=== PATIENT | male | born 1950 | race Caucasian/White ===

== ENCOUNTER → 2016-07-16 | Outpatient (CLI) | payer BC ==
[2016-07-16 12:00] LABS: INR 2.8 (<1.1); Prothrombin Time 27.1 sec (9.0-12.0)
[2016-07-16 12:08] LABS: Potassium 6.1 mmol/L (3.5-5.1)
[2016-07-16 12:26] LABS: Basophils % (A) 1 %; CH 31.6; CHCM 33.8; Eosinophils # (A) 0.3 k/uL (0-0.7); Eosinophils % (A) 4 %; HCT 35.3 % (39.0-53.0); HDW 2.57; HGB 11.7 gm/dL (13.0-17.5); Luc # (Auto) 0.22; Luc % (Auto) 3; Lymphocytes # (A) 0.6 k/uL (1.0-4.8); Lymphocytes % (A) 7 %; MCH 31.2 pg (25.0-35.0); MCHC 33.3 g/dL (31.0-37.0); MCV 93.9 fL (80.0-100.0); Mean Platelet Volume 7.7; Monocytes # (A) 0.6 k/uL (0-1.0); Monocytes % (A) 7 %; Neutrophils % (A) 80 %; RBC 3.76 m/uL (4.30-5.90); RDW 13.3 % (11.5-15.5); WBC 8.8 k/uL (3.8-10.6); WBC (Perox) 8.65
== END | disposition home or self-care (01) ==
LOC: LABWHC1 11:16
PROVIDERS: ATTEND Internal Medicine Advanced Heart Failure and Transplant Cardiology
DX: Z01.818 Encounter for other preprocedural examination (principal); I42.8 Other cardiomyopathies; I50.9 Heart failure, unspecified; I51.9 Heart disease, unspecified
CPT/HCPCS: 36415; 80048; 84132; 85025; 85610

== ENCOUNTER → 2016-09-08 | Outpatient (CLI) | payer BC ==
[2016-09-08 11:53] LABS: CH 32.5; CHCM 33.4; HCT 38.2 % (39.0-53.0); HDW 2.57; HGB 12.4 gm/dL (13.0-17.5); MCH 31.7 pg (25.0-35.0); MCHC 32.4 g/dL (31.0-37.0); MCV 97.7 fL (80.0-100.0); RBC 3.91 m/uL (4.30-5.90); RDW 13.3 % (11.5-15.5); WBC 5.9 k/uL (3.8-10.6)
[2016-09-08 11:58] LABS: Calcium 9.2 mg/dL (8.4-10.2); Magnesium 2.5 mg/dL (1.6-2.3); Phosphorous 4.5 mg/dL (2.5-4.5); Potassium 4.2 mmol/L (3.5-5.1); Uric Acid 12.7 mg/dL (3.5-8.5)
[2016-09-08 12:07] LABS: % Iron Saturation 20.1 % (20-50)
== END | disposition home or self-care (01) ==
LOC: LABWHC1 11:11
PROVIDERS: ATTEND Nurse Practitioner Family
DX: N18.4 Chronic kidney disease, stage 4 (severe) (principal); D64.9 Anemia, unspecified; M10.9 Gout, unspecified; E55.9 Vitamin D deficiency, unspecified; D50.9 Iron deficiency anemia, unspecified; N39.0 Urinary tract infection, site not specified
CPT/HCPCS: 36415; 80048; 82306; 82728; 83540; 83550; 83735; 83880; 83970; 84100; 84550; 85027

== ENCOUNTER → 2016-11-13 | Outpatient (CLI) | payer BC ==
[2016-11-13 11:33] LABS: Calcium 9.3 mg/dL (8.4-10.2); Potassium 4.4 mmol/L (3.5-5.1); Total Bilirubin 0.9 mg/dL (0.2-1.3); Total Protein 8.1 g/dL (6.3-8.2); Uric Acid 6.8 mg/dL (3.5-8.5)
[2016-11-13 11:37] LABS: CH 31.8; CHCM 34.2; HCT 36.9 % (39.0-53.0); HDW 2.61; HGB 12.9 gm/dL (13.0-17.5); MCH 32.6 pg (25.0-35.0); MCV 93.1 fL (80.0-100.0); Mean Platelet Volume 7.2; RBC 3.96 m/uL (4.30-5.90); RDW 12.6 % (11.5-15.5); WBC 6.1 k/uL (3.8-10.6)
== END | disposition home or self-care (01) ==
LOC: LABWHC1 10:20
PROVIDERS: ATTEND Nurse Practitioner Family
DX: E55.9 Vitamin D deficiency, unspecified (principal); D63.1 Anemia in chronic kidney disease; M10.9 Gout, unspecified; D50.9 Iron deficiency anemia, unspecified; N25.81 Secondary hyperparathyroidism of renal origin; N18.4 Chronic kidney disease, stage 4 (severe)
CPT/HCPCS: 36415; 80053; 82306; 82570; 82728; 83540; 83550; 83970; 84156; 84550; 85027

== ENCOUNTER → 2017-02-05 | Outpatient (CLI) | payer BC ==
[2017-02-05 12:49] LABS: CH 32.5; CHCM 33.3; HCT 38.1 % (39.0-53.0); HDW 2.71; HGB 12.6 gm/dL (13.0-17.5); MCH 32.5 pg (25.0-35.0); MCHC 33.1 g/dL (31.0-37.0); MCV 98.2 fL (80.0-100.0); Mean Platelet Volume 7.7; RBC 3.88 m/uL (4.30-5.90); RDW 13.2 % (11.5-15.5); WBC 5.9 k/uL (3.8-10.6)
[2017-02-05 13:12] LABS: Calcium 9.2 mg/dL (8.4-10.2); Potassium 4.6 mmol/L (3.5-5.1); Total Bilirubin 0.6 mg/dL (0.2-1.3); Total Protein 8.2 g/dL (6.3-8.2); Uric Acid 6.7 mg/dL (3.5-8.5)
[2017-02-05 18:48] LABS: Iron Saturation 21.74 (15.00-50.00)
== END | disposition home or self-care (01) ==
LOC: LABWHC1 12:17
PROVIDERS: ATTEND Nurse Practitioner Family
DX: N18.4 Chronic kidney disease, stage 4 (severe) (principal); D63.1 Anemia in chronic kidney disease; M10.9 Gout, unspecified; D50.9 Iron deficiency anemia, unspecified; N25.81 Secondary hyperparathyroidism of renal origin; E55.9 Vitamin D deficiency, unspecified; E79.0 Hyperuricemia without signs of inflammatory arthritis and tophaceous disease
CPT/HCPCS: 36415; 80053; 82306; 82570; 82728; 83540; 83550; 83970; 84156; 84550; 85027

== ENCOUNTER → 2017-05-07 | Outpatient (CLI) | payer BC ==
[2017-05-07 14:44] LABS: Calcium 9.5 mg/dL (8.4-10.2)
== END | disposition home or self-care (01) ==
LOC: LABWHC1 13:51
PROVIDERS: ATTEND Nurse Practitioner Family
DX: N18.4 Chronic kidney disease, stage 4 (severe) (principal)
CPT/HCPCS: 36415; 80048

== ENCOUNTER → 2017-07-29 | Outpatient (CLI) | payer BC, OTHER | END | disposition home or self-care (01) | LOC: LABWHC1 14:17 | PROVIDERS: ATTEND Nurse Practitioner Family | DX: M10.9 Gout, unspecified (principal) | CPT/HCPCS: 36415; 84550 ==

== ENCOUNTER → 2017-09-08 | Outpatient (CLI) | payer BC, OTHER ==
[2017-09-08 13:06] LABS: Appearance,Urine Clear (Clear); Bilirubin,Urine Negative (Negative); Blood,Urine Negative (Negative); Color,Urine Colorless; Glucose,Urine (UA) Negative (Negative); HCT 36.1 % (39.0-53.0); HGB 12.5 gm/dL (13.0-17.5); Ketones,Urine Negative (Negative); Leukocyte Esterase,Urine Negative (Negative); MCH 33.1 pg (25.0-35.0); MCHC 34.6 g/dL (31.0-37.0); MCV 95.7 fL (80.0-100.0); Mean Platelet Volume 7.2; Nitrite,Urine Negative (Negative); Platelet Count 291 k/uL (150-450); Protein,Urine Negative (Negative); RBC 3.78 m/uL (4.30-5.90); RDW 12.6 % (11.5-15.5); Specific Gravity,Urine 1.003 (1.001-1.035); Urobilinogen,Urine <2.0 mg/dL (<2.0); WBC 5.1 k/uL (3.8-10.6)
[2017-09-08 13:22] LABS: Albumin 4.9 g/dL (3.5-5.0); Calcium 9.4 mg/dL (8.4-10.2); Magnesium 2.3 mg/dL (1.6-2.3); Phosphorus 3.6 mg/dL (2.5-4.5); Total Bilirubin 0.7 mg/dL (0.2-1.3); Total Protein 7.8 g/dL (6.3-8.2); Uric Acid 5.4 mg/dL (3.5-8.5)
[2017-09-08 19:38] LABS: Iron Saturation 19.49 (15.00-50.00)
[2017-09-08 19:47] LABS: Vitamin D 25 Hydroxy 78.4 ng/mL (30.0-100.0)
[2017-09-08 20:01] LABS: Parathyroid Hormone Intact 99.2 pg/mL (14.0-72.0)
== END | disposition home or self-care (01) ==
LOC: LABWHC1 12:33
PROVIDERS: ATTEND Internal Medicine
DX: N18.4 Chronic kidney disease, stage 4 (severe) (principal); D64.9 Anemia, unspecified; N39.0 Urinary tract infection, site not specified; E21.3 Hyperparathyroidism, unspecified; E55.9 Vitamin D deficiency, unspecified; M10.9 Gout, unspecified
CPT/HCPCS: 36415; 80053; 81003; 82306; 82728; 83540; 83550; 83735; 83970; 84100; 84550; 85027

== ENCOUNTER 2017-10-26 09:06 | Emergency (ER) | payer MEDICARE, OTHER ==
[2017-10-26 09:12] VITALS: RESP 18
--- NOTE | 2017-10-26 09:34 | ED ---
General Adult HPI - General Chief complaint: Psychiatric Symptoms Stated complaint: Anxiety Time Seen by Provider: 10/26/17 09:17 Source: patient, RN notes reviewed Mode of arrival: ambulatory Limitations: no limitations - History of Present Illness Initial comments: Patient 67-year-old male presenting to the emergency room today with chief complaint of depression. Patient does admit that he was thrown out of his house last night. He states he has anxiety. States he has a difficult time sleeping. He was up in the middle of night looking for car keys is very anxious about trying to find them. States he woke his up who became upset with him and kicked him out of the house. States it been dealing with things over the last 6 months or so. States been following up with family doctors been trying to adjust his medications to help. He states that went to his family doctor's office opens morning he did go to and he recommended coming here in the emergency room for further evaluation. Patient admits that he's had thoughts of hurting himself. He states he would never act on them. He does give an example that he thought about jumping and awake but states he would never do it. Patient denies any other physical complaints. Patient denies any recent fever, chills, shortness of breath, chest pain, back pain, abdominal pain, nausea or vomiting, numbness or tingling, dysuria or hematuria, constipation or diarrhea, headaches or visual changes, or any other complaints. - Related Data Home Medications Medication Instructions Recorded Confirmed Pravastatin Sodium [Pravachol] 80 mg PO HS 02/03/16 10/26/17 Warfarin [Coumadin] 2.5 mg PO DIRECTED 03/31/16 10/26/17 Ezetimibe [Zetia] 10 mg PO DAILY 10/26/17 10/26/17 Furosemide [Lasix] 80 mg PO BID 10/26/17 10/26/17 Sacubitril/Valsartan [Entresto 24 1 tab PO BID 10/26/17 10/26/17 mg-26 mg Tablet] Vortioxetine Hydrobromide 10 mg PO DAILY 10/26/17 10/26/17 [Trintellix] clonazePAM [KlonoPIN] 0.5 mg PO HS 10/26/17 10/26/17 Previous Rx's Medication Instructions Recorded Carvedilol [Coreg*] 12.5 mg PO BID-W/MEALS #60 tab 03/28/16 Mirtazapine [Remeron] 15 mg PO HS #30 tab 03/28/16 Allergies Allergy/AdvReac Type Severity Reaction Status Date / Time nitroglycerin AdvReac Diarrhea Verified 10/26/17 09:12 [From Nitrostat] Review of Systems ROS Statement: Those systems with pertinent positive or pertinent negative responses have been documented in the HPI. ROS Other: All systems not noted in ROS Statement are negative. Past Medical History Past Medical History: Coronary Artery Disease (CAD), Heart Failure, CVA/TIA, GERD/Reflux, Hypertension History of Any Multi-Drug Resistant Organisms: None Reported Past Surgical History: Cardiac Valve Replacement, Coronary Bypass/CABG Past Anesthesia/Blood Transfusion Reactions: No Reported Reaction Past Psychological History: Depression Smoking Status: Never smoker Past Alcohol Use History: None Reported Past Drug Use History: None Reported - Past Family History Brother(s) Family Medical History: Coronary Artery Disease (CAD), Hyperlipidemia, Hypertension General Exam - General Exam Comments Initial Comments: General: The patient is awake and alert, in no distress, and does not appear acutely ill. Eye: Pupils are equal, round and reactive to light, extra-ocular movements are intact. No nystagmus. There is normal conjunctiva bilaterally. No signs of icterus. Ears, nose, mouth and throat: There are moist mucous membranes and no oral lesions. Neck: The neck is supple, there is no tenderness or JVD. Cardiovascular: There is a regular rate and rhythm. Mechanical valve. Respiratory: Lungs are clear to auscultation, respirations are non-labored, breath sounds are equal. No wheezes, stridor, rales, or rhonchi. Musculoskeletal: Normal ROM, no tenderness. Strength 5/5. Sensation intact. Pulses equal bilaterally 2+. Neurological: A&O x 3. CN II-XII intact, There are no obvious motor or sensory deficits. Coordination appears grossly intact. Speech is normal. Skin: Skin is warm and dry and no rashes or lesions are noted. Psychiatric: Cooperative Limitations: no limitations Course Vital Signs 10/26/17 09:09 Temperature 98.1 F Pulse Rate 86 Respiratory 18 Rate Blood Pressure 135/72 O2 Sat by Pulse 98 Oximetry Medical Decision Making - Medical Decision Making Patient was seen here in the emergency room by mental health. They recommend outpatient further follow-up. Patient checked for safety state that he has no intentions of hurting himself. Will be discharged home - Lab Data Lab Results 10/26/17 Range/Units 09:20 Urine Opiates Screen Not Detected (NotDetected) Ur Oxycodone Screen Not Detected (NotDetected) Urine Methadone Screen Not Detected (NotDetected) Ur Propoxyphene Screen Not Detected (NotDetected) Ur Barbiturates Screen Not Detected (NotDetected) U Tricyclic Antidepress Not Detected (NotDetected) Ur Phencyclidine Scrn Not Detected (NotDetected) Ur Amphetamines Screen Not Detected (NotDetected) U Methamphetamines Scrn Not Detected (NotDetected) U Benzodiazepines Scrn Not Detected (NotDetected) Urine Cocaine Screen Not Detected (NotDetected) U Marijuana (THC) Screen Not Detected (NotDetected) Disposition Clinical Impression: Anxiety Disposition: HOME SELF-CARE Condition: Good Instructions: Anxiety (ED) Additional Instructions: Please follow up with community mental health. Please return to emergency room if the symptoms increase or worsen or for any other concerns. Is patient prescribed a controlled substance at d/c from ED?: No Referrals: Brando Gray MD [Primary Care Provider] - 1-2 days Time of Disposition: 12:49
[2017-10-26 10:06] LABS: Amphetamine Screen,Urine Not Detected (NotDetected); Barbiturate Screen,Urine Not Detected (NotDetected); Benzodiazepines Screen,Urine Not Detected (NotDetected); Cocaine Screen,Urine Not Detected (NotDetected); Methadone Screen, Urine Not Detected (NotDetected); Opiate Screen,Urine Not Detected (NotDetected); Oxycodone Screen, Urine Not Detected (NotDetected); Phencyclidine Screen,Urine Not Detected (NotDetected); Tricyclic Antidepressant,Urine Not Detected (NotDetected); Urn Cannabinoid Scrn Not Detected (NotDetected)
[2017-10-26 13:08] VITALS: BP 138/83; PULSE 82; TEMP 97.1
== END 2017-10-26 13:08 | disposition home or self-care (01) ==
LOC: EC 09:06
DX: F41.9 Anxiety disorder, unspecified (principal); F32.9 Major depressive disorder, single episode, unspecified; R45.851 Suicidal ideations; I11.0 Hypertensive heart disease with heart failure; I50.9 Heart failure, unspecified; I25.10 Atherosclerotic heart disease of native coronary artery without angina pectoris; Z79.01 Long term (current) use of anticoagulants; Z79.899 Other long term (current) drug therapy; Z88.8 Allergy status to other drugs, medicaments and biological substances; Z86.73 Personal history of transient ischemic attack (TIA), and cerebral infarction without residual deficits
CPT/HCPCS: 80306; 82075; 99284

== ENCOUNTER → 2018-02-04 | Outpatient (CLI) | payer MEDICARE ==
[2018-02-04 18:03] LABS: Albumin 4.5 g/dL (3.5-5.0); Calcium 9.6 mg/dL (8.4-10.2); Magnesium 2.2 mg/dL (1.6-2.3); Phosphorus 3.7 mg/dL (2.5-4.5); Potassium 3.9 mmol/L (3.5-5.1); Total Protein 7.4 g/dL (6.3-8.2); Uric Acid 11.8 mg/dL (3.5-8.5)
[2018-02-04 18:06] LABS: HGB 11.7 gm/dL (13.0-17.5); MCH 31.8 pg (25.0-35.0); MCHC 32.4 g/dL (31.0-37.0); Mean Platelet Volume 7.6; Platelet Count 198 k/uL (150-450); RBC 3.68 m/uL (4.30-5.90); RDW 12.8 % (11.5-15.5); WBC 4.5 k/uL (3.8-10.6)
[2018-02-05 02:34] LABS: Parathyroid Hormone Intact 63.7 pg/mL (14.0-72.0)
[2018-02-05 03:06] LABS: Iron Saturation 26.89 (15.00-50.00)
== END | disposition home or self-care (01) ==
LOC: LABWHC1 15:14
PROVIDERS: ATTEND Nurse Practitioner Family
DX: E55.9 Vitamin D deficiency, unspecified (principal); N18.4 Chronic kidney disease, stage 4 (severe); D63.1 Anemia in chronic kidney disease; N39.0 Urinary tract infection, site not specified; E21.3 Hyperparathyroidism, unspecified; M10.9 Gout, unspecified
CPT/HCPCS: 36415; 80053; 82306; 82728; 83540; 83550; 83735; 83970; 84100; 84550; 85027

== ENCOUNTER → 2018-02-05 | Outpatient (CLI) | payer MEDICARE ==
--- NOTE | 2018-02-05 20:15 | CT ---
EXAMINATION TYPE: CT brain wo con DATE OF EXAM: 02/05/2018 COMPARISON: None HISTORY: Personal history of TIA CT DLP: 1121 mGycm Automated exposure control for dose reduction was used. FINDINGS: There is 3 cm area of hypodensity in the right occipital lobe cortex consistent with old infarct. Vu tricles have normal size. There is no midline shift. There is no sign of intracranial hemorrhage. Cecilia la turcica appears normal. Calvarium is intact. IMPRESSION: OLD RIGHT OCCIPITAL LOBE INFARCT. NO ACUTE INTRACRANIAL ABNORMALITY.
== END | disposition home or self-care (01) ==
LOC: RADCTMAIN 17:48
PROVIDERS: ATTEND Family Medicine
DX: Z09 Encounter for follow-up examination after completed treatment for conditions other than malignant neoplasm (principal); Z86.73 Personal history of transient ischemic attack (TIA), and cerebral infarction without residual deficits
CPT/HCPCS: 70450

== ENCOUNTER 2018-02-10 12:06 | Observation (INO) | payer MEDICARE ==
[2018-02-10] MEDS ORDERED: SODIUM CHLORIDE 0.9% 1,000 ML IV STA (12:37)
--- NOTE | 2018-02-10 12:37 | ED ---
General Adult HPI - General Chief complaint: Psychiatric Symptoms Stated complaint: SUICIDAL Time Seen by Provider: 02/10/18 12:19 Source: patient, family, RN notes reviewed, old records reviewed Mode of arrival: ambulatory - History of Present Illness Initial comments: 67-year-old male significant past medical history for psychosis, depression, presented to the emergency room today with having suicidal thoughts and increased depression. He states that he's not been taking his medications past 3 days. She has been taking his warfarin. Does have a history of open-heart surgery and mechanical mitral valve. Patient states that over the last several months she's noticed that it become more depressed and feels the overwhelmed with lots of things going on at home. States lots little things seem to be breaking. He states is more depressed with the weather change going to want her months. He states there is increased anxiety with family issues. Patient family at bedside stating that this is been an ongoing issues but does seem to be worse here over the last few weeks. Patient has made Gen. comments about hurting himself. He states that this is just talk. Does admit that his only true thought processes nose is not taking his medications. He denies thoughts of hurting rales. He denies any other physical complaints. Patient denies any recent fever, shortness of breath, chest pain, back pain, abdominal pain, nausea or vomiting, numbness or tingling, headaches or visual changes, or any other complaints. - Related Data Home Medications Medication Instructions Recorded Confirmed Pravastatin Sodium [Pravachol] 80 mg PO QAM 02/03/16 02/10/18 Warfarin [Coumadin] 2.5 mg PO SUMOTUTHFR 03/31/16 02/10/18 Furosemide [Lasix] 80 mg PO QAM 10/26/17 02/10/18 Sacubitril/Valsartan [Entresto 24 1 tab PO BID 10/26/17 02/10/18 mg-26 mg Tablet] Calcitriol 0.25 mcg PO TUTHSA 02/10/18 02/10/18 Ergocalciferol (Vitamin D2) 50,000 unit PO QMONTH 02/10/18 02/10/18 [Vitamin D2] Mirtazapine [Remeron] 45 mg PO HS 02/10/18 02/10/18 Warfarin Sodium 1.25 mg PO WE 02/10/18 02/10/18 busPIRone HCL 15 mg PO TID 02/10/18 02/10/18 lamoTRIgine [LaMICtal] 25 mg PO HS 02/10/18 02/10/18 Previous Rx's Medication Instructions Recorded Carvedilol [Coreg*] 12.5 mg PO BID-W/MEALS #60 tab 03/28/16 Allergies Allergy/AdvReac Type Severity Reaction Status Date / Time nitroglycerin AdvReac Diarrhea Verified 02/10/18 15:45 [From Nitrostat] Review of Systems ROS Statement: Those systems with pertinent positive or pertinent negative responses have been documented in the HPI. ROS Other: All systems not noted in ROS Statement are negative. Past Medical History Past Medical History: Coronary Artery Disease (CAD), Heart Failure, CVA/TIA, GERD/Reflux, Hypertension Additional Past Medical History / Comment(s): multiple psychological issues History of Any Multi-Drug Resistant Organisms: None Reported Past Surgical History: Cardiac Valve Replacement, Coronary Bypass/CABG Past Anesthesia/Blood Transfusion Reactions: No Reported Reaction Past Psychological History: ADD/ADHD, Anxiety, Depression, PTSD Smoking Status: Never smoker Past Alcohol Use History: None Reported Past Drug Use History: None Reported - Past Family History Brother(s) Family Medical History: Coronary Artery Disease (CAD), Hyperlipidemia, Hypertension General Exam - General Exam Comments Initial Comments: General: The patient is awake and alert, in no distress, and does not appear acutely ill. Eye: Pupils are equal, round and reactive to light. Extra-ocular movements are intact. No nystagmus. There is normal conjunctiva bilaterally. No signs of icterus. Ears, nose, mouth and throat: There are moist mucous membranes and no oral lesions. Neck: The neck is supple, there is no tenderness or JVD. Cardiovascular: There is a regular rate and rhythm. No murmur, rub or gallop is appreciated. Respiratory: Lungs are clear to auscultation, respirations are non-labored, breath sounds are equal. No wheezes, stridor, rales, or rhonchi. Musculoskeletal: Normal ROM, no tenderness. Sensation intact. Neurological: A&O x 3. CN II-XII intact, There are no obvious motor or sensory deficits. Coordination appears grossly intact. Speech is normal. Skin: Skin is warm and dry and no rashes or lesions are noted. Psychiatric: Cooperative. Course Vital Signs 02/10/18 02/10/18 12:12 15:07 Temperature 98.3 F 98.0 F Pulse Rate 77 69 Respiratory 18 18 Rate Blood Pressure 90/56 107/56 O2 Sat by Pulse 100 98 Oximetry EKG Findings - EKG Comments: EKG Findings:: EKG performed at 1316: Shows a sinus rhythm with occasional PVCs at 69 bpm. MS interval 146. QRS 118. QT/QTc is 422/452. No acute ST changes Medical Decision Making - Medical Decision Making Patient reexamined at this time. No signs of distress. He was evaluated by mental health here in the emergency room and he recommended the patient may be discharged home to follow up outpatient. Patient denies any thoughts of hurting himself at this time is states is not wanting his medications he does have an appointment tomorrow. Patient's labs been reviewed. Does show elevated kidney function which is similar to previous. Patient's INR is therapeutic at 2.4. Patient's family was not at bedside when he was evaluated by mental health. After they returned here to the hospital. They're refusing that patient should not be allowed to go home. They're here feel that he may hurt himself or others. Patient denies any thoughts suicide at this time. They have talked to the PCP. He is willing to admit for suicide precautions and watch. Patient will be admitted to the hospital with consult to psychiatry. - Lab Data Result diagrams: 02/10/18 13:05 02/10/18 13:05 Lab Results 02/10/18 02/10/18 02/10/18 Range/Units 13:05 13:05 13:05 WBC 3.8 (3.8-10.6) k/uL RBC 3.67 L (4.30-5.90) m/uL Hgb 11.6 L (13.0-17.5) gm/dL Hct 34.5 L (39.0-53.0) % MCV 94.0 (80.0-100.0) fL MCH 31.7 (25.0-35.0) pg MCHC 33.7 (31.0-37.0) g/dL RDW 12.6 (11.5-15.5) % Plt Count 193 (150-450) k/uL Neutrophils % 68 % Lymphocytes % 16 % Monocytes % 8 % Eosinophils % 4 % Basophils % 1 % Neutrophils # 2.6 (1.3-7.7) k/uL Lymphocytes # 0.6 L (1.0-4.8) k/uL Monocytes # 0.3 (0-1.0) k/uL Eosinophils # 0.2 (0-0.7) k/uL Basophils # 0.0 (0-0.2) k/uL PT 21.8 H (9.0-12.0) sec INR 2.4 H (<1.2) APTT 31.3 H (22.0-30.0) sec Sodium 141 (137-145) mmol/L Potassium 3.6 (3.5-5.1) mmol/L Chloride 101 (98-107) mmol/L Carbon Dioxide 32 H (22-30) mmol/L Anion Gap 8 mmol/L BUN 39 H (9-20) mg/dL Creatinine 1.97 H (0.66-1.25) mg/dL Est GFR (CKD-EPI)AfAm 40 (>60 ml/min/1.73 sqM) Est GFR (CKD-EPI)NonAf 35 (>60 ml/min/1.73 sqM) Glucose 114 H (74-99) mg/dL Calcium 9.2 (8.4-10.2) mg/dL Total Bilirubin 0.7 (0.2-1.3) mg/dL AST 25 (17-59) U/L ALT 21 (21-72) U/L Alkaline Phosphatase 43 (38-126) U/L Total Protein 6.8 (6.3-8.2) g/dL Albumin 4.1 (3.5-5.0) g/dL Disposition Clinical Impression: Depression Disposition: ADMITTED IP TO THIS HOSP Condition: Good Instructions: Depression (ED) Additional Instructions: Please follow-up with your scheduled appointment tomorrow. Please return here to the emergency room for any symptoms increase worsen or for any other concerns. Is patient prescribed a controlled substance at d/c from ED?: No Referrals: Brando Gray MD [Primary Care Provider] - 1-2 days Time of Disposition: 15:06
[2018-02-10 13:20] LABS: Basophils % (A) 1 %; Eosinophils # (A) 0.2 k/uL (0-0.7); Eosinophils % (A) 4 %; HCT 34.5 % (39.0-53.0); HGB 11.6 gm/dL (13.0-17.5); Lymphocytes # (A) 0.6 k/uL (1.0-4.8); Lymphocytes % (A) 16 %; MCH 31.7 pg (25.0-35.0); MCHC 33.7 g/dL (31.0-37.0); Mean Platelet Volume 7.9; Monocytes # (A) 0.3 k/uL (0-1.0); Monocytes % (A) 8 %; Neutrophils # (A) 2.6 k/uL (1.3-7.7); Neutrophils % (A) 68 %; Platelet Count 193 k/uL (150-450); RBC 3.67 m/uL (4.30-5.90); RDW 12.6 % (11.5-15.5); WBC 3.8 k/uL (3.8-10.6)
[2018-02-10 13:32] LABS: INR 2.4 (<1.2); Partial Thromboplastin Time 31.3 sec (22.0-30.0); Prothrombin Time 21.8 sec (9.0-12.0)
[2018-02-10 13:34] LABS: Albumin 4.1 g/dL (3.5-5.0); Calcium 9.2 mg/dL (8.4-10.2); Potassium 3.6 mmol/L (3.5-5.1); Total Bilirubin 0.7 mg/dL (0.2-1.3); Total Protein 6.8 g/dL (6.3-8.2)
[2018-02-10] MEDS ORDERED: NALOXONE 0.4 MG/ML 1 ML VIAL IV PRN (16:37)
[2018-02-10] MEDS ORDERED: WARFARIN 2.5 MG TAB PO SCH (21:00)
[2018-02-10] MEDS ORDERED: WARFARIN 1.25 MG TAB PO SCH (21:15)
[2018-02-10] MEDS: CARVEDILOL 12.5 MG TAB PO SCH (22:56)
[2018-02-10] MEDS: MIRTAZAPINE 45 MG TABLET PO SCH (22:57)
[2018-02-10] MEDS: lamoTRIgine 25 MG TAB PO SCH (22:57)
[2018-02-10] MEDS: busPIRone HCl 5 MG TAB PO SCH (22:58)
[2018-02-10] MEDS: SACUBITRIL/VALSARTAN 24 MG-26 MG TABLET PO SCH (22:58)
[2018-02-11] MEDS: FUROSEMIDE 80 MG TAB PO SCH (08:35)
[2018-02-11] MEDS: busPIRone HCl 5 MG TAB PO SCH ×3 (08:35→22:16)
[2018-02-11] MEDS: PRAVASTATIN SODIUM 80 MG TAB PO SCH (08:35)
[2018-02-11] MEDS: CARVEDILOL 12.5 MG TAB PO SCH ×2 (08:35→16:45)
[2018-02-11] MEDS: SACUBITRIL/VALSARTAN 24 MG-26 MG TABLET PO SCH ×2 (08:35→22:15)
[2018-02-11] MEDS ORDERED: CALCITRIOL 0.25 MCG CAP PO SCH (12:00)
[2018-02-11] MEDS ORDERED: WARFARIN 2.5 MG TAB PO SCH (18:00)
[2018-02-11] MEDS: lamoTRIgine 25 MG TAB PO SCH (22:14)
[2018-02-11] MEDS: MIRTAZAPINE 45 MG TABLET PO SCH (22:15)
[2018-02-12 06:35] VITALS: RESP 15; TEMP 97.1
[2018-02-12] MEDS: busPIRone HCl 5 MG TAB PO SCH (08:23)
[2018-02-12] MEDS: SACUBITRIL/VALSARTAN 24 MG-26 MG TABLET PO SCH (08:23)
[2018-02-12] MEDS: CARVEDILOL 12.5 MG TAB PO SCH (08:24)
[2018-02-12] MEDS: PRAVASTATIN SODIUM 80 MG TAB PO SCH (08:24)
[2018-02-12] MEDS: FUROSEMIDE 80 MG TAB PO SCH (08:24)
[2018-02-12 10:07] VITALS: BP 82/60; PULSE 75
--- NOTE | 2018-02-12 12:50 | HP ---
HISTORY AND PHYSICAL DATE OF SERVICE: 02/11/2018 CHIEF COMPLAINT: A 67-year-old white male came in with severe depression, not eating, not drinking, not taking his medicines for systolic heart failure. He has severe systolic heart failure and arrhythmia trouble. He has been having suicidal thoughts daily. His is afraid to keep him at home due to a suicide risk and severe depression and he has stopped taking all his medicines due to severe depression. He is overwhelmed with life, unable to think straight or he has some delusions about his medications and his thought process is totally off to the fact that he is refusing to eat or drink or take medicines. HOME MEDICINES INCLUDE:: 1. Pravachol 80 mg daily. 2. Lasix 80 mg daily. 3. Entresto 24/25 one b.i.d. 4. Warfarin 1.25 mg once daily. 5. Remeron 45 q.h.s. 6. BuSpar 15 t.i.d. 7. Lamictal 25 daily. ALLERGIES: No known drug allergies. 14 POINT REVIEW OF SYSTEMS: Negative except for as mentioned in HPI. He has some shortness of breath with congestive heart failure. His brother has hypertension, coronary artery disease, dyslipidemia. PHYSICAL EXAM: Temp 98.3, pulse 69.7, respiratory 16 to 18, blood pressure is 90s to 100/50s to 70s, O2 is 98%-100% on room air. NEUROLOGIC: Alert and oriented x3. Cranial nerves intact. HEART: S1, S2. LUNGS: Rales at the bases. ENT: External appearance of nose and ear canals within normal limits. NECK: Supple. No mass. PSYCH: Fair mood and affect. EKG sinus rhythm. ASSESSMENT: 1. History of bipolar and severe depression with suicidal ideations. 2. Malnutrition, weight loss secondary to depression and lack of food intake, malnutrition. 3. He states he is suicidal at this time and he needs inpatient psychiatric care and family counseling with his . I am going to keep him until Psych clears him and possibly transfer him to [facility] which is where he needs to go.. MMPRAVEEN / SALOMEN: [id number] /
--- NOTE | 2018-02-12 13:29 | P.CN ---
Psychiatric Consult - . Consult date: 02/12/18 Consult:: 02/12/18 13:22 Depression and suicidal thoughts Assessment and Plan Assessment: Consult: Depression and suicidal statements Chief complaint: Psychiatric Symptoms Stated complaint: SUICIDAL Time Seen by Provider: 02/10/18 12:19 Source: patient, family, RN notes reviewed, old records reviewed Mode of arrival: ambulatory - History of Present Illness Initial comments: 67-year-old male significant past medical history for psychosis, depression, presented to the emergency room today with having suicidal thoughts and increased depression. He states that he's not been taking his medications past 3 days. She has been taking his warfarin. Does have a history of open-heart surgery and mechanical mitral valve. Patient states that over the last several months she's noticed that it become more depressed and feels the overwhelmed with lots of things going on at home. States lots little things seem to be breaking. He states is more depressed with the weather change going to want her months. He states there is increased anxiety with family issues. Patient family at bedside stating that this is been an ongoing issues but does seem to be worse here over the last few weeks. Patient has made Gen. comments about hurting himself. He states that this is just talk Past Medical History Past Medical History: Coronary Artery Disease (CAD), Heart Failure, CVA/TIA, GERD/Reflux, Hypertension Additional Past Medical History / Comment(s): multiple psychological issues History of Any Multi-Drug Resistant Organisms: None Reported Past Surgical History: Cardiac Valve Replacement, Coronary Bypass/CABG Past Anesthesia/Blood Transfusion Reactions: No Reported Reaction Past Psychological History: ADD/ADHD, Anxiety, Depression, PTSD Smoking Status: Never smoker Past Alcohol Use History: None Reported Past Drug Use History: None Reported Mental status examination: The patient presents alert, pleasant, and cooperative. There calmly seated without any agitated behavior. [He] reports that [his] mood is good. Affect is congruent and euthymic. [E] deny having any suicidal or homicidal ideation intent or plan. [He] denies any auditory or visual hallucinations. There is no evidence of any delusional thought content. [He] thought process is linear and goal-directed. [His] speech is fluent and nonpressured. [His] memory and concentration is grossly intact for the purposes of this session. DSM-V diagnoses: Major depressive disorder severe and in remission Recommendation: Continue his current psychiatric medications and discharge when medically stable (1) Depression Current Visit: Yes Status: Acute Priority: Low Code(s): F32.9 - MAJOR DEPRESSIVE DISORDER, SINGLE EPISODE, UNSPECIFIED SNOMED Code(s): 32191365 Plan: Pravastatin Sodium [Pravachol] 80 mg PO QAM 02/03/16 02/10/18 Warfarin [Coumadin] 2.5 mg PO SUMOTUTHFR 03/31/16 02/10/18 Furosemide [Lasix] 80 mg PO QAM 10/26/17 02/10/18 Sacubitril/Valsartan [Entresto 24 1 tab PO BID 10/26/17 02/10/18 mg-26 mg Tablet] Calcitriol 0.25 mcg PO TUTHSA 02/10/18 02/10/18 Ergocalciferol (Vitamin D2) 50,000 unit PO QMONTH 02/10/18 02/10/18 [Vitamin D2] Mirtazapine [Remeron] 45 mg PO HS 02/10/18 02/10/18 Warfarin Sodium 1.25 mg PO WE 02/10/18 02/10/18 busPIRone HCL 15 mg PO TID 02/10/18 02/10/18 lamoTRIgine [LaMICtal] 25 mg PO HS 02/10/18 02/10/18 Discharge plan: This is 67-year-old male with stable today and should be discharged when medically stable on his psychiatric on medications listed above such as Remeron BuSpar Lamictal. Thank you for the consult Beny Mcmahon DO PhD attending psychiatrist Rebecca Alvares
[2018-02-15] MEDS ORDERED: ERGOCALCIFEROL 50,000 UNIT CAP PO SCH (12:00)
== END 2018-02-12 14:49 ==
LOC: EC 12:06 → 4MS4W 17:11
PROVIDERS: ADMIT Family Medicine; ATTEND Family Medicine
DX: F31.4 Bipolar disorder, current episode depressed, severe, without psychotic features (principal); R45.851 Suicidal ideations; R94.4 Abnormal results of kidney function studies; E46 Unspecified protein-calorie malnutrition; I11.0 Hypertensive heart disease with heart failure; I50.20 Unspecified systolic (congestive) heart failure; I25.10 Atherosclerotic heart disease of native coronary artery without angina pectoris; Z63.79 Other stressful life events affecting family and household; F90.9 Attention-deficit hyperactivity disorder, unspecified type; F43.10 Post-traumatic stress disorder, unspecified; F41.9 Anxiety disorder, unspecified; K21.9 Gastro-esophageal reflux disease without esophagitis; Z79.01 Long term (current) use of anticoagulants; Z79.899 Other long term (current) drug therapy; Z88.8 Allergy status to other drugs, medicaments and biological substances; Z95.2 Presence of prosthetic heart valve; Z95.1 Presence of aortocoronary bypass graft; Z86.73 Personal history of transient ischemic attack (TIA), and cerebral infarction without residual deficits; Z82.49 Family history of ischemic heart disease and other diseases of the circulatory system; Z83.49 Family history of other endocrine, nutritional and metabolic diseases
CPT/HCPCS: 82075; 96360; 99285; 36415; 93005; 80053; 85025; 85610; 85730; G0378 ×3

== ENCOUNTER 2018-03-09 14:19 | Inpatient (IN) | payer MEDICARE ==
--- NOTE | 2018-03-09 17:37 | CT ---
EXAMINATION TYPE: CT brain wo con DATE OF EXAM: 03/09/2018 HISTORY: Altered mental status. CT DLP: 1046.7 mGycm. Automated Exposure Control for Dose Reduction was Utilized. TECHNIQUE: CT scan of the head is performed without contrast. COMPARISON: CT brain February 05, 2018. FINDINGS: There is no acute intracranial hemorrhage or midline shift identified. There is diffuse v entricular and sulcal prominence consistent with diffuse age-related cerebral atrophy. There is low- attenuation in the periventricular white matter consistent with chronic small vessel ischemic change. There is old infarct right parietal occipital region axial image 32 redemonstrated. Bilateral basal ganglia calcifications are present. The globes are intact and the visualized sinuses are clear. IMPRESSION: No acute intracranial hemorrhage or midline shift. There is mild to moderate diffuse ag e-related cerebral atrophy and chronic small vessel ischemic change as well as old infarct right adonis etal occipital region all redemonstrated. No significant change from prior CT.
[2018-03-09 17:57] LABS: Basophils % (A) 1 %; Eosinophils # (A) 0.1 k/uL (0-0.7); Eosinophils % (A) 3 %; HCT 35.2 % (39.0-53.0); Lymphocytes # (A) 0.7 k/uL (1.0-4.8); Lymphocytes % (A) 17 %; MCH 32.7 pg (25.0-35.0); MCHC 34.2 g/dL (31.0-37.0); MCV 95.7 fL (80.0-100.0); Mean Platelet Volume 7.5; Monocytes # (A) 0.3 k/uL (0-1.0); Monocytes % (A) 7 %; Neutrophils # (A) 2.7 k/uL (1.3-7.7); Neutrophils % (A) 70 %; Platelet Count 214 k/uL (150-450); RBC 3.68 m/uL (4.30-5.90); RDW 12.7 % (11.5-15.5); WBC 3.9 k/uL (3.8-10.6)
[2018-03-09 18:13] LABS: Albumin 4.7 g/dL (3.5-5.0); Calcium 10.3 mg/dL (8.4-10.2); Potassium 4.4 mmol/L (3.5-5.1); Total Bilirubin 1.1 mg/dL (0.2-1.3); Total Protein 7.5 g/dL (6.3-8.2)
[2018-03-09] MEDS: SODIUM CHLORIDE 0.9% 1,000 ML IV SCH (21:00)
--- NOTE | 2018-03-09 21:45 | P.CNNES ---
History of Present Illness Consult date: 03/09/18 History of Present Illness: The patient is a 67-year-old right-handed white male who states that he's been depressed for the past 1 year. He states he's had a lot of stress at home. He states he's not been eating any's had an weight loss. He's been doing less including walking eating dressing getting out of the house. Patient was recently hospitalized at [facility] on February 10 with depression and suicidal thoughts. The patient has a history of psychosis depression and PTSD OCD all diagnosed this year at [facility]. His reports that his depression began this year and the month of July. She states he's had a 60 pound weight loss in a matter of 6 months area did he had some outpatient therapy it's a [facility] during the summer months of October to December. She states that he cannot take care of himself at all anymore because of he does doesn't do anything. She reports that he was prescribed a medication on his last admission which was very expensive and they could not afford it. Also she reports that the medications that he was on including Lamictal BuSpar and Remeron he stopped taking within 3 days of being discharged from the hospital 1 month ago. The patient has no particular neurologic complaints. He denies any headache dizziness focal weakness numbness or visual changes. He has a history of stroke in 2014 during this cardiac catheterization procedure. This affected his vision which improved. 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 The patient's states he's been fine up until July 2017. She states he suddenly became very depressed. She states there is no stress at home. The patient however states that there is a lot of stress in his home life for the past 1 year. Review of Systems Constitutional: Denies chills, Denies fever Eyes: denies blurred vision, denies pain Ears, nose, mouth and throat: Denies headache, Denies sore throat Cardiovascular: Denies chest pain, Denies shortness of breath Respiratory: Reports as per HPI Musculoskeletal: Denies myalgias Neurological: Denies numbness, Denies weakness Past Medical History Past Medical History: Coronary Artery Disease (CAD), Heart Failure, CVA/TIA, GERD/Reflux, Hyperlipidemia, Hypertension, Memory Impairment, Myocardial Infarction ([place]), Renal Disease Additional Past Medical History / Comment(s): per pt's pt has anxiety/ depression,ptsd,obsessive compulsive disorder and no appetite-lost 50# in past 6 months , past cva some mild residual memory problems, cardiomyopathy, hx of mitral valve disease(repalcement done)constipation, pt stated has had a pne vaccine in past not sure of date, 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 Last Myocardial Infarction Date:: unk History of Any Multi-Drug Resistant Organisms: None Reported Past Surgical History: AICD, Cardiac Valve Replacement, Coronary Bypass/CABG, Tonsillectomy Additional Past Surgical History / Comment(s): several thoracentesis, cabg 1999, mitral valve repalcement and bypass graft redo in [place], colonoscopy/ polypectomy-[facility] Past Anesthesia/Blood Transfusion Reactions: No Reported Reaction Type of Cardiac Device: AICD Device Placement Date:: 03-31-16 Smoking Status: Never smoker - Past Family History Brother(s) Family Medical History: Coronary Artery Disease (CAD), Hyperlipidemia, Hypertension Mother Family Medical History: Dementia, Hypertension Additional Family Medical History / Comment(s): mom is age 92 lives in [facility] Father Family Medical History: Cancer Additional Family Medical History / Comment(s): from melanoma cancer Medications and Allergies Home Medications Medication Instructions Recorded Confirmed Type Carvedilol [Coreg*] 12.5 mg PO BID-W/MEALS #60 tab 03/28/16 03/09/18 Rx Warfarin [Coumadin] 2.5 mg PO SUMOTUTHFR 03/31/16 03/09/18 History Furosemide [Lasix] 80 mg PO DAILY@0900 10/26/17 03/09/18 History Calcitriol 0.25 mcg PO TUTHSA 02/10/18 03/09/18 History Ergocalciferol (Vitamin D2) 50,000 unit PO Q30D 02/10/18 03/09/18 History [Vitamin D2] Warfarin Sodium 1.25 mg PO WE 02/10/18 03/09/18 History Pravastatin Sodium [Pravachol] 80 mg PO DAILY@0900 03/09/18 03/09/18 History Sacubitril/Valsartan [Entresto 49 1 tab PO BID@0900,2100 03/09/18 03/09/18 History mg-51 mg Tablet] Allergies Allergy/AdvReac Type Severity Reaction Status Date / Time nitroglycerin AdvReac headache/na Verified 03/09/18 19:19 [From Nitrostat] usea Physical Examination - Vital Signs Vital Signs: Vital Signs Temp Pulse Resp BP Pulse Ox 03/09/18 21:00 97.3 F L 77 18 89/59 97 03/09/18 17:00 98.7 F 76 18 112/76 97 Intake and Output 03/09/18 03/09/18 03/09/18 06:59 14:59 22:59 Other: Weight 53 kg - Constitutional General appearance: thin - EENT EENT: PERRL, hearing intact, vision intact - Respiratory Respiratory: lungs clear - Cardiovascular Cardiovascular: regular rate, normal S1, normal S2 - Neurologic Neurologic examination: Mental status: He was awake, alert oriented to person place and time he was a with able to do serial subtractions and additions was no a aphasia or dysarthria mood was anxious and depressed Cranial nerves II through XII: Grossly intact next Motor examination: 5 out of 5 throughout next Sensory examination: Intact to light touch X Deep tendon reflexes 1+ and symmetric next Gait: Not tested Results - Laboratory Findings CBC and BMP: 03/09/18 17:45 03/09/18 17:45 Abnormal Lab Findings: Abnormal Labs 03/09/18 03/09/18 17:45 17:45 RBC 3.68 L Hgb 12.0 L Hct 35.2 L Lymphocytes # 0.7 L BUN 78 H Creatinine 2.72 H Calcium 10.3 H Assessment and Plan (1) Major depressive disorder Current Visit: Yes Status: Acute SNOMED Code(s): 136787621 (2) History of stroke Current Visit: Yes Status: Chronic SNOMED Code(s): 266045187 Plan: The patient is a 67-year-old man with history of depression with a past psychiatric history of bipolar disorder PTSD ADD and general anxiety disorder. The patient presents with severe depression and anxiety. She does not functioning appropriately at home. According to his he is no longer eating dressing or doing much of anything at home. is not taking his medications. Patient denies any suicidal ideations. He has no neurologic complaints. He has had a CAT scan of the brain which showed old right parietal occipital infarct. Recommendpsychiatry evaluation.
[2018-03-10] MEDS: SODIUM CHLORIDE 0.9% 1,000 ML IV SCH ×3 (05:00→21:11)
[2018-03-10 10:57] VITALS: BMI 20.7
[2018-03-10] MEDS: SACUBITRIL/VALSARTAN 49 MG-51 MG TABLET PO SCH ×2 (12:01→21:04)
[2018-03-10 12:02] LABS: INR 2.8 (<1.2); Prothrombin Time 25.4 sec (9.0-12.0)
--- NOTE | 2018-03-10 12:37 | P.CN ---
Psychiatric Consult - . Consult date: 03/10/18 Consult:: 03/10/18 10:37 Severe depression and anxiety Assessment and Plan Assessment: History of Present Illness: The patient is a 67-year-old right-handed white male who states that he's been depressed for the past 1 year. He states he's had a lot of stress at home. He states he's not been eating any's had an weight loss. He's been doing less including walking eating dressing getting out of the house. Patient was recently hospitalized at [facility] on February 10 with depression and suicidal thoughts. The patient has a history of psychosis depression and PTSD OCD all diagnosed this year at [facility]. His reports that his depression began this year and the month of July. She states he's had a 60 pound weight loss in a matter of 6 months area did he had some outpatient therapy it's a [facility] during the summer months of October to December. She states that he cannot take care of himself at all anymore because of he does doesn't do anything. She reports that he was prescribed a medication on his last admission which was very expensive and they could not afford it. Also she reports that the medications that he was on including Lamictal BuSpar and Remeron he stopped taking within 3 days of being discharged from the hospital 1 month ago. The patient has no particular neurologic complaints. He denies any headache dizziness focal weakness numbness or visual changes. He has a history of stroke in 2014 during this cardiac catheterization procedure. This affected his vision which improved. 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 The patient's states he's been fine up until July 2017. She states he suddenly became very depressed. She states there is no stress at home. The patient however states that there is a lot of stress in his home life for the past 1 year. 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 Last Myocardial Infarction Date:: unk History of Any Multi-Drug Resistant Organisms: None Reported Past Surgical History: AICD, Cardiac Valve Replacement, Coronary Bypass/CABG, Tonsillectomy Additional Past Surgical History / Comment(s): several thoracentesis, cabg 1999, mitral valve repalcement and bypass graft redo in [place], colonoscopy/ [facility]pectomy-[facility] Past Anesthesia/Blood Transfusion Reactions: No Reported Reaction Type of Cardiac Device: AICD Device Placement Date:: 03-31-16 Smoking Status: Never smoker - Past Family History Brother(s) Family Medical History: Coronary Artery Disease (CAD), Hyperlipidemia, Hypertension Mother Family Medical History: Dementia, Hypertension Additional Family Medical History / Comment(s): mom is age 92 lives in [facility] Father Family Medical History: Cancer Additional Family Medical History / Comment(s): from melanoma cancer Home Medications Medication Instructions Recorded Confirmed Type Carvedilol [Coreg*] 12.5 mg PO BID-W/MEALS #60 tab 03/28/16 03/09/18 Rx Warfarin [Coumadin] 2.5 mg PO SUMOTUTHFR 03/31/16 03/09/18 History Furosemide [Lasix] 80 mg PO DAILY@0900 10/26/17 03/09/18 History Calcitriol 0.25 mcg PO TUTHSA 02/10/18 03/09/18 History Ergocalciferol (Vitamin D2) 50,000 unit PO Q30D 02/10/18 03/09/18 History [Vitamin D2] Warfarin Sodium 1.25 mg PO WE 02/10/18 03/09/18 History Pravastatin Sodium [Pravachol] 80 mg PO DAILY@0900 03/09/18 03/09/18 History Sacubitril/Valsartan [Entresto 49 1 tab PO BID@0900,2100 03/09/18 03/09/18 History mg-51 mg Tablet] Allergies Allergy/AdvReac Type Severity Reaction Status Date / Time nitroglycerin AdvReac headache/na Verified 03/09/18 19:19 [From Nitrostat] usea Mental Status Examination - this is a 67-year-old male looks older than his stated age with flat affect and admits to depression and anxiety and has difficulty making any decisions. He was seen previously after intoxication and had gone to [facility] for treatment and left and came to our hospital for evaluation of altered mental status. Neurology has seen the patient and did not find any neurological causes. General Appearance: [ disheveled, casual, appears older than stated age] Speech/Language: [slow monotone, soft] Attitude/Behavior: [cooperative, withdrawn, indifferent] Mood: [depressed, anxious, fearful, hopelessness] Affect: [ flat, blunted constricted] Orientation: [time, person, place situation] Thought Content: [wnl Risk Factors: [Does not express suicidal (ideations, plan), and/or Homicidal ( ideations, plan), other] Perception: [wnl Thought Processes: [concrete, circumstantial, tangential Concentration/Attention Span: impaired] [Per observation and interview with the patient] Recent Memory: [impaired] [ 2 out of 3 in 3 minutes] Remote Memory: [wnl] [past events, as related history] Intelligence: [average] [based on history, based on vocabulary, syntax, grammar , and content] Judgement: [fair] [per patient's behavior/history of present illness] Insight: [fair] [understanding severity of illness/history of present illness] Psychiatric diagnoses: Major depressive disordersevere; early recovery of alcohol use disorder Psychiatric recommendations: I talked the patient regarding coming to the unit for treatment for depression and he agreed to, come to the unit on a formal voluntary. He is needed of treatment for major depressive disorder keeping in mind that he is recovering alcoholic Thank you for the consult Beny Mcmahon D.O. PhD (1) Major depressive disorder Current Visit: Yes Status: Acute Code(s): F32.9 - MAJOR DEPRESSIVE DISORDER , SINGLE EPISODE, UNSPECIFIED SNOMED Code(s): 050498927 Plan: Transfer to [address] [place] [address] for treatment for major depressive disorder severe Time with Patient: Less than 30
[2018-03-10] MEDS ORDERED: WARFARIN 2.5 MG TAB PO SCH (18:00)
--- NOTE | 2018-03-10 19:32 | HP ---
HISTORY AND PHYSICAL CHIEF COMPLAINT: This is a 67-year-old white male with severe depression, weakness, no eating or drinking for the past week, lost 7 pounds in the past 2 weeks. He has had severe depression with suicidal thoughts for a long time and psychosis. He was in a mental health clinic in [place] last December. He was admitted due to being unable to take care of himself. His is unable to take care of him. Possibly a multi-infarct dementia picture versus severe depression. He has history of systolic congestive heart failure, history of bipolar depression, suicidal ideations in the past, coronary artery disease, prior CVA, TIA, hypertension, renal disease, obsessive compulsive disorder, anxiety, 50- pound weight loss in the last 6 months due to depression, not eating or drinking. PAST SURGICAL HISTORY: 1. CABG. 2. Thoracentesis. 3. Mitral valve replacement. 4. Bypass graft. 5. Colonoscopy. 6. Polypectomy. 7. No smoking. 8. He has AICD. FAMILY HISTORY: Brother with coronary artery disease. Mother with dementia, hypertension. Father with melanoma. HOME MEDICATIONS: 1. Coreg. 2. Coumadin. 3. Lasix. 4. Vitamin D2. 5. Pravastatin. 6. Warfarin. 7. Entresto 49-51 mg tablet one b.i.d. ALLERGIES: NITROGLYCERIN. PHYSICAL EXAMINATION: Temperature 97 to 98, pulse 70s, respiratory rate 16 to 18, blood pressure is 89 to 112 over 50s to 60s, oxygen 97% on room air. CONSTITUTIONAL: Thin, anorexic. OPHTHALMOLOGIC: Pupils equal, round, reactive. SKIN: Poor skin turgor. PSYCH: Flat mood and affect. Cranial nerves are intact. CARDIOVASCULAR: S1, S2. LUNGS: Clear. Labs are reviewed. ASSESSMENT: 1. Major depression with suicidal ideation. 2. Weight loss and malnutrition due to severe depression. 3. History of stroke. Neurology referrals will be done. Follow up for possible rehab somewhere. His is not able to take care of him. He will need to go to the psychiatric [facility] or neurologic workup for multi-infarct dementia and is severely malnourished. Will need nutrition counseling. MMODL / IJN: [id number] /
[2018-03-10 20:25] VITALS: BP 101/62; PULSE 67; RESP 16; TEMP 97.3
[2018-03-11] MEDS ORDERED: PRAVASTATIN SODIUM 80 MG TAB PO SCH (09:00)
[2018-03-11] MEDS ORDERED: CALCITRIOL 0.25 MCG CAP PO SCH (12:00)
[2018-03-11] MEDS ORDERED: WARFARIN 2.5 MG TAB PO SCH (18:00)
--- NOTE | 2018-03-12 12:49 | EEG ---
ELECTROENCEPHALOGRAM REPORT DATE OF EE03/10/2018 ELECTROENCEPHALOGRAPHIC EXAMINATION REPORT: INDICATION FOR EXAMINATION: This patient is a 67-year-old male being evaluated for depression and mild confusion. Patient has previous history of TIA and stroke. There is also a previous history of mild memory impairment. Patient admitted with altered mental status. AGE: 67. EEG FINDINGS: A routine 21 channel awake digital EEG recording was accomplished utilizing the 10-20 international system with bipolar and referential montages. The background activity in the most alert resting state consists of a low to medium amplitude, fairly well- developed and well-sustained 7-8 Hz activity over the posterior head regions. This posterior rhythm attenuates to eye opening. There is a small amount of low amplitude 18-20 Hz beta activity seen maximally over the anterior head regions. Muscle and movement artifact was observed on a few occasions during the tracing. Hyperventilation was not performed. Photic stimulation at flash frequencies of 2-30 Hz produced a good symmetrical occipital driving response. No epileptiform discharges were seen. IMPRESSION: This EEG is within normal limits for the patient's age. The EEG failed to reveal any focal, lateralized, or epileptiform abnormalities. Clinical correlation is recommended. MMODL / IJN: [id number] /
== END 2018-03-11 00:46 | DRG 885 ==
LOC: 3NMEDONC 14:49
PROVIDERS: ADMIT Family Medicine; ATTEND Family Medicine
DX: F32.3 Major depressive disorder, single episode, severe with psychotic features (principal); E43 Unspecified severe protein-calorie malnutrition; R45.851 Suicidal ideations; I50.22 Chronic systolic (congestive) heart failure; I42.9 Cardiomyopathy, unspecified; I11.0 Hypertensive heart disease with heart failure; I69.311 Memory deficit following cerebral infarction; F01.50 Vascular dementia, unspecified severity, without behavioral disturbance, psychotic disturbance, mood disturbance, and anxiety; F41.1 Generalized anxiety disorder; F42.9 Obsessive-compulsive disorder, unspecified; F43.10 Post-traumatic stress disorder, unspecified; K21.9 Gastro-esophageal reflux disease without esophagitis; E78.5 Hyperlipidemia, unspecified; K59.00 Constipation, unspecified; F10.21 Alcohol dependence, in remission; I25.10 Atherosclerotic heart disease of native coronary artery without angina pectoris; I25.2 Old myocardial infarction; Z68.20 Body mass index [BMI] 20.0-20.9, adult; Z79.01 Long term (current) use of anticoagulants; Z79.899 Other long term (current) drug therapy; Z95.810 Presence of automatic (implantable) cardiac defibrillator; Z95.1 Presence of aortocoronary bypass graft; Z95.2 Presence of prosthetic heart valve; Z86.010 Personal history of colon polyps; Z87.448 Personal history of other diseases of urinary system; Z88.8 Allergy status to other drugs, medicaments and biological substances; Z82.49 Family history of ischemic heart disease and other diseases of the circulatory system; Z81.8 Family history of other mental and behavioral disorders; Z80.8 Family history of malignant neoplasm of other organs or systems
CPT/HCPCS: 70450; 80053; 85025; 85610; 95819

== ENCOUNTER 2018-03-10 23:30 | Inpatient (IN) | payer MEDICARE ==
[2018-03-11] MEDS ORDERED: ACETAMINOPHEN TAB 325 MG TAB PO PRN (01:48)
[2018-03-11] MEDS ORDERED: MAG HYDROX/AL HYDROX/SIMETH 30 ML CUP PO PRN (01:48)
[2018-03-11] MEDS ORDERED: MAGNESIUM HYDROXIDE 2,400 MG/10 ML CUP PO PRN (01:48)
[2018-03-11] MEDS: SACUBITRIL/VALSARTAN 49 MG-51 MG TABLET PO SCH ×2 (09:27→20:26)
[2018-03-11] MEDS: CALCITRIOL 0.25 MCG CAP PO SCH (09:27)
[2018-03-11] MEDS: PRAVASTATIN SODIUM 80 MG TAB PO SCH (09:27)
--- NOTE | 2018-03-11 12:05 | P.HP ---
Psychiatric H&P - . H&P Date: 03/11/18 History & Physical: Allergies Allergy/AdvReac Type Severity Reaction Status Date / Time nitroglycerin AdvReac headache/na Verified 03/11/18 08:04 [From Nitrostat] usea Vital Signs Temp 96.8 F L 03/11/18 02:30 Pulse 79 03/11/18 09:29 Resp 17 03/11/18 09:29 BP 99/57 03/11/18 09:29 Pulse Ox Intake & Output 03/10/18 03/11/18 03/11/18 18:59 06:59 18:59 Weight 51.71 kg Assessment and Plan Assessment: The patient is a 67-year-old right-handed white male who states that he's been depressed for the past 1 year. He states he's had a lot of stress at home. He states he's not been eating any's had an weight loss. He's been doing less including walking eating dressing getting out of the house. Patient was recently hospitalized at [facility] on February 10 with depression and suicidal thoughts. The patient has a history of psychosis depression and PTSD OCD all diagnosed this year at [facility]. His reports that his depression began this year and the month of July. She states he's had a 60 pound weight loss in a matter of 6 months area did he had some outpatient therapy it's a [facility] during the summer months of October to December. She states that he cannot take care of himself at all anymore because of he does doesn't do anything. She reports that he was prescribed a medication on his last admission which was very expensive and they could not afford it. Also she reports that the medications that he was on including Lamictal BuSpar and Remeron he stopped taking within 3 days of being discharged from the hospital 1 month ago. The patient has no particular neurologic complaints. He denies any headache dizziness focal weakness numbness or visual changes. He has a history of stroke in 2014 during this cardiac catheterization procedure. This affected his vision which improved. 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 The patient's states he's been fine up until July 2017. She states he suddenly became very depressed. She states there is no stress at home. The patient however states that there is a lot of stress in his home life for the past 1 year. 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 Last Myocardial Infarction Date:: unk History of Any Multi-Drug Resistant Organisms: None Reported Past Surgical History: AICD, Cardiac Valve Replacement, Coronary Bypass/CABG, Tonsillectomy Additional Past Surgical History / Comment(s): several thoracentesis, cabg 1999, mitral valve repalcement and bypass graft redo in [place], colonoscopy/ polypectomy-[facility] Past Anesthesia/Blood Transfusion Reactions: No Reported Reaction Type of Cardiac Device: AICD Device Placement Date:: 03-31-16 Smoking Status: Never smoker - Past Family History Brother(s) Family Medical History: Coronary Artery Disease (CAD), Hyperlipidemia, Hypertension Mother Family Medical History: Dementia, Hypertension Additional Family Medical History / Comment(s): mom is age 92 lives in [facility] Father Family Medical History: Cancer Additional Family Medical History / Comment(s): from melanoma cancer Home Medications Medication Instructions Recorded Confirmed Type Carvedilol [Coreg*] 12.5 mg PO BID-W/MEALS #60 tab 03/28/16 03/09/18 Rx Warfarin [Coumadin] 2.5 mg PO SUMOTUTHFR 03/31/16 03/09/18 History Furosemide [Lasix] 80 mg PO DAILY@0900 10/26/17 03/09/18 History Calcitriol 0.25 mcg PO TUTHSA 02/10/18 03/09/18 History Ergocalciferol (Vitamin D2) 50,000 unit PO Q30D 02/10/18 03/09/18 History [Vitamin D2] Warfarin Sodium 1.25 mg PO WE 02/10/18 03/09/18 History Pravastatin Sodium [Pravachol] 80 mg PO DAILY@0900 03/09/18 03/09/18 History Sacubitril/Valsartan [Entresto 49 1 tab PO BID@0900,2100 03/09/18 03/09/18 History mg-51 mg Tablet] Allergies Allergy/AdvReac Type Severity Reaction Status Date / Time nitroglycerin AdvReac headache/na Verified 03/09/18 19:19 [From Nitrostat] usea Mental Status Examination - this is a 67-year-old male looks older than his stated age with flat affect and admits to depression and anxiety and has difficulty making any decisions. He was seen previously after intoxication and had gone to [facility] for treatment and left and came to our hospital for evaluation of altered mental status. Neurology has seen the patient and did not find any neurological causes. General Appearance: [ disheveled, casual, appears older than stated age] Speech/Language: [slow monotone, soft] Attitude/Behavior: [cooperative, withdrawn, indifferent] Mood: [depressed, anxious, fearful, hopelessness] Affect: [ flat, blunted constricted] Orientation: [time, person, place situation] Thought Content: [wnl Risk Factors: [Does not express suicidal (ideations, plan), and/or Homicidal ( ideations, plan), other] Perception: [wnl Thought Processes: [concrete, circumstantial, tangential Concentration/Attention Span: impaired] [Per observation and interview with the patient] Recent Memory: [impaired] [ 2 out of 3 in 3 minutes] Remote Memory: [wnl] [past events, as related history] Intelligence: [average] [based on history, based on vocabulary, syntax, grammar , and content] Judgement: [fair] [per patient's behavior/history of present illness] Insight: [fair] [understanding severity of illness/history of present illness] Psychiatric diagnoses: Major depressive disordersevere; early recovery of alcohol use disorder Patient Strengths - Personal Skills: [x] Achievements: [x] Steady employment/financial stability: [retired] Housing stability: [x] Able to vocalize needs: [x] Values and traditions: [] Motivation, determination, readiness for change: [x] Patient Limitations: [medication Initial Plan of Care: [Initial psychiatric and plan will be to admit formal voluntary to the [address] [place] [address] and will be evaluated by the psychiatric team which includes psychiatry, medicine, social work, nursing staff , and recreational therapy to be integrated in a devine milieu therapeutic environment and to maintain safety in the patient. He'll be evaluated on daily basis and ultimately especially team approach and titration of this medication until resolution of the symptoms. Since he has anxiety and depression with loss of focus addition of sertraline 25 mg by mouth daily at bedtime and Wellbutrin 150 mg SR by mouth every morning will help with anxiety and motivation.] Estimated Length of Stay: [5-7] Initial Discharge Plan: [home, referred to therapist Prognosis: [ fair] Justification for Inpatient Hospitalization - [ anxiety, depression resulting in significant loss of functioning.] [Emotional or behavioral conditions and complications requiring 24 hour medical and nursing care.] [Need for special drug therapy, or other therapeutic program requiring continuous hospitalization.] [Failure of social functioning.] Beny Mcmahon D.O. PhD (1) Major depressive disorder Current Visit: Yes Status: Acute Code(s): F32.9 - MAJOR DEPRESSIVE DISORDER , SINGLE EPISODE, UNSPECIFIED SNOMED Code(s): 541269692 (1) Depression Current Visit: No Status: Acute Priority: Medium Code(s): F32.9 - MAJOR DEPRESSIVE DISORDER, SINGLE EPISODE, UNSPECIFIED SNOMED Code(s): 76449208 Time with Patient: Greater than 30
[2018-03-11] MEDS: FUROSEMIDE 20 MG TAB PO SCH (12:56)
[2018-03-11] MEDS: ATENOLOL 12.5 MG TAB PO SCH ×2 (12:57→20:26)
[2018-03-11] MEDS: WARFARIN 2.5 MG TAB PO SCH (17:37)
[2018-03-11] MEDS: SERTRALINE 25 MG TAB PO SCH (20:26)
--- NOTE | 2018-03-11 23:59 | CONS ---
CONSULTATION DATE OF SERVICE: 03/11/2018. SUBJECTIVE: A 67-year-old white male for medical management consult on psychiatric devine. A 67-year- old white male who has had a lot of weight loss over the past 2 weeks, 7 pounds, due to not eating and drinking due to severe withdrawal and depression where he is not eating or drinking and he is misunderstanding feelings toward other people and himself. He keeps apologizing. He is so depressed he is not able to eat or drink. His cannot take care of him and he cannot take care of himself. He says he has congestive heart failure systolic in nature, bipolar depression, severe depression, hypertension, dyslipidemia. MEDICATIONS: As mentioned above, reviewed. REVIEW OF SYSTEMS: Fourteen-point review of systems negative except for mentioned above. PHYSICAL EXAM: VITAL SIGNS: Stable, afebrile. CARDIOVASCULAR: S1, S2. LUNGS: Clear. GI: Soft. PSYCH: Poor mood and affect, flat affect. HEMATOLOGY: Negative Homans. VASCULAR: Normal dorsalis pedis and posterior pulses. ASSESSMENT: 1. Severe depression, bipolar depression, with suicidal ideations. 2. Generalized severe weight loss and malaise secondary to severe depression and inability to take care of himself. 3. Systolic congestive heart failure. 4. Hypertension. 5. Dyslipidemia. PLAN: Continue home medications. Atenolol will be ordered at 12.5 b.i.d. Coreg is discontinued. Lasix cut down from 80 mg to 20 mg due to dehydration and poor oral intake. We will follow him up closely. MMODL / IJN: [id number] /
[2018-03-12] MEDS ORDERED: LOPERAMIDE 2 MG CAP PO PRN (01:05)
[2018-03-12] MEDS: FUROSEMIDE 20 MG TAB PO SCH (08:39)
[2018-03-12] MEDS: ATENOLOL 12.5 MG TAB PO SCH ×2 (08:39→21:58)
[2018-03-12] MEDS: MEGESTROL 40 MG TAB PO SCH (08:39)
[2018-03-12] MEDS: buPROPion SR 150 MG TABLET.ER PO SCH (08:39)
[2018-03-12] MEDS: SACUBITRIL/VALSARTAN 49 MG-51 MG TABLET PO SCH ×2 (08:40→22:03)
[2018-03-12] MEDS: PRAVASTATIN SODIUM 80 MG TAB PO SCH (08:40)
[2018-03-12 09:06] LABS: Albumin 4.1 g/dL (3.5-5.0); Bilirubin, Delta 0.4 mg/dL (0.0-0.2); Bilirubin,Unconjugated 0.7 mg/dL (0.0-1.1); Total Bilirubin 1.1 mg/dL (0.2-1.3); Total Protein 6.7 g/dL (6.3-8.2)
--- NOTE | 2018-03-12 12:43 | P.PN ---
Subjective Progress Note Date: 03/12/18 Principal diagnosis: major depressive [id number] He describes diarrhea, racing thoughts, poor sleep and slow lethargic. He has little hobbies. Moved her two years ago and walks the dogs. His stomach is better after taking lomotil. He is still depressed ad anxious. Objective - Vital Signs Vital signs: Vital Signs Temp 97.9 F 03/12/18 06:21 Pulse 75 03/12/18 08:42 Resp 16 03/12/18 08:42 BP 118/70 03/12/18 08:42 Pulse Ox Intake & Output 03/11/18 03/12/18 03/12/18 18:59 06:59 18:59 Weight 51.71 kg - Labs Labs: Abnormal Lab Results - Last 24 Hours (Table) 03/12/18 Range/Units 08:17 Delta Bilirubin 0.4 H (0.0-0.2) mg/dL ALT 18 L (21-72) U/L Triglycerides 198 H (<150) mg/dL LDL Cholesterol, Calc 107 H (0-99) mg/dL Assessment and Plan Assessment: The patient is a 67-year-old right-handed white male who states that he's been depressed for the past 1 year. He states he's had a lot of stress at home. He states he's not been eating and has lost weight. He's been doing less including walking eating dressing getting out of the house. Patient was recently hospitalized at [facility] on February 10 with depression and suicidal thoughts. The patient has a history of psychosis depression and PTSD OCD all diagnosed this year at [facility]. His reports that his depression began this year and the month of July. She states he's had a 60 pound weight loss in a matter of 6 months area did he had some outpatient therapy it's a [facility] during the summer months of October to December. She states that he cannot take care of himself at all anymore because of he does doesn't do anything. She reports that he was prescribed a medication on his last admission which was very expensive and they could not afford it. Also she reports that the medications that he was on including Lamictal BuSpar and Remeron he stopped taking within 3 days of being discharged from the hospital 1 month ago. The patient has no particular neurologic complaints. He denies any headache dizziness focal weakness numbness or visual changes. He has a history of stroke in 2015 during this cardiac catheterization procedure. This affected his vision which improved. 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 The patient's states he's been fine up until July 2017. She states he suddenly became very depressed. She states there is no stress at home. The patient however states that there is a lot of stress in his home life for the past 1 year. 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 Last Myocardial Infarction Date:: unk History of Any Multi-Drug Resistant Organisms: None Reported Past Surgical History: AICD, Cardiac Valve Replacement, Coronary Bypass/CABG, Tonsillectomy Additional Past Surgical History / Comment(s): several thoracentesis, cabg 1999, mitral valve repalcement and bypass graft redo in [place], colonoscopy/ polypectomy-[facility] Past Anesthesia/Blood Transfusion Reactions: No Reported Reaction Type of Cardiac Device: AICD Device Placement Date:: 03-31-16 Smoking Status: Never smoker - Past Family History Brother(s) Family Medical History: Coronary Artery Disease (CAD), Hyperlipidemia, Hypertension Mother Family Medical History: Dementia, Hypertension Additional Family Medical History / Comment(s): mom is age 92 lives in [place] Father Family Medical History: Cancer Additional Family Medical History / Comment(s): from melanoma cancer Home Medications Medication Instructions Recorded Confirmed Type Carvedilol [Coreg*] 12.5 mg PO BID-W/MEALS #60 tab 03/28/16 03/09/18 Rx Warfarin [Coumadin] 2.5 mg PO SUMOTUTHFR 03/31/16 03/09/18 History Furosemide [Lasix] 80 mg PO DAILY@0900 10/26/17 03/09/18 History Calcitriol 0.25 mcg PO TUTHSA 02/10/18 03/09/18 History Ergocalciferol (Vitamin D2) 50,000 unit PO Q30D 02/10/18 03/09/18 History [Vitamin D2] Warfarin Sodium 1.25 mg PO WE 02/10/18 03/09/18 History Pravastatin Sodium [Pravachol] 80 mg PO DAILY@0900 03/09/18 03/09/18 History Sacubitril/Valsartan [Entresto 49 1 tab PO BID@0900,2100 03/09/18 03/09/18 History mg-51 mg Tablet] Allergies Allergy/AdvReac Type Severity Reaction Status Date / Time nitroglycerin AdvReac headache/na Verified 03/09/18 19:19 [From Nitrostat] usea Mental Status Examination - this is a 67-year-old male looks older than his stated age with flat affect and admits to depression and anxiety and has difficulty making any decisions. He was seen previously after intoxication and had gone to [facility] for treatment and left and came to our hospital for evaluation of altered mental status. Neurology has seen the patient and did not find any neurological causes. General Appearance: [ disheveled, casual, appears older than stated age] Speech/Language: [slow monotone, soft] Attitude/Behavior: [cooperative, withdrawn, indifferent] Mood: [depressed, anxious, fearful, hopelessness] Affect: [ flat, blunted constricted] Orientation: [time, person, place situation] Thought Content: [wnl Risk Factors: [Does not express suicidal (ideations, plan), and/or Homicidal ( ideations, plan), other] Perception: [wnl Thought Processes: [concrete, circumstantial, tangential Concentration/Attention Span: impaired] [Per observation and interview with the patient] Recent Memory: [impaired] [ 2 out of 3 in 3 minutes] Remote Memory: [wnl] [past events, as related history] Intelligence: [average] [based on history, based on vocabulary, syntax, grammar , and content] Judgement: [fair] [per patient's behavior/history of present illness] Insight: [fair] [understanding severity of illness/history of present illness] Psychiatric diagnoses: Major depressive disordersevere; early recovery of alcohol use disorder Patient Strengths - Personal Skills: [x] Achievements: [x] Steady employment/financial stability: [retired] Housing stability: [x] Able to vocalize needs: [x] Values and traditions: [x] Motivation, determination, readiness for change: [x] Patient Limitations: [medication Initial Plan of Care: [Initial psychiatric and plan will be to admit formal voluntary to the [address] [place] [address] and will be evaluated by the psychiatric team which includes psychiatry, medicine, social work, nursing staff , and recreational therapy to be integrated in a devine milieu therapeutic environment and to maintain safety in the patient. He'll be evaluated on daily basis and ultimately especially team approach and titration of this medication until resolution of the symptoms. Since he has anxiety and depression with loss of focus addition of sertraline 25 mg by mouth daily at bedtime and Wellbutrin 150 mg SR by mouth every morning will help with anxiety and motivation.] Estimated Length of Stay: [6] Initial Discharge Plan: [home, referred to therapist Prognosis: [ fair] Justification for Inpatient Hospitalization - [ anxiety, depression resulting in significant loss of functioning.] [Emotional or behavioral conditions and complications requiring 24 hour medical and nursing care.] [Need for special drug therapy, or other therapeutic program requiring continuous hospitalization.] [Failure of social functioning.] Beny Mcmahon D.O. PhD (1) Major depressive disorder Current Visit: Yes Status: Acute Code(s): F32.9 - MAJOR DEPRESSIVE DISORDER , SINGLE EPISODE, UNSPECIFIED SNOMED Code(s): 636173908 (1) Depression Current Visit: No Status: Acute Priority: Medium Code(s): F32.9 - MAJOR DEPRESSIVE DISORDER, SINGLE EPISODE, UNSPECIFIED SNOMED Code(s): 54044127 Plan: Maintain zoloft and add mirapex 0.5 mg po qhs for restless leg. Add lamictal for mood stability and racing thoughts. Time with Patient: Less than 30
[2018-03-12] MEDS: WARFARIN 2.5 MG TAB PO SCH (18:01)
[2018-03-12 18:52] LABS: Hemoglobin A1C 5.6 % (4.0-6.0)
[2018-03-12] MEDS: PRAMIPEXOLE 0.5 MG TAB PO SCH (22:00)
[2018-03-12] MEDS: lamoTRIgine 25 MG TAB PO SCH (22:04)
[2018-03-12] MEDS: SERTRALINE 25 MG TAB PO SCH (22:04)
[2018-03-13] MEDS: buPROPion SR 150 MG TABLET.ER PO SCH (07:44)
[2018-03-13] MEDS: ATENOLOL 12.5 MG TAB PO SCH ×2 (07:44→20:24)
[2018-03-13] MEDS: SACUBITRIL/VALSARTAN 49 MG-51 MG TABLET PO SCH ×2 (07:44→20:23)
[2018-03-13] MEDS: PRAVASTATIN SODIUM 80 MG TAB PO SCH (07:44)
[2018-03-13] MEDS: FUROSEMIDE 20 MG TAB PO SCH (07:44)
[2018-03-13] MEDS: MEGESTROL 40 MG TAB PO SCH (07:44)
[2018-03-13] MEDS: CALCITRIOL 0.25 MCG CAP PO SCH (07:45)
--- NOTE | 2018-03-13 08:55 | P.PN ---
Progress Note - Text Progress Note Date: 03/13/18 Interval history: Patient is seen in cross coverage today. He reports he didn' t sleep that well last night, relays his appetite is low. He did eat some for breakfast. He says he feels a little lightheaded today, relays that could be medication side effects versus getting up. He was found in his room lying in bed. He does describe that his mood overall is doing better and his anxiety level is decreased. Mental status exam: He is alert and cooperative with the interview. Speech is fluent, not rapid or pressured. Thought processes are organized. His mood overall seems improved. He denies any thoughts of harm to self or others. No evidence of psychosis or agitation. Plan: Patient will be maintained on current psychotropic medication regimen. Continue to monitor for any medication side effects and monitor his ongoing response to treatment.
[2018-03-13] MEDS: SODIUM CHLORIDE 0.9% 1,000 ML IV SCH ×3 (09:39→22:26)
[2018-03-13] MEDS: SERTRALINE 25 MG TAB PO SCH (20:23)
[2018-03-13] MEDS: lamoTRIgine 25 MG TAB PO SCH (20:23)
[2018-03-13] MEDS: PRAMIPEXOLE 0.5 MG TAB PO SCH (20:23)
[2018-03-14] MEDS: SACUBITRIL/VALSARTAN 49 MG-51 MG TABLET PO SCH ×2 (07:54→21:16)
[2018-03-14] MEDS: MEGESTROL 40 MG TAB PO SCH (07:54)
[2018-03-14] MEDS: ATENOLOL 12.5 MG TAB PO SCH ×2 (07:54→21:15)
[2018-03-14] MEDS: FUROSEMIDE 20 MG TAB PO SCH (07:55)
[2018-03-14] MEDS: buPROPion SR 150 MG TABLET.ER PO SCH (07:55)
[2018-03-14] MEDS: PRAVASTATIN SODIUM 80 MG TAB PO SCH (07:55)
[2018-03-14] MEDS: SODIUM CHLORIDE 0.9% 1,000 ML IV SCH (11:30)
[2018-03-14 12:38] LABS: INR 4.5 (<1.2); Prothrombin Time 40.3 sec (9.0-12.0)
--- NOTE | 2018-03-14 15:12 | P.PN ---
Progress Note - Text Progress Note Date: 03/14/18 Interval history: Patient is seen again in cross coverage today. He states he had an episode yesterday where he felt lightheaded and leaned on the nurse. He is receiving some fluids through IV. He is not feeling lightheaded today. He says his mood is calm. His blood pressure is low today but states that he has had low blood pressures like this and again currently denies any lightheadedness. Mental status exam: He is alert and cooperative. Speech is fluent, not rapid or pressured. He describes his mood is calm. He does not verbalize any thoughts of harm to self or others. No evidence of psychosis or agitation. Plan: Patient will be maintained on current psychotropic medication regimen. We 'll continue to monitor for side effects and monitor his ongoing response to treatment. Medical will be following up.
--- NOTE | 2018-03-14 18:50 | P.PN ---
Subjective Progress Note Date: 03/13/18 (Late entry note) Principal diagnosis: Patient is a 67-year-old male who was seen evaluated examined in psychiatric unit while covering for Dr. Brando Gray, patient has issues associated with poor appetite and poor by mouth intake due to severe depression, his medical problems are significant for a systolic heart failure hypertension and dyslipidemia patient has been on Lasix dose has been reduced, patient also has a history of mitral valve replacement has been on long-term anticoagulation with Coumadin with adjusted doses 03/13/2018, continued to have significant psychiatric complaints appetite remains poor patient complain of generalized aches pains tiredness, currently undergoing psychotherapy as well as antidepressant as well Objective - Vital Signs Vital signs: Vital Signs Temp 98.0 F 03/14/18 01:27 EST Pulse 71 03/14/18 16:36 Resp 18 03/14/18 16:36 BP 112/62 03/14/18 16:36 Pulse Ox Intake & Output 03/13/18 03/14/18 03/14/18 19:59 06:59 18:59 Intake Total 812 Balance 812 Weight 52.851 kg Intake: IV 542 Invasive Line 1 542 Intake, IV Titration 125 Amount Sodium Chloride 0.9% 1, 000 ml @ 50 mls/hr IV . Q20H DAMARIS Rx#:[id number] Sodium Chloride 0.9% 1, 125 000 ml @ 50 mls/hr IV . Q20H DAMARIS Rx#:[id number] Oral 145 Other: # Voids # Bowel Movements - Constitutional General appearance: Present: average body habitus, cooperative, disheveled, no acute distress, thin - EENT Eyes: Present: EOMI, poor dentition, normal appearance Ears: bilateral: normal - Neck Neck: Present: normal ROM Carotids: bilateral: upstroke normal Thyroid: bilateral: normal size - Respiratory Respiratory: bilateral: CTA - Cardiovascular Rhythm: regular Heart sounds: normal: S1, S2 Abnormal Heart Sounds: Present: systolic murmur - Gastrointestinal General gastrointestinal: Present: decreased bowel sounds, soft - Integumentary Integumentary: Present: normal turgor - Neurologic Neurologic: Present: CNII-XII intact - Musculoskeletal Musculoskeletal: Present: gait normal, generalized weakness, strength equal bilaterally - Psychiatric Psychiatric: Present: A&O x's 3, appropriate affect, intact judgment & insight - Labs Labs: Abnormal Lab Results - Last 24 Hours (Table) 03/14/18 Range/Units 12:21 PT 40.3 H (9.0-12.0) sec INR 4.5 H (<1.2) Assessment and Plan Assessment: Major depression Weight loss and poor appetite related to above History of mitral valve replacement on anticoagulation with Coumadin Hypertension hypertensive cardiovascular disease Dyslipidemia Plan: Continue medications Will obtain labs especially PT/INR to adjust the dose of Coumadin Further recommendations pending plan of care as per clinical response of the patient Continue psychotherapy antidepressant with close monitoring observation Time with Patient: Greater than 30
--- NOTE | 2018-03-14 18:53 | P.PN ---
Subjective Progress Note Date: 03/14/18 Principal diagnosis: Patient is a 67-year-old male who was seen evaluated examined in psychiatric unit while covering for Dr. Brando Gray, patient has issues associated with poor appetite and poor by mouth intake due to severe depression, his medical problems are significant for a systolic heart failure hypertension and dyslipidemia patient has been on Lasix dose has been reduced, patient also has a history of mitral valve replacement has been on long-term anticoagulation with Coumadin with adjusted doses 03/13/2018, continued to have significant psychiatric complaints appetite remains poor patient complain of generalized aches pains tiredness, currently undergoing psychotherapy as well as antidepressant as well 03/14/2018, patient seen eval examined during the rounds patient appears to be in better spreads, his appetite has improved, his INR is super therapeutic will hold it today does of Coumadin continue to monitor INR closely in for INR between 3-3.5 Objective - Vital Signs Vital signs: Vital Signs Temp 98.0 F 03/14/18 01:27 EST Pulse 71 03/14/18 16:36 Resp 18 03/14/18 16:36 BP 112/62 03/14/18 16:36 Pulse Ox Intake & Output 03/13/18 03/14/18 03/14/18 19:59 06:59 18:59 Intake Total 812 Balance 812 Weight 52.851 kg Intake: IV 542 Invasive Line 1 542 Intake, IV Titration 125 Amount Sodium Chloride 0.9% 1, 000 ml @ 50 mls/hr IV . Q20H DAMARIS Rx#:[id number] Sodium Chloride 0.9% 1, 125 000 ml @ 50 mls/hr IV . Q20H DAMARIS Rx#:[id number] Oral 145 Other: # Voids # Bowel Movements - Exam - Constitutional General appearance: Present: average body habitus, cooperative, disheveled, no acute distress, thin - EENT Eyes: Present: EOMI, poor dentition, normal appearance Ears: bilateral: normal - Neck Neck: Present: normal ROM Carotids: bilateral: upstroke normal Thyroid: bilateral: normal size - Respiratory Respiratory: bilateral: CTA - Cardiovascular Rhythm: regular Heart sounds: normal: S1, S2 Abnormal Heart Sounds: Present: systolic murmur - Gastrointestinal General gastrointestinal: Present: decreased bowel sounds, soft - Integumentary Integumentary: Present: normal turgor - Neurologic Neurologic: Present: CNII-XII intact - Musculoskeletal Musculoskeletal: Present: gait normal, generalized weakness, strength equal bilaterally - Psychiatric Psychiatric: Present: A&O x's 3, appropriate affect, intact judgment & insight - Labs Labs: Abnormal Lab Results - Last 24 Hours (Table) 03/14/18 Range/Units 12:21 PT 40.3 H (9.0-12.0) sec INR 4.5 H (<1.2) Assessment and Plan Assessment: Super therapeutic PT/INR Major depression Weight loss and poor appetite related to above History of mitral valve replacement on anticoagulation with Coumadin Hypertension hypertensive cardiovascular disease Dyslipidemia Plan: Hold Coumadin today repeat INR tomorrow, adjust dose of Coumadin Continue medications Will obtain labs in a.m. Further recommendations pending plan of care as per clinical response of the patient Continue psychotherapy antidepressant with close monitoring observation Time with Patient: Greater than 30
[2018-03-14] MEDS: PRAMIPEXOLE 0.5 MG TAB PO SCH (21:16)
[2018-03-14] MEDS: SERTRALINE 25 MG TAB PO SCH (21:17)
[2018-03-14] MEDS: lamoTRIgine 25 MG TAB PO SCH (21:17)
[2018-03-15] MEDS: buPROPion SR 150 MG TABLET.ER PO SCH (08:40)
[2018-03-15] MEDS: PRAVASTATIN SODIUM 80 MG TAB PO SCH (08:40)
[2018-03-15] MEDS: FUROSEMIDE 20 MG TAB PO SCH (08:40)
[2018-03-15] MEDS: ATENOLOL 12.5 MG TAB PO SCH ×2 (08:50→20:43)
[2018-03-15] MEDS: MEGESTROL 40 MG TAB PO SCH (09:12)
[2018-03-15 09:48] LABS: Basophils % (A) 0 %; Eosinophils # (A) 0.1 k/uL (0-0.7); Eosinophils % (A) 4 %; HGB 10.8 gm/dL (13.0-17.5); Lymphocytes # (A) 0.5 k/uL (1.0-4.8); Lymphocytes % (A) 16 %; MCH 31.9 pg (25.0-35.0); MCHC 33.7 g/dL (31.0-37.0); MCV 94.8 fL (80.0-100.0); Mean Platelet Volume 7.8; Monocytes # (A) 0.2 k/uL (0-1.0); Monocytes % (A) 7 %; Neutrophils # (A) 2.3 k/uL (1.3-7.7); Neutrophils % (A) 71 %; Platelet Count 165 k/uL (150-450); RBC 3.38 m/uL (4.30-5.90); RDW 12.9 % (11.5-15.5); WBC 3.3 k/uL (3.8-10.6)
[2018-03-15 10:06] LABS: INR 3.5 (<1.2); Prothrombin Time 30.9 sec (9.0-12.0)
[2018-03-15 10:13] LABS: Albumin 3.5 g/dL (3.5-5.0); Calcium 9.2 mg/dL (8.4-10.2); Total Bilirubin 0.9 mg/dL (0.2-1.3); Total Protein 5.9 g/dL (6.3-8.2)
--- NOTE | 2018-03-15 10:13 | P.PN ---
Subjective Progress Note Date: 03/15/18 Principal diagnosis: major depressive auhphhpp-yqxapt-[id number] He describes diarrhea, racing thoughts, poor sleep and slow lethargic. He has little hobbies. Moved her two years ago and walks the dogs. His stomach is better after taking lomotil. He is still depressed ad anxious. Objective - Vital Signs Vital signs: Vital Signs Temp 97.6 F 03/15/18 00:09 Pulse 80 03/15/18 06:34 Resp 12 03/15/18 06:34 BP 105/58 03/15/18 06:34 Pulse Ox Intake & Output 03/14/18 03/15/18 03/15/18 18:59 06:59 18:59 Intake Total 812 2202 177 Balance 812 2202 177 Weight 52.851 kg Intake: IV 542 2202 Invasive Line 1 542 2202 Intake, IV Titration 125 Amount Sodium Chloride 0.9% 1, 125 000 ml @ 50 mls/hr IV . Q20H DAMARIS Rx#:[id number] Oral 145 177 Other: # Voids 1 - Labs CBC & Chem 7: 03/15/18 09:15 Labs: Abnormal Lab Results - Last 24 Hours (Table) 03/14/18 03/15/18 Range/Units 12:21 09:15 WBC 3.3 L (3.8-10.6) k/uL RBC 3.38 L (4.30-5.90) m/uL Hgb 10.8 L (13.0-17.5) gm/dL Hct 32.0 L (39.0-53.0) % Lymphocytes # 0.5 L (1.0-4.8) k/uL PT 40.3 H (9.0-12.0) sec INR 4.5 H (<1.2) Assessment and Plan Assessment: The patient is a 67-year-old right-handed white male who states that he's been depressed for the past 1 year. He states he's had a lot of stress at home. He states he's not been eating and has lost weight. He's been doing less including walking eating dressing getting out of the house. Patient was recently hospitalized at [facility] on February 10 with depression and suicidal thoughts. The patient has a history of psychosis depression and PTSD OCD all diagnosed this year at [facility]. His reports that his depression began this year and the month of July. She states he's had a 60 pound weight loss in a matter of 6 months area did he had some outpatient therapy it's a [facility] during the summer months of October to December. She states that he cannot take care of himself at all anymore because of he does doesn't do anything. She reports that he was prescribed a medication on his last admission which was very expensive and they could not afford it. Also she reports that the medications that he was on including Lamictal BuSpar and Remeron he stopped taking within 3 days of being discharged from the hospital 1 month ago. The patient has no particular neurologic complaints. He denies any headache dizziness focal weakness numbness or visual changes. He has a history of stroke in 2014 during this cardiac catheterization procedure. This affected his vision which improved. 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 The patient's states he's been fine up until July 2017. She states he suddenly became very depressed. She states there is no stress at home. The patient however states that there is a lot of stress in his home life for the past 1 year. 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 Last Myocardial Infarction Date:: unk History of Any Multi-Drug Resistant Organisms: None Reported Past Surgical History: AICD, Cardiac Valve Replacement, Coronary Bypass/CABG, Tonsillectomy Additional Past Surgical History / Comment(s): several thoracentesis, cabg 1999, mitral valve repalcement and bypass graft redo -2015 in [place], colonoscopy/ polypectomy-[facility] Past Anesthesia/Blood Transfusion Reactions: No Reported Reaction Type of Cardiac Device: AICD Device Placement Date:: 03-31-16 Smoking Status: Never smoker - Past Family History Brother(s) Family Medical History: Coronary Artery Disease (CAD), Hyperlipidemia, Hypertension Mother Family Medical History: Dementia, Hypertension Additional Family Medical History / Comment(s): mom is age 92 lives in [place] Father Family Medical History: Cancer Additional Family Medical History / Comment(s): from melanoma cancer Home Medications Medication Instructions Recorded Confirmed Type Carvedilol [Coreg*] 12.5 mg PO BID-W/MEALS #60 tab 03/28/16 03/09/18 Rx Warfarin [Coumadin] 2.5 mg PO SUMOTUTHFR 03/31/16 03/09/18 History Furosemide [Lasix] 80 mg PO DAILY@0900 10/26/17 03/09/18 History Calcitriol 0.25 mcg PO TUTHSA 02/10/18 03/09/18 History Ergocalciferol (Vitamin D2) 50,000 unit PO Q30D 02/10/18 03/09/18 History [Vitamin D2] Warfarin Sodium 1.25 mg PO WE 02/10/18 03/09/18 History Pravastatin Sodium [Pravachol] 80 mg PO DAILY@0900 03/09/18 03/09/18 History Sacubitril/Valsartan [Entresto 49 1 tab PO BID@0900,2100 03/09/18 03/09/18 History mg-51 mg Tablet] Allergies Allergy/AdvReac Type Severity Reaction Status Date / Time nitroglycerin AdvReac headache/na Verified 03/09/18 19:19 [From Nitrostat] usea Mental Status Examination - this is a 67-year-old male looks older than his stated age with flat affect and admits to depression and anxiety and has difficulty making any decisions. He was seen previously after intoxication and had gone to [facility] for treatment and left and came to our hospital for evaluation of altered mental status. Neurology has seen the patient and did not find any neurological causes. General Appearance: [ disheveled, casual, appears older than stated age] Speech/Language: [slow monotone, soft] Attitude/Behavior: [cooperative, withdrawn, indifferent] Mood: [depressed, anxious, fearful, hopelessness] Affect: [ flat, blunted constricted] Orientation: [time, person, place situation] Thought Content: [wnl Risk Factors: [Does not express suicidal (ideations, plan), and/or Homicidal ( ideations, plan), other] Perception: [wnl Thought Processes: [concrete, circumstantial, tangential Concentration/Attention Span: impaired] [Per observation and interview with the patient] Recent Memory: [impaired] [ 2 out of 3 in 3 minutes] Remote Memory: [wnl] [past events, as related history] Intelligence: [average] [based on history, based on vocabulary, syntax, grammar , and content] Judgement: [fair] [per patient's behavior/history of present illness] Insight: [fair] [understanding severity of illness/history of present illness] Psychiatric diagnoses: Major depressive disordersevere; early recovery of alcohol use disorder Patient Strengths - Personal Skills: [x] Achievements: [x] Steady employment/financial stability: [retired] Housing stability: [x] Able to vocalize needs: [x] Values and traditions: [x] Motivation, determination, readiness for change: [x] Patient Limitations: [medication Initial Plan of Care: [Initial psychiatric and plan will be to admit formal voluntary to the [address] [place] [address] unit and will be evaluated by the psychiatric team which includes psychiatry, medicine, social work, nursing staff , and recreational therapy to be integrated in a devine milieu therapeutic environment and to maintain safety in the patient. He'll be evaluated on daily basis and ultimately especially team approach and titration of this medication until resolution of the symptoms. Since he has anxiety and depression with loss of focus addition of sertraline 25 mg by mouth daily at bedtime and Wellbutrin 150 mg SR by mouth every morning will help with anxiety and motivation.] Estimated Length of Stay: 3] Initial Discharge Plan: [home, referred to therapist Prognosis: [ fair] Justification for Inpatient Hospitalization - [ anxiety, depression resulting in significant loss of functioning.] [Emotional or behavioral conditions and complications requiring 24 hour medical and nursing care.] [Need for special drug therapy, or other therapeutic program requiring continuous hospitalization.] [Failure of social functioning.] Beny Mcmahon D.O. PhD (1) Major depressive disorder Current Visit: Yes Status: Acute Code(s): F32.9 - MAJOR DEPRESSIVE DISORDER , SINGLE EPISODE, UNSPECIFIED SNOMED Code(s): 999517526 (1) Depression Current Visit: No Status: Acute Priority: Low Code(s): F32.9 - MAJOR DEPRESSIVE DISORDER, SINGLE EPISODE, UNSPECIFIED SNOMED Code(s): 57680214 Plan: Maintain zoloft 37.5 mg and add mirapex 0.5 mg po qhs for restless leg. Add lamictal 50 for mood stability and racing thoughts. Time with Patient: Less than 30
[2018-03-15] MEDS: SACUBITRIL/VALSARTAN 49 MG-51 MG TABLET PO SCH ×2 (12:02→20:45)
[2018-03-15] MEDS: SODIUM CHLORIDE 0.9% 1,000 ML IV SCH (17:05)
--- NOTE | 2018-03-15 20:40 | PN ---
PROGRESS NOTE SUBJECTIVE: This is a 67-year-old white male with severe depression, not eating or drinking due to severe depression. He is on IV fluids for hypotension. Seen by Cardiology, who readjusted his blood pressure medicines. His IV fluids will be continued today and he was told to encourage his oral intake of liquids and solids so he will not need IV fluids any more. Continue with long-term antidepressant care, as he drinking due to severe depression. Prognosis guarded. MMODL / IJN: [id number] /
[2018-03-15] MEDS: SERTRALINE 25 MG TAB PO SCH (20:43)
[2018-03-15] MEDS: PRAMIPEXOLE 0.5 MG TAB PO SCH (20:45)
[2018-03-15] MEDS: lamoTRIgine 25 MG TAB PO SCH (20:45)
[2018-03-16] MEDS: CALCITRIOL 0.25 MCG CAP PO SCH (08:44)
[2018-03-16] MEDS: buPROPion SR 150 MG TABLET.ER PO SCH (08:44)
[2018-03-16] MEDS: MEGESTROL 40 MG TAB PO SCH (08:45)
[2018-03-16] MEDS: PRAVASTATIN SODIUM 80 MG TAB PO SCH (08:45)
[2018-03-16] MEDS: SACUBITRIL/VALSARTAN 49 MG-51 MG TABLET PO SCH ×2 (08:46→21:00)
[2018-03-16] MEDS: FUROSEMIDE 20 MG TAB PO SCH (08:46)
[2018-03-16] MEDS: ATENOLOL 12.5 MG TAB PO SCH (08:46)
[2018-03-16 09:32] LABS: INR 2.2 (<1.2); Prothrombin Time 20.1 sec (9.0-12.0)
--- NOTE | 2018-03-16 12:28 | P.PN ---
Subjective Progress Note Date: 03/16/18 Principal diagnosis: major depressive rvykibfo-[id number]-pxotxr He describes diarrhea, racing thoughts, poor sleep and slow lethargic. He has little hobbies. Moved her two years ago and walks the dogs. His stomach is better after taking lomotil. He is still depressed ad anxious. Objective - Vital Signs Vital signs: Vital Signs Temp 98 F 03/16/18 06:30 Pulse 72 03/16/18 11:04 Resp 16 03/16/18 11:04 BP 84/52 03/16/18 11:04 Pulse Ox Intake & Output 03/15/18 03/16/18 03/16/18 18:59 06:59 18:59 Intake Total 177 Balance 177 Intake: Oral 177 - Labs CBC & Chem 7: 03/15/18 09:15 03/15/18 09:15 Labs: Abnormal Lab Results - Last 24 Hours (Table) 03/16/18 Range/Units 09:02 PT 20.1 H (9.0-12.0) sec INR 2.2 H (<1.2) Assessment and Plan Assessment: The patient is a 67-year-old right-handed white male who states that he's been depressed for the past 1 year. He states he's had a lot of stress at home. He states he's not been eating and has lost weight. He's been doing less including walking eating dressing getting out of the house. Patient was recently hospitalized at [facility] on February 10 with depression and suicidal thoughts. The patient has a history of psychosis depression and PTSD OCD all diagnosed this year at [facility]. His reports that his depression began this year and the month of July. She states he's had a 60 pound weight loss in a matter of 6 months area did he had some outpatient therapy it's a [facility] during the summer months of October to December. She states that he cannot take care of himself at all anymore because of he does doesn't do anything. She reports that he was prescribed a medication on his last admission which was very expensive and they could not afford it. Also she reports that the medications that he was on including Lamictal BuSpar and Remeron he stopped taking within 3 days of being discharged from the hospital 1 month ago. The patient has no particular neurologic complaints. He denies any headache dizziness focal weakness numbness or visual changes. He has a history of stroke in 2015 during this cardiac catheterization procedure. This affected his vision which improved. 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 The patient's states he's been fine up until July 2017. She states he suddenly became very depressed. She states there is no stress at home. The patient however states that there is a lot of stress in his home life for the past 1 year. 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 Last Myocardial Infarction Date:: unk History of Any Multi-Drug Resistant Organisms: None Reported Past Surgical History: AICD, Cardiac Valve Replacement, Coronary Bypass/CABG, Tonsillectomy Additional Past Surgical History / Comment(s): several thoracentesis, cabg 1999, mitral valve repalcement and bypass graft redo in [place], colonoscopy/ polypectomy-[facility] Past Anesthesia/Blood Transfusion Reactions: No Reported Reaction Type of Cardiac Device: AICD Device Placement Date:: 03-31-16 Smoking Status: Never smoker - Past Family History Brother(s) Family Medical History: Coronary Artery Disease (CAD), Hyperlipidemia, Hypertension Mother Family Medical History: Dementia, Hypertension Additional Family Medical History / Comment(s): mom is age 92 lives in [facility] Father Family Medical History: Cancer Additional Family Medical History / Comment(s): from melanoma cancer Home Medications Medication Instructions Recorded Confirmed Type Carvedilol [Coreg*] 12.5 mg PO BID-W/MEALS #60 tab 03/28/16 03/09/18 Rx Warfarin [Coumadin] 2.5 mg PO SUMOTUTHFR 03/31/16 03/09/18 History Furosemide [Lasix] 80 mg PO DAILY@0900 10/26/17 03/09/18 History Calcitriol 0.25 mcg PO TUTHSA 02/10/18 03/09/18 History Ergocalciferol (Vitamin D2) 50,000 unit PO Q30D 02/10/18 03/09/18 History [Vitamin D2] Warfarin Sodium 1.25 mg PO WE 02/10/18 03/09/18 History Pravastatin Sodium [Pravachol] 80 mg PO DAILY@0900 03/09/18 03/09/18 History Sacubitril/Valsartan [Entresto 49 1 tab PO BID@0900,2100 03/09/18 03/09/18 History mg-51 mg Tablet] Allergies Allergy/AdvReac Type Severity Reaction Status Date / Time nitroglycerin AdvReac headache/na Verified 03/09/18 19:19 [From Nitrostat] usea Mental Status Examination - this is a 67-year-old male looks older than his stated age with flat affect and admits to depression and anxiety and has difficulty making any decisions. He was seen previously after intoxication and had gone to [facility] for treatment and left and came to our hospital for evaluation of altered mental status. Neurology has seen the patient and did not find any neurological causes. General Appearance: [ disheveled, casual, appears older than stated age] Speech/Language: [slow monotone, soft] Attitude/Behavior: [cooperative, withdrawn, indifferent] Mood: [depressed, anxious, fearful, hopelessness] Affect: [ flat, blunted constricted] Orientation: [time, person, place situation] Thought Content: [wnl Risk Factors: [Does not express suicidal (ideations, plan), and/or Homicidal ( ideations, plan), other] Perception: [wnl Thought Processes: [concrete, circumstantial, tangential Concentration/Attention Span: impaired] [Per observation and interview with the patient] Recent Memory: [impaired] [ 2 out of 3 in 3 minutes] Remote Memory: [wnl] [past events, as related history] Intelligence: [average] [based on history, based on vocabulary, syntax, grammar , and content] Judgement: [fair] [per patient's behavior/history of present illness] Insight: [fair] [understanding severity of illness/history of present illness] Psychiatric diagnoses: Major depressive disordersevere; early recovery of alcohol use disorder Patient Strengths - Personal Skills: [x] Achievements: [x] Steady employment/financial stability: [retired] Housing stability: [x] Able to vocalize needs: [x] Values and traditions: [x] Motivation, determination, readiness for change: [x] Patient Limitations: [medication Initial Plan of Care: [Initial psychiatric and plan will be to admit formal voluntary to the [address] [place] [address] and will be evaluated by the psychiatric team which includes psychiatry, medicine, social work, nursing staff , and recreational therapy to be integrated in a devine milieu therapeutic environment and to maintain safety in the patient. He'll be evaluated on daily basis and ultimately especially team approach and titration of this medication until resolution of the symptoms. Since he has anxiety and depression with loss of focus addition of sertraline 25 mg by mouth daily at bedtime and Wellbutrin 150 mg SR by mouth every morning will help with anxiety and motivation.] Estimated Length of Stay: 2] Initial Discharge Plan: [home, referred to therapist Prognosis: [ fair] Justification for Inpatient Hospitalization - [ anxiety, depression resulting in significant loss of functioning.] [Emotional or behavioral conditions and complications requiring 24 hour medical and nursing care.] [Need for special drug therapy, or other therapeutic program requiring continuous hospitalization.] [Failure of social functioning.] Beny Mcmahon D.O. PhD (1) Major depressive disorder Current Visit: Yes Status: Acute Code(s): F32.9 - MAJOR DEPRESSIVE DISORDER , SINGLE EPISODE, UNSPECIFIED SNOMED Code(s): 648517262 (1) Depression Current Visit: No Status: Acute Priority: Low Code(s): F32.9 - MAJOR DEPRESSIVE DISORDER, SINGLE EPISODE, UNSPECIFIED SNOMED Code(s): 03730880 Plan: Maintain zoloft 37.5 mg and add mirapex 0.5 mg po qhs for restless leg. Add lamictal 50 for mood stability and racing thoughts Dizziness and will stop Wellbutrin and Tenormin. Time with Patient: Greater than 30
[2018-03-16] MEDS: WARFARIN 2.5 MG TAB PO SCH (17:48)
[2018-03-16] MEDS: PRAMIPEXOLE 0.5 MG TAB PO SCH (21:00)
[2018-03-16] MEDS: lamoTRIgine 25 MG TAB PO SCH (21:01)
[2018-03-16] MEDS: SERTRALINE 25 MG TAB PO SCH (21:25)
--- NOTE | 2018-03-16 23:24 | PN ---
PROGRESS NOTE This is a 67-year-old white male, presents to the hospital with hypotension and poor oral intake. His blood pressure is 96 to 102/56. His beta nayeli has been stopped. His IV antibiotics have been discontinued. His hemoglobin is 10.8, white count 3.3, INR is 2.2, creatinine 1.53, BUN 18. Thyroid is normal. Hold blood pressure medications if need to if low blood pressures. Continue with Entresto for now. Please see further orders. Await psychiatry recommendation. Start him on Lamictal to go with his . He has been started on Megace for poor oral intake. MMODL / IJN: [id number] /
[2018-03-17] MEDS: FUROSEMIDE 20 MG TAB PO SCH (09:24)
[2018-03-17] MEDS: PRAVASTATIN SODIUM 80 MG TAB PO SCH (09:25)
[2018-03-17] MEDS: MEGESTROL 40 MG TAB PO SCH (09:25)
[2018-03-17] MEDS: MODAFINIL 100 MG TAB PO SCH (09:25)
[2018-03-17] MEDS: SACUBITRIL/VALSARTAN 49 MG-51 MG TABLET PO SCH (09:26)
[2018-03-17 09:46] LABS: INR 1.8 (<1.2); Prothrombin Time 16.6 sec (9.0-12.0)
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
--- NOTE | 2018-03-17 14:32 | P.CRDCN ---
History of Present Illness History of present illness: This is a pleasant 57-year-old male past medical history significant for coronary artery disease status post bypass grafting in 1999, mitral valve replacement and bypass graft redo in December 2015 in [place], hypertension, dyslipidemia, prior CVA with mild residual memory loss, chronic systolic heart failure, and status post implantation of AICD. He follows with Dr. Dickerson in the office. He has been seen and evaluated at [facility] for possible heart transplantation but was not considered to be a candidate. We have been asked to see him in consultation secondary to hypotension. He is currently being evaluated on the mental health unit. He is seen and examined sitting up comfortably in a chair in no acute distress. He denies symptoms of chest pain, shortness of breath, dizziness or palpitations. He follows regularly in the office recently underwent interrogation of his device a couple of months ago which revealed normal function with no indication of acute arrhythmia. Blood pressures have been ranging from 84/51-133/81. They have been holding his cardiac medications intermittently since admission. He is currently being treated for anxiety and depression. Although he denies all complaints to us during our exam, review of other provider notes reveal he has been feeling dizzy at times. Laboratory data reviewed, WBC 3.3, hemoglobin 10.8, platelets 165, INR 1.8, sodium 140, potassium 4.0, creatinine 1.53, TSH 1.37, LDL 107. Current cardiac medications include Coumadin,entresto 49/51 mg twice a day, pravastatin 80 mg daily, Lasix 80 mg daily and carvedilol 12.5 mg twice a day. At the time of my exam: CONSTITUTIONAL: Denies fever. Denies chills. EYES: Denies blurred vision. Denies vision changes. Denies eye pain. EARS, NOSE, MOUTH & THROAT: Denies headache. Denies sore throat. Denies ear pain. CARDIOVASCULAR: Denies chest pain. Denies shortness of breath. Denies orthopnea. Denies PND. Denies palpitations. RESPIRATORY: Denies cough. GASTROINTESTINAL: Denies abdominal pain. Denies diarrhea. Denies constipation. Denies nausea. Denies vomiting. MUSCULOSKELETAL: Denies myalgias. INTEGUMENTARY: Denies pruitis. Denies rash. NEUROLOGIC: Denies numbness. Denies tingling. Denies weakness. PSYCHIATRIC: Denies anxiety. Denies depression. ENDOCRINE: Denies fatigue. Denies weight change. Denies polydipsia. Denies polyurina. GENITOURINARY: Denies burning, hematuria or urgency with micturation. HEMATOLOGIC: Denies history of anemia. Denies bleeding. Blood pressure 96/58 heart rate 76 afebrile maintaining oxygen saturation on room air GENERAL: This is a 67-year-old male in no apparent distress at the time of my examination. HEENT: Head is atraumatic, normocephalic. Pupils are equal, round. Sclerae anicteric. Conjunctivae are clear. Mucous membranes of the mouth are moist. Neck is supple. There is no jugular venous distention. No carotid bruit is heard. LUNGS: Clear to auscultation no wheezes, rales or rhonchi. No chest wall tenderness is noted on palpation or with deep breathing. HEART: Regular rate and rhythm with systolic ejection murmur at the left sternal border, no rubs or gallops. S1 and S2 heard. ABDOMEN: Soft, nontender. Bowel sounds are heard. No organomegaly noted. EXTREMITIES: No evidence of peripheral edema and no calf tenderness noted. VASCULAR: Radial and dorsalis pedis pulses palpated, no evidence of clubbing. NEUROLOGIC: Patient is awake, alert and oriented x3. ASSESSMENT Chronic systolic heart failure, currently euvolemic Ischemic cardiomyopathy, last EF documented at less than 35% in the office June 2017 Hypertension, currently hypotensive s/p prophylactic AICD placement Dyslipidemia, uncontrolled. History of anxiety, depression, ADD, OCD and PTSD PLAN Obtain 2D echocardiogram and doppler study to assess cardiac structure and function. Decrease entresto to 24/26 mg BID and decrease coreg to 3.125 mg BID. Continue lasix at 20 mg daily as changed per primary. Coumadin dosing per primary. Follow up with Dr. Dickerson upon discharge. Thank you kindly for this consultation. Nurse Practitioner note has been reviewed, I agree with a documented findings and plan of care. Patient was seen and examined. 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 Last Myocardial Infarction Date:: unk History of Any Multi-Drug Resistant Organisms: None Reported Past Surgical History: AICD, Cardiac Valve Replacement, Coronary Bypass/CABG, Tonsillectomy Additional Past Surgical History / Comment(s): several thoracentesis, cabg 1999, mitral valve repalcement and bypass graft redo in [place], colonoscopy/ polypectomy-[facility] Past Anesthesia/Blood Transfusion Reactions: No Reported Reaction Type of Cardiac Device: AICD Device Placement Date:: 03-31-16 Smoking Status: Never smoker - Past Family History Brother(s) Family Medical History: Coronary Artery Disease (CAD), Hyperlipidemia, Hypertension Mother Family Medical History: Dementia, Hypertension Additional Family Medical History / Comment(s): mom is age 92 lives in [facility] Father Family Medical History: Cancer Additional Family Medical History / Comment(s): from melanoma cancer Medications and Allergies Home Medications Medication Instructions Recorded Confirmed Type Carvedilol [Coreg*] 12.5 mg PO BID-W/MEALS #60 tab 03/28/16 03/11/18 Rx Warfarin [Coumadin] 2.5 mg PO SUMOTUTHFR 03/31/16 03/11/18 History Furosemide [Lasix] 80 mg PO DAILY@0900 10/26/17 03/11/18 History Calcitriol 0.25 mcg PO TUTHSA 02/10/18 03/11/18 History Ergocalciferol (Vitamin D2) 50,000 unit PO Q30D 02/10/18 03/11/18 History [Vitamin D2] Warfarin Sodium 1.25 mg PO WE 02/10/18 03/11/18 History Pravastatin Sodium [Pravachol] 80 mg PO DAILY@0900 03/09/18 03/11/18 History Sacubitril/Valsartan [Entresto 49 1 tab PO BID@0900,2100 03/09/18 03/11/18 History mg-51 mg Tablet] Allergies Allergy/AdvReac Type Severity Reaction Status Date / Time nitroglycerin AdvReac headache/na Verified 03/11/18 08:04 [From Nitrostat] usea Physical Exam Vitals: Vital Signs Temp Pulse Pulse Resp BP BP Pulse Ox 03/17/18 06:35 98.5 F 76 18 96/58 98 03/16/18 21:00 76 16 102/60 03/16/18 18:51 72 18 105/66 Results 03/15/18 09:15 03/15/18 09:15 Coagulation 03/17/18 Range/Units 09:17 PT 16.6 H (9.0-12.0) sec Current Medications Generic Name Dose Route Start Last Admin Trade Name Freq PRN Reason Stop Dose Admin Acetaminophen 650 mg 03/11/18 01:48 Tylenol Tab PO Q4HR PRN Pain/Discomfort Al Hydroxide/Mg Hydroxide 30 ml 03/11/18 01:48 Maalox PO Q4HR PRN GI Upset Calcitriol 0.25 mcg 03/11/18 09:00 03/16/18 08:44 Rocaltrol PO 0.25 mcg [facility] Administration Furosemide 20 mg 03/11/18 12:00 03/17/18 09:24 Lasix PO 20 mg DAILY DAMARIS Administration Lamotrigine 75 mg 03/17/18 21:00 Lamictal PO 2100 [facility] Loperamide HCl 2 mg 03/12/18 01:05 03/12/18 01:15 Imodium PO 2 mg QID PRN Administration Diarrhea Magnesium Hydroxide 2,400 mg 03/11/18 01:48 Milk Of Magnesia PO DAILY PRN Constipation Megestrol Acetate 80 mg 03/12/18 09:00 03/17/18 09:25 Megace PO 80 mg DAILY DAMARIS Administration Modafinil 100 mg 03/17/18 09:00 03/17/18 09:25 Provigil PO 100 mg DAILY DAMARIS Administration Pramipexole Dihydrochloride 0.5 mg 03/12/18 21:00 03/16/18 21:00 Mirapex PO 0.5 mg HS DAMARIS Administration Pravastatin Sodium 80 mg 03/11/18 09:00 03/17/18 09:25 Pravachol PO 80 mg DAILY@0900 [facility] Administration Sacubitril/Valsartan 1 each 03/11/18 09:00 03/17/18 09:26 Entresto 49 Mg-51 Mg Tablet PO 1 each BID@0900,2100 DAMARIS Administration Sertraline HCl 50 mg 03/17/18 21:00 Zoloft PO 2100 [facility] Warfarin Sodium 1.25 mg 03/17/18 18:00 Coumadin PO WE@1800 [facility] Warfarin Sodium 2.5 mg 03/16/18 18:00 03/16/18 17:48 Coumadin PO 2.5 mg SuMoTuThFr@1800 [facility] Administration 03/15/18 09:15 03/15/18 09:15
[2018-03-17] MEDS: CARVEDILOL 3.125 MG TAB PO SCH (17:45)
[2018-03-17] MEDS ORDERED: WARFARIN 1.25 MG TAB PO SCH (18:00)
[2018-03-17] MEDS ORDERED: WARFARIN 2.5 MG TAB PO SCH (18:00)
[2018-03-17] MEDS ORDERED: SERTRALINE 25 MG TAB PO SCH (21:00)
[2018-03-17] MEDS: lamoTRIgine 25 MG TAB PO SCH (21:02)
[2018-03-17] MEDS: PRAMIPEXOLE 0.5 MG TAB PO SCH (21:02)
[2018-03-17] MEDS: SACUBITRIL/VALSARTAN 24 MG-26 MG TABLET PO SCH (21:03)
--- NOTE | 2018-03-18 06:19 | PN ---
PROGRESS NOTE SUBJECTIVE: This is a 67-year-old white male admitted with severe depression. States he started to eat and drink again. Feeling a little bit better. VITAL SIGNS: Reviewed. CARDIOVASCULAR: S1, S2. LUNGS: Clear. GI: Soft. Neuro psych: He is telling a story about him making up his conditions and lying to everybody, which does not make any sense. He said he told this to Psychiatry. Psychiatry will adjust his medications. Continue current blood pressure and cardiac medicines for systolic CHF and cardiomyopathy. MMODL / IJN: [id number] /
--- NOTE | 2018-03-18 08:06 | ECHOF ---
Referral Reason:history of systolic failure MEASUREMENTS -------- HEIGHT: 162.6 cm WEIGHT: 52.6 kg BP: RVIDd: 2.4 cm (< 3.3) IVSd: 2.0 cm (0.6 - 1.1) LVIDd: 2.9 cm (3.9 - 5.3) LVPWd: 1.2 cm (0.6 - 1.1) IVSs: 1.5 cm LVIDs: 4.5 cm LVPWs: 1.3 cm LA Diam: 3.1 cm (2.7 - 3.8) Ao Diam: 3.0 cm (2.0 - 3.7) AV Cusp: 1.4 cm (1.5 - 2.6) LA Diam: 3.9 cm (2.7 - 3.8) MV EXCURSION: 17.570 mm (> 18.000) MV EF SLOPE: 49 mm/s (70 - 150) EPSS: 0.7 cm MV E Xiang: 0.93 m/s MV DecT: 208 ms MV A Xiang: 0.80 m/s MV E/A Ratio: 1.16 RAP: 5.00 mmHg RVSP: 31.50 mmHg FINDINGS -------- Paced rhythm. This was a technically good study. The left ventricular size is normal. Left ventricular wall thickness is normal. There is severe g lobal hypokinesis of LV . Overall left ventricular systolic function is severely impaired with, an EF < 20%. The right ventricle is normal in size. The left atrial size is normal. The right atrial size is normal. There is mild aortic valve sclerosis. There is no evidence of aortic regurgitation. Mechanical Pr osthetic MV with mild mr. The peak and mean MV gradients are 6.35mmHg 1.85mmHg as measured by doppler. Mild tricuspid regurgitation present. There is no evidence of pulmonary hypertension. The right v entricular systolic pressure, as measured by Doppler, is 31.50mmHg. There is no pulmonic regurgitation present. The aortic root size is normal. There is no pericardial effusion. CONCLUSIONS -------- 1. The left ventricular size is normal. 2. Left ventricular wall thickness is normal. 3. There is severe global hypokinesis of LV . 4. Overall left ventricular systolic function is severely impaired with, an EF < 20%. 5. The right ventricle is normal in size. 6. The left atrial size is normal. 7. The right atrial size is normal. 8. There is mild aortic valve sclerosis. 9. Mechanical Prosthetic MV with mild mr. 10. The peak and mean MV gradients are 6.35mmHg 1.85mmHg as measured by doppler. 11. Mild tricuspid regurgitation present. 12. There is no evidence of pulmonary hypertension. 13. The right ventricular systolic pressure, as measured by Doppler, is 31.50mmHg. 14. There is no pulmonic regurgitation present. 15. The aortic root size is normal. 16. There is no pericardial effusion. SECURITY SALES MANAGER: Anna Roy RDCS
[2018-03-18] MEDS: PRAVASTATIN SODIUM 80 MG TAB PO SCH (09:29)
[2018-03-18] MEDS: CARVEDILOL 3.125 MG TAB PO SCH ×2 (09:31→17:02)
[2018-03-18] MEDS: CALCITRIOL 0.25 MCG CAP PO SCH (09:32)
[2018-03-18] MEDS: MODAFINIL 100 MG TAB PO SCH (09:32)
[2018-03-18] MEDS: FUROSEMIDE 20 MG TAB PO SCH (09:32)
[2018-03-18] MEDS: SACUBITRIL/VALSARTAN 24 MG-26 MG TABLET PO SCH ×2 (09:32→21:02)
[2018-03-18] MEDS: MEGESTROL 40 MG TAB PO SCH (09:32)
[2018-03-18 09:52] LABS: INR 1.5 (<1.2); Prothrombin Time 14.2 sec (9.0-12.0)
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
[2018-03-18] MEDS: WARFARIN 2.5 MG TAB PO SCH (17:03)
[2018-03-18] MEDS ORDERED: WARFARIN 1 MG TAB PO ONE (18:00)
[2018-03-18] MEDS: lamoTRIgine 25 MG TAB PO SCH (21:02)
[2018-03-18] MEDS: PRAMIPEXOLE 0.5 MG TAB PO SCH (21:02)
[2018-03-18] MEDS: SERTRALINE 25 MG TAB PO SCH (21:03)
[2018-03-19] MEDS: PRAVASTATIN SODIUM 80 MG TAB PO SCH (09:12)
[2018-03-19] MEDS: MODAFINIL 100 MG TAB PO SCH (09:12)
[2018-03-19] MEDS: FUROSEMIDE 20 MG TAB PO SCH (09:12)
[2018-03-19] MEDS: CARVEDILOL 3.125 MG TAB PO SCH ×3 (09:12→16:49)
[2018-03-19] MEDS: SACUBITRIL/VALSARTAN 24 MG-26 MG TABLET PO SCH ×3 (09:13→20:06)
[2018-03-19] MEDS: MEGESTROL 40 MG TAB PO SCH (09:15)
[2018-03-19 10:10] LABS: INR 1.6 (<1.2); Prothrombin Time 14.4 sec (9.0-12.0)
[2018-03-19 12:47] LABS: Appearance,Urine Clear (Clear); Bilirubin,Urine Negative (Negative); Blood,Urine Negative (Negative); Color,Urine Yellow; Glucose,Urine (UA) Negative (Negative); Ketones,Urine Negative (Negative); Leukocyte Esterase,Urine Negative (Negative); Nitrite,Urine Negative (Negative); Protein,Urine Trace (Negative); Specific Gravity,Urine 1.014 (1.001-1.035); Urobilinogen,Urine <2.0 mg/dL (<2.0)
[2018-03-19] MEDS: WARFARIN 3 MG TAB PO SCH (18:06)
[2018-03-19] MEDS: PRAMIPEXOLE 0.5 MG TAB PO SCH (20:05)
[2018-03-19] MEDS: SERTRALINE 25 MG TAB PO SCH (20:05)
[2018-03-19] MEDS: lamoTRIgine 25 MG TAB PO SCH (20:05)
[2018-03-20 08:39] LABS: INR 1.7 (<1.2); Prothrombin Time 15.7 sec (9.0-12.0)
[2018-03-20] MEDS: CALCITRIOL 0.25 MCG CAP PO SCH (08:50)
[2018-03-20] MEDS: SACUBITRIL/VALSARTAN 24 MG-26 MG TABLET PO SCH ×2 (08:50→20:55)
[2018-03-20] MEDS: MEGESTROL 40 MG TAB PO SCH (08:51)
[2018-03-20] MEDS: MODAFINIL 100 MG TAB PO SCH (08:51)
[2018-03-20] MEDS: PRAVASTATIN SODIUM 80 MG TAB PO SCH (08:51)
[2018-03-20] MEDS: FUROSEMIDE 20 MG TAB PO SCH (08:51)
[2018-03-20] MEDS: CARVEDILOL 3.125 MG TAB PO SCH ×2 (08:51→17:11)
--- NOTE | 2018-03-20 08:52 | P.PN ---
Progress Note - Text Interval history: The patient is found in the library he follows me to an interview room. He reports that he was admitted approximately one week ago for suicidal thoughts. He had thoughts of jumping in the [place]. He felt overwhelmed with a variety of stressors. He has been started on psychotropic medication and this has been addressed during the course of his stay. He has no questions regarding his psychotropic medication. He feels that he is improving since he has been here. He is hoping for discharge Thursday. Social work notes reflect that a support meeting is scheduled for Thursday with his . He is reported to have slept 7 hours he states that he sleeping well appetite stable he reports attending groups. Mental status exam: The patient is a shorter statured thin male appearing his stated age. Hygiene is adequate he's mildly disheveled he is dressed in his own clothing. Eye contact is good speech is fluent he has a mild southern accent. Speech is spontaneous nonpressured. He reports no suicidal or homicidal ideation intent or plan. He is reporting no auditory or visual hallucinations or any specific delusions. There is no observed evidence of psychosis. He demonstrates no symptoms of hypomania or deepa. He demonstrates no verbal or physical aggressiveness. Insight and judgment appear to be improving. He is oriented to person place and date. Affect is expressive appropriately. Plan: The patient will continue on his current psychotropic medications. Vital signs reviewed. We we'll monitor him for safety he is encouraged to continue participating in groups.
[2018-03-20] MEDS: WARFARIN 3 MG TAB PO SCH (17:11)
[2018-03-20] MEDS: lamoTRIgine 25 MG TAB PO SCH (20:55)
[2018-03-20] MEDS: SERTRALINE 25 MG TAB PO SCH (20:55)
[2018-03-20] MEDS: PRAMIPEXOLE 0.5 MG TAB PO SCH (20:55)
[2018-03-21 07:46] LABS: INR 2.1 (<1.2)
[2018-03-21] MEDS: CARVEDILOL 3.125 MG TAB PO SCH ×2 (08:43→17:09)
[2018-03-21] MEDS: MEGESTROL 40 MG TAB PO SCH (08:43)
[2018-03-21] MEDS: SACUBITRIL/VALSARTAN 24 MG-26 MG TABLET PO SCH ×2 (08:43→20:46)
[2018-03-21] MEDS: FUROSEMIDE 20 MG TAB PO SCH (08:43)
[2018-03-21] MEDS: PRAVASTATIN SODIUM 80 MG TAB PO SCH (08:43)
[2018-03-21] MEDS: MODAFINIL 100 MG TAB PO SCH (08:43)
--- NOTE | 2018-03-21 10:44 | P.PN ---
Progress Note - Text Interval history: The patient is found in the hallway he follows me to an interview room. He reports that his mood is better. He had a visit with his brother yesterday that went well. He expresses some anxiety about the meeting with his tomorrow. He indicates that he slept last night staff recorded he slept 7 hours. He states he's been trying to do better with eating. He has been attending groups. He has no questions regarding his psychotropic medication. Mental status exam: The patient is a male appearing his stated age. He has adequate hygiene and fair grooming he is dressed in clothes that appear mildly oversized. Eye contact is good. He's pleasant cooperative and easily directed in the session. He reports his mood has improved although he still has some anxiety. He denies having any suicidal or homicidal ideation intent or plan. He is endorsing no auditory or visual hallucinations or any specific delusions. He demonstrates no observed evidence of psychosis. He demonstrates no symptoms of hypomania or deepa. Insight and judgment improving. He maintains a constricted affect. Plan: The patient will continue on his current psychotropic medication. We will continue to monitor him for safety and encourage full participation in the milieu. Vital signs reviewed.
[2018-03-21] MEDS: WARFARIN 3 MG TAB PO SCH (17:09)
[2018-03-21] MEDS: lamoTRIgine 25 MG TAB PO SCH (20:47)
[2018-03-21] MEDS: SERTRALINE 25 MG TAB PO SCH (20:47)
[2018-03-21] MEDS: PRAMIPEXOLE 0.5 MG TAB PO SCH (20:47)
[2018-03-22] MEDS: MODAFINIL 100 MG TAB PO SCH (07:59)
[2018-03-22] MEDS: MEGESTROL 40 MG TAB PO SCH (07:59)
[2018-03-22] MEDS: CARVEDILOL 3.125 MG TAB PO SCH ×2 (07:59→18:54)
[2018-03-22] MEDS: PRAVASTATIN SODIUM 80 MG TAB PO SCH (07:59)
[2018-03-22] MEDS: SACUBITRIL/VALSARTAN 24 MG-26 MG TABLET PO SCH ×2 (07:59→21:14)
[2018-03-22] MEDS: FUROSEMIDE 20 MG TAB PO SCH (07:59)
[2018-03-22 09:52] LABS: INR 2.2 (<1.2)
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
[2018-03-22] MEDS: WARFARIN 3 MG TAB PO SCH (17:36)
[2018-03-22] MEDS: PRAMIPEXOLE 0.5 MG TAB PO SCH (21:22)
[2018-03-22] MEDS: lamoTRIgine 100 MG TAB PO SCH (21:22)
[2018-03-22] MEDS: SERTRALINE 100 MG TAB PO SCH (21:23)
[2018-03-22] MEDS: SODIUM CHLORIDE 0.9% 1,000 ML IV SCH (21:56)
[2018-03-23] MEDS: MEGESTROL 40 MG TAB PO SCH ×4 (09:08→21:46)
[2018-03-23] MEDS: CALCITRIOL 0.25 MCG CAP PO SCH (09:08)
[2018-03-23] MEDS: PRAVASTATIN SODIUM 80 MG TAB PO SCH (09:09)
[2018-03-23] MEDS: SACUBITRIL/VALSARTAN 24 MG-26 MG TABLET PO SCH ×2 (09:09→21:52)
[2018-03-23] MEDS: FUROSEMIDE 20 MG TAB PO SCH (09:09)
[2018-03-23] MEDS: MODAFINIL 100 MG TAB PO SCH (09:09)
[2018-03-23] MEDS: CARVEDILOL 3.125 MG TAB PO SCH ×2 (09:18→17:19)
[2018-03-23 12:12] VITALS: BMI 20.8
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
[2018-03-23] MEDS: SODIUM CHLORIDE 0.9% 1,000 ML IV SCH (17:10)
[2018-03-23] MEDS: WARFARIN 3 MG TAB PO SCH (17:52)
[2018-03-23] MEDS: SERTRALINE 100 MG TAB PO SCH (21:08)
[2018-03-23] MEDS: lamoTRIgine 100 MG TAB PO SCH (21:46)
[2018-03-23] MEDS: PRAMIPEXOLE 0.5 MG TAB PO SCH (21:46)
--- NOTE | 2018-03-24 05:58 | PN ---
PROGRESS NOTE SUBJECTIVE: This is a 67-year-old white male with , bradycardia, dehydration. He is not eating and drinking well. He is refusing to eat and drink due to severe depression. All blood pressure medicines have been withheld for blood pressure below 90 systolic. He will get IV fluids overnight 50 mL an hour for another 24 hours due to hypotension. Continue with current Coumadin 3 mg a day for INR of 2.2. Please see further orders. MMODL / IJN: [id number] /
[2018-03-24] MEDS: FUROSEMIDE 20 MG TAB PO SCH (08:49)
[2018-03-24] MEDS: CARVEDILOL 3.125 MG TAB PO SCH ×2 (08:49→17:06)
[2018-03-24] MEDS: MEGESTROL 40 MG TAB PO SCH ×4 (08:49→21:45)
[2018-03-24] MEDS: SACUBITRIL/VALSARTAN 24 MG-26 MG TABLET PO SCH ×2 (08:50→21:44)
[2018-03-24] MEDS: MODAFINIL 100 MG TAB PO SCH (08:50)
[2018-03-24] MEDS: PRAVASTATIN SODIUM 80 MG TAB PO SCH (08:50)
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
[2018-03-24] MEDS: WARFARIN 3 MG TAB PO SCH (17:06)
[2018-03-24] MEDS: lamoTRIgine 100 MG TAB PO SCH (21:45)
[2018-03-24] MEDS: PRAMIPEXOLE 0.5 MG TAB PO SCH (21:45)
[2018-03-24] MEDS: SERTRALINE 100 MG TAB PO SCH (21:45)
--- NOTE | 2018-03-25 08:02 | PN ---
PROGRESS NOTE SUBJECTIVE: A 67-year-old white male, dehydration due to poor oral intake of food and liquid. Bradycardia, hypotension. Blood pressure medicines will be held for systolic under 90. CARDIOVASCULAR: S1, S2. LUNGS: Clear. GI: Soft. HEMATOLOGY: Negative Homans. SKIN: Dry mucous membranes. ASSESSMENT: Dehydration, severe depression. Follow up in next 24 to 48 hours, off IVs. Monitor blood pressure. MMODL / IJN: [id number] /
[2018-03-25] MEDS: SACUBITRIL/VALSARTAN 24 MG-26 MG TABLET PO SCH ×2 (08:40→21:08)
[2018-03-25] MEDS: MODAFINIL 200 MG TAB PO SCH (08:40)
[2018-03-25] MEDS: MEGESTROL 40 MG TAB PO SCH ×4 (08:40→21:07)
[2018-03-25] MEDS: FUROSEMIDE 20 MG TAB PO SCH (08:40)
[2018-03-25] MEDS: CALCITRIOL 0.25 MCG CAP PO SCH (08:40)
[2018-03-25] MEDS: PRAVASTATIN SODIUM 80 MG TAB PO SCH ×2 (08:41→08:42)
[2018-03-25] MEDS: CARVEDILOL 3.125 MG TAB PO SCH ×2 (08:41→17:05)
[2018-03-25 12:13] LABS: INR 2.8 (<1.2); Prothrombin Time 25.1 sec (9.0-12.0)
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
[2018-03-25] MEDS: WARFARIN 3 MG TAB PO SCH (17:04)
[2018-03-25] MEDS: lamoTRIgine 100 MG TAB PO SCH (21:07)
[2018-03-25] MEDS: SERTRALINE 100 MG TAB PO SCH (21:07)
[2018-03-25] MEDS: PRAMIPEXOLE 0.5 MG TAB PO SCH (21:08)
[2018-03-26 06:49] VITALS: TEMP 98.2
[2018-03-26] MEDS: CARVEDILOL 3.125 MG TAB PO SCH (07:54)
[2018-03-26] MEDS: MEGESTROL 40 MG TAB PO SCH ×2 (07:54→12:51)
[2018-03-26] MEDS: SACUBITRIL/VALSARTAN 24 MG-26 MG TABLET PO SCH (07:54)
[2018-03-26] MEDS: FUROSEMIDE 20 MG TAB PO SCH (07:54)
[2018-03-26] MEDS: PRAVASTATIN SODIUM 80 MG TAB PO SCH (07:54)
[2018-03-26] MEDS: MODAFINIL 200 MG TAB PO SCH (07:54)
[2018-03-26 07:56] VITALS: BP 100/61; PULSE 97; RESP 18
--- NOTE | 2018-03-26 08:22 | PN ---
PROGRESS NOTE SUBJECTIVE: 67-year-old white male who continues to have poor oral intake. Systolic blood pressures in the high 90s. CARDIOVASCULAR: S1, S2. Lungs clear. GI soft. Hematology negative Homans. ASSESSMENT: 1. Severe dehydration. 2. Systolic congestive heart failure. 3. Dehydration. 4. Malnutrition and poor oral intake due to depression. Continue current treatment. Encourage oral intake of liquids and food and medication compliance. Hold all blood pressure and cardiac medicines for systolic blood pressure 90. MMODL / IJN: [id number] /
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
== END 2018-03-26 13:26 | disposition home or self-care (01) | DRG 885 ==
LOC: 3MHU 03-11 01:20
PROVIDERS: ADMIT Psychiatry & Neurology Psychiatry; ATTEND Psychiatry & Neurology Psychiatry
DX: F32.2 Major depressive disorder, single episode, severe without psychotic features (principal); I50.22 Chronic systolic (congestive) heart failure; E46 Unspecified protein-calorie malnutrition; I11.0 Hypertensive heart disease with heart failure; I69.311 Memory deficit following cerebral infarction; I95.9 Hypotension, unspecified; Z91.120 Patient's intentional underdosing of medication regimen due to financial hardship; R00.1 Bradycardia, unspecified; E86.0 Dehydration; I25.5 Ischemic cardiomyopathy; F43.10 Post-traumatic stress disorder, unspecified; F98.8 Other specified behavioral and emotional disorders with onset usually occurring in childhood and adolescence; F42.9 Obsessive-compulsive disorder, unspecified; G25.81 Restless legs syndrome; I25.2 Old myocardial infarction; K21.9 Gastro-esophageal reflux disease without esophagitis; I25.10 Atherosclerotic heart disease of native coronary artery without angina pectoris; E78.5 Hyperlipidemia, unspecified; F10.10 Alcohol abuse, uncomplicated; R19.7 Diarrhea, unspecified; Z68.20 Body mass index [BMI] 20.0-20.9, adult; Z71.3 Dietary counseling and surveillance; Z79.01 Long term (current) use of anticoagulants; Z79.899 Other long term (current) drug therapy; Z95.810 Presence of automatic (implantable) cardiac defibrillator; Z95.1 Presence of aortocoronary bypass graft; Z95.2 Presence of prosthetic heart valve; Z86.010 Personal history of colon polyps; Z88.8 Allergy status to other drugs, medicaments and biological substances; Z82.49 Family history of ischemic heart disease and other diseases of the circulatory system; Z80.8 Family history of malignant neoplasm of other organs or systems; Z81.8 Family history of other mental and behavioral disorders
CPT/HCPCS: 80053; 80061; 80076; 81003; 83036; 84443; 85025; 85610; 93306

== ENCOUNTER → 2018-05-14 | Outpatient (CLI) | payer MEDICARE ==
[2018-05-14 14:49] LABS: HCT 36.4 % (39.0-53.0); HGB 11.6 gm/dL (13.0-17.5); Hypochromasia Slight; MCH 32.2 pg (25.0-35.0); MCHC 31.7 g/dL (31.0-37.0); Macrocytosis Slight; Platelet Count 305 k/uL (150-450); RBC 3.59 m/uL (4.30-5.90); RDW 13.3 % (11.5-15.5); WBC 6.6 k/uL (3.8-10.6)
[2018-05-14 14:53] LABS: MCV 101.5 fL (80.0-100.0)
[2018-05-14 18:20] LABS: Parathyroid Hormone Intact 76.4 pg/mL (14.0-72.0)
[2018-05-14 18:43] LABS: Iron Saturation 12.53 (15.00-50.00)
[2018-05-14 18:52] LABS: Vitamin D 25 Hydroxy 66.2 ng/mL (30.0-100.0)
[2018-05-14 19:24] LABS: Albumin 4.2 g/dL (3.80-4.90); Albumin/Globulin Ratio 2.21 (1.20-2.10); Globulin 1.9 g/dL (1.6-3.3); Phosphorus 3.4 mg/dL (2.4-5.1); Potassium 4.1 mmol/L (3.5-5.5); Total Bilirubin 0.5 mg/dL (0.3-1.2); Total Protein 6.1 g/dL (6.2-8.2)
== END | disposition home or self-care (01) ==
LOC: LABWHC1 13:51
PROVIDERS: ATTEND Nurse Practitioner Family
DX: N18.4 Chronic kidney disease, stage 4 (severe) (principal); D63.1 Anemia in chronic kidney disease; N39.0 Urinary tract infection, site not specified; N25.81 Secondary hyperparathyroidism of renal origin; E55.9 Vitamin D deficiency, unspecified; M10.9 Gout, unspecified
CPT/HCPCS: 36415; 80053; 82306; 82728; 83540; 83550; 83735; 83970; 84100; 84550; 85027

== ENCOUNTER 2018-05-19 14:16 | Observation (INO) | payer MEDICARE ==
--- NOTE | 2018-05-19 15:13 | ED ---
General Adult HPI - General Chief complaint: Shortness of Breath Stated complaint: KEVIN Time Seen by Provider: 05/19/18 14:40 Source: patient, RN notes reviewed Mode of arrival: ambulatory Limitations: no limitations - History of Present Illness Initial comments: This is a 67-year-old male who presents to the emergency department with a past medical history significant for mitral valve replacement. Patient also has a defibrillator. Patient has a history of congestive heart failure. Patient states over the last few days he's noticed slightly difficulty breathing. Patient states he has noticed a little increased size in his belly which is typical for when he is fluid overloaded. Patient definitely notices increased difficult breathing with lying flat and exerting himself. Patient denies any chest pain or palpitations. Patient denies fever chills or cough. Patient denies abdominal pain patient denies nausea vomiting diarrhea. Patient denies any swelling to his legs or calf tenderness. - Related Data Home Medications Medication Instructions Recorded Confirmed Calcitriol 0.25 mcg PO TUTHSA 02/10/18 05/19/18 Ergocalciferol (Vitamin D2) 50,000 unit PO Q30D 02/10/18 05/19/18 [Vitamin D2] Pravastatin Sodium [Pravachol] 80 mg PO DAILY@0900 03/09/18 05/19/18 Sacubitril/Valsartan [Entresto 24 1 tab PO BID 05/19/18 05/19/18 mg-26 mg Tablet] Sertraline [Zoloft] 100 mg PO HS@2100 05/19/18 05/19/18 Warfarin [Coumadin] 1.25 mg PO TUSA@1800 05/19/18 05/19/18 Warfarin [Coumadin] 2.5 mg PO SUMOWETHFR@1800 05/19/18 05/19/18 lamoTRIgine [LaMICtal] 100 mg PO HS@2100 05/19/18 05/19/18 Previous Rx's Medication Instructions Recorded Carvedilol [Coreg] 3.125 mg PO BID-W/MEALS tab 03/26/18 Furosemide [Lasix] 20 mg PO DAILY tab 03/26/18 Pramipexole [Mirapex] 0.5 mg PO HS 30 Days #30 tab 03/26/18 Allergies Allergy/AdvReac Type Severity Reaction Status Date / Time nitroglycerin AdvReac headache/na Verified 05/19/18 15:37 [From Nitrostat] usea Review of Systems ROS Statement: Those systems with pertinent positive or pertinent negative responses have been documented in the HPI. ROS Other: All systems not noted in ROS Statement are negative. 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 Last Myocardial Infarction Date:: unk History of Any Multi-Drug Resistant Organisms: None Reported Past Surgical History: AICD, Cardiac Valve Replacement, Coronary Bypass/CABG, Tonsillectomy Additional Past Surgical History / Comment(s): several thoracentesis, cabg 1999, mitral valve repalcement and bypass graft redo in [place], colonoscopy/ polypectomy-[facility] Past Anesthesia/Blood Transfusion Reactions: No Reported Reaction Type of Cardiac Device: AICD Device Placement Date:: 03-31-16 Past Psychological History: ADD/ADHD, Anxiety, Depression, PTSD Smoking Status: Never smoker Past Alcohol Use History: None Reported Past Drug Use History: None Reported - Past Family History Brother(s) Family Medical History: Coronary Artery Disease (CAD), Hyperlipidemia, Hypertension Mother Family Medical History: Dementia, Hypertension Additional Family Medical History / Comment(s): mom is age 92 lives in [facility] Father Family Medical History: Cancer Additional Family Medical History / Comment(s): from melanoma cancer General Exam - General Exam Comments Initial Comments: GENERAL: Patient is well-developed and well-nourished. Patient is nontoxic and well- hydrated and is in mild distress. ENT: Neck is soft and supple. No significant lymphadenopathy is noted. Oropharynx is clear. Moist mucous membranes. Neck has full range of motion without eliciting any pain. EYES: The sclera were anicteric and conjunctiva were pink and moist. Extraocular movements were intact and pupils were equal round and reactive to light. Eyelids were unremarkable. PULMONARY: Unlabored respirations. Good breath sounds bilaterally. Mild crackles in the bases slightly diminished breath sounds in the left base CARDIOVASCULAR: There is a regular rate and rhythm without any murmurs gallops or rubs. ABDOMEN: Soft and nontender with normal bowel sounds. No palpable organomegaly was noted. There is no palpable pulsatile mass. SKIN: Skin is clear with no lesions or rashes and otherwise unremarkable. NEUROLOGIC: Patient is alert and oriented x3. Cranial nerves II through XII are grossly intact. Motor and sensory are also intact. Normal speech, volume and content. Symmetrical smile. MUSCULOSKELETAL: Normal extremities with adequate strength and full range of motion. No lower extremity swelling or edema. No calf tenderness. LYMPHATICS: No significant lymphadenopathy is noted PSYCHIATRIC: Normal psychiatric evaluation. Limitations: no limitations Course Vital Signs 05/19/18 14:39 Temperature 97.4 F L Pulse Rate 88 Respiratory 18 Rate Blood Pressure 146/95 O2 Sat by Pulse 97 Oximetry Medical Decision Making - Medical Decision Making EKG shows normal sinus rhythm at 84 bpm ME interval 166 dresses 120 QT interval is 477. Patient's EKG shows no ST segment elevation or depression. Chest x-ray shows pulmonary edema Patient was placed on Lasix and Nitropaste to the emergency department I spoke with Dr. Haynes he agreed to admit the patient admitted patient consult cardiology continued Lasix Nitropaste on the floor - Lab Data Result diagrams: 05/19/18 15:15 05/19/18 15:15 Lab Results 05/19/18 05/19/18 05/19/18 Range/Units 15:15 15:15 15:15 WBC 5.7 (3.8-10.6) k/uL RBC 3.52 L (4.30-5.90) m/uL Hgb 11.2 L (13.0-17.5) gm/dL Hct 36.0 L (39.0-53.0) % MCV 102.4 H (80.0-100.0) fL MCH 31.9 (25.0-35.0) pg MCHC 31.2 (31.0-37.0) g/dL RDW 13.3 (11.5-15.5) % Plt Count 293 (150-450) k/uL Neutrophils % 77 % Lymphocytes % 9 % Monocytes % 8 % Eosinophils % 4 % Basophils % 1 % Neutrophils # 4.4 (1.3-7.7) k/uL Lymphocytes # 0.5 L (1.0-4.8) k/uL Monocytes # 0.4 (0-1.0) k/uL Eosinophils # 0.2 (0-0.7) k/uL Basophils # 0.0 (0-0.2) k/uL Hypochromasia Slight Macrocytosis Slight PT (9.0-12.0) sec INR (<1.2) APTT (22.0-30.0) sec Sodium 141 (137-145) mmol/L Potassium 4.5 (3.5-5.1) mmol/L Chloride 107 (98-107) mmol/L Carbon Dioxide 29 (22-30) mmol/L Anion Gap 5 mmol/L BUN 31 H (9-20) mg/dL Creatinine 1.68 H (0.66-1.25) mg/dL Est GFR (CKD-EPI)AfAm 49 (>60 ml/min/1.73 sqM) Est GFR (CKD-EPI)NonAf 42 (>60 ml/min/1.73 sqM) Glucose 93 (74-99) mg/dL Calcium 9.3 (8.4-10.2) mg/dL Total Bilirubin 0.6 (0.2-1.3) mg/dL AST 19 (17-59) U/L ALT 28 (21-72) U/L Alkaline Phosphatase 82 (38-126) U/L Total Creatine Kinase 64 (55-170) U/L CK-MB (CK-2) 0.8 (0.0-2.4) ng/mL CK-MB (CK-2) Rel Index 1.3 Troponin I <0.012 (0.000-0.034) ng/mL NT-Pro-B Natriuret Pep pg/mL Total Protein 6.6 (6.3-8.2) g/dL Albumin 4.1 (3.5-5.0) g/dL 05/19/18 05/19/18 Range/Units 15:15 15:15 WBC (3.8-10.6) k/uL RBC (4.30-5.90) m/uL Hgb (13.0-17.5) gm/dL Hct (39.0-53.0) % MCV (80.0-100.0) fL MCH (25.0-35.0) pg MCHC (31.0-37.0) g/dL RDW (11.5-15.5) % Plt Count (150-450) k/uL Neutrophils % % Lymphocytes % % Monocytes % % Eosinophils % % Basophils % % Neutrophils # (1.3-7.7) k/uL Lymphocytes # (1.0-4.8) k/uL Monocytes # (0-1.0) k/uL Eosinophils # (0-0.7) k/uL Basophils # (0-0.2) k/uL Hypochromasia Macrocytosis PT 25.1 H (9.0-12.0) sec INR 2.6 H (<1.2) APTT 36.0 H (22.0-30.0) sec Sodium (137-145) mmol/L Potassium (3.5-5.1) mmol/L Chloride (98-107) mmol/L Carbon Dioxide (22-30) mmol/L Anion Gap mmol/L BUN (9-20) mg/dL Creatinine (0.66-1.25) mg/dL Est GFR (CKD-EPI)AfAm (>60 ml/min/1.73 sqM) Est GFR (CKD-EPI)NonAf (>60 ml/min/1.73 sqM) Glucose (74-99) mg/dL Calcium (8.4-10.2) mg/dL Total Bilirubin (0.2-1.3) mg/dL AST (17-59) U/L ALT (21-72) U/L Alkaline Phosphatase (38-126) U/L Total Creatine Kinase (55-170) U/L CK-MB (CK-2) (0.0-2.4) ng/mL CK-MB (CK-2) Rel Index Troponin I (0.000-0.034) ng/mL NT-Pro-B Natriuret Pep 2300 pg/mL Total Protein (6.3-8.2) g/dL Albumin (3.5-5.0) g/dL Critical Care Time Critical Care Time: Yes Total Critical Care Time: 35 Disposition Clinical Impression: Acute pulmonary edema Disposition: ADMITTED IP TO THIS HOSP Referrals: Brando Gray MD [Primary Care Provider] - 1-2 days Time of Disposition: 16:33
--- NOTE | 2018-05-19 15:34 | XR ---
EXAMINATION TYPE: XR chest 2V DATE OF EXAM: 05/19/2018 COMPARISON: Chest x-ray April 01, 2016. HISTORY: Cough and shortness of breath. TECHNIQUE: Frontal and lateral views of the chest are obtained. FINDINGS: The cardiac silhouette size is mildly enlarged on current study. Overlying sternal wires a nd mediastinal clips as well as metallic mitral valvular ring are all redemonstrated. There is new mi ld to moderate alveolar opacity on background of diffuse bilateral interstitial opacity . There is p ersistent small left pleural effusion. Associated left basilar atelectasis and/or infiltrate is seen. The osseous structures are intact. IMPRESSION: New mild cardiomegaly with new mild to moderate bilateral alveolar edema and persistent mild bilateral interstitial edema and small left pleural effusion. CHF exacerbation is felt present. Associated left basilar atelectasis and/or infiltrate is noted. Progress study advised.
[2018-05-19 15:42] LABS: Basophils % (A) 1 %; Eosinophils # (A) 0.2 k/uL (0-0.7); Eosinophils % (A) 4 %; HGB 11.2 gm/dL (13.0-17.5); Hypochromasia Slight; Lymphocytes # (A) 0.5 k/uL (1.0-4.8); Lymphocytes % (A) 9 %; MCH 31.9 pg (25.0-35.0); MCHC 31.2 g/dL (31.0-37.0); MCV 102.4 fL (80.0-100.0); Macrocytosis Slight; Mean Platelet Volume 6.6; Monocytes # (A) 0.4 k/uL (0-1.0); Monocytes % (A) 8 %; Neutrophils # (A) 4.4 k/uL (1.3-7.7); Neutrophils % (A) 77 %; Platelet Count 293 k/uL (150-450); RBC 3.52 m/uL (4.30-5.90); RDW 13.3 % (11.5-15.5); WBC 5.7 k/uL (3.8-10.6)
[2018-05-19 15:45] LABS: Albumin 4.1 g/dL (3.5-5.0); Calcium 9.3 mg/dL (8.4-10.2); Potassium 4.5 mmol/L (3.5-5.1); Total Bilirubin 0.6 mg/dL (0.2-1.3); Total Protein 6.6 g/dL (6.3-8.2)
[2018-05-19 15:46] LABS: INR 2.6 (<1.2); Prothrombin Time 25.1 sec (9.0-12.0)
[2018-05-19 15:58] LABS: Creatine Kinase 64 U/L (55-170)
[2018-05-19 16:10] LABS: Creatine Kinase MB 0.8 ng/mL (0.0-2.4); Troponin I <0.012 ng/mL (0.000-0.034)
[2018-05-19] MEDS ORDERED: NITROGLYCERIN OINT 1 INCH/GM PACKET TOPICAL STA (16:24)
[2018-05-19] MEDS ORDERED: FUROSEMIDE 10 MG/ML 4 ML VIAL IV STA (16:24)
[2018-05-19 19:00] VITALS: RESP 16
[2018-05-19] MEDS: SACUBITRIL/VALSARTAN 24 MG-26 MG TABLET PO SCH (20:41)
[2018-05-19] MEDS ORDERED: PRAMIPEXOLE 0.5 MG TAB PO SCH (21:00)
[2018-05-19] MEDS ORDERED: SERTRALINE 100 MG TAB PO SCH (21:00)
[2018-05-19] MEDS ORDERED: lamoTRIgine 100 MG TAB PO SCH (21:00)
[2018-05-19] MEDS: FUROSEMIDE 40 MG TAB PO SCH (23:18)
[2018-05-20] MEDS: CARVEDILOL 3.125 MG TAB PO SCH ×2 (06:37→18:03)
[2018-05-20 07:24] LABS: Basophils # (A) 0.1 k/uL (0-0.2); Basophils % (A) 1 %; Eosinophils # (A) 0.3 k/uL (0-0.7); Eosinophils % (A) 5 %; HCT 35.8 % (39.0-53.0); HGB 11.4 gm/dL (13.0-17.5); Hypochromasia Slight; Lymphocytes # (A) 0.8 k/uL (1.0-4.8); Lymphocytes % (A) 13 %; MCH 32.2 pg (25.0-35.0); MCHC 31.8 g/dL (31.0-37.0); MCV 101.2 fL (80.0-100.0); Macrocytosis Slight; Monocytes # (A) 0.5 k/uL (0-1.0); Monocytes % (A) 8 %; Neutrophils # (A) 4.6 k/uL (1.3-7.7); Neutrophils % (A) 71 %; Platelet Count 299 k/uL (150-450); RBC 3.53 m/uL (4.30-5.90); RDW 13.4 % (11.5-15.5); WBC 6.5 k/uL (3.8-10.6)
[2018-05-20 07:39] LABS: Calcium 9.2 mg/dL (8.4-10.2); Potassium 3.8 mmol/L (3.5-5.1)
[2018-05-20 07:41] LABS: INR 2.4 (<1.2); Prothrombin Time 23.5 sec (9.0-12.0)
[2018-05-20] MEDS: FUROSEMIDE 40 MG TAB PO SCH ×2 (08:29→18:03)
[2018-05-20] MEDS: SACUBITRIL/VALSARTAN 24 MG-26 MG TABLET PO SCH (08:29)
[2018-05-20] MEDS ORDERED: CALCITRIOL 0.25 MCG CAP PO SCH (09:00)
[2018-05-20] MEDS ORDERED: ASPIRIN 325 MG TAB PO SCH (09:00)
[2018-05-20] MEDS ORDERED: PRAVASTATIN SODIUM 80 MG TAB PO SCH (09:00)
--- NOTE | 2018-05-20 09:46 | CONS ---
CONSULTATION CHIEF COMPLAINT: Shortness of breath. Cody is A 67-year-old gentleman \ with history of coronary artery disease, status post CABG, mitral regurgitation, status post mitral valve repair, hypertension, dyslipidemia, status post AICD, who presents to hospital with shortness of breath for the last one week. Patient used to be on Lasix 80 mg b.i.d. at one time. Lasix dose had recently been decreased to 20 mg daily. He has been becoming progressively short of breath. When he presented to the hospital, he was in congestive heart failure and had been treated with IV diuretics I had been treated with diuretics with significant improvement in his symptoms. At the time of my evaluation, he appears comfortable at rest. There is no leg edema and lungs clear. EKG shows sinus rhythm with nonspecific intraventricular conduction delay. The patient's clinical presentation is consistent with acute exacerbation of chronic systolic heart failure. I am going to discharge the patient home on an increased dose of Lasix at 40 mg b.i.d. He will continue the beta blockers and the Entresto that he is currently on. PAST MEDICAL HISTORY: Significant for coronary artery disease, status post CABG, mitral regurgitation, status post mitral valve repair, cardiomyopathy status post AICD, and dyslipidemia. MEDICATIONS: At home included Coumadin, Zoloft, Entresto, Pravachol, Mirapex, Lasix, Coreg, and calcitriol. Allergic to NITROSTAT. FAMILY HISTORY: Negative for premature coronary artery disease. SOCIAL HISTORY: Negative for smoking, EtOH abuse or drug abuse. REVIEW OF SYSTEMS: HEENT is unremarkable. CARDIAC: As described above. RESPIRATORY: As described above. GI: Negative. GENITOURINARY: Negative. ALLERGY/IMMUNOLOGY: Negative. SKIN: Negative. MUSCULOSKELETAL: Significant for arthritis. PSYCHOSOCIAL: Negative. ENDOCRINE: Negative. CONSTITUTIONAL: Negative. ONCOLOGICAL: Negative. The rest of the system review is not relevant. PHYSICAL EXAM: Patient is comfortable at rest. Afebrile. Heart rate is 70 beats per minute. Blood pressure is 106/68, respiratory rate is 18, O2 sat is 94% on room air. there is no jugular venous distention. Chest exam reveals good air entry bilaterally. Heart exam reveals first and second heart sounds. Systolic murmur at the apex. Abdomen is soft. Exam of the extremities did not reveal any edema. Peripheral pulses are felt. LABS: Show a hemoglobin of 11.4, platelet count is 299. INR is 2.4. Potassium is 3.8, BUN is 30, creatinine is 1.8. BNP is elevated at 2300. ASSESSMENT: 1. Acute exacerbation of chronic systolic heart failure. 2. Coronary artery disease, status post coronary artery bypass grafting. 3. Status post mitral valve repair next ischemic cardiomyopathy status post AICD. PLAN: Will treat the patient with increased dose of Lasix. Continue the Coreg, Entresto, Coumadin. We can probably discharge the patient home this evening if he is feeling well. MMODL / IJN: [id number] /
[2018-05-20 12:32] VITALS: BP 107/65; PULSE 91; TEMP 97.7
[2018-05-20 13:59] VITALS: BMI 23.1
--- NOTE | 2018-05-20 17:43 | HP ---
HISTORY AND PHYSICAL CHIEF COMPLAINT: A 67-year-old white male with a history of coronary artery disease, CABG, mitral regurgitation status post mitral valve replacement, hypertension, dyslipidemia, status post AICD, presents with shortness of breath for the past week. He is to be on Lasix 80 b.i.d. He is diagnosed with systolic CHF. He is currently on 20 mg at home, became progressively short of breath. He came to the hospital, was given IV Lasix and is breathing much better. He is going to go home on Lasix 40 mg b.i.d. Continue beta blockers and Entresto. PAST MEDICAL HISTORY: CABG, coronary artery disease, severe depression, cardiomyopathy, AICD, mitral valve. MEDICATIONS: Home medicines: Coumadin, Zoloft, Entresto, Pravachol, Mirapex, Lasix, Coreg, calcitriol. ALLERGIES: Nitro. Family history: Negative. SOCIAL HISTORY: No smoking, alcohol, or drug use. REVIEW OF SYSTEMS: Fourteen point review of systems negative except for mentioned in HPI. PHYSICAL EXAMINATION: VITAL SIGNS: Blood pressure 106/60, respiratory 16-18, O2 90-94 percent on room air. Chest x-ray good air flow. HEART: S1, S2. ABDOMEN: Soft. EXTREMITIES: No cyanosis, clubbing, edema. LAB: Show hemoglobin of 11.4, platelet count 299. INR 2.4. Potassium 3.8, BUN is 30, creatinine 1.8. ASSESSMENT: 1. Acute systolic congestive heart failure exacerbation, improved with Lasix. 2. Coronary artery disease, status post coronary artery bypass grafting. 3. AICD. 4. Severe depression. Continue current medications. Lasix will be increased. Monitor his blood pressure as an outpatient. MMODL / IJN: [id number] /
[2018-05-20] MEDS ORDERED: WARFARIN 2.5 MG TAB PO SCH (18:00)
--- NOTE | 2018-05-22 06:53 | ECHOF ---
Referral Reason:chf MEASUREMENTS -------- HEIGHT: 160.0 cm WEIGHT: 59.0 kg BP: 106/68 RVIDd: 3.2 cm (< 3.3) IVSd: 0.9 cm (0.6 - 1.1) LVIDd: 5.5 cm (3.9 - 5.3) LVPWd: 0.5 cm (0.6 - 1.1) IVSs: 1.2 cm LVIDs: 4.8 cm LVPWs: 0.9 cm LA Diam: 3.9 cm (2.7 - 3.8) Ao Diam: 2.7 cm (2.0 - 3.7) AV Cusp: 1.8 cm (1.5 - 2.6) LA Diam: 2.9 cm (2.7 - 3.8) MV E Xiang: 1.51 m/s MV DecT: 163 ms MV A Xiagn: 0.49 m/s MV E/A Ratio: 3.11 RAP: 5.00 mmHg RVSP: 48.48 mmHg FINDINGS -------- Paced rhythm. This was a technically good study. The left ventricle is mildly dilated. Left ventricular wall thickness is normal. Overall left rossy tricular systolic function is moderate-severely impaired with, an EF between 30 - 35 %. Atypical se ptal wall motion Inferiorlateral Hypokinesis [place] Hypokinesis. The right ventricle is mildly enlarged. The left atrium is mildly dilated. Electronic pacemaker lead seen in the right atrial cavity. RA appears enlarged. Aortic valve is trileaflet and is moderately thickened. Trace amount of aortic regurgitation. Th ere is mild aortic stenosis present. Not well seen There is physiologic regurgitation of the mechanical prosthetic mitral valve. Moderate tricuspid regurgitation present. There is mild pulmonary hypertension. The right ventric ular systolic pressure, as measured by Doppler, is 48.48mmHg. Trace/mild (physiologic) pulmonic regurgitation. The aortic root size is normal. Normal inferior vena cava with normal inspiratory collapse consistent with estimated right atrial pre ssure of 5 mmHg. There is no pericardial effusion. CONCLUSIONS -------- 1. Paced rhythm. 2. This was a technically good study. 3. The left ventricle is mildly dilated. 4. Left ventricular wall thickness is normal. 5. Atypical septal wall motion 6. Inferiorlateral Hypokinesis 7. [place] Hypokinesis. 8. The right ventricle is mildly enlarged. 9. The left atrium is mildly dilated. 10. Electronic pacemaker lead seen in the right atrial cavity. 11. RA appears enlarged. 12. Aortic valve is trileaflet and is moderately thickened. 13. Trace amount of aortic regurgitation. 14. There is mild aortic stenosis present. 15. There is physiologic regurgitation of the prosthetic mitral valve. 16. There is mild pulmonary hypertension. 17. The right ventricular systolic pressure, as measured by Doppler, is 48.48mmHg. 18. Trace/mild (physiologic) pulmonic regurgitation. 19. The aortic root size is normal. 20. There is no pericardial effusion. FINGER COBBLER: Viet Martinez RDCS
[2018-05-22] MEDS ORDERED: WARFARIN 2.5 MG TAB PO SCH (18:00)
--- NOTE | 2018-06-06 19:22 | DS ---
DISCHARGE SUMMARY DATE OF ADMISSION: 05/19/2018. DISCHARGE DATE: 05/20/2018. MEDICATIONS: Include: 1. Vitamin. 2. Calcitriol 0.25 mcg Thursday, , Thursday. 3. Vitamin D 89796 units every 30 days. 4. Pravachol 80 mg daily. 5. Coreg 3.125 b.i.d. 6. Pravachol 80 daily. 7. Lasix 20 mg daily. 8. Mirapex 0.5 mg q.h.s. 9. Coumadin 2.5 mg on Thursday, Thursday, , Thursday, 1.25 on Thursday and Thursday. 10.Entresto 24/ b.i.d. 11.Lamictal 100 mg q.h.s. 12.Zoloft 100 q.h.s. 13.Lasix 40 mg b.i.d. CONDITION: Stable. PROGNOSIS: Guarded. Ambulate as tolerated. HOSPITAL COURSE OF EVENTS: A 67-year-old white male, was admitted to the hospital with systolic CHF, dizziness with history of CABG, mitral regurgitation, status post mitral valve repair, hypertension, AICD, shortness of breath for the last week. He was given IV dose of Lasix. Cardiology cleared him for discharge to follow up as an outpatient. Stable from Cardiology standpoint. MMODL / IJN: [id number] /
== END 2018-05-20 18:55 | disposition home or self-care (01) ==
LOC: EC 14:16 → INTOOBSV 16:34 → 3SCARD 16:34
PROVIDERS: ADMIT Family Medicine; ATTEND Family Medicine
DX: I25.10 Atherosclerotic heart disease of native coronary artery without angina pectoris (principal); I11.0 Hypertensive heart disease with heart failure; I50.23 Acute on chronic systolic (congestive) heart failure; Z95.1 Presence of aortocoronary bypass graft; I25.2 Old myocardial infarction; E78.5 Hyperlipidemia, unspecified; I25.5 Ischemic cardiomyopathy; Z95.810 Presence of automatic (implantable) cardiac defibrillator; Z82.49 Family history of ischemic heart disease and other diseases of the circulatory system; Z95.2 Presence of prosthetic heart valve; R63.0 Anorexia; Z68.22 Body mass index [BMI] 22.0-22.9, adult; I69.311 Memory deficit following cerebral infarction; F32.9 Major depressive disorder, single episode, unspecified; K21.9 Gastro-esophageal reflux disease without esophagitis; N28.9 Disorder of kidney and ureter, unspecified; F41.9 Anxiety disorder, unspecified; F90.9 Attention-deficit hyperactivity disorder, unspecified type; Z80.8 Family history of malignant neoplasm of other organs or systems; F43.10 Post-traumatic stress disorder, unspecified; F42.9 Obsessive-compulsive disorder, unspecified; M19.90 Unspecified osteoarthritis, unspecified site; Z79.01 Long term (current) use of anticoagulants; Z79.899 Other long term (current) drug therapy; Z88.8 Allergy status to other drugs, medicaments and biological substances
CPT/HCPCS: 99291 ×2; 96374 ×2; 36415; 93005; 93306; 83880; 80053; 80048; 82550; 82553; 84484; 85025 ×2; 85610 ×2; 85730; 71046; G0378 ×2; J1940

== ENCOUNTER → 2018-09-02 | Outpatient (CLI) | payer MEDICARE ==
[2018-09-02 16:53] LABS: Basophils % (A) 1 %; Eosinophils # (A) 0.4 k/uL (0-0.7); Eosinophils % (A) 7 %; HCT 37.6 % (39.0-53.0); HGB 12.6 gm/dL (13.0-17.5); Lymphocytes # (A) 0.8 k/uL (1.0-4.8); Lymphocytes % (A) 13 %; MCH 32.8 pg (25.0-35.0); MCHC 33.4 g/dL (31.0-37.0); MCV 97.9 fL (80.0-100.0); Mean Platelet Volume 7.9; Monocytes # (A) 0.5 k/uL (0-1.0); Monocytes % (A) 8 %; Neutrophils # (A) 4.2 k/uL (1.3-7.7); Neutrophils % (A) 68 %; Platelet Count 296 k/uL (150-450); RBC 3.84 m/uL (4.30-5.90); WBC 6.2 k/uL (3.8-10.6)
[2018-09-02 17:34] LABS: Appearance,Urine Clear (Clear); Bilirubin,Urine Negative (Negative); Blood,Urine Negative (Negative); Color,Urine Light Yellow; Glucose,Urine (UA) Negative (Negative); Ketones,Urine Negative (Negative); Leukocyte Esterase,Urine Negative (Negative); Nitrite,Urine Negative (Negative); PH, Urine 5.5 (5.0-8.0); Protein,Urine Negative (Negative); Specific Gravity,Urine 1.006 (1.001-1.035); Urobilinogen,Urine <2.0 mg/dL (<2.0)
[2018-09-02 23:44] LABS: Parathyroid Hormone Intact 121.9 pg/mL (14.0-72.0)
[2018-09-02 23:52] LABS: Iron Saturation 21.39 (15.00-50.00)
[2018-09-02 23:59] LABS: Albumin 4.5 g/dL (3.80-4.90); Albumin/Globulin Ratio 2.05 (1.60-3.17); Anion Gap 10.4 mmol/L (4.00-12.00); Carbon Dioxide 26.6 mmol/L (21.6-31.8); Globulin 2.2 g/dL (1.6-3.3); Magnesium 2.3 mg/dL (1.5-2.4); Phosphorus 3.1 mg/dL (2.4-5.1); Potassium 4.3 mmol/L (3.5-5.5); Total Bilirubin 0.5 mg/dL (0.3-1.2); Total Protein 6.7 g/dL (6.2-8.2); Uric Acid 8.5 mg/dL (3.7-8.7)
[2018-09-03] LABS: Vitamin D 25 Hydroxy 25.5 ng/mL (30.0-100.0)
== END | disposition home or self-care (01) ==
LOC: LABWHC1 16:17
PROVIDERS: ATTEND Nurse Practitioner Family
DX: N39.0 Urinary tract infection, site not specified (principal); M10.9 Gout, unspecified; E55.9 Vitamin D deficiency, unspecified; N25.81 Secondary hyperparathyroidism of renal origin; D63.1 Anemia in chronic kidney disease; N18.4 Chronic kidney disease, stage 4 (severe)
CPT/HCPCS: 36415; 80053; 81003; 82306; 82728; 83540; 83550; 83735; 83970; 84100; 84550; 85025

== ENCOUNTER 2018-12-15 00:33 | Inpatient (IN) | payer MEDICARE ==
--- NOTE | 2018-12-15 01:32 | ED ---
General Adult HPI - General Chief complaint: Shortness of Breath Stated complaint: KEVIN Time Seen by Provider: 12/15/18 00:42 Source: patient Mode of arrival: wheelchair Limitations: no limitations - History of Present Illness Initial comments: Dictation was produced using [employer] dictation software. please excuse any grammatical, word or spelling errors. Chief Complaint: 68-year-old male with past medical history of heart failure, coronary artery disease, hypertension presents with generalized weakness and lethargy. History of Present Illness: 68-year-old male he has multiple comorbidities. Patient is on Coumadin. Patient states that he is here today because his made him come in for lethargy, pale skin color and generalized weakness. Patient's recent medical history is very complicated. Last week he is admitted to [facility] for cardiac genic shock. His intensive care unit for approximately one week. Patient and his report that there are multiple studies are performed found to be negative. Patient was discharged in stable medical condition 3 days ago. He was prescribed multiple medications including amiodarone. According to patient was admitted to intensive care unit for cardiogenic shock. Patient had extensive workup including echocardiogram, CT of the abdomen and pelvis and was told that there was no obvious issues. He reports that he had an echocardiogram that showed a decrease of ejection fraction from 30-20%. The ROS documented in this emergency department record has been reviewed and confirmed by me. Those systems with pertinent positive or negative responses have been documented in the HPI. All other systems are other negative and/or noncontributory. PHYSICAL EXAM: General Impression: Alert and oriented x3, not in acute distress, pallor HEENT: Normocephalic atraumatic, extra-ocular movements intact, pupils equal and reactive to light bilaterally, mucous membranes moist. Cardiovascular: Heart regular rate and rhythm, S1&S2 audible, no murmurs, rubs or gallops Chest: Lungs clear to auscultation bilaterally, no rhonchi, no wheeze, no rales, Abdomen: Bowel sounds present, abdomen soft, non-tender, non-distended, no organomegaly, nontender abdomen tympanitic to percussion Musculoskeletal: Pulses present and equal in all extremities, no peripheral edema Motor: no focal deficits noted Neurological: CN II-XII grossly intact, no focal motor or sensory deficits noted Skin: Intact with no visualized rashes Psych: Normal affect and mood ED course: 68-year-old male presents with generalized weakness. Signs upon arrival shows blood pressure 162/109, worse vital signs within acceptable limits. EKG interpretation: Ventricular rate 73., Normal sinus rhythm,. Interval 190, QS 140, QTc 497. No MA prolongation, no QTC prolongation, no ST or T-wave changes noted. EKG compared to [facility] 01/28/2019 showing no changes. Overall, this EKG is unremarkableLabs evaluation tape. Hemoglobin 8.9, leukocytosis of 11.1, INR of 5.5, sodium 132, elevated renal markers with a creatinine of 2.39 BUN of 43, mild transaminitis. Troponin 0.019. Abdominal x-ray was obtained given that one of patient's main complaints is abdominal pain. There is cardiomegaly with some vascular congestion. Otherwise no other acute processes noted. Patient and patient's really felt he would need to be admitted to the hospital. I reported to them that there is no clear objective evidence to have patient admitted to the hospital. Patient's INR is slightly suprath erapeutic. We will hold Coumadin at this time. Discussed patient case with Dr. Gray who is willing to accept patients care. He requested cardiology be consulted. - Related Data Home Medications Medication Instructions Recorded Confirmed Calcitriol 0.25 mcg PO TUTHSA 02/10/18 12/15/18 Pravastatin Sodium [Pravachol] 80 mg PO DAILY@0900 03/09/18 12/15/18 Sertraline [Zoloft] 100 mg PO DAILY 05/19/18 12/15/18 Warfarin [Coumadin] 1.25 mg PO DAILY 05/19/18 12/15/18 Warfarin [Coumadin] 2.5 mg PO MOTUFR@1800 05/19/18 12/15/18 lamoTRIgine [LaMICtal] 100 mg PO HS@2100 05/19/18 12/15/18 Previous Rx's Medication Instructions Recorded Carvedilol [Coreg] 3.125 mg PO BID-W/MEALS tab 03/26/18 Pramipexole [Mirapex] 0.5 mg PO HS 30 Days #30 tab 03/26/18 Allergies Allergy/AdvReac Type Severity Reaction Status Date / Time nitroglycerin AdvReac headache/na Verified 05/19/18 15:37 [From Nitrostat] usea Review of Systems ROS Statement: Those systems with pertinent positive or pertinent negative responses have been documented in the HPI. ROS Other: All systems not noted in ROS Statement are negative. 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 Last Myocardial Infarction Date:: unk History of Any Multi-Drug Resistant Organisms: None Reported Past Surgical History: AICD, Cardiac Valve Replacement, Coronary Bypass/CABG, Tonsillectomy Additional Past Surgical History / Comment(s): several thoracentesis, cabg 1999,mitral valve repalcement and bypass graft redo in [place], colonoscopy/polypectomy-[facility] Past Anesthesia/Blood Transfusion Reactions: No Reported Reaction Type of Cardiac Device: AICD Device Placement Date:: 03-31-16 Past Psychological History: Anxiety, Depression, PTSD Smoking Status: Never smoker Past Alcohol Use History: None Reported Past Drug Use History: None Reported - Past Family History Brother(s) Family Medical History: Coronary Artery Disease (CAD), Hyperlipidemia, Hypertension Mother Family Medical History: Dementia, Hypertension Additional Family Medical History / Comment(s): mom is age 92 lives in [facility] Father Family Medical History: Cancer Additional Family Medical History / Comment(s): from melanoma cancer General Exam Limitations: no limitations Course Vital Signs 12/15/18 00:38 Temperature 98.0 F Pulse Rate 77 Respiratory 18 Rate Blood Pressure 162/109 O2 Sat by Pulse 100 Oximetry Medical Decision Making - Lab Data Result diagrams: 12/15/18 02:15 12/15/18 02:15 Lab Results 12/15/18 12/15/18 12/15/18 Range/Units 02:10 02:15 02:15 WBC 11.1 H (3.8-10.6) k/uL RBC 2.79 L (4.30-5.90) m/uL Hgb 8.9 L (13.0-17.5) gm/dL Hct 27.7 L (39.0-53.0) % MCV 99.0 (80.0-100.0) fL MCH 32.0 (25.0-35.0) pg MCHC 32.3 (31.0-37.0) g/dL RDW 15.7 H (11.5-15.5) % Plt Count 415 (150-450) k/uL Neutrophils % 84 % Lymphocytes % 7 % Monocytes % 5 % Eosinophils % 2 % Basophils % 0 % Neutrophils # 9.3 H (1.3-7.7) k/uL Lymphocytes # 0.8 L (1.0-4.8) k/uL Monocytes # 0.6 (0-1.0) k/uL Eosinophils # 0.2 (0-0.7) k/uL Basophils # 0.0 (0-0.2) k/uL Macrocytosis Slight PT (9.0-12.0) sec INR (<1.2) Sodium (137-145) mmol/L Potassium (3.5-5.1) mmol/L Chloride (98-107) mmol/L Carbon Dioxide (22-30) mmol/L Anion Gap mmol/L BUN (9-20) mg/dL Creatinine (0.66-1.25) mg/dL Est GFR (CKD-EPI)AfAm (>60 ml/min/1.73 sqM) Est GFR (CKD-EPI)NonAf (>60 ml/min/1.73 sqM) Glucose (74-99) mg/dL Plasma Lactic Acid Vu (0.7-2.0) mmol/L Calcium (8.4-10.2) mg/dL Magnesium (1.6-2.3) mg/dL Total Bilirubin (0.2-1.3) mg/dL AST (17-59) U/L ALT (21-72) U/L Alkaline Phosphatase (38-126) U/L Troponin I (0.000-0.034) ng/mL Total Protein (6.3-8.2) g/dL Albumin (3.5-5.0) g/dL Blood Type O Positive Blood Type Confirm O Positive Blood Type Recheck CABO Indicated Antibody Screen NEGATIVE Spec Expiration Date 12/18/20184 12/15/18 12/15/18 12/15/18 Range/Units 02:15 02:15 02:15 WBC (3.8-10.6) k/uL RBC (4.30-5.90) m/uL Hgb (13.0-17.5) gm/dL Hct (39.0-53.0) % MCV (80.0-100.0) fL MCH (25.0-35.0) pg MCHC (31.0-37.0) g/dL RDW (11.5-15.5) % Plt Count (150-450) k/uL Neutrophils % % Lymphocytes % % Monocytes % % Eosinophils % % Basophils % % Neutrophils # (1.3-7.7) k/uL Lymphocytes # (1.0-4.8) k/uL Monocytes # (0-1.0) k/uL Eosinophils # (0-0.7) k/uL Basophils # (0-0.2) k/uL Macrocytosis PT 52.8 H (9.0-12.0) sec INR 5.5 H* (<1.2) Sodium 132 L (137-145) mmol/L Potassium 5.0 (3.5-5.1) mmol/L Chloride 95 L (98-107) mmol/L Carbon Dioxide 26 (22-30) mmol/L Anion Gap 11 mmol/L BUN 43 H (9-20) mg/dL Creatinine 2.39 H (0.66-1.25) mg/dL Est GFR (CKD-EPI)AfAm 32 (>60 ml/min/1.73 sqM) Est GFR (CKD-EPI)NonAf 27 (>60 ml/min/1.73 sqM) Glucose 106 H (74-99) mg/dL Plasma Lactic Acid Vu 1.1 (0.7-2.0) mmol/L Calcium 8.9 (8.4-10.2) mg/dL Magnesium 2.4 H (1.6-2.3) mg/dL Total Bilirubin 0.8 (0.2-1.3) mg/dL AST 162 H (17-59) U/L ALT 147 H (21-72) U/L Alkaline Phosphatase 240 H (38-126) U/L Troponin I (0.000-0.034) ng/mL Total Protein 6.3 (6.3-8.2) g/dL Albumin 3.6 (3.5-5.0) g/dL Blood Type Blood Type Confirm Blood Type Recheck Antibody Screen Spec Expiration Date 12/15/18 Range/Units 02:15 WBC (3.8-10.6) k/uL RBC (4.30-5.90) m/uL Hgb (13.0-17.5) gm/dL Hct (39.0-53.0) % MCV (80.0-100.0) fL MCH (25.0-35.0) pg MCHC (31.0-37.0) g/dL RDW (11.5-15.5) % Plt Count (150-450) k/uL Neutrophils % % Lymphocytes % % Monocytes % % Eosinophils % % Basophils % % Neutrophils # (1.3-7.7) k/uL Lymphocytes # (1.0-4.8) k/uL Monocytes # (0-1.0) k/uL Eosinophils # (0-0.7) k/uL Basophils # (0-0.2) k/uL Macrocytosis PT (9.0-12.0) sec INR (<1.2) Sodium (137-145) mmol/L Potassium (3.5-5.1) mmol/L Chloride (98-107) mmol/L Carbon Dioxide (22-30) mmol/L Anion Gap mmol/L BUN (9-20) mg/dL Creatinine (0.66-1.25) mg/dL Est GFR (CKD-EPI)AfAm (>60 ml/min/1.73 sqM) Est GFR (CKD-EPI)NonAf (>60 ml/min/1.73 sqM) Glucose (74-99) mg/dL Plasma Lactic Acid Vu (0.7-2.0) mmol/L Calcium (8.4-10.2) mg/dL Magnesium (1.6-2.3) mg/dL Total Bilirubin (0.2-1.3) mg/dL AST (17-59) U/L ALT (21-72) U/L Alkaline Phosphatase (38-126) U/L Troponin I 0.019 (0.000-0.034) ng/mL Total Protein (6.3-8.2) g/dL Albumin (3.5-5.0) g/dL Blood Type Blood Type Confirm Blood Type Recheck Antibody Screen Spec Expiration Date Disposition Clinical Impression: Generalized weakness Disposition: ADMITTED IP TO THIS HOSP Condition: Fair Referrals: Brando Gray MD [Primary Care Provider] - 1-2 days Decision Time: 03:20
[2018-12-15 02:31] LABS: Basophils % (A) 0 %; Eosinophils # (A) 0.2 k/uL (0-0.7); Eosinophils % (A) 2 %; HCT 27.7 % (39.0-53.0); HGB 8.9 gm/dL (13.0-17.5); Lymphocytes # (A) 0.8 k/uL (1.0-4.8); Lymphocytes % (A) 7 %; MCHC 32.3 g/dL (31.0-37.0); Macrocytosis Slight; Monocytes # (A) 0.6 k/uL (0-1.0); Monocytes % (A) 5 %; Neutrophils # (A) 9.3 k/uL (1.3-7.7); Neutrophils % (A) 84 %; Platelet Count 415 k/uL (150-450); RBC 2.79 m/uL (4.30-5.90); RDW 15.7 % (11.5-15.5); WBC 11.1 k/uL (3.8-10.6)
[2018-12-15 02:42] LABS: Albumin 3.6 g/dL (3.5-5.0); Calcium 8.9 mg/dL (8.4-10.2); Magnesium 2.4 mg/dL (1.6-2.3); Total Bilirubin 0.8 mg/dL (0.2-1.3); Total Protein 6.3 g/dL (6.3-8.2)
[2018-12-15 02:44] LABS: Prothrombin Time 52.8 sec (9.0-12.0)
[2018-12-15] MEDS ORDERED: SODIUM CHLORIDE 0.9% 500 ML IV STA (02:46)
[2018-12-15 02:47] LABS: INR 5.5 (<1.2)
--- NOTE | 2018-12-15 02:54 | XR ---
EXAM: XR Abdomen, 1 View CLINICAL HISTORY: ITS.REASON XR Reason: Pain TECHNIQUE: Frontal supine view of the abdomen/pelvis. COMPARISON: 05/19/18 Impression: Chest: Cardiomegaly. Minimal vascular congestion. Prior bowel repair. Pacer wires are in place. Abdomen: Gastrointestinal tract: Copious amounts of stool. No dilation. Bones/joints: No acute fracture. No dislocation.
[2018-12-15] MEDS ORDERED: NALOXONE 0.4 MG/ML 1 ML VIAL IV PRN (03:16)
[2018-12-15] MEDS: SODIUM CHLORIDE 0.9% 1,000 ML IV SCH (04:34)
[2018-12-15] MEDS ORDERED: WARFARIN 2.5 MG TAB PO SCH (09:00)
--- NOTE | 2018-12-15 10:11 | CT ---
EXAMINATION TYPE: CT abdomen pelvis wo con DATE OF EXAM: 12/15/2018 COMPARISON: None INDICATION: Generalized pain, nausea, vomiting, bloating. DLP: 489.2 mGycm, Automated exposure control for dose reduction was used. CONTRAST: 0 mL of Isovue 300. Study performed without Oral Contrast TECHNIQUE: Axial images were obtained from above the diaphragm to the pubic rami in the axial plane a t 5 mm thick sections. Reconstructed images are reviewed on the computer in the coronal plane. FINDINGS: Limited CT sections are obtained the lung bases. Small bilateral pleural effusions are present.. CT ABDOMEN: There is a tiny anterior abdominal wall hernia. Series 201 image 50 containing mesenteric fat possibly some fluid. This measures 1.5 cm. Liver: Normal Spleen: Normal Pancreas: Normal Adrenal glands: The adrenal glands are normal. Gallbladder: Slight increased density within the gallbladder which may be sludge. Some pericholecysti c fluid is not excluded. Gallstone is likely present at the neck of the gallbladder. Consider ultraso und for additional evaluation. Kidneys: No masses are evident. No hydronephrosis is present. No cysts are present. No renal stone s are evident. Aorta: Vascular calcification is within the aorta. Inferior vena cava: Normal. CT PELVIS: There may be a few scattered diverticuli present. Some minimal fluid may be within the right paracoli c gutter. There is small amount of fluid within the left hemipelvis and within the lower pelvis. The study is performed without oral contrast limiting bowel evaluation. No significant fecal retention is evident. Appendix: Not visualized. Urinary bladder: Normal. Genitourinary structures: Prostate is slightly prominent Osseous structures: No suspicious lytic or sclerotic lesions. Facet degenerative changes in the lower lumbar spine. IMPRESSIONS: 1. Small bilateral pleural effusions. 2. Gallstone at the neck of the gallbladder. Some gallbladder wall thickening or pericholecystic flui d is not excluded. Sludge is likely present within the gallbladder. Recommend additional evaluation w ith ultrasound to evaluate for cholecystitis. 3. Mild ascites present within the right paracolic gutter and within the pelvis.
--- NOTE | 2018-12-15 12:40 | ECHOF ---
Referral Reason:cardiomyopathy MEASUREMENTS -------- HEIGHT: 162.6 cm WEIGHT: 70.3 kg BP: IVSd: 1.1 cm (0.6 - 1.1) LVIDd: 5.7 cm (3.9 - 5.3) LVPWd: 1.0 cm (0.6 - 1.1) IVSs: 1.5 cm LVIDs: 5.1 cm LVPWs: 1.1 cm LA Diam: 5.0 cm (2.7 - 3.8) LAESV Index (A-L): 55.92 ml/m Ao Diam: 2.7 cm (2.0 - 3.7) AV Cusp: 1.4 cm (1.5 - 2.6) LA Diam: 4.5 cm (2.7 - 3.8) MV E Xiang: 1.67 m/s MV DecT: 197 ms MV A Xiang: 0.62 m/s MV E/A Ratio: 2.70 AV maxP.94 mmHg AV meanP.67 mmHg RAP: 5.00 mmHg RVSP: 53.65 mmHg FINDINGS -------- Paced rhythm. This was a technically good study. The left ventricle is mildly dilated. There is severe global hypokinesis of LV . Overall left rossy tricular systolic function is severely impaired with, an EF < 20%. The right ventricle is normal in size. The left atrium is moderately dilated. The right atrial size is normal. There is mild aortic valve sclerosis. Peak/mean gradient across the Aortic Valve is 8.94mmHg / 3.67 mmHg. The peak and mean MV gradients are 8.76mmHg 2.16mmHg as measured by doppler. Mechanical Prosthetic MV with Trace MR. Moderate tricuspid regurgitation present. There is moderate pulmonary hypertension. The right rossy tricular systolic pressure, as measured by Doppler, is 53.65mmHg. Trace/mild (physiologic) pulmonic regurgitation. The aortic root size is normal. Normal inferior vena cava with normal inspiratory collapse consistent with estimated right atrial pre ssure of 5 mmHg. There is no pericardial effusion. Small Pleural Effusion. CONCLUSIONS -------- 1. Paced rhythm. 2. This was a technically good study. 3. The left ventricle is mildly dilated. 4. There is severe global hypokinesis of LV . 5. Overall left ventricular systolic function is severely impaired with, an EF < 20%. 6. The right ventricle is normal in size. 7. The left atrium is moderately dilated. 8. The right atrial size is normal. 9. There is mild aortic valve sclerosis. 10. Peak/mean gradient across the Aortic Valve is 8.94mmHg / 3.67mmHg. 11. The peak and mean MV gradients are 8.76mmHg 2.16mmHg as measured by doppler. 12. Mechanical Prosthetic MV with Trace MR. 13. Moderate tricuspid regurgitation present. 14. There is moderate pulmonary hypertension. 15. The right ventricular systolic pressure, as measured by Doppler, is 53.65mmHg. 16. Trace/mild (physiologic) pulmonic regurgitation. 17. The aortic root size is normal. 18. Normal inferior vena cava with normal inspiratory collapse consistent with estimated right atrial pressure of 5 mmHg. 19. There is no pericardial effusion. 20. Small Pleural Effusion. [employer]E MACHINE FEEDER: Anna Roy RDCS
--- NOTE | 2018-12-15 13:06 | P.CRDCN ---
History of Present Illness History of present illness: This is Ada Wellington PA-C dictating a consult on this patient The patient was interviewed and examined by me as well as by Dr. Mendiola Case discussed with Dr. Mendiola and he agrees with the plan of care IMPRESSION / ASSESSMENT: Shortness of breath likely secondary to acute on chronic systolic heart failure, EF less than 20% Ischemic cardiomyopathy status post AICD placement CAD status post CABG 3 Valvular heart disease status post mitral valve replacement Hypertension Dyslipidemia Elevated liver enzymes, evidence for possible cholecystitis on CT Acute kidney injury, creatinine 2.39 from 2.1 on prior admission in August Supratherapeutic INR, Coumadin on hold PLAN: Obtain records from [facility] Continue medical management for heart failure Recommend admission for further workup and treatment Start Lasix 80 mg by mouth twice a day, cutback as symptoms improve HPI Patient is a 68-year-old male with a past medical history of CAD status post CABG 3, ischemic cardiomyopathy status post AICD placement, status post mitral valve replacement, hypertension, and dyslipidemia who presented with complaints of shortness of breath. He was recently discharged from [facility] in [place]. He initially presented with nausea vomiting diarrhea weakness and shortness of br eath and apparently had a cardiac arrest and was intubated and in the ICU. Patient is a somewhat poor historian and unable to give the exact details of this hospitalization but states he was there for almost 2 weeks. He do not have the records at this time. After being discharged he continued to have ongoing shortness of breath and weakness. Denies any chest pain, palpitations, dizziness lightheadedness or syncope. His urged him to come in for further evaluation. Upon admission his labs were significant for elevated white count at 11.1, hemoglobin 8.9, INR is supratherapeutic at 5.5, elevated BUN and creatinine at 43 and 2.39, elevated liver enzymes. Troponin was negative. Abdominal CT showed pleural effusions and possible cholecystitis. Patient seen and examined lying comfortably in bed. Continues to have shortness of breath on exertion. Denies any chest pain. No orthopnea. Denies lower extremity edema. ROS: No fevers, chills or rigors, postive for dry cough positive for nausea, vomiting, denies diarrhea, last BM two days ago no hematuria, dysuria, no musculoskeletal complaints, no strokes or seizures, no skin lesions. EXAMINATION: Temperature 98.1F, pulse 68, respirations 17, blood pressure 120/77, oxygen saturation 97% on room air Seen and examined lying comfortably in bed, appears in no acute distress Breath sounds diminished with crackles at the bases bilaterally Heart is regular, crisp S1 of mechanical valve auscultated,systolic murmur appreciated External jugular vein is prominent but no hepatojugular reflux noted No lower extremity edema REVIEW OF LABS, ECG & MEDICAL DATA WBC 11.1, hemoglobin 8.9, platelets 415, INR 5.5, sodium 132, potassium 5.0, BUN 43, creatinine 2.39, magnesium 2.4, AST 162, ALT 147, alkaline phosphatase 240 Troponin negative Abdominal x-ray showed copious amounts of stool, no dilation, no acute fracture or dislocation Chest x-ray showed minimal vascular congestion, pacemaker wires in place CT abdomen pelvis showed small bilateral pleural effusions, gallstones at the neck of the gallbladder, sludge, some gallbladder wall thickening or pericholecystic fluid, mild ascites in the right paracolic gutter and within the pelvis EKG showed left bundle branch block pattern Echo showed severe global LV hypokinesis, EF less than 20%, mild aortic valve sclerosis, mechanical prosthetic MV with trace MR, moderate TR, RVSP 53 mmHg, small pleural effusion Echo from June 2017 showed severely decreased systolic function, EF 20%, global concentric hypertrophy, akinesis of posterior and lateral burnette from base to apex, 8 akinesis of inferior wall from base to mid wall and akinesis of anterior wall from base to mid wall, remainder of the left ventricle hypokinetic, mechanical mitral valve prosthesis with physiologic prosthetic valve regular regurgitation, mild TR Past Medical History Past Medical History: Coronary Artery Disease (CAD), Heart Failure, CVA/TIA, GERD/Reflux, Hyperlipidemia, Hypertension, Memory Impairment, Myocardial Infarction ([place]), Renal Disease Additional Past Medical History / Comment(s): per pt's pt has anxiety/ depression,ptsd,obsessive compulsive disorder, past cva some mild residual memory problems, cardiomyopathy, hx of mitral valve disease(repalcement done)constipation, pt stated has had a pne vaccine in past not sure of date, 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 Last Myocardial Infarction Date:: unk History of Any Multi-Drug Resistant Organisms: None Reported Past Surgical History: AICD, Cardiac Valve Replacement, Coronary Bypass/CABG, Tonsillectomy Additional Past Surgical History / Comment(s): several thoracentesis, cabg 1999,mitral valve repalcement and bypass graft redo in [place], colonoscopy/polypectomy-ravi Past Anesthesia/Blood Transfusion Reactions: No Reported Reaction Type of Cardiac Device: AICD Device Placement Date:: 03-31-16 Past Psychological History: Anxiety, Depression, PTSD Additional Psychological History / Comment(s): obsessive compulsive disorder Smoking Status: Never smoker Past Alcohol Use History: None Reported Additional Past Alcohol Use History / Comment(s): per pt never smoked. no alcohol used currently. Past Drug Use History: None Reported - Past Family History Brother(s) Family Medical History: Coronary Artery Disease (CAD), Hyperlipidemia, Hypertension Mother Family Medical History: Dementia, Hypertension Additional Family Medical History / Comment(s): mom is age 92 lives in [facility] Father Family Medical History: Cancer Additional Family Medical History / Comment(s): from melanoma cancer Medications and Allergies Home Medications Medication Instructions Recorded Confirmed Type Calcitriol 0.25 mcg PO TUTHSA 02/10/18 12/15/18 History Pravastatin Sodium [Pravachol] 80 mg PO DAILY@0900 03/09/18 12/15/18 History Carvedilol [Coreg] 3.125 mg PO BID-W/MEALS tab 03/26/18 12/15/18 Rx Pramipexole [Mirapex] 0.5 mg PO HS 30 Days #30 tab 03/26/18 12/15/18 Rx Sertraline [Zoloft] 100 mg PO DAILY 05/19/18 12/15/18 History lamoTRIgine [LaMICtal] 100 mg PO HS@2100 05/19/18 12/15/18 History Amiodarone HCl [Pacerone] 200 mg PO BID 12/15/18 12/15/18 History Furosemide [Lasix] 40 mg PO BID 12/15/18 12/15/18 History Midodrine HCl 15 mg PO TID 12/15/18 12/15/18 History Pantoprazole [Protonix] 40 mg PO BID 12/15/18 12/15/18 History Sildenafil [Revatio] 20 - 40 mg PO DAILY PRN 12/15/18 12/15/18 History Tamsulosin HCl [Flomax] 0.4 mg PO DAILY 12/15/18 12/15/18 History Allergies Allergy/AdvReac Type Severity Reaction Status Date / Time No Known Allergies Allergy Verified 12/15/18 04:45 Physical Exam Vitals: Vital Signs Temp Pulse Pulse Resp BP BP Pulse Ox 12/15/18 08:45 18 12/15/18 08:00 97.5 F L 71 18 127/88 95 12/15/18 05:17 97.6 F 71 18 126/77 93 L 12/15/18 05:00 71 18 12/15/18 04:30 97.8 F 67 18 115/79 98 12/15/18 03:50 97.7 F 67 18 125/82 12/15/18 03:20 69 16 127/93 12/15/18 02:50 69 18 122/98 96 12/15/18 00:38 98.0 F 77 18 162/109 100 Intake and Output 12/14/18 12/15/18 12/15/18 22:59 06:59 14:59 Other: Voiding Method Urinal # Voids 0 Weight 70.307 kg Results 12/15/18 02:15 12/15/18 02:15 Cardiac Enzymes 12/15/18 12/15/18 Range/Units 02:15 02:15 AST 162 H (17-59) U/L Troponin I 0.019 (0.000-0.034) ng/mL Coagulation 12/15/18 Range/Units 02:15 PT 52.8 H (9.0-12.0) sec CBC 12/15/18 Range/Units 02:15 WBC 11.1 H (3.8-10.6) k/uL RBC 2.79 L (4.30-5.90) m/uL Hgb 8.9 L (13.0-17.5) gm/dL Hct 27.7 L (39.0-53.0) % Plt Count 415 (150-450) k/uL Comprehensive Metabolic Panel 12/15/18 Range/Units 02:15 Sodium 132 L (137-145) mmol/L Potassium 5.0 (3.5-5.1) mmol/L Chloride 95 L (98-107) mmol/L Carbon Dioxide 26 (22-30) mmol/L BUN 43 H (9-20) mg/dL Creatinine 2.39 H (0.66-1.25) mg/dL Glucose 106 H (74-99) mg/dL Calcium 8.9 (8.4-10.2) mg/dL AST 162 H (17-59) U/L ALT 147 H (21-72) U/L Alkaline Phosphatase 240 H (38-126) U/L Total Protein 6.3 (6.3-8.2) g/dL Albumin 3.6 (3.5-5.0) g/dL Current Medications Generic Name Dose Route Start Last Admin Trade Name Freq PRN Reason Stop Dose Admin Calcitriol 0.25 mcg 12/16/18 09:00 Rocaltrol PO TUTHSA [facility] Carvedilol 3.125 mg 12/15/18 17:30 Coreg PO BID-W/MEALS [facility] Sodium Chloride 1,000 mls @ 20 mls/hr 12/15/18 03:30 12/15/18 04:34 Saline 0.9% IV 20 mls/hr .Q24H DAMARIS Administration Lamotrigine 100 mg 12/15/18 21:00 Lamictal PO HS@2100 [facility] Naloxone HCl 0.2 mg 12/15/18 03:16 Narcan IV Q2M PRN Opioid Reversal Pramipexole Dihydrochloride 0.5 mg 12/15/18 21:00 Mirapex PO HS [facility] Pravastatin Sodium 80 mg 12/15/18 09:00 Pravachol PO DAILY@0900 [facility] Sertraline HCl 100 mg 12/15/18 09:00 Zoloft PO DAILY [facility] Intake and Output 12/14/18 12/15/18 12/15/18 22:59 06:59 14:59 Other: Voiding Method Urinal # Voids 0 Weight 70.307 kg 12/15/18 02:15 12/15/18 02:15
[2018-12-15] MEDS: SERTRALINE 100 MG TAB PO SCH (13:32)
[2018-12-15] MEDS: PRAVASTATIN SODIUM 80 MG TAB PO SCH (13:32)
--- NOTE | 2018-12-15 13:46 | US ---
EXAMINATION TYPE: US gallbladder DATE OF EXAM: 12/15/2018 COMPARISON: CT 12/15/2018 CLINICAL HISTORY: cholecystitis. EXAM MEASUREMENTS: Liver Length: 161 cm Gallbladder Wall: 0.4 cm CBD: 0.4 cm Right Kidney: 9.5 x 4.0 x 3.5 cm Pancreas: Obscured by bowel gas Liver: wnl Gallbladder: Stone in neck measuring 0.9 cm, probable sludge visualized. Probable pericholecystic fl uid visualized. Wall is thickened measuring 0.4 cm Evidence for sonographic Pruett's sign: No CBD: wnl Right Kidney: No hydronephrosis or masses seen IMPRESSION: 1. Gallstone at the neck of the gallbladder. 2. Possible mild pericholecystic fluid. Gallbladder wall thickening is present although the Pruett si gn is negative. Clinical correlation for acute cholecystitis is recommended.
[2018-12-15] MEDS ORDERED: PHYTONADIONE ORAL 5 MG/5 ML ORAL.SYRG PO STA (14:59)
[2018-12-15] MEDS ORDERED: PANTOPRAZOLE 40 MG/10 ML VIAL IVP SCH (15:00)
[2018-12-15] MEDS: FUROSEMIDE 80 MG TAB PO SCH (15:23)
[2018-12-15] MEDS: TAMSULOSIN 0.4 MG CAP.ER.24H PO SCH (15:23)
[2018-12-15] MEDS: PIPERACILLIN-TAZOBACTAM 3.375 GM in SODIUM CHLORIDE 0.9% 100 ML IVPB SCH (15:24)
[2018-12-15] MEDS: CARVEDILOL 3.125 MG TAB PO SCH (17:13)
[2018-12-15] MEDS: PRAMIPEXOLE 0.5 MG TAB PO SCH (20:05)
[2018-12-15] MEDS: PANTOPRAZOLE 40 MG/10 ML VIAL IVP SCH (20:06)
[2018-12-15] MEDS: lamoTRIgine 100 MG TAB PO SCH (20:06)
[2018-12-16] MEDS: PIPERACILLIN-TAZOBACTAM 3.375 GM in SODIUM CHLORIDE 0.9% 100 ML IVPB SCH ×3 (00:21→17:10)
[2018-12-16] MEDS: SODIUM CHLORIDE 0.9% 1,000 ML IV SCH (04:18)
[2018-12-16 06:30] LABS: Anisocytosis Slight; Basophils # (A) 0.1 k/uL (0-0.2); Basophils % (A) 1 %; Eosinophils # (A) 0.3 k/uL (0-0.7); Eosinophils % (A) 5 %; HCT 27.4 % (39.0-53.0); HGB 8.9 gm/dL (13.0-17.5); INR 3.3 (<1.2); Lymphocytes # (A) 0.6 k/uL (1.0-4.8); Lymphocytes % (A) 9 %; MCH 32.4 pg (25.0-35.0); MCHC 32.6 g/dL (31.0-37.0); MCV 99.7 fL (80.0-100.0); Macrocytosis Slight; Mean Platelet Volume 7.6; Monocytes # (A) 0.4 k/uL (0-1.0); Monocytes % (A) 6 %; Neutrophils # (A) 5.3 k/uL (1.3-7.7); Neutrophils % (A) 78 %; Platelet Count 427 k/uL (150-450); Prothrombin Time 31.5 sec (9.0-12.0); RBC 2.74 m/uL (4.30-5.90); RDW 16.7 % (11.5-15.5); WBC 6.8 k/uL (3.8-10.6)
[2018-12-16] MEDS: CARVEDILOL 3.125 MG TAB PO SCH ×2 (06:30→17:13)
[2018-12-16 06:45] LABS: Albumin 3.4 g/dL (3.5-5.0); Calcium 8.5 mg/dL (8.4-10.2); Total Bilirubin 0.9 mg/dL (0.2-1.3); Total Protein 5.9 g/dL (6.3-8.2)
--- NOTE | 2018-12-16 08:48 | HP ---
HISTORY AND PHYSICAL DATE OF SERVICE: 12/15/2018 CHIEF COMPLAINT: A 68-year-old patient admitted with generalized weakness, status post cardiogenic shock for which he was admitted in [facility] 7 days ago for 7 days in ICU. He was taken off all his cardiac medications for systolic CHF. He comes in today due to generalized weakness. He also states he might have some kind of sepsis for which were are unclear of, we are trying to get records for. Patient was complaining of diarrhea and abdominal pain and some vomiting. CAT scan has been ordered of the abdomen at this time and we are waiting for Cardiology to reassess the systolic CHF and restart his medications that they took off. He apparently had hypotension sepsis for unclear etiology, but maybe has a bad gallbladder or some sepsis that as unrecognized. A 14-point review of system negative except for generalized weakness and as mentioned above. LABS: Cardiac, ER workup was reviewed. HOME MEDICATIONS: 1. Calcitriol 0.25 mcg Thursday, , Thursday. 2. Pravachol 80 mg daily. 3. Zoloft 100 mg daily. 4. Coumadin. 5. Lamictal. History of depression, bipolar, systolic CHF, hypertension, dyslipidemia. ALLERGIES: No known drug allergies. History of longstanding cardiomyopathy, history of mitral valve disease with replacement of the valve, ST myocardial infarction, hypertension, memory loss, chronic renal disease, heart failure, GERD. SURGERIES: AICD, cardiac valve replacement, CABG, tonsillectomy. FAMILY HISTORY: Brother with coronary artery disease, dyslipidemia, hypertension. Mother with dementia and hypertension. Father with cancer. Temperature 98, pulse 77, respiratory rate 16 to 18, blood pressure 162/109, O2 is 100. Hemoglobin is 8.9, white count 11.1, BUN of 23, creatinine 2.39, glucose 105. ASSESSMENT: 1. Generalized weakness, acute abdominal pain of unclear etiology with nausea, vomiting. Took CAT scan of his abdomen. 2. Recent generalized weakness. 3. Recent sepsis of unclear etiology. 4. Cardiogenic shock, unclear etiology. 5. History of systolic congestive heart failure, bipolar. Please see further orders. CAT scan of the abdomen, Surgery and Cardiology consult. MMODL / IJN: [id number] /
[2018-12-16] MEDS: FUROSEMIDE 80 MG TAB PO SCH (08:54)
[2018-12-16] MEDS: PRAVASTATIN SODIUM 80 MG TAB PO SCH (08:54)
[2018-12-16] MEDS: TAMSULOSIN 0.4 MG CAP.ER.24H PO SCH (08:54)
[2018-12-16] MEDS: SERTRALINE 100 MG TAB PO SCH (08:54)
[2018-12-16] MEDS: PANTOPRAZOLE 40 MG/10 ML VIAL IVP SCH (08:55)
[2018-12-16] MEDS ORDERED: CALCITRIOL 0.25 MCG CAP PO SCH (09:00)
--- NOTE | 2018-12-16 10:03 | P.PN ---
Subjective Progress Note Date: 12/16/18 Principal diagnosis: Severe cardiomyopathy/valvular heart disease This is a pleasant 68-year-old gentleman who I follow in the office as an outpatient with history of coronary artery disease and status post CABG, severe ischemic cardiomyopathy and status post AICD, valvular heart disease and status post mechanical valve in mitral position, as well as multiple comorbid conditio ns, was admitted to the hospital with acute exacerbation of congestive heart failure secondary to systolic dysfunction. The patient recently was admitted to the hospital in [place] with what it seems to be cardiac arrest. The details on that are unavailable at this point. He is here at this time with symptoms of nausea vomiting and diarrhea. He underwent a gallbladder ultrasound which revealed gallstone at the neck of the gallbladder and he was seen by a general surgeon who tentatively planning to do surgery on him in the next few days to next few weeks. On follow-up with him today, he remains asymptomatic at this point. Hemodynamically he is stable. He seems to be compensating very well. On examination he is not in any overt congestive heart failure. He continues to be on anticoagulation was, then. Objective - Vital Signs Vital signs: Vital Signs Temp 98.7 F 12/16/18 08:20 Pulse 70 12/16/18 08:20 Resp 17 12/16/18 08:20 BP 111/61 12/16/18 08:20 Pulse Ox 97 12/16/18 08:20 Intake & Output 12/15/18 12/16/18 12/16/18 18:59 06:59 18:59 Intake Total 360 175 Output Total 800 2400 400 Balance -962 -1650 -400 Weight 69.7 kg Intake: Oral 360 175 Output: Urine 800 2400 400 Other: Voiding Method Urinal Urinal # Voids 2 # Bowel Movements 1 - Constitutional General appearance: Present: no acute distress - Respiratory Respiratory: bilateral: CTA - Cardiovascular Rhythm: regular - Labs CBC & Chem 7: 12/16/18 06:06 12/16/18 06:06 Labs: Abnormal Lab Results - Last 24 Hours (Table) 12/16/18 12/16/18 12/16/18 Range/Units 06:06 06:06 06:06 RBC 2.74 L (4.30-5.90) m/uL Hgb 8.9 L (13.0-17.5) gm/dL Hct 27.4 L (39.0-53.0) % RDW 16.7 H (11.5-15.5) % Lymphocytes # 0.6 L (1.0-4.8) k/uL PT 31.5 H (9.0-12.0) sec INR 3.3 H (<1.2) BUN 41 H (9-20) mg/dL Creatinine 2.63 H (0.66-1.25) mg/dL AST 108 H (17-59) U/L ALT 159 H (21-72) U/L Alkaline Phosphatase 188 H (38-126) U/L Total Protein 5.9 L (6.3-8.2) g/dL Albumin 3.4 L (3.5-5.0) g/dL Assessment and Plan Assessment: Assessment #1 CAD and status post CABG #2 severe ischemic cardiomyopathy #3 status post mitral valve replacement with mechanical valves #4 chronic kidney disease #5 cholecystitis Plan #1 continue the current medical regimen #2 continue Coumadin for anticoagulation until we know the date of the surgery #3 the patient can proceed with the cholecystectomy laparoscopically knowing that he is high risk for the surgery giving his cardiac condition
--- NOTE | 2018-12-16 11:22 | P.NPCON ---
History of Present Illness - Reason for Consult acute renal failure, chronic renal failure - History of Present Illness Reason for admission: Acute kidney injury on chronic kidney disease History of present illness: Patient is a 68-year-old male seen in consultation for acute kidney injury on chronic kidney disease. Patient has chronic kidney disease stage IIIB with baseline creatinine in the range of 1.5-2. Etiologies cardiorenal syndrome. Patient has history of systolic CHF with ejection fraction of less than 20% with moderate tricuspid regurgitation and pulmonary hypertension. Patient also has history of a prosthetic mitral valve. Patient was recently admitted admit [facility] about a week ago with cardiogenic shock. Patient now presents to the hospital with generalized weakness. He does complain of a cough. He denies chest pain or shortness of breath. He is having loose bowel movements. He's also been having episodes of vomiting and dry heaving. He is currently maintained on Lasix 80 mg orally twice daily. He admits to good urine output. No hematuria or dysuria. No history of diabetes. Vital signs are stable. General: The patient appeared well nourished and normally developed. HEENT: Head exam is unremarkable. Neck is without jugular venous distension. LUNGS: Lungs are clear to auscultation and percussion. Breath sounds decreased. HEART: Rate and Rhythm are regular. First and second heart sounds normal. No murmurs, rubs or gallops. ABDOMEN: Abdominal exam reveals normal bowel sounds. Non-tender and non- distended. No evidence of peritonitis. EXTREMITITES: No clubbing, cyanosis, or edema. 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 Last Myocardial Infarction Date:: unk History of Any Multi-Drug Resistant Organisms: None Reported Past Surgical History: AICD, Cardiac Valve Replacement, Coronary Bypass/CABG, Tonsillectomy Additional Past Surgical History / Comment(s): several thoracentesis, cabg 1999,mitral valve repalcement and bypass graft redo in [place], colonos copy/polypectomy-ravi Past Anesthesia/Blood Transfusion Reactions: No Reported Reaction Type of Cardiac Device: AICD Device Placement Date:: 03-31-16 Past Psychological History: Anxiety, Depression, PTSD Additional Psychological History / Comment(s): obsessive compulsive disorder Smoking Status: Never smoker Past Alcohol Use History: None Reported Additional Past Alcohol Use History / Comment(s): per pt never smoked. no alcohol used currently. Past Drug Use History: None Reported - Past Family History Brother(s) Family Medical History: Coronary Artery Disease (CAD), Hyperlipidemia, Hypertension Mother Family Medical History: Dementia, Hypertension Additional Family Medical History / Comment(s): mom is age 92 lives in [facility] Father Family Medical History: Cancer Additional Family Medical History / Comment(s): from melanoma cancer Medications and Allergies Home Medications Medication Instructions Recorded Confirmed Type Calcitriol 0.25 mcg PO TUTHSA 02/10/18 12/15/18 History Pravastatin Sodium [Pravachol] 80 mg PO DAILY@0900 03/09/18 12/15/18 History Carvedilol [Coreg] 3.125 mg PO BID-W/MEALS tab 03/26/18 12/15/18 Rx Pramipexole [Mirapex] 0.5 mg PO HS 30 Days #30 tab 03/26/18 12/15/18 Rx Sertraline [Zoloft] 100 mg PO DAILY 05/19/18 12/15/18 History lamoTRIgine [LaMICtal] 100 mg PO HS@2100 05/19/18 12/15/18 History Amiodarone HCl [Pacerone] 200 mg PO BID 12/15/18 12/15/18 History Furosemide [Lasix] 40 mg PO BID 12/15/18 12/15/18 History Midodrine HCl 15 mg PO TID 12/15/18 12/15/18 History Pantoprazole [Protonix] 40 mg PO BID 12/15/18 12/15/18 History Sildenafil [Revatio] 20 - 40 mg PO DAILY PRN 12/15/18 12/15/18 History Tamsulosin HCl [Flomax] 0.4 mg PO DAILY 12/15/18 12/15/18 History Allergies Allergy/AdvReac Type Severity Reaction Status Date / Time No Known Allergies Allergy Verified 12/15/18 04:45 Physical Exam Vitals: Vital Signs Temp Pulse Resp BP Pulse Ox 12/16/18 08:20 98.7 F 70 17 111/61 97 12/16/18 04:00 97.7 F 74 18 116/63 96 12/16/18 00:00 97.5 F L 70 18 103/61 98 12/15/18 20:00 97.7 F 70 18 95/56 95 12/15/18 16:20 98 F 74 18 122/77 94 L 12/15/18 12:00 98.1 F 68 17 120/77 97 Intake and Output 12/15/18 12/16/18 12/16/18 22:59 06:59 14:59 Intake Total 535 Output Total 300 2400 400 Balance 235 -2400 -400 Intake: Oral 535 Output: Urine 300 2400 400 Other: Voiding Method Urinal Urinal # Voids 2 # Bowel Movements 1 Weight 69.7 kg Results - Lab Results Most recent lab results Calcium 8.5 mg/dL (8.4-10.2) 12/16/18 06:06 Magnesium 2.4 mg/dL (1.6-2.3) H 12/15/18 02:15 12/16/18 06:06 12/16/18 06:06 Assessment and Plan Plan: Assessment: 1. Acute kidney injury mostly prerenal secondary to diuresis. Creatinine 2.63 today. No evidence of hydronephrosis noted on CAT scan. 2. Chronic kidney disease stage III with baseline creatinine in the range of 1.5-2 secondary to cardiorenal syndrome. 3. Systolic CHF with ejection fraction of less than 20% with moderate tricuspid regurgitation and pulmonary hypertension. 4. Status post mitral valve replacement. 5. Anemia of chronic kidney disease. Rule out iron deficiency. 6. Nausea and vomiting. Concern for cholecystitis. 7. Status post cardiogenic shock with over a week long admission admitted clearance [facility] about a week ago. Plan: I will decrease Lasix to 80 mg orally once daily. Check iron studies. Avoid nephrotoxins. Continue to monitor renal function and urine output. Follow-up renal ultrasound. Thank you for the consultation. I will continue to follow the patient with you during his hospital stay.
--- NOTE | 2018-12-16 11:25 | US ---
EXAMINATION TYPE: US kidneys/renal and bladder DATE OF EXAM: 12/16/2018 COMPARISON: CT from yesterday CLINICAL HISTORY: linda. EXAM MEASUREMENTS: Right Kidney: 9.9 x 3.6 x 4.2 cm Left Kidney: 10.1 x 4.3 x 4.3 cm Right Kidney: lateral cyst measures 0.9 x 0.9 x 0.9 cm Left Kidney: No hydronephrosis or masses seen Bladder: wnl Bilateral Jets seen: Yes Incidental note is made of right pleural effusion Initial images redemonstrate small right pleural effusion. Technologist lara incidental subcentimete r simple appearing thin-walled cyst right kidney not as well-seen on recent CT. No hydronephrosis is evident bilaterally. IMPRESSION: No hydronephrosis is seen bilaterally. Findings correlate with CT one day earlier.
[2018-12-16 13:57] VITALS: BMI 27.2
[2018-12-16 15:51] LABS: Appearance,Urine Clear (Clear); Bilirubin,Urine Negative (Negative); Blood,Urine Negative (Negative); Color,Urine Colorless; Glucose,Urine (UA) Negative (Negative); Ketones,Urine Negative (Negative); Leukocyte Esterase,Urine Negative (Negative); Nitrite,Urine Negative (Negative); Protein,Urine Negative (Negative); Specific Gravity,Urine 1.007 (1.001-1.035); Urobilinogen,Urine <2.0 mg/dL (<2.0)
--- NOTE | 2018-12-16 16:07 | P.GSCN ---
History of Present Illness Consult date: 12/16/18 Reason for Consult: Cholecystitis Requesting physician: Kavita Gray History of present illness: CHIEF COMPLAINT: Cholecystitis HISTORY OF PRESENT ILLNESS: 68-year-old male admitted to the hospital for generalized weakness. General surgery was consulted for further evaluation of cholecystitis. Patient case discussed with internal medicine team who states patient was recently hospitalized with cardiogenic shock and has an EF less than 20%. Patient examined the bedside. Patient reports abdominal pain is controlled at this time. He denies nausea or vomiting currently but has been experiencing this prior to hospitalization. WBC on admission 11.1. Repeat 6.8. Hemoglobin 8.9. INR on admission 5.5. Repeat this morning 3.3. Ultrasound of the gallbladder revealed gallstone at neck of the gallbladder. Possible mild pericholecystic fluid. Gallbladder wall thickening. PAST MEDICAL HISTORY: See list. PAST SURGICAL HISTORY: See list. SOCIAL HISTORY: No illicit drug use. REVIEW OF SYSTEMS: CONSTITUTIONAL: Denies fever or chills. HEENT: Denies blurred vision, vision changes, or eye pain. Denies hemoptysis CARDIOVASCULAR: Denies chest pain or pressure. RESPIRATORY: No shortness of breath. GASTROINTESTINAL: Refer to HPI for pertinent findings HEMATOLOGIC: Denies bleeding disorders. GENITOURINARY: Denies any blood in urine. SKIN: Denies pruitis. Denies rash. PHYSICAL EXAM: VITAL SIGNS: Reviewed. GENERAL: Well-developed in no acute distress. HEENT: No sclera icterus. Extraocular movements grossly intact. Moist buccal mucosa. Head is atraumatic, normocephalic. ABDOMEN: Soft. Nondistended. Nontender. Positive bowel sounds NEUROLOGIC: Alert and oriented. Cranial nerves II through XII grossly intact. ASSESSMENT: 1. Acute cholecystitis 2. Acute on chronic systolic heart failure, EF less than 20% 3. Supratherapeutic INR, 5.5 on admission PLAN: Low-fat diet. Dr. Limon discussed case with Dr. Dickerson, cardiology, who cleared patient for surgery. Patient will be scheduled for laparoscopic cholecystectomy on 12/27/2018 as an outpatient surgery. Patient to hold his Coumadin for 5 days prior to surgery. Patient will require Lovenox subcu while coumadin is being held prior to surgery. Continue IV antibiotics during hospitalization. Patient will require to remain on oral antibiotics at discharge up until the day of his surgery Nurse practitioner note has been reviewed by physician. Signing provider agrees with the documented findings, assessment, and plan of care. 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 Last Myocardial Infarction Date:: unk History of Any Multi-Drug Resistant Organisms: None Reported Past Surgical History: AICD, Cardiac Valve Replacement, Coronary Bypass/CABG, Tonsillectomy Additional Past Surgical History / Comment(s): several thoracentesis, cabg 1999,mitral valve repalcement and bypass graft redo in [place], colonoscopy/polypectomy-[facility] Past Anesthesia/Blood Transfusion Reactions: No Reported Reaction Type of Cardiac Device: AICD Device Placement Date:: 03-31-16 Past Psychological History: Anxiety, Depression, PTSD Additional Psychological History / Comment(s): obsessive compulsive disorder Smoking Status: Never smoker Past Alcohol Use History: None Reported Additional Past Alcohol Use History / Comment(s): per pt never smoked. no alcohol used currently. Past Drug Use History: None Reported - Past Family History Brother(s) Family Medical History: Coronary Artery Disease (CAD), Hyperlipidemia, Hype rtension Mother Family Medical History: Dementia, Hypertension Additional Family Medical History / Comment(s): mom is age 92 lives in [facility] Father Family Medical History: Cancer Additional Family Medical History / Comment(s): from melanoma cancer Medications and Allergies Home Medications Medication Instructions Recorded Confirmed Type Calcitriol 0.25 mcg PO TUTHSA 02/10/18 12/15/18 History Pravastatin Sodium [Pravachol] 80 mg PO DAILY@0900 03/09/18 12/15/18 History Carvedilol [Coreg] 3.125 mg PO BID-W/MEALS tab 03/26/18 12/15/18 Rx Pramipexole [Mirapex] 0.5 mg PO HS 30 Days #30 tab 03/26/18 12/15/18 Rx Sertraline [Zoloft] 100 mg PO DAILY 05/19/18 12/15/18 History lamoTRIgine [LaMICtal] 100 mg PO HS@2100 05/19/18 12/15/18 History Amiodarone HCl [Pacerone] 200 mg PO BID 12/15/18 12/15/18 History Furosemide [Lasix] 40 mg PO BID 12/15/18 12/15/18 History Midodrine HCl 15 mg PO TID 12/15/18 12/15/18 History Pantoprazole [Protonix] 40 mg PO BID 12/15/18 12/15/18 History Sildenafil [Revatio] 20 - 40 mg PO DAILY PRN 12/15/18 12/15/18 History Tamsulosin HCl [Flomax] 0.4 mg PO DAILY 12/15/18 12/15/18 History Allergies Allergy/AdvReac Type Severity Reaction Status Date / Time No Known Allergies Allergy Verified 12/15/18 04:45 Surgical - Exam Vital Signs Temp Pulse Resp BP Pulse Ox 98.0 F 77 18 162/109 100 12/15/18 00:38 12/15/18 00:38 12/15/18 00:38 12/15/18 00:38 12/15/18 00:38 Results - Labs 12/16/18 06:06 12/16/18 06:06 Abnormal Lab Results - Last 24 Hours (Table) 12/16/18 12/16/18 12/16/18 Range/Units 06:06 06:06 06:06 RBC 2.74 L (4.30-5.90) m/uL Hgb 8.9 L (13.0-17.5) gm/dL Hct 27.4 L (39.0-53.0) % RDW 16.7 H (11.5-15.5) % Lymphocytes # 0.6 L (1.0-4.8) k/uL PT 31.5 H (9.0-12.0) sec INR 3.3 H (<1.2) BUN 41 H (9-20) mg/dL Creatinine 2.63 H (0.66-1.25) mg/dL AST 108 H (17-59) U/L ALT 159 H (21-72) U/L Alkaline Phosphatase 188 H (38-126) U/L Total Protein 5.9 L (6.3-8.2) g/dL Albumin 3.4 L (3.5-5.0) g/dL Diabetes panel 12/16/18 Range/Units 06:06 Sodium 137 (137-145) mmol/L Potassium 4.0 (3.5-5.1) mmol/L Chloride 100 (98-107) mmol/L Carbon Dioxide 28 (22-30) mmol/L BUN 41 H (9-20) mg/dL Creatinine 2.63 H (0.66-1.25) mg/dL Glucose 82 (74-99) mg/dL Calcium 8.5 (8.4-10.2) mg/dL AST 108 H (17-59) U/L ALT 159 H (21-72) U/L Alkaline Phosphatase 188 H (38-126) U/L Total Protein 5.9 L (6.3-8.2) g/dL Albumin 3.4 L (3.5-5.0) g/dL Calcium panel 12/16/18 Range/Units 06:06 Calcium 8.5 (8.4-10.2) mg/dL Albumin 3.4 L (3.5-5.0) g/dL Pituitary panel 12/16/18 Range/Units 06:06 Sodium 137 (137-145) mmol/L Potassium 4.0 (3.5-5.1) mmol/L Chloride 100 (98-107) mmol/L Carbon Dioxide 28 (22-30) mmol/L BUN 41 H (9-20) mg/dL Creatinine 2.63 H (0.66-1.25) mg/dL Glucose 82 (74-99) mg/dL Calcium 8.5 (8.4-10.2) mg/dL Adrenal panel 12/16/18 Range/Units 06:06 Sodium 137 (137-145) mmol/L Potassium 4.0 (3.5-5.1) mmol/L Chloride 100 (98-107) mmol/L Carbon Dioxide 28 (22-30) mmol/L BUN 41 H (9-20) mg/dL Creatinine 2.63 H (0.66-1.25) mg/dL Glucose 82 (74-99) mg/dL Calcium 8.5 (8.4-10.2) mg/dL Total Bilirubin 0.9 (0.2-1.3) mg/dL AST 108 H (17-59) U/L ALT 159 H (21-72) U/L Alkaline Phosphatase 188 H (38-126) U/L Total Protein 5.9 L (6.3-8.2) g/dL Albumin 3.4 L (3.5-5.0) g/dL
[2018-12-16] MEDS: PANTOPRAZOLE 40 MG TABLET PO SCH (17:13)
--- NOTE | 2018-12-16 17:41 | P.PN ---
Subjective Progress Note Date: 12/16/18 This is a 68-year-old gentleman recently admitted at [facility] for cardiogenic shock, EF less than 20%, intubated in ICU admitted with generalized weakness, acute abdominal pain nausea, vomiting and multiple other medical issues. Telemetry sinus rhythm. Maintained on gentle IV fluid hydration with nausea and vomiting subsided. Abdominal pain controlled, complains of pains of tenderness. US reporting gallstone at neck of gallbladder, possible mild moris- cholecystic fluid, gallbladder wall thickening surgery consulted. Maintained on Zosyn. INR yesterday 5.5, received vitamin K, currently 3.3. Vital signs stable. Afebrile, normal WBC. Diuresing well on Lasix IV push with 24-hour I&O reflecting a negative fluid balance. Renal function mildly worsened, creatinine 2.63. T bili normal, LFTs trending down. Renal ultrasound reporting no hydronephrosis bilaterally, correlating with prior CT, incidental subcentimeter simple appearing right kidney cyst. Objective - Vital Signs Vital signs: Vital Signs Temp 98.6 F 12/16/18 16:00 Pulse 70 12/16/18 16:00 Resp 17 12/16/18 16:00 BP 112/70 12/16/18 16:00 Pulse Ox 97 12/16/18 12:05 Intake & Output 12/15/18 12/16/18 12/16/18 18:59 06:59 18:59 Intake Total 360 175 120 Output Total 800 2400 400 Balance -849 -1776 -280 Weight 69.7 kg 69.7 kg Intake: Oral 360 175 120 Output: Urine 800 2400 400 Other: Voiding Method Urinal Urinal # Voids 2 0 # Bowel Movements 1 - Exam PHYSICAL EXAM: VITAL SIGNS: As above GENERAL: Sitting up in bed, no acute distress HEENT: Conjunctivae normal. eyes normal. NECK: No JVD. No thyroid enlargement. No LNs CARDIOVASCULAR: S1, S2 regular.. No murmur RESPIRATION: Breath sounds diminished in the bases. No rhonchi or crackles. No bronchial breathing. ABDOMEN: Soft, nondistended, mild diffuse tenderness. No guarding. no masses palpable. Bowel sounds heard. LEGS: No edema. no swelling PSYCHIATRY: Alert and oriented X3, mood and affect normal. NERVOUS SYSTEM: Cranial N 2-12 grossly normal. Moves all 4 limbs. Diffuse weak ness No focal deficits. Strength and sensation grossly intact.. Skin: no lesions, no rash - Labs CBC & Chem 7: 12/16/18 06:06 12/16/18 06:06 Labs: Abnormal Lab Results - Last 24 Hours (Table) 12/16/18 12/16/18 12/16/18 Range/Units 06:06 06:06 06:06 RBC 2.74 L (4.30-5.90) m/uL Hgb 8.9 L (13.0-17.5) gm/dL Hct 27.4 L (39.0-53.0) % RDW 16.7 H (11.5-15.5) % Lymphocytes # 0.6 L (1.0-4.8) k/uL PT 31.5 H (9.0-12.0) sec INR 3.3 H (<1.2) BUN 41 H (9-20) mg/dL Creatinine 2.63 H (0.66-1.25) mg/dL AST 108 H (17-59) U/L ALT 159 H (21-72) U/L Alkaline Phosphatase 188 H (38-126) U/L Total Protein 5.9 L (6.3-8.2) g/dL Albumin 3.4 L (3.5-5.0) g/dL Assessment and Plan Assessment: -Acute on chronic systolic heart failure, EF less than 20% -Subtherapeutic INR, 5.5 on admission -Acute cholecystitis -Acute renal failure, prerenal secondary to diuresing -Chronic kidney disease, stage III, secondary to cardiorenal syndrome, baseline 1.5-2 -Anemia of chronic disease -Recent cardiogenic shock with over a week long admission in the ICU, intubated -History of prostatic mitral valve replacement -incidental subcentimeter simple appearing right kidney cyst. Plan: Continue on current medication regime ,monitoring and symptomatic treatment. Maintain Zosyn. Diuretics as per nephrology with dose decreased. Surgery discussing surgery date, as patient is a high-risk. PT /OT. Increase ambulation as tolerated. Follow closely with multiple consults. Further recommendations to follow. The impression and plan of care has been dictated as directed. : I performed a history and examination of this patient, discussed the same with the dictator. I agree with the dictator's note ,documented as a scribe. Any additional findings or plans will be noted.
[2018-12-16] MEDS: lamoTRIgine 100 MG TAB PO SCH (20:48)
[2018-12-16] MEDS: PRAMIPEXOLE 0.5 MG TAB PO SCH (20:48)
[2018-12-17] MEDS: PIPERACILLIN-TAZOBACTAM 3.375 GM in SODIUM CHLORIDE 0.9% 100 ML IVPB SCH ×3 (00:32→18:16)
[2018-12-17] MEDS: SODIUM CHLORIDE 0.9% 1,000 ML IV SCH (03:25)
[2018-12-17 04:40] VITALS: RESP 18
[2018-12-17] MEDS: PANTOPRAZOLE 40 MG TABLET PO SCH ×2 (06:33→18:13)
[2018-12-17] MEDS: CARVEDILOL 3.125 MG TAB PO SCH ×2 (06:33→18:13)
[2018-12-17 06:56] LABS: Basophils # (A) 0.1 k/uL (0-0.2); Basophils % (A) 1 %; Eosinophils # (A) 0.4 k/uL (0-0.7); Eosinophils % (A) 7 %; HCT 32.2 % (39.0-53.0); HGB 10.2 gm/dL (13.0-17.5); Lymphocytes # (A) 0.6 k/uL (1.0-4.8); Lymphocytes % (A) 9 %; MCH 31.6 pg (25.0-35.0); MCHC 31.5 g/dL (31.0-37.0); MCV 100.5 fL (80.0-100.0); Macrocytosis Slight; Mean Platelet Volume 7.1; Monocytes # (A) 0.5 k/uL (0-1.0); Monocytes % (A) 9 %; Neutrophils # (A) 4.3 k/uL (1.3-7.7); Neutrophils % (A) 71 %; Platelet Count 458 k/uL (150-450); RBC 3.21 m/uL (4.30-5.90); RDW 15.2 % (11.5-15.5)
[2018-12-17 07:05] LABS: INR 2.5 (<1.2); Prothrombin Time 24.5 sec (9.0-12.0)
[2018-12-17 07:09] LABS: Albumin 3.8 g/dL (3.5-5.0); Calcium 8.9 mg/dL (8.4-10.2); Magnesium 2.1 mg/dL (1.6-2.3); Potassium 3.8 mmol/L (3.5-5.1); Total Bilirubin 1.3 mg/dL (0.2-1.3); Total Protein 6.6 g/dL (6.3-8.2)
[2018-12-17] MEDS ORDERED: FUROSEMIDE 80 MG TAB PO SCH (09:00)
[2018-12-17] MEDS: TAMSULOSIN 0.4 MG CAP.ER.24H PO SCH (09:39)
[2018-12-17] MEDS: SERTRALINE 100 MG TAB PO SCH (09:39)
[2018-12-17] MEDS: PRAVASTATIN SODIUM 80 MG TAB PO SCH (09:39)
--- NOTE | 2018-12-17 09:58 | P.PN ---
Subjective Patient is seen in follow-up for acute kidney injury on chronic kidney disease. Patient has chronic kidney disease stage III Baseline creatinine in the range of 1.5-2. Etiology is cardiorenal syndrome. Patient has systolic CHF with ejection fraction of less than 20% with moderate tricuspid regurgitation and pulmonary hypertension. Patient also has a prosthetic mitral valve. Currently resting in bed. Urine output is good. No vomiting. No edema. Having loose bowel movements. Vital signs are stable. General: The patient appeared well nourished and normally developed. HEENT: Head exam is unremarkable. Neck is without jugular venous distension. LUNGS: Lungs are clear to auscultation and percussion. Breath sounds decreased. HEART: Rate and Rhythm are regular. First and second heart sounds normal. No murmurs, rubs or gallops. ABDOMEN: Abdominal exam reveals normal bowel sounds. Non-tender and non- distended. No evidence of peritonitis. EXTREMITITES: No clubbing, cyanosis, or edema. Objective - Vital Signs Vital signs: Vital Signs Temp 97.8 F 12/17/18 04:00 Pulse 74 12/17/18 04:00 Resp 18 12/17/18 04:00 BP 109/66 12/17/18 04:00 Pulse Ox 97 12/17/18 04:00 Intake & Output 12/16/18 12/17/18 12/17/18 18:59 06:59 18:59 Intake Total 820 320 240 Output Total 650 Balance 170 320 240 Weight 69.7 kg 67.3 kg Intake: Intake, IV Titration 340 120 Amount Piperacillin-Tazobactam 3 200 .375 gm In Sodium Chloride 0.9% 100 ml @ 25 mls/hr IVPB Q8HR [facility] Rx# :[id number] Sodium Chloride 0.9% 1, 140 120 000 ml @ 20 mls/hr IV . Q24H [facility] Rx#:[id number] Oral 480 200 240 Output: Urine 650 Other: Voiding Method Urinal # Voids 0 1 1 - Labs CBC & Chem 7: 12/17/18 06:32 12/17/18 06:32 Labs: Abnormal Lab Results - Last 24 Hours (Table) 12/17/18 12/17/18 12/17/18 Range/Units 06:32 06:32 06:32 RBC 3.21 L (4.30-5.90) m/uL Hgb 10.2 L (13.0-17.5) gm/dL Hct 32.2 L (39.0-53.0) % MCV 100.5 H (80.0-100.0) fL Plt Count 458 H (150-450) k/uL Lymphocytes # 0.6 L (1.0-4.8) k/uL PT 24.5 H (9.0-12.0) sec INR 2.5 H (<1.2) BUN 36 H (9-20) mg/dL Creatinine 2.63 H (0.66-1.25) mg/dL AST 68 H (17-59) U/L ALT 143 H (21-72) U/L Alkaline Phosphatase 182 H (38-126) U/L Assessment and Plan Plan: Assessment: 1. Acute kidney injury mostly prerenal secondary to diuresis. Creatinine stable at 2.63 today. No evidence of hydronephrosis noted on CAT scan. 2. Chronic kidney disease stage III with baseline creatinine in the range of 1.5-2 secondary to cardiorenal syndrome. 3. Systolic CHF with ejection fraction of less than 20% with moderate tricuspid regurgitation and pulmonary hypertension. 4. Status post mitral valve replacement. 5. Anemia of chronic kidney disease. Rule out iron deficiency. 6. Nausea and vomiting. Concern for cholecystitis. Scheduled for cholecystectomy outpatient. 7. Status post cardiogenic shock with over a week long admission admitted clearance [facility] about a week ago. Plan: Maintain Lasix 80 mg orally once daily. Follow-up iron studies. Avoid nephrotoxins. Continue to monitor renal function and urine output. Low-salt diet. I have also advised the patient to monitor his weight closely at home.
[2018-12-17 10:56] VITALS: TEMP 97.6
[2018-12-17 11:59] LABS: Glucose,Whole Blood 93 mg/dL (75-99)
--- NOTE | 2018-12-17 12:08 | P.PN ---
Subjective Progress Note Date: 12/17/18 Principal diagnosis: Severe cardiomyopathy/valvular heart disease This is a pleasant 68-year-old gentleman who I follow in the office as an outpatient with history of coronary artery disease and status post CABG, severe ischemic cardiomyopathy and status post AICD, valvular heart disease and status post mechanical valve in mitral position, as well as multiple comorbid conditio ns, was admitted to the hospital with acute exacerbation of congestive heart failure secondary to systolic dysfunction. The patient recently was admitted to the hospital in [employer] with what it seems to be cardiac arrest. The details on that are unavailable at this point. He is here at this time with symptoms of nausea vomiting and diarrhea. He underwent a gallbladder ultrasound which revealed gallstone at the neck of the gallbladder and he was seen by a general surgeon who tentatively planning to do surgery on him in the next few days to next few weeks. On follow-up with the patient today, December 172018, he seems to be clinically stable. Hemodynamically he is stable as well. He didn't take a walk in the hallway and felt slightly dizzy after that. The plan is for the patient to be discharged home probably later on today and have the cholecystectomy laparoscopically as an outpatient. He continues to be on anticoagulation with Coumadin. Objective - Vital Signs Vital signs: Vital Signs Temp 97.6 F 12/17/18 08:00 Pulse 87 12/17/18 10:00 Resp 18 12/17/18 04:00 BP 120/68 12/17/18 10:00 Pulse Ox 96 12/17/18 10:00 Intake & Output 12/16/18 12/17/18 12/17/18 18:59 06:59 18:59 Intake Total 820 320 240 Output Total 650 Balance 170 320 240 Weight 69.7 kg 67.3 kg Intake: Intake, IV Titration 340 120 Amount Piperacillin-Tazobactam 3 200 .375 gm In Sodium Chloride 0.9% 100 ml @ 25 mls/hr IVPB Q8HR [facility] Rx# :[id number] Sodium Chloride 0.9% 1, 140 120 000 ml @ 20 mls/hr IV . Q24H [facility] Rx#:[id number] Oral 480 200 240 Output: Urine 650 Other: Voiding Method Urinal # Voids 0 1 1 - Constitutional General appearance: Present: no acute distress - Respiratory Respiratory: bilateral: CTA - Cardiovascular Rhythm: regular - Labs CBC & Chem 7: 12/17/18 06:32 12/17/18 06:32 Labs: Abnormal Lab Results - Last 24 Hours (Table) 12/17/18 12/17/18 12/17/18 Range/Units 06:32 06:32 06:32 RBC 3.21 L (4.30-5.90) m/uL Hgb 10.2 L (13.0-17.5) gm/dL Hct 32.2 L (39.0-53.0) % MCV 100.5 H (80.0-100.0) fL Plt Count 458 H (150-450) k/uL Lymphocytes # 0.6 L (1.0-4.8) k/uL PT 24.5 H (9.0-12.0) sec INR 2.5 H (<1.2) BUN 36 H (9-20) mg/dL Creatinine 2.63 H (0.66-1.25) mg/dL AST 68 H (17-59) U/L ALT 143 H (21-72) U/L Alkaline Phosphatase 182 H (38-126) U/L Assessment and Plan Assessment: Assessment #1 CAD and status post CABG #2 severe ischemic cardiomyopathy #3 status post mitral valve replacement with mechanical valves #4 chronic kidney disease #5 cholecystitis Plan #1 continue the current medical regimen #2 continue Coumadin for anticoagulation until we know the date of the surgery #3 the patient possibly can be discharged home in the next 24 hours.
--- NOTE | 2018-12-17 12:19 | P.PN ---
Subjective Progress Note Date: 12/17/18 CHIEF COMPLAINT: Cholecystitis HISTORY OF PRESENT ILLNESS: Patient examined this morning at the bedside. Reports minimal abdominal pain. Reports loose stool this morning x 1. Denies nausea or vomiting. Denies SOB or CP. WBC 6.0. Hemoglobin 10.2. INR 2.5. PHYSICAL EXAM: VITAL SIGNS: Reviewed. GENERAL: Well-developed in no acute distress. HEENT: No sclera icterus. Extraocular movements grossly intact. Moist buccal mucosa. Head is atraumatic, normocephalic. ABDOMEN: Soft. Nondistended. Nontender. Positive bowel sounds NEUROLOGIC: Alert and oriented. Cranial nerves II through XII grossly intact. ASSESSMENT: 1. Acute cholecystitis 2. Acute on chronic systolic heart failure, EF less than 20% 3. Supratherapeutic INR, 5.5 on admission PLAN: Low-fat diet. Dr. Limon discussed case with Dr. Dickerson, cardiology, who cleared patient for surgery. Patient will be scheduled for laparoscopic cholecystectomy on 12/27/2018 as an outpatient surgery. Patient to hold his Coumadin for 5 days prior to surgery. Patient will require Lovenox subcu while coumadin is being held prior to surgery. Continue IV antibiotics during hospitalization. Patient will require to remain on oral antibiotics at discharge up until the day of his surgery Nurse practitioner note has been reviewed by physician. Signing provider agrees with the documented findings, assessment, and plan of care. Objective - Vital Signs Vital signs: Vital Signs Temp 97.6 F 12/17/18 08:00 Pulse 87 12/17/18 10:00 Resp 18 12/17/18 04:00 BP 120/68 12/17/18 10:00 Pulse Ox 96 12/17/18 10:00 Intake & Output 12/16/18 12/17/18 12/17/18 18:59 06:59 18:59 Intake Total 820 320 240 Output Total 650 Balance 170 320 240 Weight 69.7 kg 67.3 kg Intake: Intake, IV Titration 340 120 Amount Piperacillin-Tazobactam 3 200 .375 gm In Sodium Chloride 0.9% 100 ml @ 25 mls/hr IVPB Q8HR [facility] Rx# :[id number] Sodium Chloride 0.9% 1, 140 120 000 ml @ 20 mls/hr IV . Q24H [facility] Rx#:[id number] Oral 480 200 240 Output: Urine 650 Other: Voiding Method Urinal # Voids 0 1 1 - Labs CBC & Chem 7: 12/17/18 06:32 12/17/18 06:32 Labs: Abnormal Lab Results - Last 24 Hours (Table) 12/17/18 12/17/18 12/17/18 Range/Units 06:32 06:32 06:32 RBC 3.21 L (4.30-5.90) m/uL Hgb 10.2 L (13.0-17.5) gm/dL Hct 32.2 L (39.0-53.0) % MCV 100.5 H (80.0-100.0) fL Plt Count 458 H (150-450) k/uL Lymphocytes # 0.6 L (1.0-4.8) k/uL PT 24.5 H (9.0-12.0) sec INR 2.5 H (<1.2) BUN 36 H (9-20) mg/dL Creatinine 2.63 H (0.66-1.25) mg/dL AST 68 H (17-59) U/L ALT 143 H (21-72) U/L Alkaline Phosphatase 182 H (38-126) U/L
--- NOTE | 2018-12-17 16:04 | P.DS ---
Providers Date of admission: 12/15/18 10:57 Expected date of discharge: 12/17/18 Attending physician: Brando Gray Consults: 12/15/18 03:17 Consult Physician Routine Consulting Provider: Star Dickerson Consult Reason/Comments: chf Do you want consulting provider notified?: Yes 12/15/18 14:46 Consult Physician Routine Consulting Provider: Ezra Dela Cruz Consult Reason/Comments: renal failure, recent cardiogenic shock Do you want consulting provider notified?: Yes 12/15/18 15:02 Consult Physician Routine Consulting Provider: Navid Limon Consult Reason/Comments: CHOLEYCYST/RECENT CARDIOGENIC SHOCK Do you want consulting provider notified?: Yes Primary care physician: [facility] Hospital Course: Final Diagnoses: -Acute on chronic systolic heart failure, EF less than 20% -Supratherapeutic INR, 5.5 on admission -Acute cholecystitis, surgery pending -Acute renal failure, prerenal secondary to diuresing -Chronic kidney disease, stage III, secondary to cardiorenal syndrome, baseline 1.5-2 -Anemia of chronic disease -Recent cardiogenic shock with over a week long admission in the ICU, intubated -History of prostatic mitral valve replacement -incidental subcentimeter simple appearing right kidney cyst. -Moderate pulmonary hypertension Hospital course:This is a 68-year-old gentleman recently admitted at [facility] for cardiogenic shock, EF less than 20%, intubated in ICU admitted with generalized weakness, acute abdominal pain nausea, vomiting and multiple other medical issues. Telemetry sinus rhythm. Maintained on gentle IV fluid hydratio n with nausea and vomiting subsided. Abdominal pain controlled, complains of pains of tenderness. US reporting gallstone at neck of gallbladder, possible mild moris-cholecystic fluid, gallbladder wall thickening surgery consulted. Maintained on Zosyn. INR yesterday 5.5, received vitamin K, currently 3.3. Vital signs stable. Afebrile, normal WBC. Diuresing well on Lasix IV push with 24-hour I&O reflecting a negative fluid balance. Renal function mildly worsened, creatinine 2.63. T bili normal, LFTs trending down. Renal ultrasound reporting no hydronephrosis bilaterally, correlating with prior CT, incidental subcentimeter simple appearing right kidney cyst. Evaluated by surgery, cardiology and nephrology. Laparoscopic cholecystectomy rescheduled for 12/27/2018. Anticoagulation as per cardiology. Significant clinical improvement. Patient has been cleared by all consults for discharge. Patient is being discharged home in a stable condition with guarded prognosis. EXAM: GENERAL: Alert and oriented 3, no acute distress CARDIOVASCULAR: S1, S2 regular.. No murmur RESPIRATION: Breath sounds diminished in the bases. ABDOMEN: Soft, nondistended, mild diffuse tenderness. No guarding. no masses palpable. Bowel sounds heard. NERVOUS SYSTEM: No focal deficits. The impression and plan of care has been dictated as directed. : I performed a history and examination of this patient, discussed the same with the dictator. I agree with the dictator's note ,documented as a scribe. Any additional findings or plans will be noted. Time taken 35 minutes Patient Condition at Discharge: Stable Plan - Discharge Summary Discharge Rx Participant: No New Discharge Prescriptions: New Amoxic-Pot Clav 875-125Mg [Augmentin 875-125] 1 tab PO Q12HR #20 tablet Continue Calcitriol 0.25 mcg PO TUTHSA Pravastatin Sodium [Pravachol] 80 mg PO DAILY@0900 Carvedilol [Coreg] 3.125 mg PO BID-W/MEALS tab Pramipexole [Mirapex] 0.5 mg PO HS 30 Days #30 tab lamoTRIgine [LaMICtal] 100 mg PO HS@2100 Sertraline [Zoloft] 100 mg PO DAILY Pantoprazole [Protonix] 40 mg PO BID Tamsulosin HCl [Flomax] 0.4 mg PO DAILY Changed Furosemide [Lasix] 80 mg PO DAILY #0 Discontinued Midodrine HCl 15 mg PO TID Amiodarone HCl [Pacerone] 200 mg PO BID No Action Sildenafil [Revatio] 20 - 40 mg PO DAILY PRN PRN Reason: E.D Discharge Medication List Calcitriol 0.25 mcg PO TUTHSA 02/10/18 [History] Pravastatin Sodium [Pravachol] 80 mg PO DAILY@0900 03/09/18 [History] Carvedilol [Coreg] 3.125 mg PO BID-W/MEALS tab 03/26/18 [Rx] Pramipexole [Mirapex] 0.5 mg PO HS 30 Days #30 tab 03/26/18 [Rx] Sertraline [Zoloft] 100 mg PO DAILY 05/19/18 [History] lamoTRIgine [LaMICtal] 100 mg PO HS@2100 05/19/18 [History] Pantoprazole [Protonix] 40 mg PO BID 12/15/18 [History] Sildenafil [Revatio] 20 - 40 mg PO DAILY PRN 12/15/18 [History] Tamsulosin HCl [Flomax] 0.4 mg PO DAILY 12/15/18 [History] Amoxic-Pot Clav 875-125Mg [Augmentin 875-125] 1 tab PO Q12HR #20 tablet 12/17/18 [Rx] Furosemide [Lasix] 80 mg PO DAILY #0 12/17/18 [Rx] Follow up Appointment(s)/Referral(s): Brando Gray MD [Primary Care Provider] - 12/29/18 10:30 am (Thursday -previously scheduled appointment) Navid Limon MD [STAFF PHYSICIAN] - 1 Week (does not need a follow up. HE will return to hospital on 12/27 for surgery) Patient Instructions/Handouts: Low Fat Diet (DC), Laparoscopic Cholecystectomy (GEN) Activity/Diet/Wound Care/Special Instructions: Confirm cardiology follow-up appointment per to discharge. SILDENAFIL & Anticoagulation as per cardiology .Scheduled out pt cholecystectomy with Dr. Limon on 12/27/18 Cardiology to prescribe Lovenox injections for patient before discharge. He needs to hold Coumadin for 5 days prior to surgery Continue low fat diet
[2018-12-17 17:17] LABS: Iron Saturation 11.14 (15.00-50.00)
[2018-12-17 17:18] LABS: Glucose,Whole Blood 100 mg/dL (75-99)
[2018-12-17] MEDS ORDERED: WARFARIN 2.5 MG TAB PO SCH (18:00)
[2018-12-17 19:35] VITALS: BP 109/60
[2018-12-17 19:39] VITALS: PULSE 82
== END 2018-12-17 20:12 | disposition home or self-care (01) | DRG 444 ==
LOC: EC 00:33 → 1SOBS 03:16 → OBSVTOIN 10:57 → 3SCARD 14:59
PROVIDERS: ADMIT Family Medicine; ATTEND Family Medicine
DX: K80.00 Calculus of gallbladder with acute cholecystitis without obstruction (principal); I50.23 Acute on chronic systolic (congestive) heart failure; I13.0 Hypertensive heart and chronic kidney disease with heart failure and stage 1 through stage 4 chronic kidney disease, or unspecified chronic kidney disease; N17.9 Acute kidney failure, unspecified; D63.1 Anemia in chronic kidney disease; E78.5 Hyperlipidemia, unspecified; F42.9 Obsessive-compulsive disorder, unspecified; F43.10 Post-traumatic stress disorder, unspecified; I08.1 Rheumatic disorders of both mitral and tricuspid valves; I25.10 Atherosclerotic heart disease of native coronary artery without angina pectoris; I25.2 Old myocardial infarction; I25.5 Ischemic cardiomyopathy; I27.20 Pulmonary hypertension, unspecified; K21.9 Gastro-esophageal reflux disease without esophagitis; N18.3 Chronic kidney disease, stage 3 (moderate); N28.1 Cyst of kidney, acquired; R79.1 Abnormal coagulation profile; T50.2X5A Adverse effect of carbonic-anhydrase inhibitors, benzothiadiazides and other diuretics, initial encounter; Z79.01 Long term (current) use of anticoagulants; Z79.899 Other long term (current) drug therapy; Z80.8 Family history of malignant neoplasm of other organs or systems; Z82.49 Family history of ischemic heart disease and other diseases of the circulatory system; I69.311 Memory deficit following cerebral infarction; Z95.1 Presence of aortocoronary bypass graft; Z95.2 Presence of prosthetic heart valve; Z95.810 Presence of automatic (implantable) cardiac defibrillator; Z86.010 Personal history of colon polyps; K59.00 Constipation, unspecified; Z82.0 Family history of epilepsy and other diseases of the nervous system
CPT/HCPCS: 36415; 74022; 74176; 76705; 76770; 80053; 81003; 82728; 83540; 83550; 83605; 83735; 84484; 85025; 85610; 86850; 86900; 86901; 93005; 93306; 99285

== ENCOUNTER 2018-12-27 11:31 | Day surgery (SDC) | payer MEDICARE ==
[2018-12-21 13:47] VITALS: BMI 26.5
[~2018-12-27 11:31] MED LIST: HEPARIN SODIUM,PORCINE 5,000 UNIT/ML 1 ML VIAL SQ ONE; HYDROmorphone 0.5 MG/0.5 ML SYRINGE IVP PRN; LACTATED RINGERS 1,000 ML IV SCH; LIDOCAINE 1% 20 ML VIAL (10MG/ML) FOR IV START INTRADERMA PRN; ONDANSETRON 4 MG/2 ML VIAL IVP ONE
--- NOTE | 2018-12-27 11:54 | P.GSHP ---
History of Present Illness H&P Date: 12/27/18 Chief Complaint: Cholecystitis This a 68-year-old male with history of cholelithiasis and cholecystitis. Patient presents today for laparoscopic cholecystectomy. Past Medical History Past Medical History: Coronary Artery Disease (CAD), Heart Failure, CVA/TIA, GERD/Reflux, Hyperlipidemia, Hypertension, Memory Impairment, Myocardial Infarction (DC), Renal Disease Additional Past Medical History / Comment(s): past cva some mild residual memory problems, cardiomyopathy, hx of mitral valve disease, constipation, recent gallbladder issues causing sepsis and ICU admit, decreased kidney function Last Myocardial Infarction Date:: 1999 History of Any Multi-Drug Resistant Organisms: None Reported Past Surgical History: AICD, Cardiac Valve Replacement, Coronary Bypass/CABG, Heart Catheterization, Tonsillectomy Additional Past Surgical History / Comment(s): several thoracentesis, cabg 1999, mitral valve repalcement and bypass graft redo in [place], Past Anesthesia/Blood Transfusion Reactions: No Reported Reaction Type of Cardiac Device: AICD Device Placement Date:: 03-31-16- [employer] Model:[id number] Smoking Status: Never smoker - Past Family History Brother(s) Family Medical History: Coronary Artery Disease (CAD), Hyperlipidemia, Hypertension Mother Family Medical History: Dementia, Hypertension Additional Family Medical History / Comment(s): mom is age 92 lives in [facility] Father Family Medical History: Cancer Additional Family Medical History / Comment(s): from melanoma cancer Medications and Allergies Home Medications Medication Instructions Recorded Confirmed Type Calcitriol 0.25 mcg PO SUTUTHFRSA 02/10/18 12/21/18 History Pravastatin Sodium [Pravachol] 80 mg PO DAILY 03/09/18 12/21/18 History Carvedilol [Coreg] 3.125 mg PO BID-W/MEALS tab 03/26/18 12/21/18 Rx Pramipexole [Mirapex] 0.5 mg PO HS 30 Days #30 tab 03/26/18 12/21/18 Rx Sertraline [Zoloft] 100 mg PO DAILY 05/19/18 12/21/18 History lamoTRIgine [LaMICtal] 100 mg PO HS 05/19/18 12/21/18 History Pantoprazole [Protonix] 40 mg PO BID 12/15/18 12/21/18 History Tamsulosin HCl [Flomax] 0.4 mg PO DAILY 12/15/18 12/21/18 History Amoxic-Pot Clav 875-125Mg 1 tab PO Q12HR #20 tablet 12/17/18 12/21/18 Rx [Augmentin 875-125] Furosemide [Lasix] 80 mg PO DAILY #0 12/17/18 12/21/18 Rx Amiodarone [Cordarone] 200 mg PO BID 12/21/18 12/21/18 History Enoxaparin [Lovenox] 40 mg SQ DAILY 12/21/18 12/21/18 History Midodrine HCl 15 mg PO TID 12/21/18 12/21/18 History Sacubitril/Valsartan [Entresto 24 1 each PO BID 12/21/18 12/21/18 History mg-26 mg Tablet] Warfarin [Coumadin] 1.25 mg PO DAILY 12/21/18 12/21/18 History Allergies Allergy/AdvReac Type Severity Reaction Status Date / Time nitroglycerin Allergy made me Verified 12/21/18 13:22 feel funny, diarrhea Surgical - Exam Vital Signs Temp Pulse Resp BP Pulse Ox 97.8 F 75 18 128/72 100 12/27/18 11:47 12/27/18 11:47 12/27/18 11:47 12/27/18 11:47 12/27/18 11:47 - General well developed, well nourished, no distress - Eyes PERRL - ENT normal pinna - Neck no masses - Respiratory normal expansion - Cardiovascular Rhythm: regular - Abdomen Abdomen: soft, non tender Assessment and Plan Assessment: Cholelithiasis Cholecystitis We'll perform laparoscopic cholecystectomy.
[2018-12-27] MEDS ORDERED: LACTATED RINGERS 1,000 ML IV ONE (11:55)
[2018-12-27 12:12] LABS: Partial Thromboplastin Time 26.7 sec (22.0-30.0)
[2018-12-27] MEDS ORDERED: ETOMIDATE 2 MG/ML 10 ML VIAL ONE (12:20)
[2018-12-27] MEDS ORDERED: GLYCOPYRROLATE 0.2 MG/ML 2 ML VIAL ONE (12:20)
[2018-12-27] MEDS ORDERED: fentaNYL (PF) 50 MCG/ML 2 ML AMP ONE (12:20)
[2018-12-27] MEDS ORDERED: ROCURONIUM BROMIDE 10 MG/ML 10 ML VIAL IV ONE (12:20)
[2018-12-27] MEDS ORDERED: ePHEDrine SULFATE/0.9% NACL/PF 50 MG/5 ML SYRINGE IV ONE (12:20)
[2018-12-27] MEDS ORDERED: NEOSTIGMINE 1 MG/ML 10 ML VIAL ONE (12:20)
[2018-12-27] MEDS ORDERED: PROPOFOL 10 MG/ML 20 ML VIAL IV ONE (12:20)
[2018-12-27] MEDS ORDERED: LIDOCAINE 1% INJ 10MG/ML (20 ML MDV) ONE (12:20)
[2018-12-27] MEDS ORDERED: PHENYLEPHRINE-0.9% NACL SYG 1 MG/10 ML SYRINGE ONE (12:20)
[2018-12-27] MEDS ORDERED: MIDAZOLAM 2 MG/2 ML VIAL ONE (12:20)
[2018-12-27] MEDS ORDERED: BUPIVACAIN-EPI 0.25%-1:200,000 30 ML VIAL SQ ONE (12:50)
--- NOTE | 2018-12-27 13:08 | P.OP ---
Date of Procedure: 12/27/18 Preoperative Diagnosis: Cholecystitis Postoperative Diagnosis: Cholecystitis Cholelithiasis Procedure(s) Performed: Laparoscopic cholecystectomy Anesthesia: NAREN Surgeon: Navid Limon Estimated Blood Loss (ml): 5 Pathology: other (Gallbladder) Condition: stable Disposition: PACU Description of Procedure: The patient was placed on the operating table. The patient received a general endotracheal tube anesthesia. The patients abdomen was prepped and draped in the usual sterile fashion. Through an infraumbilical stab incision, the fascia of the anterior abdominal wall was grasped with a pair of Kochers and then the Veress needle was placed in the peritoneal cavity. Position of the Veress needle was confirmed with positive drop test. The abdomen was then insufflated. After adequate insufflation, the 10 mm trocar was placed in the peritoneal cavity. Following this the laparoscope was placed in the peritoneal cavity. The patient was placed in the head-up, right side up position and then a 5 mm trocar was placed in the right lateral and right subcostal position under direct visualization. A 8 mm trocar was placed in the epigastric position. The gallbladder was grasped in the fundus and infundibulum. Traction on the gallbladder was placed in the lateral and the cephalad positions. The triangle of Calot was visualized.. The cystic duct was bluntly dissected until the union of the cystic duct and common bile duct was seen. A critical view of safety was achieved. The cystic duct was then divided and sealed with the Harmonic scissors. A PDS Endoloop was then placed throughout the cystic duct stump. The cystic artery divided and sealed with the Harmonic scissors. The gallbladder was then removed from the liver bed using Harmonic scissors. The gallbladder was then extracted through the epigastric port site. Operative field was checked for any bleeding spots and Harmonic scissors was used to coagulate the liver bed. The abdomen was irrigated. The trocars were removed. The skin was closed using interrupted 3-0 Vicryl suture. Dermabond dressing were applied. The patient tolerated the procedure well.
[2018-12-27 13:56] VITALS: TEMP 97.2
[2018-12-27] MEDS ORDERED: HYDROcodone/APAP 5-325MG 1 EACH TAB PO ONE (15:08)
[2018-12-27 15:20] VITALS: RESP 18
[2018-12-27 17:01] VITALS: BP 130/80; PULSE 74
== END 2018-12-27 17:20 | disposition home or self-care (01) ==
LOC: OR 11:31
PROVIDERS: ATTEND Surgery
DX: K80.10 Calculus of gallbladder with chronic cholecystitis without obstruction (principal); E78.5 Hyperlipidemia, unspecified; I11.0 Hypertensive heart disease with heart failure; I25.10 Atherosclerotic heart disease of native coronary artery without angina pectoris; I25.2 Old myocardial infarction; I42.9 Cardiomyopathy, unspecified; I50.9 Heart failure, unspecified; I69.311 Memory deficit following cerebral infarction; K21.9 Gastro-esophageal reflux disease without esophagitis; Z79.01 Long term (current) use of anticoagulants; Z82.49 Family history of ischemic heart disease and other diseases of the circulatory system; Z90.49 Acquired absence of other specified parts of digestive tract; Z95.1 Presence of aortocoronary bypass graft; Z95.2 Presence of prosthetic heart valve; Z95.810 Presence of automatic (implantable) cardiac defibrillator; Z79.899 Other long term (current) drug therapy; Z88.8 Allergy status to other drugs, medicaments and biological substances
CPT/HCPCS: 88304; 85610; 85730; 47562; J2250; J2710; J0690; J2405; J2001; J3010; J2370; J2704

== ENCOUNTER 2019-01-21 16:26 | Inpatient (IN) | payer MEDICARE ==
[2019-01-21] MEDS ORDERED: SODIUM CHLORIDE 0.9% 1,000 ML IV STA (18:09)
[2019-01-21] MEDS ORDERED: PANTOPRAZOLE 40 MG/10 ML VIAL IVP STA (18:09)
--- NOTE | 2019-01-21 18:16 | ED ---
General Adult HPI - General Chief complaint: GI Bleed Stated complaint: rectal bleeding Time Seen by Provider: 01/21/19 17:16 Source: patient, RN notes reviewed Mode of arrival: ambulatory Limitations: no limitations - History of Present Illness Initial comments: Patient is a pleasant 68-year-old male presenting to the emergency department with concerns regarding rectal bleeding. Onset of symptoms was today. Patient has now had 3 episodes. Episodes have been mixed with stool however mostly blood. At first it was just light pink amount. This last episode was more bright red and large amount of blood. Patient has minimal abdominal discomfort. Patient is on blood thinners for cardiac valve replacement, Coumadin. Patient did have a cholecystectomy done just 1 month ago without complications. Patient has noticed some ecchymosis of his right lower abdomen without tenderness. Patient states he believes this was because he was bending over and leaning on something just the other day. - Related Data Home Medications Medication Instructions Recorded Confirmed Calcitriol 0.25 mcg PO DAILY 02/10/18 01/21/19 Pravastatin Sodium [Pravachol] 80 mg PO DAILY 03/09/18 01/21/19 Sertraline [Zoloft] 100 mg PO DAILY 05/19/18 01/21/19 lamoTRIgine [LaMICtal] 100 mg PO HS 05/19/18 01/21/19 Tamsulosin HCl [Flomax] 0.4 mg PO DAILY 12/15/18 01/21/19 Sacubitril/Valsartan [Entresto 24 1 tab PO BID 12/21/18 01/21/19 mg-26 mg Tablet] Warfarin [Coumadin] 2.5 mg PO SUTH 12/21/18 01/21/19 Furosemide [Lasix] 80 mg PO DAILY 01/21/19 01/21/19 Warfarin [Coumadin] 1.25 mg PO MOTUWEFRSA 01/21/19 01/21/19 Previous Rx's Medication Instructions Recorded Carvedilol [Coreg] 3.125 mg PO BID-W/MEALS tab 03/26/18 Allergies Allergy/AdvReac Type Severity Reaction Status Date / Time nitroglycerin AdvReac made me Verified 01/21/19 17:27 feel funny, diarrhea Review of Systems ROS Statement: Those systems with pertinent positive or pertinent negative responses have been documented in the HPI. ROS Other: All systems not noted in ROS Statement are negative. Constitutional: Denies: fever Eyes: Denies: eye pain ENT: Denies: ear pain Respiratory: Denies: cough Cardiovascular: Denies: chest pain Endocrine: Denies: fatigue Gastrointestinal: Reports: as per HPI, hematochezia Genitourinary: Denies: dysuria Musculoskeletal: Denies: back pain Skin: Denies: rash Neurological: Denies: weakness Past Medical History Past Medical History: Coronary Artery Disease (CAD), Heart Failure, CVA/TIA, GERD/Reflux, Hyperlipidemia, Hypertension, Memory Impairment, Myocardial Infarction (HI), Renal Disease Additional Past Medical History / Comment(s): past cva some mild residual memory problems, cardiomyopathy, hx of mitral valve disease, constipation, recent gallbladder issues causing sepsis and ICU admit, decreased kidney function Last Myocardial Infarction Date:: 1999 History of Any Multi-Drug Resistant Organisms: None Reported Past Surgical History: AICD, Cardiac Valve Replacement, Cholecystectomy, Coronary Bypass/CABG, Heart Catheterization, Tonsillectomy Additional Past Surgical History / Comment(s): several thoracentesis, cabg 1999, mitral valve repalcement and bypass graft redo in [facility] Dec 27 Past Anesthesia/Blood Transfusion Reactions: No Reported Reaction Type of Cardiac Device: AICD Device Placement Date:: 03-31-16- [employer] Model:[id number] Past Psychological History: Anxiety, Depression, PTSD Smoking Status: Never smoker Past Alcohol Use History: None Reported Past Drug Use History: None Reported - Past Family History Brother(s) Family Medical History: Coronary Artery Disease (CAD), Hyperlipidemia, Hypertension Mother Family Medical History: Dementia, Hypertension Additional Family Medical History / Comment(s): mom is age 92 lives in [facility] Father Family Medical History: Cancer Additional Family Medical History / Comment(s): from melanoma cancer General Exam Limitations: no limitations General appearance: alert, in no apparent distress Head exam: Present: atraumatic Eye exam: Present: normal appearance, PERRL ENT exam: Present: normal oropharynx Neck exam: Present: normal inspection Respiratory exam: Present: normal lung sounds bilaterally Cardiovascular Exam: Present: regular rate, normal rhythm, systolic murmur GI/Abdominal exam: Present: soft. Absent: tenderness Rectal exam: Present: bloody stool Extremities exam: Present: normal inspection Neurological exam: Present: alert Psychiatric exam: Present: normal affect, normal mood Skin exam: Present: other (Patch of mild ecchymosis approximately 3 x 4 cm right lower abdomen without tenderness.) Course Vital Signs 01/21/19 01/21/19 16:34 19:20 Temperature 98.1 F 98 F Pulse Rate 86 83 Respiratory 16 18 Rate Blood Pressure 134/86 131/88 O2 Sat by Pulse 98 97 Oximetry Medical Decision Making - Medical Decision Making Patient reevaluated and updated. Unit ordered for transfusion. Case was discussed in detail with Dr. Gray, who will admit his patient. Dr. Guevara will be placed on consult who is the patient's surgeon. Computed tomography scan of the abdomen and pelvis was ordered. - Lab Data Result diagrams: 01/21/19 19:01 01/21/19 19:01 Lab Results 01/21/19 01/21/19 01/21/19 Range/Units 18:30 19:01 19:01 WBC 5.2 (3.8-10.6) k/uL RBC 3.34 L (4.30-5.90) m/uL Hgb 7.0 L D (13.0-17.5) gm/dL Hct 32.9 L (39.0-53.0) % MCV 98.4 (80.0-100.0) fL MCH 20.9 L (25.0-35.0) pg MCHC 21.2 L (31.0-37.0) g/dL RDW 15.7 H (11.5-15.5) % Plt Count 293 (150-450) k/uL Neutrophils % 71 % Lymphocytes % 9 % Monocytes % 9 % Eosinophils % 6 % Basophils % 1 % Neutrophils # 3.7 (1.3-7.7) k/uL Lymphocytes # 0.5 L (1.0-4.8) k/uL Monocytes # 0.5 (0-1.0) k/uL Eosinophils # 0.3 (0-0.7) k/uL Basophils # 0.1 (0-0.2) k/uL Hypochromasia Marked Poikilocytosis Slight Macrocytosis Slight PT 20.7 H (9.0-12.0) sec INR 2.1 H (<1.2) APTT 31.4 H (22.0-30.0) sec Sodium (137-145) mmol/L Potassium (3.5-5.1) mmol/L Chloride (98-107) mmol/L Carbon Dioxide (22-30) mmol/L Anion Gap mmol/L BUN (9-20) mg/dL Creatinine (0.66-1.25) mg/dL Est GFR (CKD-EPI)AfAm (>60 ml/min/1.73 sqM) Est GFR (CKD-EPI)NonAf (>60 ml/min/1.73 sqM) Glucose (74-99) mg/dL Calcium (8.4-10.2) mg/dL Total Bilirubin (0.2-1.3) mg/dL AST (17-59) U/L ALT (21-72) U/L Alkaline Phosphatase (38-126) U/L Total Protein (6.3-8.2) g/dL Albumin (3.5-5.0) g/dL Stool Occult Blood Positive (Negative) 01/21/19 Range/Units 19:01 WBC (3.8-10.6) k/uL RBC (4.30-5.90) m/uL Hgb (13.0-17.5) gm/dL Hct (39.0-53.0) % MCV (80.0-100.0) fL MCH (25.0-35.0) pg MCHC (31.0-37.0) g/dL RDW (11.5-15.5) % Plt Count (150-450) k/uL Neutrophils % % Lymphocytes % % Monocytes % % Eosinophils % % Basophils % % Neutrophils # (1.3-7.7) k/uL Lymphocytes # (1.0-4.8) k/uL Monocytes # (0-1.0) k/uL Eosinophils # (0-0.7) k/uL Basophils # (0-0.2) k/uL Hypochromasia Poikilocytosis Macrocytosis PT (9.0-12.0) sec INR (<1.2) APTT (22.0-30.0) sec Sodium 137 (137-145) mmol/L Potassium 4.4 (3.5-5.1) mmol/L Chloride 103 (98-107) mmol/L Carbon Dioxide 24 (22-30) mmol/L Anion Gap 10 mmol/L BUN 51 H (9-20) mg/dL Creatinine 2.25 H (0.66-1.25) mg/dL Est GFR (CKD-EPI)AfAm 34 (>60 ml/min/1.73 sqM) Est GFR (CKD-EPI)NonAf 29 (>60 ml/min/1.73 sqM) Glucose 112 H (74-99) mg/dL Calcium 8.6 (8.4-10.2) mg/dL Total Bilirubin 0.6 (0.2-1.3) mg/dL AST 125 H (17-59) U/L ALT 138 H (21-72) U/L Alkaline Phosphatase 139 H (38-126) U/L Total Protein 6.4 (6.3-8.2) g/dL Albumin 3.7 (3.5-5.0) g/dL Stool Occult Blood (Negative) Disposition Clinical Impression: Lower gastrointestinal hemorrhage Disposition: ADMITTED IP TO THIS HOSP Is patient prescribed a controlled substance at d/c from ED?: No Referrals: Brando Gray MD [Primary Care Provider] - 1-2 days Decision Time: 20:47
[2019-01-21 19:29] LABS: Basophils # (A) 0.1 k/uL (0-0.2); Basophils % (A) 1 %; Eosinophils # (A) 0.3 k/uL (0-0.7); Eosinophils % (A) 6 %; HCT 32.9 % (39.0-53.0); Hypochromasia Marked; Lymphocytes # (A) 0.5 k/uL (1.0-4.8); Lymphocytes % (A) 9 %; MCH 20.9 pg (25.0-35.0); MCHC 21.2 g/dL (31.0-37.0); MCV 98.4 fL (80.0-100.0); Macrocytosis Slight; Mean Platelet Volume 7.4; Monocytes # (A) 0.5 k/uL (0-1.0); Monocytes % (A) 9 %; Neutrophils # (A) 3.7 k/uL (1.3-7.7); Neutrophils % (A) 71 %; Platelet Count 293 k/uL (150-450); Poikilocytosis Slight; RBC 3.34 m/uL (4.30-5.90); RDW 15.7 % (11.5-15.5); WBC 5.2 k/uL (3.8-10.6)
[2019-01-21 19:37] LABS: INR 2.1 (<1.2); Partial Thromboplastin Time 31.4 sec (22.0-30.0); Prothrombin Time 20.7 sec (9.0-12.0)
[2019-01-21 19:42] LABS: Albumin 3.7 g/dL (3.5-5.0); Calcium 8.6 mg/dL (8.4-10.2); Potassium 4.4 mmol/L (3.5-5.1); Total Bilirubin 0.6 mg/dL (0.2-1.3); Total Protein 6.4 g/dL (6.3-8.2)
[2019-01-21] MEDS ORDERED: NALOXONE 0.4 MG/ML 1 ML VIAL IV PRN (20:47)
[2019-01-21 22:02] VITALS: BMI 28.0
--- NOTE | 2019-01-21 22:44 | CT ---
EXAMINATION TYPE: CT abdomen pelvis wo con DATE OF EXAM: 01/21/2019 COMPARISON: CT abdomen/pelvis 12/15/2018 HISTORY: Rectal bleeding CT DLP: 512 mGycm Automated exposure control for dose reduction was used. TECHNIQUE: Helical acquisition of images was performed from the lung bases through the pelvis. FINDINGS: The study is limited due to lack of intravenous contrast. Small pleural effusions. Heart is enlarged. Cardiac pacing wires are noted. The liver, spleen, pancreas, and adrenal glands have a normal noncontrasted appearance. Surgically ab sent gallbladder. Hypoattenuating right renal lesion statistically represents a cyst. Nonspecific perinephric fat stran ding. No hydronephrosis or renal calculi. Distended urinary bladder without abnormal wall thickening. No dilated bowel or free air. Scant amount of perihepatic and paracolic gutter fluid, in a lesser deg ree from most recent comparison. No suspicious adenopathy. Aortoiliac vascular calcifications with mild ectasia of the infrarenal aort a, stable. No osseous destructive lesion. IMPRESSION: 1. Interval cholecystectomy. Small amount of ascites is present which is nonspecific and in a lesser degree from recent CT performed in December 2018. 2. Small pleural effusions.
[2019-01-21] MEDS: PANTOPRAZOLE 40 MG/10 ML VIAL IV SCH (23:15)
[2019-01-21] MEDS: FUROSEMIDE 80 MG TAB PO SCH (23:16)
[2019-01-21] MEDS: SACUBITRIL/VALSARTAN 24 MG-26 MG TABLET PO SCH (23:16)
[2019-01-21] MEDS: lamoTRIgine 100 MG TAB PO SCH (23:16)
[2019-01-22] MEDS: SODIUM CHLORIDE 0.9% 1,000 ML IV SCH ×4 (00:15→22:59)
[2019-01-22] MEDS: CARVEDILOL 3.125 MG TAB PO SCH ×2 (06:25→17:52)
[2019-01-22 06:41] LABS: Basophils # (A) 0.1 k/uL (0-0.2); Basophils % (A) 1 %; Eosinophils # (A) 0.4 k/uL (0-0.7); Eosinophils % (A) 6 %; Hypochromasia Moderate; Lymphocytes # (A) 0.6 k/uL (1.0-4.8); Lymphocytes % (A) 9 %; MCH 29.6 pg (25.0-35.0); MCHC 31.3 g/dL (31.0-37.0); MCV 94.5 fL (80.0-100.0); Mean Platelet Volume 7.2; Monocytes # (A) 0.5 k/uL (0-1.0); Monocytes % (A) 8 %; Neutrophils % (A) 74 %; Platelet Count 317 k/uL (150-450); Poikilocytosis Moderate; RDW 15.9 % (11.5-15.5); WBC 6.8 k/uL (3.8-10.6)
[2019-01-22 06:51] LABS: Albumin 3.7 g/dL (3.5-5.0); Calcium 8.7 mg/dL (8.4-10.2); Potassium 3.7 mmol/L (3.5-5.1); Total Bilirubin 1.1 mg/dL (0.2-1.3); Total Protein 6.3 g/dL (6.3-8.2)
[2019-01-22] MEDS: TAMSULOSIN 0.4 MG CAP.ER.24H PO SCH (08:13)
[2019-01-22] MEDS: SACUBITRIL/VALSARTAN 24 MG-26 MG TABLET PO SCH ×2 (08:13→20:14)
[2019-01-22] MEDS: PRAVASTATIN SODIUM 80 MG TAB PO SCH (08:13)
[2019-01-22] MEDS: SERTRALINE 100 MG TAB PO SCH (08:13)
[2019-01-22] MEDS: CALCITRIOL 0.25 MCG CAP PO SCH (08:13)
[2019-01-22] MEDS: FUROSEMIDE 80 MG TAB PO SCH (08:14)
[2019-01-22] MEDS: PANTOPRAZOLE 40 MG/10 ML VIAL IV SCH (08:14)
--- NOTE | 2019-01-22 14:07 | P.GSCN ---
History of Present Illness Consult date: 01/22/19 History of present illness: CHIEF COMPLAINT: Gastrointestinal bleed HISTORY OF PRESENT ILLNESS: The patient is a 68 year old male who presents with gastrointestinal bleed including anemia initially hemoglobin of 7.1. Creatinine including LFTs were elevated. He received 1 unit of blood overnight. He has recent surgical history of cholecystectomy less than 30 days ago, 12/27/2018. He reports recent hospitalization at [facility] where he had a syncop al spell with diarrhea prompting inpatient colonoscopy. He was told he had polyps. He is unsure if he had diverticulosis. He confirms chronic diarrhea for over 6 months. Since his gallbladder surgery, he continues to have elevated liver enzymes and abdominal pain. He also has past history of hemorrhoids. No current abdominal pain. He takes blood thinners and has chronic moderate kidney disease. He is hungry. He had two more bowel movements this morning with bright blood. He is ambulating in the hallways. PAST MEDICAL HISTORY: See list. PAST SURGICAL HISTORY: See list. MEDICATIONS: See list. ALLERGIES: See list. SOCIAL HISTORY: See list. FAMILY HISTORY: See list. REVIEW OF ORGAN SYSTEMS: CONSTITUTIONAL: No fevers or chills. No recent weight loss. EYES: Denies any trouble with vision. No glasses. HEENT: No difficulties with hearing. No nosebleeds. No difficulty swallowing. RESPIRATORY: Denies pneumonia. Denies any troubles with breathing or dyspnea on exertion. CARDIOVASCULAR: Hypertensive cardiomyopathy. Has congestive heart failure. Past myocardial infarction. History of valve replacement. GASTROINTESTINAL: Presents with gastrointestinal bleed. GENITOURINARY: Creatinine elevated over 2.0. NEUROLOGICAL: Past history of stroke. MUSCULOSKELETAL: Has back pain, stiffness or joint arthritis. SKIN: No current skin cancer. No rash. PSYCHIATRIC: Has depression including PTSD. Has memory impairment ENDOCRINE: Denies current thyroid disorders. Denies any blood sugar glucose intolerance. HEME/LYMPHATIC: On blood thinners. INR elevated 2.0. ALLERGY/IMMUNOLOGY: No immunoglobulin therapy. No immune deficiencies. BREAST: Denies current breast lumps, pain or nipple discharge. PHYSICAL EXAM: VITALS: Reviewed CONSTITUTIONAL: Well developed and in no acute distress. EYES: Conjuctivae without sclera icterus. Pupils are equally round and reactive to light. Extraocular movements grossly intact. HEAD, EARS, NOSE, THROAT: Moist buccal mucosa. Head is atraumatic, normocephalic. Hears conversational speech. No nasal drainage. Good dentition. NECK: Supple. No JV distention. No thyroidomegaly. RESPIRATORY: Non-labored respirations and equal bilateral excursions. No gross wheezes. CARDIOVASCULAR: Regular rate and rhythm. Extremities without moderate edema. Palpable 2+ radial pulses. ABDOMEN: No hepatomegaly. Soft. Non-tender. Nondistended. MUSCULOSKELETAL: Gait within normal limits. Range of motion bilateral upper extremities within normal limits. Nail and fingers with good capillary refill. SKIN: Warm and well perfused with good skin turgor. NEUROLOGIC: Cranial nerves I through XII grossly intact. Sensation upper and extremities intact. No focal or lateralizing signs. PSYCH: Appropriate affect. Alert and oriented to person, place and time. Displays appropriate insight. CLINCAL LABS: Reviewed. Hemoglobin elevated from 7-11.0. White blood cell count normal. INR of 2.1 on admission. Creatinine elevated 2.25. Liver function elevated 116-160. Stool occult positive. RADIOLOGY: Report reviewed of CT demonstrates ascites including pleural effusion. MEDICAL TEST: Endoscopy reviewed IMAGING: Independently reviewed CT of the abdomen and pelvis demonstrating atrophy of the bilateral kidneys. Stomach dilated. No free air. No colitis identified. RECORDS: previous old records reviewed ASSESSMENT: 1. Gastrointestinal bleed with anemia 2. Anticoagulant use 3. Chronic kidney disease 4. Chronic diarrhea PLAN: 1. Will request medical records of colonoscopy from [facility] 2. Agree to hold all anticoagulants. He does report history of polyps, unsure if polypectomy was performed 3. Fluid resuscitation 4. May have liquid diet in the interim. 5. Colonoscopy on hold pending reports from outside facility Thank you for this kind consultation. Past Medical History Past Medical History: Coronary Artery Disease (CAD), Heart Failure, CVA/TIA, GERD/Reflux, Hyperlipidemia, Hypertension, Memory Impairment, Myocardial Infarction (LA), Renal Disease Additional Past Medical History / Comment(s): past cva some mild residual memory problems, cardiomyopathy, hx of mitral valve disease, constipation, recent gallbladder issues causing sepsis and ICU admit, decreased kidney function Last Myocardial Infarction Date:: 1999 History of Any Multi-Drug Resistant Organisms: None Reported Past Surgical History: AICD, Cardiac Valve Replacement, Cholecystectomy, Mita nary Bypass/CABG, Heart Catheterization, Tonsillectomy Additional Past Surgical History / Comment(s): several thoracentesis, cabg 1999, mitral valve repalcement and bypass graft redo in [place], [facility] Dec 27 Past Anesthesia/Blood Transfusion Reactions: No Reported Reaction Type of Cardiac Device: AICD Device Placement Date:: 03-31-16- Tradyo Model:[id number] Past Psychological History: Anxiety, Depression, PTSD Additional Psychological History / Comment(s): obsessive compulsive disorder Smoking Status: Never smoker Past Alcohol Use History: None Reported Additional Past Alcohol Use History / Comment(s): . Past Drug Use History: None Reported - Past Family History Brother(s) Family Medical History: Coronary Artery Disease (CAD), Hyperlipidemia, Hypertension Mother Family Medical History: Dementia, Hypertension Additional Family Medical History / Comment(s): mom is age 92 lives in [facility], [facility] Father Family Medical History: Cancer Additional Family Medical History / Comment(s): from melanoma cancer Medications and Allergies Home Medications Medication Instructions Recorded Confirmed Type Calcitriol 0.25 mcg PO DAILY 02/10/18 01/21/19 History Pravastatin Sodium [Pravachol] 80 mg PO DAILY 03/09/18 01/21/19 History Carvedilol [Coreg] 3.125 mg PO BID-W/MEALS tab 03/26/18 01/21/19 Rx Sertraline [Zoloft] 100 mg PO DAILY 05/19/18 01/21/19 History lamoTRIgine [LaMICtal] 100 mg PO HS 05/19/18 01/21/19 History Tamsulosin HCl [Flomax] 0.4 mg PO DAILY 12/15/18 01/21/19 History Sacubitril/Valsartan [Entresto 24 1 tab PO BID 12/21/18 01/21/19 History mg-26 mg Tablet] Warfarin [Coumadin] 2.5 mg PO SUTH 12/21/18 01/21/19 History Furosemide [Lasix] 80 mg PO DAILY 01/21/19 01/21/19 History Warfarin [Coumadin] 1.25 mg PO [id number] 01/21/19 01/21/19 History Allergies Allergy/AdvReac Type Severity Reaction Status Date / Time nitroglycerin AdvReac made me Verified 01/21/19 17:27 feel funny, diarrhea Surgical - Exam Vital Signs Temp Pulse Resp BP Pulse Ox 98.1 F 86 16 134/86 98 01/21/19 16:34 01/21/19 16:34 01/21/19 16:34 01/21/19 16:34 01/21/19 16:34 Results - Labs 01/22/19 06:02 01/22/19 06:02 Abnormal Lab Results - Last 24 Hours (Table) 01/21/19 01/21/19 01/21/19 Range/Units 19:01 19:01 19:01 RBC 3.34 L (4.30-5.90) m/uL Hgb 7.0 L D (13.0-17.5) gm/dL Hct 32.9 L (39.0-53.0) % MCH 20.9 L (25.0-35.0) pg MCHC 21.2 L (31.0-37.0) g/dL RDW 15.7 H (11.5-15.5) % Lymphocytes # 0.5 L (1.0-4.8) k/uL PT 20.7 H (9.0-12.0) sec INR 2.1 H (<1.2) APTT 31.4 H (22.0-30.0) sec BUN 51 H (9-20) mg/dL Creatinine 2.25 H (0.66-1.25) mg/dL Glucose 112 H (74-99) mg/dL AST 125 H (17-59) U/L ALT 138 H (21-72) U/L Alkaline Phosphatase 139 H (38-126) U/L Crossmatch 01/21/19 01/22/19 01/22/19 Range/Units 20:32 06:02 06:02 RBC 3.70 L (4.30-5.90) m/uL Hgb 11.0 L D (13.0-17.5) gm/dL Hct 35.0 L (39.0-53.0) % MCH (25.0-35.0) pg MCHC (31.0-37.0) g/dL RDW 15.9 H (11.5-15.5) % Lymphocytes # 0.6 L (1.0-4.8) k/uL PT (9.0-12.0) sec INR (<1.2) APTT (22.0-30.0) sec BUN 41 H (9-20) mg/dL Creatinine 2.14 H (0.66-1.25) mg/dL Glucose (74-99) mg/dL AST 116 H (17-59) U/L ALT 153 H (21-72) U/L Alkaline Phosphatase 156 H (38-126) U/L Crossmatch See Detail Diabetes panel 01/21/19 01/22/19 Range/Units 19:01 06:02 Sodium 137 139 (137-145) mmol/L Potassium 4.4 3.7 (3.5-5.1) mmol/L Chloride 103 103 (98-107) mmol/L Carbon Dioxide 24 26 (22-30) mmol/L BUN 51 H 41 H (9-20) mg/dL Creatinine 2.25 H 2.14 H (0.66-1.25) mg/dL Glucose 112 H 85 (74-99) mg/dL Calcium 8.6 8.7 (8.4-10.2) mg/dL AST 125 H 116 H (17-59) U/L ALT 138 H 153 H (21-72) U/L Alkaline Phosphatase 139 H 156 H (38-126) U/L Total Protein 6.4 6.3 (6.3-8.2) g/dL Albumin 3.7 3.7 (3.5-5.0) g/dL Calcium panel 01/21/19 01/22/19 Range/Units 19:01 06:02 Calcium 8.6 8.7 (8.4-10.2) mg/dL Albumin 3.7 3.7 (3.5-5.0) g/dL Pituitary panel 01/21/19 01/22/19 Range/Units 19:01 06:02 Sodium 137 139 (137-145) mmol/L Potassium 4.4 3.7 (3.5-5.1) mmol/L Chloride 103 103 (98-107) mmol/L Carbon Dioxide 24 26 (22-30) mmol/L BUN 51 H 41 H (9-20) mg/dL Creatinine 2.25 H 2.14 H (0.66-1.25) mg/dL Glucose 112 H 85 (74-99) mg/dL Calcium 8.6 8.7 (8.4-10.2) mg/dL Adrenal panel 01/21/19 01/22/19 Range/Units 19:01 06:02 Sodium 137 139 (137-145) mmol/L Potassium 4.4 3.7 (3.5-5.1) mmol/L Chloride 103 103 (98-107) mmol/L Carbon Dioxide 24 26 (22-30) mmol/L BUN 51 H 41 H (9-20) mg/dL Creatinine 2.25 H 2.14 H (0.66-1.25) mg/dL Glucose 112 H 85 (74-99) mg/dL Calcium 8.6 8.7 (8.4-10.2) mg/dL Total Bilirubin 0.6 1.1 (0.2-1.3) mg/dL AST 125 H 116 H (17-59) U/L ALT 138 H 153 H (21-72) U/L Alkaline Phosphatase 139 H 156 H (38-126) U/L Total Protein 6.4 6.3 (6.3-8.2) g/dL Albumin 3.7 3.7 (3.5-5.0) g/dL Assessment and Plan (1) Lower gastrointestinal hemorrhage Current Visit: Yes Status: Acute Code(s): K92.2 - GASTROINTESTINAL HEMORR TAMRA, UNSPECIFIED SNOMED Code(s): 09684987 (2) AICD (automatic cardioverter/defibrillator) present Current Visit: No Status: Acute Code(s): Z95.810 - PRESENCE OF AUTOMATIC (IMPLANTABLE) CARDIAC DEFIBRILLATOR SNOMED Code(s): 063568426 (3) Congestive heart failure with cardiomyopathy Current Visit: No Status: Acute Code(s): I50.9 - HEART FAILURE, UNSPECIFIED; I42.9 - CARDIOMYOPATHY, UNSPECIFIED SNOMED Code(s): 03052126 (4) Depression Current Visit: No Status: Acute Priority: Low Code(s): F32.9 - MAJOR DEPRESSIVE DISORDER, SINGLE EPISODE, UNSPECIFIED SNOMED Code(s): 59591852 (5) Ischemic cardiomyopathy Current Visit: No Status: Acute Code(s): I25.5 - ISCHEMIC CARDIOMYOPATHY SNOMED Code(s): 198311160 (6) Renal insufficiency Current Visit: No Status: Acute Code(s): N28.9 - DISORDER OF KIDNEY AND URETER, UNSPECIFIED SNOMED Code(s): 698831779
[2019-01-22] MEDS: lamoTRIgine 100 MG TAB PO SCH (20:14)
[2019-01-23] MEDS: SODIUM CHLORIDE 0.9% 1,000 ML IV SCH ×2 (06:27→22:39)
[2019-01-23] MEDS: CARVEDILOL 3.125 MG TAB PO SCH ×2 (06:27→16:39)
[2019-01-23] MEDS: CALCITRIOL 0.25 MCG CAP PO SCH (09:41)
[2019-01-23] MEDS: PRAVASTATIN SODIUM 80 MG TAB PO SCH (09:41)
[2019-01-23] MEDS: SACUBITRIL/VALSARTAN 24 MG-26 MG TABLET PO SCH ×2 (09:42→20:08)
[2019-01-23] MEDS: PANTOPRAZOLE 40 MG/10 ML VIAL IV SCH (09:42)
[2019-01-23] MEDS: TAMSULOSIN 0.4 MG CAP.ER.24H PO SCH (09:42)
[2019-01-23] MEDS: SERTRALINE 100 MG TAB PO SCH (09:42)
[2019-01-23] MEDS: FUROSEMIDE 80 MG TAB PO SCH (09:42)
--- NOTE | 2019-01-23 09:47 | HP ---
HISTORY AND PHYSICAL DATE OF SERVICE: 01/22/2019 CHIEF COMPLAINT: 68-year-old white male presents with GI bleeding, anemia, hemoglobin 7.1, was given 1 unit of blood up to 11 now. His bright red blood continuing from his rectum on the toilet seat. He has history of diverticulosis. States he had some kind of colonoscopy like a year ago. He has past medical history of some hemorrhoids. He is on Coumadin at home which has been stopped currently. He has systolic CHF, chronic kidney disease, bright red blood. PAST MEDICAL HISTORY: Systolic CHF, bipolar, hypertension, dyslipidemia, mood disorder. MEDICATIONS: See list. ALLERGIES: See list. SOCIAL HISTORY: Lives with his . Does not smoke or drink. REVIEW OF SYMPTOMS: 14-point review of systems negative except for mentioned in HPI. PHYSICAL EXAMINATION: Vital signs are reviewed. He is in no acute distress. Sitting up in a chair. Pupils equal, round, reactive to light and accommodation. NECK: Supple. Respiratory clear. HEART: S1, S2. Abdomen is soft. Muscular: Range of motion full. Skin warm and dry. Neurologic: Cranial nerves are intact. Psych: Fair mood and affect. Hemoglobin is up to 11 after transfusion. Creatinine is 2.25. LFTs are low 100s. Stool positive Hemoccult. IMPRESSION: 1. Gastrointestinal bleed with anemia, anticoagulated. 2. He has chronic kidney disease. 3. Chronic diarrhea. Monitor his electrolytes. Monitor hemoglobin. Clear liquid diet. Await further orders from surgical care. ASSESSMENT: 1. Lower gastrointestinal hemorrhage. 2. AICD. 3. Systolic congestive heart failure. 4. Cardiomyopathy. 5. Depression. 6. Renal insufficiency. 7. Hypertension. Current treatment as mentioned above. Monitor hemoglobins. MMODL / IJN: [id number] /
[2019-01-23 09:53] LABS: Basophils # (A) 0.1 k/uL (0-0.2); Basophils % (A) 3 %; Eosinophils # (A) 0.4 k/uL (0-0.7); Eosinophils % (A) 8 %; HCT 40.5 % (39.0-53.0); HGB 12.8 gm/dL (13.0-17.5); Hypochromasia Marked; Lymphocytes # (A) 0.5 k/uL (1.0-4.8); Lymphocytes % (A) 9 %; MCH 29.9 pg (25.0-35.0); MCHC 31.5 g/dL (31.0-37.0); MCV 94.9 fL (80.0-100.0); Monocytes # (A) 0.4 k/uL (0-1.0); Monocytes % (A) 8 %; Neutrophils # (A) 3.6 k/uL (1.3-7.7); Neutrophils % (A) 69 %; Platelet Count 390 k/uL (150-450); Poikilocytosis Slight; RBC 4.27 m/uL (4.30-5.90); WBC 5.2 k/uL (3.8-10.6)
--- NOTE | 2019-01-23 10:35 | P.PN ---
Subjective Progress Note Date: 01/23/19 CHIEF COMPLAINT: Gastrointestinal bleed HISTORY OF PRESENT ILLNESS: The patient is a 68 year old male who presents with gastrointestinal bleed including anemia initially hemoglobin of 7.1. Creatinine including LFTs were elevated. He received 1 unit of blood. He has a recent history of colonoscopy done on outside institution including identification of polyps. He reports less blood in stools. No further abdominal pain. He is tolerating liquid diet. He is ambulating. "I feel fine." ROS: No fevers or chills. No productive sputum. Has bowel movements. PHYSICAL EXAM: VITALS: Reviewed CONSTITUTIONAL: Well developed and in no acute distress. EYES: Conjuctivae without sclera icterus. Pupils are equally round and reactive to light. Extraocular movements grossly intact. HEAD, EARS, NOSE, THROAT: Moist buccal mucosa. Head is atraumatic, normocephalic. Hears conversational speech. No nasal drainage. Good dentition. NECK: Supple. No JV distention. No thyroidomegaly. RESPIRATORY: Non-labored respirations and equal bilateral excursions. No gross wheezes. CARDIOVASCULAR: Regular rate and rhythm. Palpable 2+ radial pulses. ABDOMEN: No hepatomegaly. Soft. Non-tender. Nondistended. MUSCULOSKELETAL: Nail and fingers with good capillary refill. SKIN: Warm and well perfused with good skin turgor. NEUROLOGIC: Cranial nerves I through XII grossly intact. Sensation upper and extremities intact. No focal or lateralizing signs. PSYCH: Appropriate affect. Alert and oriented to person, place and time. Displays appropriate insight. CLINCAL LABS: Reviewed. Hemoglobin elevated from 11.0 to 12.8. White blood cell count normal. INR of 2.1 on admission. Creatinine down 2.25 to 2.14. Liver function still elevated 116-160. ASSESSMENT: 1. Gastrointestinal bleed with anemia 2. Anticoagulant use 3. Chronic kidney disease 4. Chronic diarrhea PLAN: 1. Pending medical report from [facility] colonoscopy 2. May need repeat colonoscopy during inpatient if blood bowel movements continue 3. Increase diet. Thank you for this kind consultation. Objective - Vital Signs Vital signs: Vital Signs Temp 97.9 F 01/23/19 03:05 Pulse 82 01/23/19 03:05 Resp 16 01/23/19 03:05 BP 110/69 01/23/19 03:05 Pulse Ox 98 01/23/19 03:05 Intake & Output 01/22/19 01/23/19 01/23/19 18:59 06:59 18:59 Intake Total 160 240 Output Total 600 Balance -440 240 Intake: Intake, IV Titration 160 Amount Sodium Chloride 0.9% 1, 160 000 ml @ 120 mls/hr IV . Q8H20M DAMARIS Rx#:[id number] Oral 240 Output: Urine 600 - Labs CBC & Chem 7: 01/23/19 09:32 01/22/19 06:02 Labs: Abnormal Lab Results - Last 24 Hours (Table) 01/23/19 Range/Units 09:32 RBC 4.27 L (4.30-5.90) m/uL Hgb 12.8 L (13.0-17.5) gm/dL Lymphocytes # 0.5 L (1.0-4.8) k/uL Assessment and Plan (1) Lower gastrointestinal hemorrhage Current Visit: Yes Status: Acute Code(s): K92.2 - GASTROINTESTINAL HEMORRHAGE, UNSPECIFIED SNOMED Code(s): 17441769 (2) AICD (automatic cardioverter/defibrillator) present Current Visit: No Status: Acute Code(s): Z95.810 - PRESENCE OF AUTOMATIC (IMPLANTABLE) CARDIAC DEFIBRILLATOR SNOMED Code(s): 474590243 (3) Congestive heart failure with cardiomyopathy Current Visit: No Status: Acute Code(s): I50.9 - HEART FAILURE, UNSPECIFIED; I42.9 - CARDIOMYOPATHY, UNSPECIFIED SNOMED Code(s): 11703732 (4) Depression Current Visit: No Status: Acute Priority: Low Code(s): F32.9 - MAJOR DEPRESSIVE DISORDER, SINGLE EPISODE, UNSPECIFIED SNOMED Code(s): 21533835 (5) Ischemic cardiomyopathy Current Visit: No Status: Acute Code(s): I25.5 - ISCHEMIC CARDIOMYOPATHY SNOMED Code(s): 539492577 (6) Renal insufficiency Current Visit: No Status: Acute Code(s): N28.9 - DISORDER OF KIDNEY AND URE TER, UNSPECIFIED SNOMED Code(s): 971199731
[2019-01-23] MEDS: lamoTRIgine 100 MG TAB PO SCH (20:08)
--- NOTE | 2019-01-23 20:34 | PN ---
PROGRESS NOTE SUBJECTIVE: 68-year-old white male with GI bleed. He still has bright red blood per rectum. Waiting for surgery to see if they are going to do a colonoscopy. Coumadin has been withheld. I am going to have to consult Cardiology for possible blood thinner re- evaluation. Hemoglobin is up to 12.8, white count 5.2. Cardiovascular: S1-S2. Lungs clear. GI soft. IMPRESSION AND PLAN: 1. Anemia, improving, status post gastrointestinal bleed and 1 unit of blood. 2. Possible discharge home tomorrow. 3. Workup as an outpatient. 4. We will have to get Cardiology involved as far as a blood thinner for discharge medication. MMODL / IJN: [id number] /
[2019-01-23] MEDS ORDERED: ACETAMINOPHEN TAB 325 MG TAB PO PRN (22:31)
[2019-01-24 05:25] LABS: HCT 35.4 % (39.0-53.0); HGB 11.2 gm/dL (13.0-17.5); Hypochromasia Moderate; MCH 29.9 pg (25.0-35.0); MCHC 31.7 g/dL (31.0-37.0); MCV 94.2 fL (80.0-100.0); Mean Platelet Volume 8.1; Platelet Count 321 k/uL (150-450); Poikilocytosis Moderate; RBC 3.75 m/uL (4.30-5.90); RDW 15.7 % (11.5-15.5); WBC 5.5 k/uL (3.8-10.6)
[2019-01-24] MEDS: SODIUM CHLORIDE 0.9% 1,000 ML IV SCH (05:28)
[2019-01-24 05:49] LABS: Albumin 3.7 g/dL (3.5-5.0); Calcium 8.7 mg/dL (8.4-10.2); Potassium 4.4 mmol/L (3.5-5.1); Total Bilirubin 0.7 mg/dL (0.2-1.3); Total Protein 6.3 g/dL (6.3-8.2)
[2019-01-24 06:10] LABS: Basophils # (M) 0.11 k/uL (0-0.2); Eosinophils # (M) 0.44 k/uL (0-0.7); Lymphocytes # (M) 0.55 k/uL (1.0-4.8); Monocytes # (M) 1.05 k/uL (0-1.0); Neutrophils % (M) 61 %; Nucleated Red Blood Cells 0 /100 WBC (0-0); Total Cells Counted 100
[2019-01-24] MEDS: CARVEDILOL 3.125 MG TAB PO SCH ×2 (07:06→16:11)
[2019-01-24] MEDS: FUROSEMIDE 80 MG TAB PO SCH (09:00)
[2019-01-24] MEDS: SACUBITRIL/VALSARTAN 24 MG-26 MG TABLET PO SCH ×2 (09:00→20:24)
[2019-01-24] MEDS: TAMSULOSIN 0.4 MG CAP.ER.24H PO SCH (09:00)
[2019-01-24] MEDS: PRAVASTATIN SODIUM 80 MG TAB PO SCH (09:00)
[2019-01-24] MEDS: SERTRALINE 100 MG TAB PO SCH (09:00)
[2019-01-24] MEDS: PANTOPRAZOLE 40 MG/10 ML VIAL IV SCH (09:00)
[2019-01-24] MEDS: CALCITRIOL 0.25 MCG CAP PO SCH (09:00)
--- NOTE | 2019-01-24 09:42 | P.CRDCN ---
History of Present Illness Consult date: 01/24/19 Requesting physician: Brando Gray Reason for Consult (text): History of mitral valve replacement Chief complaint: Lower GI bleeding History of present illness: This is a pleasant 68-year-old gentleman who follows regularly with Dr. Calvillo in the office. The patient has a history of coronary artery disease with prior bypass surgery 3, ischemic cardio myopathy with prior AICD, status post mitral valve replacement, hypertension, hyperlipidemia. He was most recently here in the hospital in December of this year with symptoms of shortness of breath and was treated for exacerbation of congestive cardiac failure. On that visit, patient also had acute cholecystitis and underwent laparoscopic cholecystectomy. She presented to the hospital because of a lower GI bleeding, he also states over the past few weeks that he has noticed himself to be exertionally more short of breath than usual. Blood pressure on arrival here 134/80 with a heart rate in the 80s, 98% on room air. Blood pressure 124/60 this morning with a heart rate in the 80s, 99% on room air. White blood cell co unt on admission 5.2, hemoglobin 7, platelet count 293, this morning white blood cell count is 5.5, hemoglobin 11.2, platelet count 321. INR on admission 2.1. Admission labs, sodium 137, potassium 4.4, BUN 51 and creatinine 2.2, AST 125 ALT 138, stool for occult blood positive. The one unit of packed red blood cells. Coumadin was placed on hold. Sodium this morning 137, potassium 4.4, BUN 34 and creatinine 2.1. We don't have an INR this morning. A CT of the abdomen and pelvis was performed, which revealed interval cholecystectomy with a small amount of ascites. Small pleural effusions. At the time of my examination this morning, the patient feels well, he's been up ambulating in the hallway most of the morning without any symptoms. Past Medical History Past Medical History: Coronary Artery Disease (CAD), Heart Failure, CVA/TIA, GERD/Reflux, Hyperlipidemia, Hypertension, Memory Impairment, Myocardial Infarction (PR), Renal Disease Additional Past Medical History / Comment(s): past cva some mild residual memory problems, cardiomyopathy, hx of mitral valve disease, constipation, recent gallbladder issues causing sepsis and ICU admit, decreased kidney function Last Myocardial Infarction Date:: 1999 History of Any Multi-Drug Resistant Organisms: None Reported Past Surgical History: AICD, Cardiac Valve Replacement, Cholecystectomy, C oronary Bypass/CABG, Heart Catheterization, Tonsillectomy Additional Past Surgical History / Comment(s): several thoracentesis, cabg 1999, mitral valve repalcement and bypass graft redo in [place], [facility] Dec 27 Past Anesthesia/Blood Transfusion Reactions: No Reported Reaction Type of Cardiac Device: AICD Device Placement Date:: 03-31-16- [employer] Model:[id number] Past Psychological History: Anxiety, Depression, PTSD Additional Psychological History / Comment(s): obsessive compulsive disorder Smoking Status: Never smoker Past Alcohol Use History: None Reported Additional Past Alcohol Use History / Comment(s): . Past Drug Use History: None Reported - Past Family History Brother(s) Family Medical History: Coronary Artery Disease (CAD), Hyperlipidemia, Hypertension Mother Family Medical History: Dementia, Hypertension Additional Family Medical History / Comment(s): mom is age 92 lives in [facility] Father Family Medical History: Cancer Additional Family Medical History / Comment(s): from melanoma cancer Medications and Allergies Home Medications Medication Instructions Recorded Confirmed Type Calcitriol 0.25 mcg PO DAILY 02/10/18 01/21/19 History Pravastatin Sodium [Pravachol] 80 mg PO DAILY 03/09/18 01/21/19 History Carvedilol [Coreg] 3.125 mg PO BID-W/MEALS tab 03/26/18 01/21/19 Rx Sertraline [Zoloft] 100 mg PO DAILY 05/19/18 01/21/19 History lamoTRIgine [LaMICtal] 100 mg PO HS 05/19/18 01/21/19 History Tamsulosin HCl [Flomax] 0.4 mg PO DAILY 12/15/18 01/21/19 History Sacubitril/Valsartan [Entresto 24 1 tab PO BID 12/21/18 01/21/19 History mg-26 mg Tablet] Warfarin [Coumadin] 2.5 mg PO SUTH 12/21/18 01/21/19 History Furosemide [Lasix] 80 mg PO DAILY 01/21/19 01/21/19 History Warfarin [Coumadin] 1.25 mg PO [id number] 01/21/19 01/21/19 History Allergies Allergy/AdvReac Type Severity Reaction Status Date / Time nitroglycerin AdvReac made me Verified 01/21/19 17:27 feel funny, diarrhea Physical Exam Vitals: Vital Signs Temp Pulse Resp BP Pulse Ox 01/24/19 08:00 85 16 124/66 99 01/24/19 04:00 97.7 F 91 18 118/76 97 01/24/19 00:00 98.0 F 82 17 130/77 97 01/23/19 20:00 98.5 F 80 18 120/76 99 01/23/19 16:00 83 16 109/72 96 01/23/19 15:49 16 01/23/19 12:00 80 16 95/55 95 01/23/19 11:30 16 Intake and Output 01/23/19 01/24/19 01/24/19 22:59 06:59 14:59 Intake Total 240 354 Balance 240 354 Intake: Oral 240 354 Other: # Voids 2 Weight 67.4 kg PHYSICAL EXAMINATION: GENERAL: 68-year-old gentleman in no acute distress at the time of my examination HEENT: Head is atraumatic, normocephalic. Pupils equal, round. Sclera anicteric. Conjunctiva are clear. Mucous membranes of the mouth are moist. Neck is supple. There is no elevated jugular venous pressure. No carotid bruit is heard. HEART EXAMINATION: R S1 and S2 metallic mitral valve click is heard, systolic murmur heard CHEST EXAMINATION: Circumflex clear with mild diminished air entry to the bases. ABDOMEN: Soft, nontender. Bowel sounds are heard. No organomegaly noted. EXTREMITIES: 2+ peripheral pulses with no evidence of peripheral edema and no calf tenderness noted. NEUROLOGIC patient is awake, alert and oriented 3 . . Results 01/24/19 05:09 01/24/19 05:09 Cardiac Enzymes 01/24/19 Range/Units 05:09 AST 49 (17-59) U/L CBC 01/23/19 01/24/19 Range/Units 09:32 05:09 WBC 5.2 5.5 (3.8-10.6) k/uL RBC 4.27 L 3.75 L (4.30-5.90) m/uL Hgb 12.8 L 11.2 L (13.0-17.5) gm/dL Hct 40.5 35.4 L (39.0-53.0) % Plt Count 390 321 (150-450) k/uL Comprehensive Metabolic Panel 01/24/19 Range/Units 05:09 Sodium 137 (137-145) mmol/L Potassium 4.4 (3.5-5.1) mmol/L Chloride 99 (98-107) mmol/L Carbon Dioxide 32 H (22-30) mmol/L BUN 34 H (9-20) mg/dL Creatinine 2.12 H (0.66-1.25) mg/dL Glucose 72 L (74-99) mg/dL Calcium 8.7 (8.4-10.2) mg/dL AST 49 (17-59) U/L ALT 107 H (21-72) U/L Alkaline Phosphatase 123 (38-126) U/L Total Protein 6.3 (6.3-8.2) g/dL Albumin 3.7 (3.5-5.0) g/dL Current Medications Generic Name Dose Route Start Last Admin Trade Name Freq PRN Reason Stop Dose Admin Acetaminophen 650 mg 01/23/19 22:31 01/23/19 22:34 Tylenol Tab PO 650 mg Q4HR PRN Administration Fever and/ or Pain Calcitriol 0.25 mcg 01/22/19 09:00 01/24/19 09:00 Rocaltrol PO 0.25 mcg DAILY DAMARIS Administration Carvedilol 3.125 mg 01/22/19 07:30 01/24/19 07:06 Coreg PO 3.125 mg BID-W/MEALS DAMARIS Administration Furosemide 80 mg 01/21/19 23:15 01/24/19 09:00 Lasix PO 80 mg DAILY DAMARIS Administration Sodium Chloride 1,000 mls @ 120 mls/hr 01/21/19 21:00 01/24/19 05:28 Saline 0.9% IV Not Given .Q8H20M DAMARIS Lamotrigine 100 mg 01/21/19 23:15 01/23/19 20:08 Lamictal PO 100 mg HS DAMARIS Administration Naloxone HCl 0.2 mg 01/21/19 20:47 Narcan IV Q2M PRN Opioid Reversal Pantoprazole Sodium 40 mg 01/21/19 21:00 01/24/19 09:00 Protonix IV 40 mg DAILY DAMARIS Administration Pravastatin Sodium 80 mg 01/22/19 09:00 01/24/19 09:00 Pravachol PO 80 mg DAILY DAMARIS Administration Sacubitril/Valsartan 1 each 01/21/19 23:15 01/24/19 09:00 Entresto 24 Mg-26 Mg Tablet PO 1 each BID DAMARIS Administration Sertraline HCl 100 mg 01/22/19 09:00 01/24/19 09:00 Zoloft PO 100 mg DAILY DAMARIS Administration Tamsulosin HCl 0.4 mg 01/22/19 09:00 01/24/19 09:00 Flomax PO 0.4 mg DAILY DAMARIS Administration Intake and Output 01/23/19 01/24/19 01/24/19 22:59 06:59 14:59 Intake Total 240 354 Balance 240 354 Intake: Oral 240 354 Other: # Voids 2 Weight 67.4 kg 01/24/19 05:09 01/24/19 05:09 EKG Interpretations (text) No EKG performed Assessment and Plan Plan: Assessment and plan #1 lower GI bleed status post transfusion, initial hemoglobin 7.1 on admission. 11.1 this morning. #2 history of mitral valve replacement #3 coronary artery disease with prior bypass surgery 3 #4 ischemic cardiomyopathy with prior AICD implant 5 hypertension #6 hyperlipidemia #7 recent cholecystitis with laparoscopic cholecystectomy #8 acute on chronic renal failure Plan Patient had an echocardiogram with Doppler study performed performed in May of this year which revealed an ejection fraction of 30-35% we will repeat an echo this admission, we will also obtain an EKG as well as chest x-ray and a BNP level. Reduce IV fluids to KVO. Continue to hold Coumadin, await results of recent colonoscopy and GI input regarding this. Continue Coreg, Lasix, pravastatin, and Entresto. Further recommendations to follow. DNP note has been reviewed, I agree with a documented findings and plan of care. Patient was seen and examined.
[2019-01-24 10:12] LABS: INR 2.2 (<1.2); Prothrombin Time 21.4 sec (9.0-12.0)
[2019-01-24] MEDS ORDERED: PEG 3350-NA SULF,BICARB,CL/KCL 4,000 ML BOTTLE PO ONE (10:43)
--- NOTE | 2019-01-24 11:32 | P.PN ---
Subjective Progress Note Date: 01/24/19 CHIEF COMPLAINT: Rectal bleeding HISTORY OF PRESENT ILLNESS: Patient examined at bedside. Patient reports having bright red blood in his stools since Thursday. He states this morning he had a bowel movement that was brown with no blood noted. Denies nausea or vomiting. Denies abdominal pain. Hemoglobin 11.2. Patient has received 1 unit packed cells during hospitalization. INR is 2.2. His Coumadin remains on hold. PHYSICAL EXAM: VITAL SIGNS: Reviewed. GENERAL: Well-developed in no acute distress. HEENT: No sclera icterus. Extraocular movements grossly intact. Moist buccal mucosa. Head is atraumatic, normocephalic. ABDOMEN: Soft. Nondistended. Nontender. NEUROLOGIC: Alert and oriented. Cranial nerves II through XII grossly intact. ASSESSMENT: 1. Rectal bleeding 2. Recent laparoscopic cholecystectomy PLAN: 1. Clear liquid diet. Nothing by mouth at midnight. 2. Continue to hold Coumadin at this time 3. GoLYTELY bowel prep today 4. Patient to undergo colonoscopy tomorrow with Dr. Limon Nurse practitioner note has been reviewed by physician. Signing provider agrees with the documented findings, assessment, and plan of care. Objective - Vital Signs Vital signs: Vital Signs Temp 97.7 F 01/24/19 04:00 Pulse 85 01/24/19 08:00 Resp 16 01/24/19 08:00 BP 124/66 01/24/19 08:00 Pulse Ox 99 01/24/19 08:00 Intake & Output 01/23/19 01/24/19 01/24/19 18:59 06:59 18:59 Intake Total 720 354 Output Total 600 Balance 120 354 Weight 67.4 kg Intake: Oral 720 354 Output: Urine 600 Other: # Voids 2 - Labs CBC & Chem 7: 01/24/19 05:09 01/24/19 05:09 Labs: Abnormal Lab Results - Last 24 Hours (Table) 01/24/19 01/24/19 01/24/19 Range/Units 05:09 05:09 05:55 RBC 3.75 L (4.30-5.90) m/uL Hgb 11.2 L (13.0-17.5) gm/dL Hct 35.4 L (39.0-53.0) % RDW 15.7 H (11.5-15.5) % Lymphocytes # (Manual) 0.55 L (1.0-4.8) k/uL Monocytes # (Manual) 1.05 H (0-1.0) k/uL PT 21.4 H (9.0-12.0) sec INR 2.2 H (<1.2) Carbon Dioxide 32 H (22-30) mmol/L BUN 34 H (9-20) mg/dL Creatinine 2.12 H (0.66-1.25) mg/dL Glucose 72 L (74-99) mg/dL ALT 107 H (21-72) U/L
--- NOTE | 2019-01-24 13:46 | XR ---
EXAMINATION TYPE: XR chest 2V DATE OF EXAM: 01/24/2019 COMPARISON: Chest x-ray May 19, 2018. HISTORY: Shortness of breath. TECHNIQUE: Frontal and lateral views of the chest are obtained. FINDINGS: There is no focal air space opacity, pleural effusion, or pneumothorax seen currently. Th e cardiac silhouette size remains upper limits of normal with single lead pacemaker/ICD. Metallic aor tic valvular ring is redemonstrated. Overlying sternal wires and mediastinal clips are redemonstrated . Overlying EKG leads are seen currently. The osseous structures are intact. IMPRESSION: No suspicious acute cardiopulmonary process on the current study.
[2019-01-24] MEDS: lamoTRIgine 100 MG TAB PO SCH (20:24)
--- NOTE | 2019-01-24 23:23 | PN ---
PROGRESS NOTE Egvo[age]bc[age]ly-old white male who presents to the hospital with GI bleeding. He has been off Coumadin for 3 days. He is scheduled for EGD and colonoscopy in the morning. Possible discharge if these are negative. Cardiology recommends going back on Coumadin, but he will have to have a normal colonoscopy and EGD relatively prior if he is going to go back on this. Otherwise, he understands he is at high risk for a stroke. CARDIOVASCULAR: S1, S2. LUNGS: Clear. GI: Soft. HEMATOLOGY: Negative Homans. Hemoglobin is 11.4. ASSESSMENT: Gastrointestinal bleed, most likely hemorrhoids. Large amount of blood loss requiring one unit of blood transfusion. EGD and colonoscopy. Possible discharge home back on his Coumadin tomorrow, depending on results of endoscopies. MMODL / IJN: [id number] /
[2019-01-25 05:54] LABS: Anisocytosis Slight; Basophils # (A) 0.1 k/uL (0-0.2); Basophils % (A) 1 %; Eosinophils # (A) 0.4 k/uL (0-0.7); Eosinophils % (A) 6 %; HCT 42.5 % (39.0-53.0); HGB 13.3 gm/dL (13.0-17.5); Hypochromasia Marked; Lymphocytes # (A) 0.7 k/uL (1.0-4.8); Lymphocytes % (A) 9 %; MCH 29.8 pg (25.0-35.0); MCHC 31.4 g/dL (31.0-37.0); MCV 95.1 fL (80.0-100.0); Mean Platelet Volume 7.2; Monocytes # (A) 0.7 k/uL (0-1.0); Monocytes % (A) 10 %; Neutrophils % (A) 71 %; Platelet Count 314 k/uL (150-450); Poikilocytosis Moderate; RBC 4.47 m/uL (4.30-5.90); RDW 16.1 % (11.5-15.5)
[2019-01-25 06:01] LABS: INR 1.6 (<1.2); Prothrombin Time 16.4 sec (9.0-12.0)
[2019-01-25 06:12] LABS: Albumin 4.5 g/dL (3.5-5.0); Calcium 9.3 mg/dL (8.4-10.2); Potassium 3.7 mmol/L (3.5-5.1); Total Protein 7.5 g/dL (6.3-8.2)
[2019-01-25] MEDS ORDERED: PEG 3350-NA SULF,BICARB,CL/KCL 4,000 ML BOTTLE PO ONE (09:30)
[2019-01-25] MEDS: CARVEDILOL 3.125 MG TAB PO SCH ×2 (09:35→18:38)
[2019-01-25] MEDS: FUROSEMIDE 80 MG TAB PO SCH (09:35)
[2019-01-25] MEDS: PRAVASTATIN SODIUM 80 MG TAB PO SCH (09:35)
[2019-01-25] MEDS: SACUBITRIL/VALSARTAN 24 MG-26 MG TABLET PO SCH ×2 (09:36→20:36)
[2019-01-25] MEDS: SERTRALINE 100 MG TAB PO SCH (09:36)
[2019-01-25] MEDS: CALCITRIOL 0.25 MCG CAP PO SCH (09:36)
[2019-01-25] MEDS: TAMSULOSIN 0.4 MG CAP.ER.24H PO SCH (09:36)
[2019-01-25] MEDS: PANTOPRAZOLE 40 MG/10 ML VIAL IV SCH (09:36)
[2019-01-25] MEDS: SODIUM CHLORIDE 0.9% 1,000 ML IV SCH (13:09)
--- NOTE | 2019-01-25 13:50 | CDI ---
Documentation Clarification Form Date: 01/25/2019 CDS: Perri Riley RN, CCDS Admit Date: 01/21/2019 Patient Name: Cody Savage ATTENTION: The Clinical Documentation Specialists (CDI) and [facility] Coding Staff appreciate your assistance in clarifying documentation. Please respond to the clarification below the line at the bottom and electronically sign. The CDI & [facility] Coding staff will review the response and follow-up if needed. Please note: Queries are made part of the Legal Health Record. If you have any questions, please contact the author of this message via ITS. Dr. Brando Gray MD A diagnosis of anemia lacks specificity to accurately reflect your patients severity of condition and clarification is needed. Documented in the H & P History/Risk Factors: 68-year-old male presents to the ED with rectal bleeding. Medical history, Hemorrhoids; systolic CHF, kidney disease Clinical indicators: On coumadin Hemoglobin: 7.0 Hematocrit: 32.9 Treatment: 1 units of PRBCs transfused, monitoring labs In order to capture the severity of condition, please clarify the type of anemia and etiology if known: * Acute blood loss anemia * Acute on chronic blood loss anemia * Unable to determine * Other, please specify (Last Revision: August 2017) MTDD
--- NOTE | 2019-01-25 14:06 | P.PN ---
Subjective Progress Note Date: 01/25/19 This is a pleasant 68-year-old gentleman who follows regularly with Dr. Calvillo in the office. The patient has a history of coronary artery disease with prior bypass surgery 3, ischemic cardio myopathy with prior AICD, status post mitral valve replacement, hypertension, hyperlipidemia. He was most recently here in the hospital in December of this year with symptoms of shortness of breath and was treated for exacerbation of congestive cardiac failure. On that visit, patient also had acute cholecystitis and underwent laparoscopic cholecystectomy. She presented to the hospital because of a lower GI bleeding, he also states over the past few weeks that he has noticed himself to be exertionally more short of breath than usual. Blood pressure on arrival here 134/80 with a heart rate in the 80s, 98% on room air. Blood pressure 124/60 this morning with a heart rate in the 80s, 99% on room air. White blood cell count on admission 5.2, hemoglobin 7, platelet count 293, this morning white blood cell count is 5.5, hemoglobin 11.2, platelet count 321. INR on admission 2.1. Admission labs, sodium 137, potassium 4.4, BUN 51 and creatinine 2.2, AST 125 ALT 138, stool for occult blood positive. The one unit of packed red blood cells. Coumadin was placed on hold. Sodium this morning 137, potassium 4.4, BUN 34 and creatinine 2.1. We don't have an INR this morning. A CT of the abdomen and pelvis was performed, which revealed interval cholecystectomy with a small amount of ascites. Small pleural effusions. At the time of my examination this morning, the patient feels well, he's been up ambulating in the hallway most of the morning without any symptoms. 01/25/2019 Patient was seen and examined today, feeling well overall. Hemoglobin 13.3 today. Patient is scheduled to undergo colonoscopy tomorrow. Blood pressure 148/78 with a heart rate in the 80s, 100% on room air. Objective - Vital Signs Vital signs: Vital Signs Temp 97.4 F L 01/25/19 04:00 Pulse 85 01/25/19 11:06 Resp 18 01/25/19 11:06 BP 148/78 01/25/19 11:06 Pulse Ox 100 01/25/19 11:06 Intake & Output 01/24/19 01/25/1919 18:59 06:59 18:59 Intake Total 1176 Output Total 600 Balance 576 Weight 65.5 kg Intake: Oral 1176 Output: Urine 600 Other: # Voids 3 1 7 - Exam PHYSICAL EXAMINATION: GENERAL: 68-year-old gentleman in no acute distress at the time of my examination HEENT: Head is atraumatic, normocephalic. Pupils equal, round. Sclera anicteric. Conjunctiva are clear. Mucous membranes of the mouth are moist. Neck is supple. There is no elevated jugular venous pressure. No carotid bruit is heard. HEART EXAMINATION: R S1 and S2 metallic mitral valve click is heard, systolic murmur heard CHEST EXAMINATION: Circumflex clear with mild diminished air entry to the bases. ABDOMEN: Soft, nontender. Bowel sounds are heard. No organomegaly noted. EXTREMITIES: 2+ peripheral pulses with no evidence of peripheral edema and no calf tenderness noted. NEUROLOGIC patient is awake, alert and oriented 3 . . - Labs CBC & Chem 7: 01/25/19 05:11 01/25/19 05:11 Labs: Abnormal Lab Results - Last 24 Hours (Table) 01/25/19 01/25/19 01/25/19 Range/Units 05:11 05:11 05:11 RDW 16.1 H (11.5-15.5) % Lymphocytes # 0.7 L (1.0-4.8) k/uL PT 16.4 H (9.0-12.0) sec INR 1.6 H (<1.2) Chloride 95 L (98-107) mmol/L Carbon Dioxide 31 H (22-30) mmol/L BUN 27 H (9-20) mg/dL Creatinine 1.94 H (0.66-1.25) mg/dL ALT 96 H (21-72) U/L Alkaline Phosphatase 149 H (38-126) U/L Assessment and Plan Plan: Assessment and plan #1 lower GI bleed status post transfusion, initial hemoglobin 7.1 on admission. 11.1 this morning. #2 history of mitral valve replacement #3 coronary artery disease with prior bypass surgery 3 #4 ischemic cardiomyopathy with prior AICD implant 5 hypertension #6 hyperlipidemia #7 recent cholecystitis with laparoscopic cholecystectomy #8 acute on chronic renal failure Plan Patient is scheduled to undergo colonoscopy tomorrow, as soon as he is cleared he will need to be resumed on his Coumadin because of his valve. DNP note has been reviewed, I agree with a documented findings and plan of care. Patient was seen and examined.
--- NOTE | 2019-01-25 14:29 | P.PN ---
Progress Note - Text Progress Note Date: 01/25/19 Patient did not complete bowel prep overnight. Colonoscopy canceled for today. Patient may have clear liquid diet today. Nothing by mouth at midnight. Patient to complete additional 2 L GoLYTELY bowel prep and colonoscopy rescheduled for tomorrow with Dr. Limon.
--- NOTE | 2019-01-25 15:07 | P.PN ---
Subjective Progress Note Date: 01/25/19 This is 68-year-old gentleman admitted with rectal bleed. Currently maintained on clear liquids today. Patient did not complete colonoscopy prep, colonoscopy but on hold. Rescheduled for tomorrow. No further bleeding reported. Hemoglobin 13.3. INR 1.6. Renal function improving, Creatinine 1.94. Vital signs stable. Objective - Vital Signs Vital signs: Vital Signs Temp 97.4 F L 01/25/19 04:00 Pulse 83 01/25/19 07:57 Resp 18 01/25/19 07:57 BP 148/91 01/25/19 07:57 Pulse Ox 96 01/25/19 07:57 Intake & Output 01/24/19 01/25/19 01/25/19 18:59 06:59 18:59 Intake Total 1176 Output Total 600 Balance 576 Weight 65.5 kg Intake: Oral 1176 Output: Urine 600 Other: # Voids 3 1 7 - Exam PHYSICAL EXAM: VITAL SIGNS: As above GENERAL: Sitting up in bed, no acute distress HEENT: Conjunctivae normal. eyes normal. NECK: No JVD. No thyroid enlargement. No LNs CARDIOVASCULAR: S1, S2 regular.. No murmur RESPIRATION: Breath sounds diminished in the bases. No rhonchi or crackles. No bronchial breathing. ABDOMEN: Soft, nontender . No guarding. no masses palpable. Bowel sounds heard. LEGS: No edema. no swelling PSYCHIATRY: Alert and oriented X3, mood and affect normal. NERVOUS SYSTEM: Cranial N 2-12 grossly normal. Moves all 4 limbs. No focal deficits. Strength and sensation grossly intact.. Skin: no lesions, no rash - Labs CBC & Chem 7: 01/25/19 05:11 01/25/19 05:11 Labs: Abnormal Lab Results - Last 24 Hours (Table) 01/24/19 01/25/19 01/25/19 Range/Units 05:55 05:11 05:11 RDW 16.1 H (11.5-15.5) % Lymphocytes # 0.7 L (1.0-4.8) k/uL PT 21.4 H 16.4 H (9.0-12.0) sec INR 2.2 H 1.6 H (<1.2) Chloride (98-107) mmol/L Carbon Dioxide (22-30) mmol/L BUN (9-20) mg/dL Creatinine (0.66-1.25) mg/dL ALT (21-72) U/L Alkaline Phosphatase (38-126) U/L 01/25/19 Range/Units 05:11 RDW (11.5-15.5) % Lymphocytes # (1.0-4.8) k/uL PT (9.0-12.0) sec INR (<1.2) Chloride 95 L (98-107) mmol/L Carbon Dioxide 31 H (22-30) mmol/L BUN 27 H (9-20) mg/dL Creatinine 1.94 H (0.66-1.25) mg/dL ALT 96 H (21-72) U/L Alkaline Phosphatase 149 H (38-126) U/L Assessment and Plan Assessment: -Acute blood loss anemia, status post transfusion packed RBCs, secondary to GI bleed, suspect hemorrhoid related. -CAD -Gastroesophageal reflux disease -Hypertension -Hyperlipidemia -Acute on chronic renal failure, stage III Plan: Continue on current medication regime ,monitoring and symptomatic treatment. Patient has been rescheduled for colonoscopy tomorrow. Additional prep orders in place as per surgery. Discharge planning in progress pending endoscopy results. Close monitoring of hemoglobin with labs ordered for a.m. The impression and plan of care has been dictated as directed. : I performed a history and examination of this patient, discussed the same with the dictator. I agree with the dictator's note ,documented as a scribe. Any additional findings or plans will be noted.
[2019-01-25] MEDS: lamoTRIgine 100 MG TAB PO SCH (20:36)
[2019-01-25 23:41] VITALS: RESP 18
[2019-01-26 06:31] LABS: INR 1.4 (<1.2); Prothrombin Time 14.1 sec (9.0-12.0)
[2019-01-26 07:48] LABS: HCT 35.6 % (39.0-53.0); HGB 11.4 gm/dL (13.0-17.5); Hypochromasia Marked; MCH 29.9 pg (25.0-35.0); MCV 93.6 fL (80.0-100.0); Mean Platelet Volume 7.2; Platelet Count 292 k/uL (150-450); Poikilocytosis Slight; RBC 3.81 m/uL (4.30-5.90); RDW 14.9 % (11.5-15.5); WBC 5.9 k/uL (3.8-10.6)
[2019-01-26 07:59] LABS: Calcium 8.7 mg/dL (8.4-10.2); Potassium 3.5 mmol/L (3.5-5.1)
[2019-01-26] MEDS: TAMSULOSIN 0.4 MG CAP.ER.24H PO SCH (09:11)
[2019-01-26] MEDS: CALCITRIOL 0.25 MCG CAP PO SCH (09:11)
[2019-01-26] MEDS: PANTOPRAZOLE 40 MG/10 ML VIAL IV SCH (09:12)
[2019-01-26] MEDS: SACUBITRIL/VALSARTAN 24 MG-26 MG TABLET PO SCH (09:12)
[2019-01-26] MEDS: SERTRALINE 100 MG TAB PO SCH (09:12)
[2019-01-26] MEDS: FUROSEMIDE 80 MG TAB PO SCH (09:12)
[2019-01-26] MEDS: PRAVASTATIN SODIUM 80 MG TAB PO SCH (09:12)
[2019-01-26] MEDS: CARVEDILOL 3.125 MG TAB PO SCH ×2 (09:12→17:27)
[2019-01-26 14:02] VITALS: BP 135/79; PULSE 89; TEMP 97.9
[2019-01-26] MEDS ORDERED: PROPOFOL 10 MG/ML 20 ML VIAL IV ONE (14:31)
[2019-01-26] MEDS ORDERED: LIDOCAINE 1% INJ 10MG/ML (20 ML MDV) ONE (14:31)
[2019-01-26] MEDS ORDERED: SODIUM CHLORIDE 0.9% 500 ML 500 ML IV ONE (14:33)
--- NOTE | 2019-01-26 14:41 | P.OP ---
Date of Procedure: 01/26/19 Preoperative Diagnosis: GI bleed Postoperative Diagnosis: Normal colonoscopy Procedure(s) Performed: Colonoscopy Anesthesia: MAC Surgeon: Navid Limon Pathology: none sent Condition: stable Disposition: PACU Description of Procedure: PROCEDURE: The patient was placed on the endoscopy table in the lateral position. Digital rectal examination was performed which revealed no abnormalities. The prostate was symmetrical without nodules. Flexible colonoscope was then placed in the patient's anus and passed throughout the entire colon. The ileocecal valve was visualized. The cecum, ascending, transverse, descending and sigmoid colon were normal. The rectum was normal as well. There were no masses, polyps or diverticula noted in the entire colon. SUMMARY OF FINDINGS: Normal colonoscopy.
--- NOTE | 2019-01-26 16:23 | P.DS ---
Providers Date of admission: 01/21/19 20:49 Expected date of discharge: 01/26/19 Attending physician: Brando Gary Consults: 01/21/19 20:48 Consult Physician Urgent Consulting Provider: Navid Limon Consult Reason/Comments: gi hemorrhage Do you want consulting provider notified?: Yes 01/23/19 17:57 Consult Physician Routine Consulting Provider: Star Dickerson Consult Reason/Comments: syst chf blood thinner evaluation/gi bleed Do you want consulting provider notified?: Yes Primary care physician: [facility] Course: Final Diagnoses: -Acute blood loss anemia, status post transfusion packed RBCs, secondary to GI bleed,status post normal colonoscopy.possibly hemorrhoids -CAD -Gastroesophageal reflux disease -Hypertension -Hyperlipidemia -Acute on chronic renal failure, stage III Hospital course:This is 68-year-old gentleman admitted with rectal bleed. Currently maintained on clear liquids today. Patient did not complete colonoscopy prep, colonoscopy but on hold. Rescheduled for tomorrow. No further bleeding reported. Hemoglobin 13.3. INR 1.6. Renal function improving, Creatinine 1.94. Vital signs stable. status post normal colonoscopy, Coumadin resumed. Cleared by all consults for discharge. Patient is being discharged home in stable condition with guarded prognosis. EXAM: GENERAL: alert and oriented 3, no acute distress CARDIOVASCULAR: S1, S2 regular.. No murmur RESPIRATION: Breath sounds diminished in the bases. No rhonchi or crackles. ABDOMEN: Soft, nontender . No guarding. no masses palpable. Bowel sounds heard. NERVOUS SYSTEM: No focal deficits. The impression and plan of care has been dictated as directed. : I performed a history and examination of this patient, discussed the same with the dictator. I agree with the dictator's note ,documented as a scribe. Any additional findings or plans will be noted. Time taken: 35 minutes Patient Condition at Discharge: Stable Plan - Discharge Summary Discharge Rx Participant: No New Discharge Prescriptions: New Pantoprazole [Protonix] 40 mg PO DAILY #30 tablet. Hydrocortisone [Anusol-Hc] 1 applic RECTAL DAILY #1 tube Continue Calcitriol 0.25 mcg PO DAILY Pravastatin Sodium [Pravachol] 80 mg PO DAILY Carvedilol [Coreg] 3.125 mg PO BID-W/MEALS tab lamoTRIgine [LaMICtal] 100 mg PO HS Sertraline [Zoloft] 100 mg PO DAILY Tamsulosin HCl [Flomax] 0.4 mg PO DAILY Sacubitril/Valsartan [Entresto 24 mg-26 mg Tablet] 1 tab PO BID Warfarin [Coumadin] 2.5 mg PO SUTH Warfarin [Coumadin] 1.25 mg PO MOTUWEFRSA Furosemide [Lasix] 80 mg PO DAILY Discharge Medication List Calcitriol 0.25 mcg PO DAILY 02/10/18 [History] Pravastatin Sodium [Pravachol] 80 mg PO DAILY 03/09/18 [History] Carvedilol [Coreg] 3.125 mg PO BID-W/MEALS tab 03/26/18 [Rx] Sertraline [Zoloft] 100 mg PO DAILY 05/19/18 [History] lamoTRIgine [LaMICtal] 100 mg PO HS 05/19/18 [History] Tamsulosin HCl [Flomax] 0.4 mg PO DAILY 12/15/18 [History] Sacubitril/Valsartan [Entresto 24 mg-26 mg Tablet] 1 tab PO BID 12/21/18 [History] Warfarin [Coumadin] 2.5 mg PO SUTH 12/21/18 [History] Furosemide [Lasix] 80 mg PO DAILY 01/21/19 [History] Warfarin [Coumadin] 1.25 mg PO MOTUWEFRSA 01/21/19 [History] Hydrocortisone [Anusol-Hc] 1 applic RECTAL DAILY #1 tube 01/26/19 [Rx] Pantoprazole [Protonix] 40 mg PO DAILY #30 tablet. 01/26/19 [Rx] Follow up Appointment(s)/Referral(s): Star Dickerson MD [STAFF PHYSICIAN] - 02/07/19 3:15 pm (With Renae AGUERO) Brando Gray MD [Primary Care Provider] - 01/31/19 2:15 pm Navid Limon MD [STAFF PHYSICIAN] - 02/01/19 4:00 pm Ambulatory/Diagnostic Orders: Prothrombin Time INR [LAB.AMB] Time Frame: 01/28/19, Location: None Selected Patient Instructions/Handouts: *Surgery [facility] - (Anesthesia) Endoscopy Discharge Instructions, Gastrointestinal Bleeding (DC)
[2019-01-27] MEDS ORDERED: PANTOPRAZOLE 40 MG TABLET PO SCH (09:00)
== END 2019-01-26 18:20 | disposition home or self-care (01) | DRG 394 ==
LOC: EC 16:26 → 3SCARD 20:49
PROVIDERS: ADMIT Family Medicine; ATTEND Family Medicine
PROC: 30233N1 Transfusion of Nonautologous Red Blood Cells into Peripheral Vein, Percutaneous Approach (ICD-10-PCS; principal; 2019-01-21)
PROC: 0DJD8ZZ Inspection of Lower Intestinal Tract, Via Natural or Artificial Opening Endoscopic (ICD-10-PCS; 2019-01-26)
DX: K64.9 Unspecified hemorrhoids (principal); D62 Acute posthemorrhagic anemia; I13.0 Hypertensive heart and chronic kidney disease with heart failure and stage 1 through stage 4 chronic kidney disease, or unspecified chronic kidney disease; I50.22 Chronic systolic (congestive) heart failure; N17.9 Acute kidney failure, unspecified; E78.5 Hyperlipidemia, unspecified; F42.9 Obsessive-compulsive disorder, unspecified; F43.10 Post-traumatic stress disorder, unspecified; I05.9 Rheumatic mitral valve disease, unspecified; I25.10 Atherosclerotic heart disease of native coronary artery without angina pectoris; I25.2 Old myocardial infarction; I25.5 Ischemic cardiomyopathy; K21.9 Gastro-esophageal reflux disease without esophagitis; K52.9 Noninfective gastroenteritis and colitis, unspecified; N18.3 Chronic kidney disease, stage 3 (moderate); Z79.01 Long term (current) use of anticoagulants; Z79.899 Other long term (current) drug therapy; Z80.8 Family history of malignant neoplasm of other organs or systems; Z82.49 Family history of ischemic heart disease and other diseases of the circulatory system; Z86.73 Personal history of transient ischemic attack (TIA), and cerebral infarction without residual deficits; Z90.49 Acquired absence of other specified parts of digestive tract; Z95.1 Presence of aortocoronary bypass graft; Z95.2 Presence of prosthetic heart valve; Z95.810 Presence of automatic (implantable) cardiac defibrillator; F31.9 Bipolar disorder, unspecified; K57.90 Diverticulosis of intestine, part unspecified, without perforation or abscess without bleeding; Z88.8 Allergy status to other drugs, medicaments and biological substances
CPT/HCPCS: 36415; 45378; 71046; 74176; 80048; 80053; 82272; 83880; 85025; 85027; 85610; 85730; 86850; 86900; 86901; 86920; 96361; 96374; 99285

== ENCOUNTER → 2019-03-17 | Outpatient (CLI) | payer MEDICARE ==
[2019-03-17 11:47] LABS: HCT 38.1 % (39.0-53.0); HGB 11.8 gm/dL (13.0-17.5); Hypochromasia Slight; MCH 29.6 pg (25.0-35.0); MCHC 31.1 g/dL (31.0-37.0); MCV 95.4 fL (80.0-100.0); Mean Platelet Volume 6.5; Platelet Count 281 k/uL (150-450); RDW 15.9 % (11.5-15.5)
[2019-03-17 11:52] LABS: Appearance,Urine Clear (Clear); Bilirubin,Urine Negative (Negative); Blood,Urine Negative (Negative); Color,Urine Light Yellow; Glucose,Urine (UA) Negative (Negative); Ketones,Urine Negative (Negative); Leukocyte Esterase,Urine Negative (Negative); Nitrite,Urine Negative (Negative); PH, Urine 5.5 (5.0-8.0); Protein,Urine Negative (Negative); Specific Gravity,Urine 1.007 (1.001-1.035); Urobilinogen,Urine <2.0 mg/dL (<2.0)
[2019-03-17 16:49] LABS: Magnesium 2.3 mg/dL (1.5-2.4); Phosphorus 4.3 mg/dL (2.4-5.1); Uric Acid 8.3 mg/dL (3.7-8.7)
[2019-03-18 06:00] LABS: % Iron Saturation 14.32 (15.00-50.00); African American GFR (CKD) 39.1 (60.0-200.0); Albumin 4.6 g/dL (3.80-4.90); Albumin/Globulin Ratio 2.19 (1.60-3.17); Anion Gap 14.2 mmol/L (4.00-12.00); Calcium 9.5 mg/dL (8.7-10.3); Carbon Dioxide 24.8 mmol/L (21.6-31.8); Globulin 2.1 g/dL (1.6-3.3); Potassium 4.9 mmol/L (3.5-5.5); Total Bilirubin 0.6 mg/dL (0.2-1.2); Total Protein 6.7 g/dL (6.2-8.2)
== END | disposition home or self-care (01) ==
LOC: LABWHC1 10:48
PROVIDERS: ATTEND Internal Medicine
DX: N18.4 Chronic kidney disease, stage 4 (severe) (principal); D64.9 Anemia, unspecified; N39.0 Urinary tract infection, site not specified; N25.81 Secondary hyperparathyroidism of renal origin; E55.9 Vitamin D deficiency, unspecified; M10.9 Gout, unspecified
CPT/HCPCS: 36415; 80053; 81003; 82728; 83540; 83550; 83735; 83970; 84100; 84550; 85027

== ENCOUNTER 2019-05-24 23:48 | Observation (INO) | payer MEDICARE ==
--- NOTE | 2019-05-25 00:16 | ED ---
Chest Pain HPI - General Chief Complaint: Chest Pain Stated Complaint: Chest pain Time Seen by Provider: 05/25/19 00:04 Source: patient, RN notes reviewed, old records reviewed Mode of arrival: ambulatory Limitations: no limitations - History of Present Illness Initial Comments: This is a 68-year-old male here with significant medical history. History of heart disease mechanical heart valve on blood thinners shortness of breath of CHF in the 2-3 pound weight gain. Patient states his belly feels bloated he feels weak and nauseous, occasional chest pain. Ration again is on anticoagulation denies significant lower extremity edema. Patient is symptoms increasing for the last 2-3 days this is of something that happens multiple times a year for patient, patient currently has no chest pain some mild abdominal pain and bloating. MD Complaint: chest pain, other (Abdominal pain, fullness) -: days(s) (3) Onset: during exertion Pain Location: left chest, epigastric Pain Radiation: none Severity: moderate Severity scale (1-10): 4 Quality: aching Consistency: constant Improves With: nothing Worsens With: exertion Anginal Symptoms: dyspnea Other Symptoms: leg swelling, palpitations Treatments Prior to Arrival: none - Related Data Home Medications Medication Instructions Recorded Confirmed Calcitriol 0.25 mcg PO DAILY 02/10/18 01/21/19 Pravastatin Sodium [Pravachol] 80 mg PO DAILY 03/09/18 01/21/19 Sertraline [Zoloft] 100 mg PO DAILY 05/19/18 01/21/19 lamoTRIgine [LaMICtal] 100 mg PO HS 05/19/18 01/21/19 Tamsulosin HCl [Flomax] 0.4 mg PO DAILY 12/15/18 01/21/19 Sacubitril/Valsartan [Entresto 24 1 tab PO BID 12/21/18 01/21/19 mg-26 mg Tablet] Warfarin [Coumadin] 2.5 mg PO SUTH 12/21/18 01/21/19 Furosemide [Lasix] 80 mg PO DAILY 01/21/19 01/21/19 Warfarin [Coumadin] 1.25 mg PO MOTUWEFRSA 01/21/19 01/21/19 Previous Rx's Medication Instructions Recorded Carvedilol [Coreg] 3.125 mg PO BID-W/MEALS tab 03/26/18 Hydrocortisone [Anusol-Hc] 1 applic RECTAL DAILY #1 tube 01/26/19 Pantoprazole [Protonix] 40 mg PO DAILY #30 tablet. 01/26/19 Allergies Allergy/AdvReac Type Severity Reaction Status Date / Time nitroglycerin AdvReac made me Verified 05/24/19 23:54 feel funny, diarrhea Review of Systems ROS Statement: Those systems with pertinent positive or pertinent negative responses have been documented in the HPI. ROS Other: All systems not noted in ROS Statement are negative. EKG Findings - EKG Comments: EKG Findings:: EKG shows sinus rhythm rate of 89, OK 170, QRS 126, QTc 496 Past Medical History Past Medical History: Coronary Artery Disease (CAD), Heart Failure, CVA/TIA, GERD/Reflux, Hyperlipidemia, Hypertension, Memory Impairment, Myocardial Infarct ion ([place]), Renal Disease Additional Past Medical History / Comment(s): past cva some mild residual memory problems, cardiomyopathy, hx of mitral valve disease, constipation, recent gallbladder issues causing sepsis and ICU admit, decreased kidney function Last Myocardial Infarction Date:: 1999 History of Any Multi-Drug Resistant Organisms: None Reported Past Surgical History: AICD, Cardiac Valve Replacement, Cholecystectomy, Coronary Bypass/CABG, Heart Catheterization, Tonsillectomy Additional Past Surgical History / Comment(s): several thoracentesis, cabg 1999, mitral valve repalcement and bypass graft redo in [facility] Dec 27 Past Anesthesia/Blood Transfusion Reactions: No Reported Reaction Type of Cardiac Device: AICD Device Placement Date:: 03-31-16 [employer] Model:[id number] Past Psychological History: Anxiety, Depression, PTSD Smoking Status: Never smoker Past Alcohol Use History: None Reported Past Drug Use History: None Reported - Past Family History Brother(s) Family Medical History: Coronary Artery Disease (CAD), Hyperlipidemia, Hypertension Mother Family Medical History: Dementia, Hypertension Additional Family Medical History / Comment(s): mom is age 92 lives in [facility] Father Family Medical History: Cancer Additional Family Medical History / Comment(s): from melanoma cancer General Exam Limitations: no limitations General appearance: alert, in no apparent distress, anxious, lethargic Head exam: Present: atraumatic, normocephalic, normal inspection Eye exam: Present: normal appearance, PERRL, EOMI. Absent: scleral icterus, conjunctival injection, periorbital swelling ENT exam: Present: normal exam, mucous membranes moist Neck exam: Present: normal inspection. Absent: tenderness, meningismus, lymphadenopathy Respiratory exam: Present: accessory muscle use, decreased breath sounds, prolonged expiratory. Absent: respiratory distress, wheezes, rales, rhonchi, stridor Cardiovascular Exam: Present: regular rate, normal rhythm, normal heart sounds. Absent: systolic murmur, diastolic murmur, rubs, gallop, clicks GI/Abdominal exam: Present: soft, normal bowel sounds. Absent: distended, tenderness, guarding, rebound, rigid Extremities exam: Present: normal inspection, full ROM, normal capillary refill. Absent: tenderness, pedal edema, joint swelling, calf tenderness Back exam: Present: normal inspection Neurological exam: Present: alert, oriented X3, CN II-XII intact Psychiatric exam: Present: normal affect, normal mood Skin exam: Present: warm, dry, intact, normal color. Absent: rash Course Vital Signs 05/24/19 23:51 Temperature 97.7 F Pulse Rate 94 Respiratory 20 Rate Blood Pressure 159/92 O2 Sat by Pulse 100 Oximetry - Reevaluation(s) Reevaluation #1: 05/25/19 00:09 Records reviewed Reevaluation #2: 05/25/19 00:09 Patient denying current chest pain significant shortness of breath especially with exertion - Consultations Consultation #1: spoke w Dr Gray for admission and is agreeable Chest Pain MDM - MDM 68 male the ER for evaluation patient presents today for evaluation regards to severe shortness of breath and chest pain. Patient admitted for cardiac observation continued cardiac monitoring. Critical Care Time Critical Care Time: Yes Total Critical Care Time: 31 Disposition Clinical Impression: Acute pulmonary edema, Chest pain Disposition: ADMITTED IP TO THIS HOSP Condition: Good Is patient prescribed a controlled substance at d/c from ED?: No Referrals: Brando Gray MD [Primary Care Provider] - 1-2 days
[2019-05-25] MEDS ORDERED: ASPIRIN 81 MG PO STA (00:30)
[2019-05-25] MEDS ORDERED: MORPHINE SULFATE 4 MG/ML SYRINGE IV STA (00:30)
[2019-05-25 00:43] LABS: Anisocytosis Slight; Basophils # (A) 0.1 k/uL (0-0.2); Basophils % (A) 1 %; Eosinophils # (A) 0.2 k/uL (0-0.7); Eosinophils % (A) 3 %; HCT 43.6 % (39.0-53.0); HGB 13.8 gm/dL (13.0-17.5); Hypochromasia Slight; Lymphocytes # (A) 0.7 k/uL (1.0-4.8); Lymphocytes % (A) 9 %; MCH 30.2 pg (25.0-35.0); MCHC 31.6 g/dL (31.0-37.0); MCV 95.7 fL (80.0-100.0); Mean Platelet Volume 7.3; Monocytes # (A) 0.6 k/uL (0-1.0); Monocytes % (A) 8 %; Neutrophils # (A) 5.8 k/uL (1.3-7.7); Neutrophils % (A) 76 %; Platelet Count 322 k/uL (150-450); RBC 4.56 m/uL (4.30-5.90); RDW 16.1 % (11.5-15.5); WBC 7.6 k/uL (3.8-10.6)
[2019-05-25 00:51] LABS: Partial Thromboplastin Time 29.7 sec (22.0-30.0); Prothrombin Time 19.2 sec (9.0-12.0)
[2019-05-25 00:59] LABS: Albumin 4.8 g/dL (3.5-5.0); Calcium 9.2 mg/dL (8.4-10.2); Magnesium 2.6 mg/dL (1.6-2.3); Potassium 5.2 mmol/L (3.5-5.1)
--- NOTE | 2019-05-25 01:44 | XR ---
EXAMINATION TYPE: XR chest 2V DATE OF EXAM: 05/25/2019 COMPARISON: 01/24/2019 HISTORY: Short of breath. Chest pain TECHNIQUE: FINDINGS: Heart is enlarged. There is no heart failure. There is a left axillary pacemaker. Costophre raeann angles are clear. Bony thorax is intact. There is cardiac valve surgery. IMPRESSION: Moderate cardiomegaly. Heart appears increased compared to old exam. No heart failure.
[2019-05-25] MEDS ORDERED: NITROGLYCERIN SL TABS 0.4 MG TAB SUBLINGUAL PRN (09:00)
[2019-05-25] MEDS ORDERED: PNEUMOCOCCAL VACC-PNEUMOVAX 23 25 MCG/0.5 ML VIAL IM ONE (10:02)
--- NOTE | 2019-05-25 10:18 | P.CRDCN ---
History of Present Illness Consult date: 05/25/19 Requesting physician: Brando Gray Consult reason: congestive heart failure Chief complaint: Shortness of breath, diarrhea History of present illness: This is a 68-year-old gentleman who follows regularly with Dr. Calvillo in the office. Patient has a known history of coronary artery disease with prior bypass surgery 3, ischemic cardio myopathy with prior AICD, status post mitral valve replacement, hypertension, hyperlipidemia, runny kidney disease, most recent hospitalization was in January 2019, at which time the patient was admitted with a lower GI bleed, received a blood transfusion on this admission. Patient also at that time was recent laparoscopic cholecystectomy. Patient presents to the hospital on this occasion with symptoms of progressively worsening shortness of breath, he also states that he's noticed a significant increase in weight, and has swelling in his abdominal region which is where he usually carry swelling when he builds up with fluid. Patient also states that for the past one week he's been having frequent diarrhea stools, at the time of my examination in the morning, he states that he had not had a loose stool in the past 12 hours. His EKG on presentation here showed a normal sinus rhythm with T wave inversion noted in the lateral leads. Chest x-ray showed moderate cardiomegaly, no heart failure. Blood pressure 110/70 with a heart rate in the 70s, 98% on 2 L of oxygen. Blood cell count 7.6, hemoglobin 13.8, platelet count 322. INR today 2.0, sodium 136, potassium 5.2, BUN 57, creatinine 2.4. BNP level 3760, troponin 0.05, 0.04. Patient denies having any chest discomfort. His home medications include Coumadin 2-1/2 mg every day except Thursday, Lamictal 100 mg at at bedtime, Zoloft, Pravachol 80 mg daily, Lasix 40 mg by mouth twice a day, and Coreg 3.125 mg twice a day. At the time of my examination this morning, patient states he feels mildly short of breath, has some mild wheezing. Continues to have cough, although he states is a hacking cough, nonproductive. Positive PND and orthopnea. Past Medical History Past Medical History: Coronary Artery Disease (CAD), Heart Failure, CVA/TIA, GERD/Reflux, GI Bleed, Hyperlipidemia, Hypertension, Memory Impairment, Myocardial Infarction ([place]), Renal Disease Additional Past Medical History / Comment(s): CVA with some past slight memory problems, cardiomyopathy, CKD stage III, colitis, constipation, gallbladder disease with sepsis, lower GI bleed with acute blood loss anemia thought to be d/t hemorrhoids, chronic cervical and back pain. Last Myocardial Infarction Date:: 1999 History of Any Multi-Drug Resistant Organisms: None Reported Past Surgical History: AICD, Cardiac Valve Replacement, Cholecystectomy, Coronary Bypass/CABG, Heart Catheterization, Tonsillectomy Additional Past Surgical History / Comment(s): 1999 CABG 3 vessels then redo bypass/mechanical mitral valve replacement, 2015 AICD, several thoracentesis, colonoscopies/benign polypectomy Past Anesthesia/Blood Transfusion Reactions: No Reported Reaction Additional Past Anesthesia/Blood Transfusion Reaction / Comment(s): Pt has received blood in past without reaction. Type of Cardiac Device: AICD Device Placement Date:: 03-31-16- [employer] Model:[id number] Smoking Status: Never smoker - Past Family History Brother(s) Family Medical History: Coronary Artery Disease (CAD), Hyperlipidemia, Hypertension Mother Family Medical History: Dementia, Hypertension Additional Family Medical History / Comment(s): Mother at the age of 92yrs. Father Family Medical History: Cancer Additional Family Medical History / Comment(s): from melanoma cancer Medications and Allergies Home Medications Medication Instructions Recorded Confirmed Type Pravastatin Sodium [Pravachol] 80 mg PO DAILY 03/09/18 05/25/19 History Carvedilol [Coreg] 3.125 mg PO BID-W/MEALS tab 03/26/18 05/25/19 Rx Sertraline [Zoloft] 100 mg PO DAILY 05/19/18 05/25/19 History lamoTRIgine [LaMICtal] 100 mg PO HS 05/19/18 05/25/19 History Warfarin [Coumadin] 2.5 mg PO SUMOTUWETHFR 12/21/18 05/25/19 History Furosemide [Lasix] 40 mg PO BID 05/25/19 05/25/19 History Pramipexole [Mirapex] 0.5 mg PO HS 05/25/19 05/25/19 History Allergies Allergy/AdvReac Type Severity Reaction Status Date / Time nitroglycerin AdvReac made me Verified 01/15/20 09:14 feel funny, diarrhea Physical Exam Vitals: Vital Signs Temp Pulse Resp BP Pulse Ox 05/25/19 05:36 97.5 F L 79 18 109/69 98 05/25/19 05:00 97 18 98 05/25/19 03:00 87 18 143/94 98 05/25/19 02:00 89 18 125/92 98 05/25/19 01:03 92 18 123/85 97 05/24/19 23:51 97.7 F 94 20 159/92 100 Intake and Output 05/24/19 05/25/19 05/25/19 22:59 06:59 14:59 Other: Weight 74.48 kg 74.48 kg GENERAL: 68-year-old gentleman in no acute distress at the time of my examination HEENT: Head is atraumatic, normocephalic. Pupils equal, round. Sclera anicteric. Conjunctiva are clear. Mucous membranes of the mouth are moist. Neck is supple. There is no elevated jugular venous pressure. No carotid bruit is heard. HEART EXAMINATION: Heart S1 and S2 metallic mitral valve click is heard, systolic murmur heard CHEST EXAMINATION: Lungs reveal scattered fine wheezing throughout with some diminished air entry to the bases ABDOMEN: Soft, mildly distended . Bowel sounds are heard. No organomegaly noted. EXTREMITIES: 2+ peripheral pulses with trace evidence of peripheral edema and no calf tenderness noted. NEUROLOGIC patient is awake, alert and oriented 3 . Results 05/25/19 00:05 05/25/19 00:05 Cardiac Enzymes 05/25/19 05/25/19 05/25/19 Range/Units 00:05 00:05 05:35 AST 45 (17-59) U/L Troponin I 0.055 H* 0.047 H* (0.000-0.034) ng/mL Coagulation 05/25/19 Range/Units 00:05 PT 19.2 H (9.0-12.0) sec APTT 29.7 (22.0-30.0) sec CBC 05/25/19 Range/Units 00:05 WBC 7.6 (3.8-10.6) k/uL RBC 4.56 (4.30-5.90) m/uL Hgb 13.8 (13.0-17.5) gm/dL Hct 43.6 (39.0-53.0) % Plt Count 322 (150-450) k/uL Comprehensive Metabolic Panel 05/25/19 Range/Units 00:05 Sodium 136 L (137-145) mmol/L Potassium 5.2 H (3.5-5.1) mmol/L Chloride 100 (98-107) mmol/L Carbon Dioxide 25 (22-30) mmol/L BUN 57 H (9-20) mg/dL Creatinine 2.46 H (0.66-1.25) mg/dL Glucose 92 (74-99) mg/dL Calcium 9.2 (8.4-10.2) mg/dL AST 45 (17-59) U/L ALT 26 (4-49) U/L Alkaline Phosphatase 123 (38-126) U/L Total Protein 8.0 (6.3-8.2) g/dL Albumin 4.8 (3.5-5.0) g/dL Current Medications Generic Name Dose Route Start Last Admin Trade Name Freq PRN Reason Stop Dose Admin Aspirin 325 mg 05/26/19 09:00 Aspirin PO DAILY DAMARIS Nitroglycerin 0.4 mg 05/25/19 09:00 Nitrostat SUBLINGUAL Q5M PRN Chest Pain Intake and Output 05/24/19 05/25/19 05/25/19 22:59 06:59 14:59 Other: Weight 74.48 kg 74.48 kg Patient Weight 05/26/19 06:59 Weight 74.48 kg 05/25/19 00:05 05/25/19 00:05 EKG Interpretations (text) EKG shows a normal sinus rhythm with T wave inversion noted in the lateral leads. Assessment and Plan Plan: Assessment and plan #1 symptoms of one week duration of diarrhea #2 systolic congestive heart failure acute on chronic, most recent echo was performed one year ago which revealed an ejection fraction of 30-35%. Possible associated tracheobronchitis #3 coronary artery disease with prior bypass surgery 3 #4 history of mitral valve replacement, on Coumadin for anticoagulation #5 hypertension #6 hyperlipidemia #7.Ischemic Cardiomyopathy with prior AICD #8 acute on chronic renal failure #9 hyperkalemia, likely secondary to renal failure #10 abnormality in troponin with no significant rise and fall pattern, not consistent with acute coronary syndrome Plan We will obtain a repeat echocardiogram with Doppler study. Decrease aspirin to 81 mg daily,Continue Coumadin, INR today 2.0. Start IV Lasix, resume Coreg 3.125 mg twice a day. Continue to monitor intake and output along with daily weights and daily lytes BUN and creatinine. DNP note has been reviewed, I agree with a documented findings and plan of care. Patient was seen and examined.
[2019-05-25] MEDS: CARVEDILOL 3.125 MG TAB PO SCH ×2 (11:56→17:43)
[2019-05-25] MEDS: FUROSEMIDE 10 MG/ML 4 ML VIAL IV SCH ×2 (11:57→19:55)
[2019-05-25] MEDS ORDERED: WARFARIN 2.5 MG TAB PO SCH (18:00)
[2019-05-25] MEDS ORDERED: lamoTRIgine 100 MG TAB PO SCH (23:00)
[2019-05-25] MEDS ORDERED: PRAMIPEXOLE 0.5 MG TAB PO SCH (23:00)
--- NOTE | 2019-05-25 23:54 | HP ---
HISTORY AND PHYSICAL This patient is a 68-year-old white male who came to the hospital with worsening shortness of breath and fluid, 5 pounds weight gain. He was found to have congestive heart failure, systolic in nature. He was admitted for diuresis at that time. Cardiology has seen him. He has also had some diarrhea and loose stools over the last week. EKG shows some T-wave inversion in the lateral leads. Chest x-ray shows cardiomegaly. No heart failure. BNP was 3760. Troponins were noted, negative. PAST MEDICAL HISTORY: Coronary artery disease, systolic heart failure, GI bleed, hypertension, memory impairment, renal disease, bipolar, chronic kidney disease, stage III, colitis, constipation, prior GI bleeding. SURGERIES: AICD, cardiac valve replacement, cholecystectomy, CABG, heart catheterization, tonsillectomy, mechanical mitral valve, 2016, AICD. FAMILY HISTORY: Mother with hypertension, dementia. Brother with coronary artery disease, dyslipidemia, hypertension. Father with cancer. MEDICATIONS: 1. Statin 80 mg daily. 2. Coreg 3.125 b.i.d. 3. Zoloft 200 mg daily. 4. Lamictal 100 mg daily. 5. Coumadin 2.5 five days a week. 6. Lasix 40 mg q.8 hours. 7. Mirapex 0.5 at night. ALLERGIES: See list. Include nitroglycerin. PHYSICAL EXAMINATION: VITAL SIGNS: Blood pressure is 100 to 140 over 80s to 90s, pulse 79-94, temperature 97.7, respiratory rate 18 to 20, oxygen 98% to 100%. CARDIOVASCULAR: S1, S2. LUNGS: Decreased breath sounds x4. EXTREMITIES: Two plus dorsalis pedis, posterior tibial, radial pulse. HEMATOLOGY: Negative Homans. NEUROLOGICAL: Alert and oriented x3. PSYCH: Flat mood, affect. INTEGUMENT: No rash. LABS: BUN is 57, creatinine is 2.46. Sodium 136, potassium 5.2. White count 7.6, hemoglobin 13.8. EKG sinus rhythm. ASSESSMENT: 1. Chronic diarrhea with dehydration. 2. Prerenal renal failure. 3. Systolic heart failure. 4. Coronary artery disease. 5. History of mitral valve replacement. 6. Hypertension. 7. Dyslipidemia. 8. Cardiomyopathy. 9. Acute on chronic renal failure. 10.Hyperkalemia. 11.Abnormality on troponin now consistent with acute coronary syndrome. PLAN: Echo was ordered. Continue Coumadin. IV Lasix. Coreg. Cardiology consult. Please see further orders. MMODL / IJN: [id number] /
[2019-05-26 04:54] VITALS: RESP 18
[2019-05-26] MEDS: CARVEDILOL 3.125 MG TAB PO SCH (06:33)
[2019-05-26 06:47] LABS: Anisocytosis Slight; Basophils % (A) 1 %; Eosinophils # (A) 0.3 k/uL (0-0.7); Eosinophils % (A) 4 %; HCT 35.6 % (39.0-53.0); HGB 11.3 gm/dL (13.0-17.5); Hypochromasia Slight; Lymphocytes # (A) 0.7 k/uL (1.0-4.8); Lymphocytes % (A) 11 %; MCH 30.5 pg (25.0-35.0); MCHC 31.8 g/dL (31.0-37.0); MCV 95.7 fL (80.0-100.0); Mean Platelet Volume 7.7; Monocytes # (A) 0.6 k/uL (0-1.0); Monocytes % (A) 9 %; Neutrophils # (A) 4.8 k/uL (1.3-7.7); Neutrophils % (A) 73 %; Platelet Count 288 k/uL (150-450); RBC 3.72 m/uL (4.30-5.90); WBC 6.6 k/uL (3.8-10.6)
[2019-05-26 07:05] LABS: Albumin 3.8 g/dL (3.5-5.0); Calcium 8.4 mg/dL (8.4-10.2); Potassium 4.6 mmol/L (3.5-5.1); Total Bilirubin 0.8 mg/dL (0.2-1.3); Total Protein 6.6 g/dL (6.3-8.2)
[2019-05-26] MEDS: FUROSEMIDE 10 MG/ML 4 ML VIAL IV SCH (08:02)
[2019-05-26] MEDS ORDERED: PRAVASTATIN SODIUM 80 MG TAB PO SCH (09:00)
[2019-05-26] MEDS ORDERED: SERTRALINE 100 MG TAB PO SCH (09:00)
[2019-05-26] MEDS ORDERED: ASPIRIN 325 MG TAB PO SCH (09:00)
[2019-05-26] MEDS ORDERED: ASPIRIN 81 MG PO SCH (09:00)
--- NOTE | 2019-05-26 11:50 | P.PN ---
Subjective Progress Note Date: 05/26/19 This is a 68-year-old gentleman who follows regularly with Dr. Calvillo in the office. Patient has a known history of coronary artery disease with prior bypass surgery 3, ischemic cardio myopathy with prior AICD, status post mitral valve replacement, hypertension, hyperlipidemia, runny kidney disease, most recent hospitalization was in January 2019, at which time the patient was admitted with a lower GI bleed, received a blood transfusion on this admission. Patient also at that time was recent laparoscopic cholecystectomy. Patient presents to the hospital on this occasion with symptoms of progressively worsening shortness of breath, he also states that he's noticed a significant increase in weight, and has swelling in his abdominal region which is where he usually carry swelling when he builds up with fluid. Patient also states that for the past one week he's been having frequent diarrhea stools, at the time of my examination in the morning, he states that he had not had a loose stool in the past 12 hours. His EKG on presentation here showed a normal sinus rhythm with T wave inversion noted in the lateral leads. Chest x-ray showed moderate cardiomegaly, no heart failure. Blood pressure 110/70 with a heart rate in the 70s, 98% on 2 L of oxygen. Blood cell count 7.6, hemoglobin 13.8, platelet count 322. INR today 2.0, sodium 136, potassium 5.2, BUN 57, creatinine 2.4. BNP level 3760, troponin 0.05, 0.04. Patient denies having any chest discomfort. His home medications include Coumadin 2-1/2 mg every day except Thursday, Lamictal 100 mg at at bedtime, Zoloft, Pravachol 80 mg daily, Lasix 40 mg by mouth twice a day, and Coreg 3.125 mg twice a day. At the time of my examination this morning, patient states he feels mildly short of breath, has some mild wheezing. Continues to have cough, although he states is a hacking cough, nonproductive. Positive PND and orthopnea. 05/26/2019 Patient seen and examined this morning, overall doing well. Breathing has improved significantly today. Diuresed well through the night last night. We'll discontinue the IV Lasix today and start the patient on Lasix 60 mg in the morning and 40 mg in the evening. Blood pressure 116/76 with a heart rate in the 80s, 96% on room air. White blood cell count 6.6, hemoglobin 11.3, platelet count 288. Sodium 139, potassium 4.6, BUN 61, creatinine 2.4. Objective - Vital Signs Vital signs: Vital Signs Temp 96.7 F L 05/26/19 08:00 Pulse 81 05/26/19 08:00 Resp 18 05/26/19 08:00 BP 117/79 05/26/19 08:00 Pulse Ox 96 05/26/19 08:00 Intake & Output 05/25/19 05/26/19 05/26/19 18:59 06:59 18:59 Intake Total 180 Output Total 1300 Balance -1300 180 Weight 74.48 kg 72 kg Intake: Oral 180 Output: Urine 1300 Other: Voiding Method Urinal Urinal - Exam GENERAL: 68-year-old gentleman in no acute distress at the time of my examination HEENT: Head is atraumatic, normocephalic. Pupils equal, round. Sclera anicteric. Conjunctiva are clear. Mucous membranes of the mouth are moist. Neck is supple. There is no elevated jugular venous pressure. No carotid bruit is heard. HEART EXAMINATION: Heart S1 and S2 metallic mitral valve click is heard, systolic murmur heard CHEST EXAMINATION: Lungs clear to auscultation with improvement in air entry to the bases. ABDOMEN: Soft, mildly distended . Bowel sounds are heard. No organomegaly noted. EXTREMITIES: 2+ peripheral pulses with trace evidence of peripheral edema and no calf tenderness noted. NEUROLOGIC patient is awake, alert and oriented 3 . - Labs CBC & Chem 7: 05/26/19 06:03 05/26/19 06:03 Labs: Abnormal Lab Results - Last 24 Hours (Table) 05/25/19 05/26/19 05/26/19 Range/Units 12:53 06:03 06:03 RBC 3.72 L (4.30-5.90) m/uL Hgb 11.3 L (13.0-17.5) gm/dL Hct 35.6 L (39.0-53.0) % RDW 16.0 H (11.5-15.5) % Lymphocytes # 0.7 L (1.0-4.8) k/uL BUN 61 H (9-20) mg/dL Creatinine 2.48 H (0.66-1.25) mg/dL Troponin I 0.043 H* (0.000-0.034) ng/mL LDL Cholesterol, Calc 130 H (0-99) mg/dL HDL Cholesterol 34 L (40-60) mg/dL Assessment and Plan Plan: Assessment and plan #1 symptoms of one week duration of diarrhea #2 systolic congestive heart failure acute on chronic, most recent echo was performed one year ago which revealed an ejection fraction of 30-35%. Possible associated tracheobronchitis #3 coronary artery disease with prior bypass surgery 3 #4 history of mitral valve replacement, on Coumadin for anticoagulation #5 hypertension #6 hyperlipidemia #7.Ischemic Cardiomyopathy with prior AICD #8 acute on chronic renal failure #9 hyperkalemia, likely secondary to renal failure #10 abnormality in troponin with no significant rise and fall pattern, not consistent with acute coronary syndrome Plan We will discontinue the IV Lasix today and change the patient over to oral diuretics 60 in the morning and 40 in the evening. Patient may be able to be discharged home from our perspective. Follow-up with Dr. Calvillo in the office post discharge. DNP note has been reviewed, I agree with a documented findings and plan of care. Patient was seen and examined.
[2019-05-26 12:13] VITALS: BP 113/75; PULSE 85; TEMP 98
--- NOTE | 2019-05-26 13:51 | ECHOF ---
Referral Reason:chf MEASUREMENTS -------- HEIGHT: 160.0 cm WEIGHT: 74.4 kg BP: 109/69 RVIDd: 4.0 cm (< 3.3) IVSd: 1.5 cm (0.6 - 1.1) LVIDd: 5.2 cm (3.9 - 5.3) LVPWd: 1.3 cm (0.6 - 1.1) IVSs: 1.7 cm LVIDs: 4.8 cm LVPWs: 1.4 cm LA Diam: 4.1 cm (2.7 - 3.8) LAESV Index (A-L): 43.22 ml/m Ao Diam: 2.8 cm (2.0 - 3.7) AV Cusp: 1.9 cm (1.5 - 2.6) MV E Xiang: 1.31 m/s MV DecT: 122 ms MV A Xiang: 0.35 m/s MV E/A Ratio: 3.75 RAP: 15.00 mmHg RVSP: 46.77 mmHg FINDINGS -------- AICD This was a technically difficult study with suboptimal apical views. The left ventricular size is normal. There is moderate concentric left ventricular hypertrophy. O verall left ventricular systolic function is severely impaired with, an EF between 20 - 25 %. Basal anterior LV wall motion is hypokinetic. Basal lateral LV wall motion is hypokinetic. Basal pos terior LV wall motion is hypokinetic. Mid anterior LV wall motion is hypokinetic. Mid lateral L V wall motion is hypokinetic. Mid posterior LV wall motion is hypokinetic. Apical anterior LV w all motion is hypokinetic. Apical lateral LV wall motion is hypokinetic. The right ventricle is moderately enlarged. LA is severely dilated >40 ml/m2 The right atrium is normal in size. 5.0mg of Lumason was utilized for enhancement of images There is mild aortic valve sclerosis. The peak and mean MV gradients are 8.83mmHg 3.02mmHg as measured by doppler. There is trivial moris- prosthetic regurgitation of the bioprosthetic mitral valve. Mechanical MVR is well seated. Moderate to severe tricuspid regurgitation present. There is moderate pulmonary hypertension. Trace/mild (physiologic) pulmonic regurgitation. The aortic root size is normal. Normal inferior vena cava with less than 50% inspiratory collapse consistent with estimated right atr ial pressure of 15 mmHg. There is no pericardial effusion. CONCLUSIONS -------- 1. AICD 2. This was a technically difficult study with suboptimal apical views. 3. The left ventricular size is normal. 4. There is moderate concentric left ventricular hypertrophy. 5. Overall left ventricular systolic function is severely impaired with, an EF between 20 - 25 %. 6. Basal anterior LV wall motion is hypokinetic. 7. Basal lateral LV wall motion is hypokinetic. 8. Basal posterior LV wall motion is hypokinetic. 9. Mid anterior LV wall motion is hypokinetic. 10. Mid lateral LV wall motion is hypokinetic. 11. Mid posterior LV wall motion is hypokinetic. 12. Apical anterior LV wall motion is hypokinetic. 13. Apical lateral LV wall motion is hypokinetic. 14. The right ventricle is moderately enlarged. 15. LA is severely dilated >40 ml/m2 16. The right atrium is normal in size. 17. 5.0mg of Lumason was utilized for enhancement of images 18. There is mild aortic valve sclerosis. 19. The peak and mean MV gradients are 8.83mmHg 3.02mmHg as measured by doppler. 20. There is trivial moris-prosthetic regurgitation of the bioprosthetic mitral valve. 21. Mechanical MVR is well seated. 22. Moderate to severe tricuspid regurgitation present. 23. There is moderate pulmonary hypertension. 24. Trace/mild (physiologic) pulmonic regurgitation. 25. The aortic root size is normal. 26. Normal inferior vena cava with less than 50% inspiratory collapse consistent with estimated right atrial pressure of 15 mmHg. 27. There is no pericardial effusion. MASH FILTER OPERATOR: ELIZABETH Mathew
--- NOTE | 2019-05-26 15:04 | P.DS ---
Providers Date of admission: 05/25/19 00:30 Expected date of discharge: 05/26/19 Attending physician: Brando Gray Consults: 05/25/19 00:30 Consult Physician Urgent Consulting Provider: Ric Watkins Consult Reason/Comments: chf Do you want consulting provider notified?: Yes Primary care physician: Brando Gray [facility] Hospital Course: Final Diagnoses: Chronic diarrhea with dehydration Acute Tracheobronchitis Acute renal failure, prerenal Hyperkalemia secondary to the above Chronic renal failure Acute CHF exacerbation, systolic dysfunction CAD History of mitral valve replacement Hypertension Dyslipidemia Cardiomyopathy, ischemic Elevated troponin, not consistent with acute coronary syndrome as per cardiology Hospital course a 68-year-old gentleman admitted with worsening shortness of breath, weight gain of 5 pounds, diarrhea and multiple other medical issues. Evaluated by cardiology, diuresed well on Lasix IV push . Diarrhea subsided. Diet intake significantly improved, creatinine remains at 2.48, baseline is 1.5. Significant clinical improvement. Patient is eager for discharge. Cleared by cardiology for discharge. Patient is being discharged home in a stable condition with guarded prognosis. EXAM: GEN: Alert and oriented 3, no acute distress CV:Reg S1,S2, positive click, positive systolic murmur LUNGS:CTA ABD: Soft, mildly distended, nontender, positive bowel sounds NEURO: No focal deficits. The impression and plan of care has been dictated as directed. : I performed a history and examination of this patient, discussed the same with the dictator. I agree with the dictator's note ,documented as a scribe. Any additional findings or plans will be noted. Patient Condition at Discharge: Stable Plan - Discharge Summary Discharge Rx Participant: No New Discharge Prescriptions: New Aspirin 81 mg PO DAILY chew Furosemide [Lasix] 60 mg PO DAILY@0800 #90 tab Furosemide [Lasix] 40 mg PO DAILY@1600 #30 tab Continue Pravastatin Sodium [Pravachol] 80 mg PO DAILY Carvedilol [Coreg] 3.125 mg PO BID-W/MEALS tab lamoTRIgine [LaMICtal] 100 mg PO HS Sertraline [Zoloft] 100 mg PO DAILY Warfarin [Coumadin] 2.5 mg PO SUMOTUWETHFR Pramipexole [Mirapex] 0.5 mg PO HS Discontinued Furosemide [Lasix] 40 mg PO BID Discharge Medication List Pravastatin Sodium [Pravachol] 80 mg PO DAILY 03/09/18 [History] Carvedilol [Coreg] 3.125 mg PO BID-W/MEALS tab 03/26/18 [Rx] Sertraline [Zoloft] 100 mg PO DAILY 05/19/18 [History] lamoTRIgine [LaMICtal] 100 mg PO HS 05/19/18 [History] Warfarin [Coumadin] 2.5 mg PO SUMOTUWETHFR 12/21/18 [History] Pramipexole [Mirapex] 0.5 mg PO HS 05/25/19 [History] Aspirin 81 mg PO DAILY chew 05/26/19 [Rx] Furosemide [Lasix] 40 mg PO DAILY@1600 #30 tab 05/26/19 [Rx] Furosemide [Lasix] 60 mg PO DAILY@0800 #90 tab 05/26/19 [Rx] Follow up Appointment(s)/Referral(s): Star Dickerson MD [STAFF PHYSICIAN] - 05/30/19 11:15 am Brando Gray MD [Primary Care Provider] - 06/03/19 9:45 am Ezra Dela Cruz DO [STAFF PHYSICIAN] - 06/09/19 10:00 am Ambulatory/Diagnostic Orders: Prothrombin Time INR [LAB.AMB] Time Frame: 05/30/19, Location: None Selected Patient Instructions/Handouts: Heart Failure (DC) Activity/Diet/Wound Care/Special Instructions: cleared from cardiology and nephrology for discharge
[2019-05-26] MEDS ORDERED: FUROSEMIDE 40 MG TAB PO SCH (16:00)
--- NOTE | 2019-05-26 18:20 | CONS ---
CONSULTATION DATE OF SERVICE: 05/26/2019 REASON FOR CONSULTATION: Renal failure. HISTORY OF PRESENT ILLNESS: The patient is a 68-year-old male with history of chronic kidney disease stage IIIB to IV secondary to nephrosclerosis with baseline creatinine about 1.8 to 2 mg per dl. The patient was admitted to the hospital with complaints of increased lower extremity edema, increased shortness of breath, dyspnea on exertion, and orthopnea. He was noted to be in fluid overload and is currently being diuresed. The patient is maintained on Lasix 40 mg IV every 12 hours and he states he is feeling much better. He did admit to noncompliance with diet over the holidays with increased intake of salty foods. PAST MEDICAL HISTORY: Chronic kidney disease stage IV, coronary artery disease, hypertension, history of CVA/TIA, gastroesophageal reflux disease, history of myocardial infarction, constipation, history of lower GI bleed, chronic back pain. PAST SURGICAL HISTORY: Cholecystectomy, coronary artery bypass surgery, AICD placement, tonsillectomy, mitral valve replacement, colonoscopy, polypectomy. SOCIAL HISTORY: Negative for smoking, drug abuse or alcohol abuse. MEDICATIONS: Medications prior to admission include: 1. Coreg. 2. Pravachol. 3. Zoloft. 4. Lamictal. 5. Coumadin. 6. Lasix. 7. Mirapex. ALLERGIES: INCLUDE NITRO WHICH CAUSED DIARRHEA AND FUNNY FEELING. REVIEW OF SYSTEMS: As per HPI. Other systems are negative. PHYSICAL EXAMINATION: On examination, the patient is comfortable, awake, alert, and oriented x3, not in any acute distress. Blood pressure is 117/79, heart rate 81 per minute, he is afebrile. EXAMINATION OF HEART: S1 and S2. EXAMINATION OF LUNGS: Bilateral breath sounds are heard. ABDOMEN: Soft and nontender. EXTREMITIES: Lower extremities show no evidence of edema. DISH WASHER: Exam is grossly intact. LABS: Show sodium 139, potassium 4.6, BUN 61, creatinine 2.48. Hemoglobin 11.3 gm per dl. ASSESSMENT: 1. Chronic kidney disease secondary to nephrosclerosis, NKF stage IIIB to IV with slight worsening of renal function which has been fairly stable. The patient can be discharged from nephrology standpoint with plans to follow up outpatient. He has been on IV Lasix every 12 hours. He was taking 40 mg and 60 mg twice a day at home and he can resume his home dose of diuretics. The patient is advised regarding dietary restrictions. 2. Hypertension. 3. Coronary artery disease, status post coronary stents. 4. Cardiomyopathy, status post AICD placement. 5. Valvular heart disease with mitral valve replacement, maintained on Coumadin. PLAN: The patient is stable for discharge. Follow up as an outpatient in about two week's time. DENICE / DIONICIO: [id number] /
[2019-05-27] MEDS ORDERED: FUROSEMIDE 20 MG TAB PO SCH (08:00)
== END 2019-05-26 14:50 | disposition home or self-care (01) ==
LOC: EC 23:48 → 3SCARD 05-25 00:30 → INTOOBSV 05-25 00:30 → 3SCARD 05-25 17:52
PROVIDERS: ADMIT Family Medicine; ATTEND Family Medicine
DX: K52.9 Noninfective gastroenteritis and colitis, unspecified (principal); E86.0 Dehydration; J20.9 Acute bronchitis, unspecified; N17.9 Acute kidney failure, unspecified; E87.5 Hyperkalemia; I13.0 Hypertensive heart and chronic kidney disease with heart failure and stage 1 through stage 4 chronic kidney disease, or unspecified chronic kidney disease; N18.4 Chronic kidney disease, stage 4 (severe); I50.23 Acute on chronic systolic (congestive) heart failure; I25.10 Atherosclerotic heart disease of native coronary artery without angina pectoris; Z95.2 Presence of prosthetic heart valve; E78.5 Hyperlipidemia, unspecified; K92.2 Gastrointestinal hemorrhage, unspecified; I25.5 Ischemic cardiomyopathy; Z95.810 Presence of automatic (implantable) cardiac defibrillator; Z95.1 Presence of aortocoronary bypass graft; N28.9 Disorder of kidney and ureter, unspecified; Z86.73 Personal history of transient ischemic attack (TIA), and cerebral infarction without residual deficits; I25.2 Old myocardial infarction; K21.9 Gastro-esophageal reflux disease without esophagitis; D62 Acute posthemorrhagic anemia; I24.9 Acute ischemic heart disease, unspecified; I05.9 Rheumatic mitral valve disease, unspecified; F43.10 Post-traumatic stress disorder, unspecified; Z23 Encounter for immunization; Z82.49 Family history of ischemic heart disease and other diseases of the circulatory system; Z79.01 Long term (current) use of anticoagulants; Z79.899 Other long term (current) drug therapy; Z88.8 Allergy status to other drugs, medicaments and biological substances; Z80.8 Family history of malignant neoplasm of other organs or systems; Z91.11 Patient's noncompliance with dietary regimen; Z95.5 Presence of coronary angioplasty implant and graft
CPT/HCPCS: 96376 ×2; 93005 ×2; 96374; 96375; 99291; 36415; 83880; 80061; 80053 ×2; 83690; 83735; 84484; 85025 ×2; 85610; 85730; 71046; 90732; G0378 ×2; C8929; G0009; J2270; J1940 ×2; Q9950; 93306

== ENCOUNTER → 2019-06-01 | Outpatient (CLI) | payer MEDICARE ==
[2019-06-01 13:02] LABS: Anisocytosis Slight; HCT 40.4 % (39.0-53.0); HGB 12.5 gm/dL (13.0-17.5); Hypochromasia Slight; MCH 30.1 pg (25.0-35.0); MCHC 30.9 g/dL (31.0-37.0); MCV 97.5 fL (80.0-100.0); Macrocytosis Slight; Mean Platelet Volume 7.3; Platelet Count 291 k/uL (150-450); RBC 4.15 m/uL (4.30-5.90); RDW 16.2 % (11.5-15.5); WBC 5.9 k/uL (3.8-10.6)
[2019-06-01 13:18] LABS: INR 2.8 (<1.2); Prothrombin Time 27.6 sec (9.0-12.0)
[2019-06-01 19:22] LABS: African American GFR (CKD) 34.9 (60.0-200.0); Anion Gap 9.2 mmol/L (4.00-12.00); BUN/Creat Ratio 21.82 Ratio (12.00-20.00); Calcium 8.8 mg/dL (8.7-10.3); Carbon Dioxide 27.8 mmol/L (21.6-31.8); Non-African American GFR(CKD) 30.1 (60.0-200.0); Potassium 4.7 mmol/L (3.5-5.5)
== END | disposition home or self-care (01) ==
LOC: LABWHC1 12:22
PROVIDERS: ATTEND Nurse Practitioner
DX: N19 Unspecified kidney failure (principal); Z79.01 Long term (current) use of anticoagulants
CPT/HCPCS: 36415; 80048; 85027; 85610

== ENCOUNTER 2019-09-07 09:55 | Inpatient (IN) | payer MEDICARE ==
[2019-09-07] MEDS ORDERED: Magnesium Replacement Protocol 1 EACH MISC MISCELLANE PRN (14:10)
[2019-09-07] MEDS ORDERED: Potassium Replacement Protocol 1 EACH MISC MISCELLANE PRN (14:10)
[2019-09-07 14:35] LABS: INR 1.9 (<1.2); Prothrombin Time 18.5 sec (9.0-12.0)
[2019-09-07 14:35] LABS: Anisocytosis Slight; Basophils # (A) 0.1 k/uL (0-0.2); Basophils % (A) 1 %; Eosinophils # (A) 0.2 k/uL (0-0.7); Eosinophils % (A) 3 %; HCT 42.5 % (39.0-53.0); HGB 13.1 gm/dL (13.0-17.5); Hypochromasia Moderate; Lymphocytes # (A) 0.6 k/uL (1.0-4.8); Lymphocytes % (A) 8 %; MCH 30.6 pg (25.0-35.0); MCHC 30.8 g/dL (31.0-37.0); MCV 99.2 fL (80.0-100.0); Macrocytosis Slight; Mean Platelet Volume 7.9; Monocytes # (A) 0.7 k/uL (0-1.0); Monocytes % (A) 9 %; Neutrophils # (A) 5.5 k/uL (1.3-7.7); Neutrophils % (A) 77 %; Platelet Count 246 k/uL (150-450); RBC 4.28 m/uL (4.30-5.90); RDW 16.1 % (11.5-15.5); WBC 7.1 k/uL (3.8-10.6)
[2019-09-07] MEDS: PANTOPRAZOLE 40 MG/10 ML VIAL IVP SCH (14:36)
[2019-09-07 14:46] LABS: Albumin 4.2 g/dL (3.5-5.0); Calcium 9.4 mg/dL (8.4-10.2); Magnesium 2.5 mg/dL (1.6-2.3); Potassium 4.4 mmol/L (3.5-5.1); Total Bilirubin 1.4 mg/dL (0.2-1.3); Total Protein 7.1 g/dL (6.3-8.2)
[2019-09-07] MEDS: SODIUM CHLORIDE 0.9% 1,000 ML IV SCH (15:25)
[2019-09-07] MEDS ORDERED: PRAMIPEXOLE 0.5 MG TAB PO SCH (21:00)
[2019-09-07] MEDS ORDERED: lamoTRIgine 100 MG TAB PO SCH (21:00)
[2019-09-07] MEDS: SACUBITRIL/VALSARTAN 24 MG-26 MG TABLET PO SCH (22:14)
[2019-09-08] MEDS ORDERED: ONDANSETRON 4 MG/2 ML VIAL IVP PRN (01:27)
[2019-09-08] MEDS: SODIUM CHLORIDE 0.9% 1,000 ML IV SCH (05:29)
[2019-09-08] MEDS: PANTOPRAZOLE 40 MG/10 ML VIAL IVP SCH (07:46)
[2019-09-08] MEDS: SACUBITRIL/VALSARTAN 24 MG-26 MG TABLET PO SCH (08:33)
[2019-09-08] MEDS ORDERED: PRAVASTATIN SODIUM 80 MG TAB PO SCH (09:00)
[2019-09-08 09:08] LABS: Anisocytosis Slight; Basophils # (A) 0.1 k/uL (0-0.2); Basophils % (A) 1 %; Eosinophils # (A) 0.2 k/uL (0-0.7); Eosinophils % (A) 4 %; HCT 42.6 % (39.0-53.0); Hypochromasia Marked; Lymphocytes # (A) 0.6 k/uL (1.0-4.8); Lymphocytes % (A) 9 %; MCH 31.1 pg (25.0-35.0); MCHC 30.5 g/dL (31.0-37.0); MCV 101.7 fL (80.0-100.0); Macrocytosis Slight; Mean Platelet Volume 7.7; Monocytes # (A) 0.5 k/uL (0-1.0); Monocytes % (A) 8 %; Neutrophils # (A) 4.9 k/uL (1.3-7.7); Neutrophils % (A) 77 %; Platelet Count 251 k/uL (150-450); RBC 4.19 m/uL (4.30-5.90); RDW 16.1 % (11.5-15.5); WBC 6.4 k/uL (3.8-10.6)
[2019-09-08 09:12] LABS: INR 1.7 (<1.2); Prothrombin Time 17.1 sec (9.0-12.0)
[2019-09-08 09:53] LABS: Calcium 8.7 mg/dL (8.4-10.2); Magnesium 2.3 mg/dL (1.6-2.3); Potassium 4.6 mmol/L (3.5-5.1)
[2019-09-08] MEDS ORDERED: CARVEDILOL 3.125 MG TAB PO SCH (11:00)
--- NOTE | 2019-09-08 12:51 | HP ---
HISTORY AND PHYSICAL A 68-year-old white male came in with severe large amounts of bright red blood in the toilet for the last 1-2 days. He is admitted for GI bleed and GI recommendations. His history is systolic CHF, coronary artery disease, hypertension, bipolar. Medications were reordered. Labs are ordered. Surgical consultation is pending. PAST MEDICAL HISTORY: As mentioned. systolic CHF, nonischemic cardiomyopathy, hypertension, GERD, bipolar, restless legs syndrome, probable dyslipidemia, depression. 14 POINT REVIEW OF SYSTEMS: Negative except for lightheadedness and dizziness at rest or exertion. Temp 97.4, pulse 80s, respiratory rate 16-20, blood pressure is 111 to 140s/70s to 90s, O2 96%-98% on room air. CARDIOVASCULAR: S1, S2. LUNGS: Clear. GI: Soft, slightly increased bowel sounds. No masses seen. HEMATOLOGY: Negative Homans. PSYCH: Fair mood and affect. NEUROLOGIC: Alert orient x3. ASSESSMENT: GI bleed unclear etiology, possible diverticular bleed. Check thorough hemoglobin, will admit the patient. Hold Coumadin, Plavix and aspirin, which he is on at home. No significant findings were found. He may be able to go back on the these. Monitor him as an outpatient. Wait for surgical consultation. Continue home medications. MMODL / IJN: [id number] /
[2019-09-08 14:19] VITALS: BP 106/74; PULSE 82; RESP 18; TEMP 97.4
--- NOTE | 2019-09-08 14:41 | P.GSCN ---
History of Present Illness Consult date: 09/08/19 Reason for Consult: GI bleeding Requesting physician: Kavita Gray History of present illness: CHIEF COMPLAINT: GI bleeding HISTORY OF PRESENT ILLNESS: 68-year-old male who is admitted to the hospital secondary to bright red blood per rectum. Patient is on long-term antic oagulation with Coumadin. Patient's hemoglobin has remained stable. He reports bright red blood today when he wipes after using the bathroom. PAST MEDICAL HISTORY: See list. PAST SURGICAL HISTORY: See list. SOCIAL HISTORY: No illicit drug use. REVIEW OF SYSTEMS: CONSTITUTIONAL: Denies fever or chills. HEENT: Denies blurred vision, vision changes, or eye pain. Denies hemoptysis CARDIOVASCULAR: Denies chest pain or pressure. RESPIRATORY: No shortness of breath. GASTROINTESTINAL: Refer to HPI for pertinent findings HEMATOLOGIC: Denies bleeding disorders. GENITOURINARY: Denies any blood in urine. SKIN: Denies pruitis. Denies rash. PHYSICAL EXAM: VITAL SIGNS: Reviewed. GENERAL: Well-developed in no acute distress. HEENT: No sclera icterus. Extraocular movements grossly intact. Moist buccal mucosa. Head is atraumatic, normocephalic. ABDOMEN: Soft. Nondistended. Nontender. NEUROLOGIC: Alert and oriented. Cranial nerves II through XII grossly intact. LABORATORY DATA: Hemoglobin 13.1. Repeat 13.0. ASSESSMENT: 1. Bright red blood per rectum, suspect secondary to hemorrhoids PLAN: Patient is stable for discharge today from a surgical standpoint Patient will be scheduled for outpatient colonoscopy on 09/12/[address] Limon Nurse practitioner note has been reviewed by physician. Signing provider agrees with the documented findings, assessment, and plan of care. Past Medical History Past Medical History: Coronary Artery Disease (CAD), Heart Failure, CVA/TIA, GERD/Reflux, GI Bleed, Hyperlipidemia, Hypertension, Memory Impairment, Myocardial Infarction ([place]), Renal Disease Additional Past Medical History / Comment(s): CVA with some past slight memory problems, cardiomyopathy, CKD stage III, colitis, constipation, gallbladder disease with sepsis, lower GI bleed with acute blood loss anemia thought to be d/t hemorrhoids, chronic cervical and back pain. Last Myocardial Infarction Date:: 1999 History of Any Multi-Drug Resistant Organisms: None Reported Past Surgical History: AICD, Cardiac Valve Replacement, Cholecystectomy, Coronary Bypass/CABG, Heart Catheterization, Tonsillectomy Additional Past Surgical History / Comment(s): 1999 CABG 3 vessels then redo bypass/mechanical mitral valve replacement, 2016 AICD, several thoracentesis, colonoscopies/benign polypectomy Past Anesthesia/Blood Transfusion Reactions: No Reported Reaction Additional Past Anesthesia/Blood Transfusion Reaction / Comm: Pt has received blood in past without reaction. Type of Cardiac Device: AICD Device Placement Date:: 03-31-16- groopify Model:0150 [id number] Past Psychological History: Anxiety, Depression, PTSD Additional Psychological History / Comment(s): Pt resides with his spouse. He uses no assistive device. He drives. Smoking Status: Never smoker Past Alcohol Use History: None Reported Additional Past Alcohol Use History / Comment(s): . Past Drug Use History: None Reported - Past Family History Brother(s) Family Medical History: Coronary Artery Disease (CAD), Hyperlipidemia, Hypertension Mother Family Medical History: Dementia, Hypertension Additional Family Medical History / Comment(s): Mother at the age of 92yrs. Father Family Medical History: Cancer Additional Family Medical History / Comment(s): from melanoma cancer Medications and Allergies Home Medications Medication Instructions Recorded Confirmed Type Pravastatin Sodium [Pravachol] 80 mg PO DAILY 03/09/18 09/07/19 History Carvedilol [Coreg] 3.125 mg PO BID-W/MEALS tab 03/26/18 09/07/19 Rx Sertraline [Zoloft] 100 mg PO DAILY 05/19/18 09/07/19 History lamoTRIgine [LaMICtal] 100 mg PO HS 05/19/18 09/07/19 History Pramipexole [Mirapex] 0.5 mg PO HS 05/25/19 09/07/19 History Furosemide [Lasix] 60 mg PO DAILY@0800 #90 tab 05/26/19 09/07/19 Rx Sacubitril/Valsartan [Entresto 24 1 tab PO BID 09/07/19 09/07/19 History mg-26 mg Tablet] Pantoprazole Sodium [Protonix] 40 mg PO DAILY #30 tablet. 09/08/19 Rx Peg 3350-Na Sulf,Bicarb,Cl/KCl 4,000 ml PO DIRECTED #1 bottle 09/08/19 Rx [Golytely Lavage] Allergies Allergy/AdvReac Type Severity Reaction Status Date / Time nitroglycerin AdvReac made me Verified 09/07/19 15:16 feel funny, diarrhea Surgical - Exam Vital Signs Temp Pulse Resp BP Pulse Ox 98.0 F 81 18 120/86 94 L 09/07/19 14:09 09/07/19 14:09 09/07/19 14:09 09/07/19 14:09 09/07/19 14:09 Results - Labs 09/08/19 08:36 09/08/19 08:36 Abnormal Lab Results - Last 24 Hours (Table) 09/07/19 09/08/19 09/08/19 Range/Units 14:13 08:36 08:36 RBC 4.19 L (4.30-5.90) m/uL MCV 101.7 H (80.0-100.0) fL MCHC 30.5 L (31.0-37.0) g/dL RDW 16.1 H (11.5-15.5) % Lymphocytes # 0.6 L (1.0-4.8) k/uL PT (9.0-12.0) sec INR (<1.2) Sodium 136 L 135 L (137-145) mmol/L Carbon Dioxide 21 L (22-30) mmol/L BUN 58 H 50 H (9-20) mg/dL Creatinine 2.31 H 2.05 H (0.66-1.25) mg/dL Glucose 100 H 186 H (74-99) mg/dL Magnesium 2.5 H (1.6-2.3) mg/dL Total Bilirubin 1.4 H (0.2-1.3) mg/dL 09/08/19 Range/Units 08:36 RBC (4.30-5.90) m/uL MCV (80.0-100.0) fL MCHC (31.0-37.0) g/dL RDW (11.5-15.5) % Lymphocytes # (1.0-4.8) k/uL PT 17.1 H (9.0-12.0) sec INR 1.7 H (<1.2) Sodium (137-145) mmol/L Carbon Dioxide (22-30) mmol/L BUN (9-20) mg/dL Creatinine (0.66-1.25) mg/dL Glucose (74-99) mg/dL Magnesium (1.6-2.3) mg/dL Total Bilirubin (0.2-1.3) mg/dL Diabetes panel 09/07/19 09/08/19 Range/Units 14:13 08:36 Sodium 136 L 135 L (137-145) mmol/L Potassium 4.4 4.6 (3.5-5.1) mmol/L Chloride 104 103 (98-107) mmol/L Carbon Dioxide 23 21 L (22-30) mmol/L BUN 58 H 50 H (9-20) mg/dL Creatinine 2.31 H 2.05 H (0.66-1.25) mg/dL Glucose 100 H 186 H (74-99) mg/dL Calcium 9.4 8.7 (8.4-10.2) mg/dL AST 44 (17-59) U/L ALT 30 (4-49) U/L Alkaline Phosphatase 101 (38-126) U/L Total Protein 7.1 (6.3-8.2) g/dL Albumin 4.2 (3.5-5.0) g/dL Calcium panel 09/07/19 09/08/19 Range/Units 14:13 08:36 Calcium 9.4 8.7 (8.4-10.2) mg/dL Albumin 4.2 (3.5-5.0) g/dL Pituitary panel 09/07/19 09/08/19 Range/Units 14:13 08:36 Sodium 136 L 135 L (137-145) mmol/L Potassium 4.4 4.6 (3.5-5.1) mmol/L Chloride 104 103 (98-107) mmol/L Carbon Dioxide 23 21 L (22-30) mmol/L BUN 58 H 50 H (9-20) mg/dL Creatinine 2.31 H 2.05 H (0.66-1.25) mg/dL Glucose 100 H 186 H (74-99) mg/dL Calcium 9.4 8.7 (8.4-10.2) mg/dL Adrenal panel 09/07/19 09/08/19 Range/Units 14:13 08:36 Sodium 136 L 135 L (137-145) mmol/L Potassium 4.4 4.6 (3.5-5.1) mmol/L Chloride 104 103 (98-107) mmol/L Carbon Dioxide 23 21 L (22-30) mmol/L BUN 58 H 50 H (9-20) mg/dL Creatinine 2.31 H 2.05 H (0.66-1.25) mg/dL Glucose 100 H 186 H (74-99) mg/dL Calcium 9.4 8.7 (8.4-10.2) mg/dL Total Bilirubin 1.4 H (0.2-1.3) mg/dL AST 44 (17-59) U/L ALT 30 (4-49) U/L Alkaline Phosphatase 101 (38-126) U/L Total Protein 7.1 (6.3-8.2) g/dL Albumin 4.2 (3.5-5.0) g/dL
[2019-09-08] MEDS ORDERED: FUROSEMIDE 40 MG TAB PO SCH (16:00)
--- NOTE | 2019-09-08 16:43 | P.DS ---
Providers Date of admission: 09/07/19 13:16 Expected date of discharge: 09/08/19 Attending physician: Brando Gray Consults: 09/07/19 14:11 Consult Physician Routine Consulting Provider: Navid Limon Consult Reason/Comments: GI Bleed Do you want consulting provider notified?: Yes Placement Type Exists?: Yes Primary care physician: Brando Gray [facility] Course: Final Diagnoses: Acute lower GI bleed, etiology unclear in a patient on Coumadin, possible diverticular bleed History of colitis Hemorrhoids Chronic anemia secondary to CKD CAD, history of SD, CABG CHF, systolic, no active exacerbation Gastroesophageal reflux disease Hyperlipidemia Hypertension Acute on CKD, stage III Anxiety Depression Bipolar Restless leg syndrome Hospital course: This a 68-year-old gentleman admitted with bright red rectal bleeding for the last 1-2 days. Anticoagulation placed on hold. Current hemoglobin 13, INR 1.7. Creatinine 2.0. Denies chest pain, palpitations or shortness of breath. Denies lightheadedness, dizziness or focal deficits. Evaluated by surgery. Significant clinical improvement. Cleared by surgery for discharge. Patient scheduled for outpatient colonoscopy on Thursday. He is being discharged home in a stable condition with guarded prognosis. The impression and plan of care has been dictated as directed. : I performed a history and examination of this patient, discussed the same with the dictator. I agree with the dictator's note ,documented as a scribe. Any additional findings or plans will be noted. Patient Condition at Discharge: Stable Plan - Discharge Summary New Discharge Prescriptions: New Peg 3350-Na Sulf,Bicarb,Cl/KCl [Golytely Lavage] 4,000 ml PO DIRECTED #1 bottle Pantoprazole Sodium [Protonix] 40 mg PO DAILY #30 tablet.dr Continue Pravastatin Sodium [Pravachol] 80 mg PO DAILY Carvedilol [Coreg] 3.125 mg PO BID-W/MEALS tab lamoTRIgine [LaMICtal] 100 mg PO HS Sertraline [Zoloft] 100 mg PO DAILY Pramipexole [Mirapex] 0.5 mg PO HS Furosemide [Lasix] 60 mg PO DAILY@0800 #90 tab Sacubitril/Valsartan [Entresto 24 mg-26 mg Tablet] 1 tab PO BID Discontinued Warfarin [Coumadin] 2.5 mg PO TUFR Aspirin 81 mg PO DAILY chew Warfarin Sodium 1.25 mg PO SUMOWETHSA Discharge Medication List Pravastatin Sodium [Pravachol] 80 mg PO DAILY 03/09/18 [History] Carvedilol [Coreg] 3.125 mg PO BID-W/MEALS tab 03/26/18 [Rx] Sertraline [Zoloft] 100 mg PO DAILY 05/19/18 [History] lamoTRIgine [LaMICtal] 100 mg PO HS 05/19/18 [History] Pramipexole [Mirapex] 0.5 mg PO HS 05/25/19 [History] Furosemide [Lasix] 60 mg PO DAILY@0800 #90 tab 05/26/19 [Rx] Sacubitril/Valsartan [Entresto 24 mg-26 mg Tablet] 1 tab PO BID 09/07/19 [History] Pantoprazole Sodium [Protonix] 40 mg PO DAILY #30 tablet.dr 09/08/19 [Rx] Peg 3350-Na Sulf,Bicarb,Cl/KCl [Golytely Lavage] 4,000 ml PO DIRECTED #1 bottle 09/08/19 [Rx] Follow up Appointment(s)/Referral(s): Brando Gray MD [Primary Care Provider] - 1 Week (office closed at time of discharge. Please call to make appointment) Navid Limon MD [STAFF PHYSICIAN] - 09/13/19 2:45 pm Ambulatory/Diagnostic Orders: Complete Blood Count w/diff [LAB.AMB] Time Frame: 3 Days, Location: None Selected Activity/Diet/Wound Care/Special Instructions: Start bowel prep Thursday at 2pm Clear liquids only starting Thursday Nothing to eat or drink after midnight Outpatient colonoscopy Thursday Hold Coumadin Discharge Disposition: HOME SELF-CARE
[2019-09-09] MEDS ORDERED: FUROSEMIDE 20 MG TAB PO SCH (08:00)
[2019-09-09] MEDS ORDERED: SERTRALINE 100 MG TAB PO SCH (09:00)
--- NOTE | 2019-09-09 11:24 | CDI ---
Documentation Clarification Form Date: 09/09/2019 11:08:42 AM From: Ninfa Frankel RN, CCDS Admit Date: 09/07/2019 01:16:00 PM Patient Name: Cody Savage Visit Number: [id number] Discharge Date: 09/08/2019 03:11:00 PM ATTENTION: The Clinical Documentation Specialists (CDI) and [facility] Coding Staff appreciate your assistance in clarifying documentation. Please respond to the clarification below the line at the bottom and electronically sign. The CDI & [facility] Coding staff will review the response and follow-up if needed. Please note: Queries are made part of the Legal Health Record. If you have any questions, please contact the author of this message via ITS. Dr. Brando Gray Coronavirus Screening was completed on your patient. Coronavirus results must be documented on patients that receive testing in the medical record Patient history/risk factors: Systolic CHF, Nonischemic cardiomyopathy, HTN Clinical Indicators: CXR: not done 09/06 Coronavirus (PCR) Negative Vital Signs: Temp 98, hr 81, rr 18, b/p 120/86, spo2 94% Treatment: 0.9%NS @75 cc/hr In order to capture the severity of condition, please clarify if the above treatment/clinical indicators signify: COVID-19 ruled out Other, please specify Unable to determine (Last Form Revision: July 2019) MTDD
--- NOTE | 2019-09-09 15:58 | CDI ---
Documentation Clarification Form 2nd request Date: 09/09/2019 11:08:42 AM From: Ninfa Frankel RN, CCDS Admit Date: 09/07/2019 01:16:00 PM Patient Name: Cody Savage Visit Number: [id number] Discharge Date: 09/08/2019 03:11:00 PM ATTENTION: The Clinical Documentation Specialists (CDI) and [facility] Coding Staff appreciate your assistance in clarifying documentation. Please respond to the clarification below the line at the bottom and electronically sign. The CDI & [facility] Coding staff will review the response and follow-up if needed. Please note: Queries are made part of the Legal Health Record. If you have any questions, please contact the author of this message via ITS. Dr. Brando Gray Coronavirus Screening was completed on your patient. Coronavirus results must be documented on patients that receive testing in the medical record Patient history/risk factors: Systolic CHF, Nonischemic cardiomyopathy, HTN Clinical Indicators: CXR: not done 09/06 Coronavirus (PCR) Negative Vital Signs: Temp 98, hr 81, rr 18, b/p 120/86, spo2 94% Treatment: 0.9%NS @75 cc/hr In order to capture the severity of condition, please clarify if the above treatment/clinical indicators signify: COVID-19 ruled out Other, please specify Unable to determine (Last Form Revision: July 2019) MTDD
--- NOTE | 2019-09-09 19:24 | DS ---
DISCHARGE SUMMARY ADDENDUM: COVID-19 ruled out. MMODL / IJN: [id number] /
== END 2019-09-08 15:11 | disposition home or self-care (01) | DRG 378 ==
LOC: 4SSUR 13:16
PROVIDERS: ADMIT Family Medicine; ATTEND Family Medicine
DX: K57.91 Diverticulosis of intestine, part unspecified, without perforation or abscess with bleeding (principal); I13.0 Hypertensive heart and chronic kidney disease with heart failure and stage 1 through stage 4 chronic kidney disease, or unspecified chronic kidney disease; I42.8 Other cardiomyopathies; I50.22 Chronic systolic (congestive) heart failure; D63.1 Anemia in chronic kidney disease; E78.5 Hyperlipidemia, unspecified; F32.9 Major depressive disorder, single episode, unspecified; F43.10 Post-traumatic stress disorder, unspecified; G25.81 Restless legs syndrome; I25.10 Atherosclerotic heart disease of native coronary artery without angina pectoris; I25.2 Old myocardial infarction; K21.9 Gastro-esophageal reflux disease without esophagitis; K64.9 Unspecified hemorrhoids; N18.3 Chronic kidney disease, stage 3 (moderate); Z79.01 Long term (current) use of anticoagulants; Z79.899 Other long term (current) drug therapy; Z80.8 Family history of malignant neoplasm of other organs or systems; Z82.49 Family history of ischemic heart disease and other diseases of the circulatory system; Z11.59 Encounter for screening for other viral diseases; Z86.73 Personal history of transient ischemic attack (TIA), and cerebral infarction without residual deficits; Z95.1 Presence of aortocoronary bypass graft; Z95.2 Presence of prosthetic heart valve; Z95.810 Presence of automatic (implantable) cardiac defibrillator; Z87.19 Personal history of other diseases of the digestive system; K59.00 Constipation, unspecified; Z86.010 Personal history of colon polyps
CPT/HCPCS: 80048; 80053; 83735; 85025; 85610; 87635

== ENCOUNTER 2019-09-09 21:27 | Observation (INO) | payer MEDICARE ==
--- NOTE | 2019-09-09 21:55 | ED ---
General Adult HPI - General Source: patient, RN notes reviewed, old records reviewed Mode of arrival: ambulatory Limitations: no limitations <Emmanuel Nolasco - Last Filed: 09/09/19 23:06> <Yaakov Nava - Last Filed: 09/09/19 23:57> - General Chief complaint: Recheck/Abnormal Lab/Rx Stated complaint: Shortness of Breath Time Seen by Provider: 09/09/19 21:40 - History of Present Illness Initial comments: This is a 68-year-old male who presents to the emergency department complaining that his belly is getting a little bit short of breath. Patient states his been ongoing for 3-4 days. Patient states he has had heart failure in the past. Patient states she's had bypass surgery in states he also has some kidney failure. Patient states she was here couple days ago because hemorrhoids. Patient denies any chest pain or palpitations per patient denies any abdominal pain. Patient denies any fever chills or cough. (Emmanuel Nolasco) - Related Data Home Medications Medication Instructions Recorded Confirmed Pravastatin Sodium [Pravachol] 80 mg PO DAILY 03/09/18 09/09/19 Sertraline [Zoloft] 100 mg PO DAILY 05/19/18 09/09/19 lamoTRIgine [LaMICtal] 100 mg PO HS 05/19/18 09/09/19 Pramipexole [Mirapex] 0.5 mg PO HS 05/25/19 09/09/19 Sacubitril/Valsartan [Entresto 24 1 tab PO BID 09/07/19 09/09/19 mg-26 mg Tablet] Previous Rx's Medication Instructions Recorded Carvedilol [Coreg] 3.125 mg PO BID-W/MEALS tab 03/26/18 Furosemide [Lasix] 60 mg PO DAILY@0800 #90 tab 05/26/19 Pantoprazole Sodium [Protonix] 40 mg PO DAILY #30 tablet. 09/08/19 Allergies Allergy/AdvReac Type Severity Reaction Status Date / Time nitroglycerin AdvReac made me Verified 09/09/19 21:39 feel funny, diarrhea Review of Systems ROS Other: All systems not noted in ROS Statement are negative. <Emmanuel Nolasco - Last Filed: 09/09/19 23:06> ROS Other: All systems not noted in ROS Statement are negative. <Yaakov Nava - Last Filed: 09/09/19 23:57> ROS Statement: Those systems with pertinent positive or pertinent negative responses have been documented in the HPI. 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 Last Myocardial Infarction Date:: 1999 History of Any Multi-Drug Resistant Organisms: None Reported Past Surgical History: AICD, Cardiac Valve Replacement, Cholecystectomy, Coronary Bypass/CABG, Heart Catheterization, Tonsillectomy Additional Past Surgical History / Comment(s): 1999 CABG 3 vessels then redo bypass/mechanical mitral valve replacement, 2015 AICD, several thoracentesis, colonoscopies/benign polypectomy Past Anesthesia/Blood Transfusion Reactions: No Reported Reaction Additional Past Anesthesia/Blood Transfusion Reaction / Comment(s): Pt has rece ived blood in past without reaction. Type of Cardiac Device: AICD Device Placement Date:: 03-31-16- Agent Panda Model:[id number] Past Psychological History: Anxiety, Depression, PTSD Smoking Status: Never smoker Past Alcohol Use History: None Reported Past Drug Use History: None Reported - Past Family History Brother(s) Family Medical History: Coronary Artery Disease (CAD), Hyperlipidemia, Hypertension Mother Family Medical History: Dementia, Hypertension Additional Family Medical History / Comment(s): Mother at the age of 92yrs. Father Family Medical History: Cancer Additional Family Medical History / Comment(s): from melanoma cancer <Emmanuel Nolasco - Last Filed: 09/09/19 23:06> General Exam Limitations: no limitations <Emmanuel Nolasco - Last Filed: 09/09/19 23:06> - General Exam Comments Initial Comments: GENERAL: Patient is well-developed and well-nourished. Patient is nontoxic and well- hydrated and is in no acute distress. ENT: Neck is soft and supple. No significant lymphadenopathy is noted. Oropharynx is clear. Moist mucous membranes. Neck has full range of motion without eliciting any pain. EYES: The sclera were anicteric and conjunctiva were pink and moist. Extraocular movements were intact and pupils were equal round and reactive to light. Eyelids were unremarkable. PULMONARY: Unlabored respirations. Good breath sounds bilaterally. No audible rales rhonchi or wheezing was noted. Slight diminished breath sounds left base CARDIOVASCULAR: There is a regular rate and rhythm without any murmurs gallops or rubs. ABDOMEN: Soft and nontender with normal bowel sounds. No palpable organomegaly was noted. There is no palpable pulsatile mass. SKIN: Skin is clear with no lesions or rashes and otherwise unremarkable. NEUROLOGIC: Patient is alert and oriented x3. Cranial nerves II through XII are grossly intact. Motor and sensory are also intact. Normal speech, volume and content. Symmetrical smile. MUSCULOSKELETAL: Normal extremities with adequate strength and full range of motion. No lower extremity swelling or edema. No calf tenderness. LYMPHATICS: No significant lymphadenopathy is noted PSYCHIATRIC: Normal psychiatric evaluation. (Emmanuel Nolasco) Course Vital Signs 09/09/19 09/09/19 09/09/19 21:36 22:20 22:40 Temperature 97.4 F L Pulse Rate 102 H 85 Respiratory 18 17 Rate Blood Pressure 127/83 120/89 O2 Sat by Pulse 96 97 98 Oximetry Medical Decision Making - Lab Data Result diagrams: 09/09/19 21:56 09/09/19 21:56 <Emmanuel Nolasco - Last Filed: 09/09/19 23:06> - Lab Data Result diagrams: 09/09/19 21:56 09/09/19 21:56 <Yaakov Nava - Last Filed: 09/09/19 23:57> - Medical Decision Making EKG shows normal sinus rhythm at 82 bpm MI interval 264 QRS is 126 QT interval 408 QTC is 476. Patient's EKG shows no ST segment elevation or depression. Chest x-ray showed small pleural effusion on the left otherwise normal. Dr. Nathaly keller taking over the care of this patient at 11 PM (Emmanuel Nolasco) - Lab Data Lab Results 09/09/19 09/09/19 09/09/19 Range/Units 21:56 21:56 21:56 WBC 6.8 (3.8-10.6) k/uL RBC 4.14 L (4.30-5.90) m/uL Hgb 13.3 (13.0-17.5) gm/dL Hct 41.1 (39.0-53.0) % MCV 99.2 (80.0-100.0) fL MCH 32.1 (25.0-35.0) pg MCHC 32.4 (31.0-37.0) g/dL RDW 16.5 H (11.5-15.5) % Plt Count 245 (150-450) k/uL Neutrophils % 73 % Lymphocytes % 9 % Monocytes % 10 % Eosinophils % 4 % Basophils % 1 % Neutrophils # 4.9 (1.3-7.7) k/uL Lymphocytes # 0.6 L (1.0-4.8) k/uL Monocytes # 0.7 (0-1.0) k/uL Eosinophils # 0.3 (0-0.7) k/uL Basophils # 0.1 (0-0.2) k/uL Hypochromasia Slight Anisocytosis Slight Macrocytosis Slight PT 16.7 H (9.0-12.0) sec INR 1.7 H (<1.2) APTT 26.2 (22.0-30.0) sec Sodium 137 (137-145) mmol/L Potassium 4.4 (3.5-5.1) mmol/L Chloride 104 (98-107) mmol/L Carbon Dioxide 21 L (22-30) mmol/L Anion Gap 12 mmol/L BUN 53 H (9-20) mg/dL Creatinine 2.71 H (0.66-1.25) mg/dL Est GFR (CKD-EPI)AfAm 27 (>60 ml/min/1.73 sqM) Est GFR (CKD-EPI)NonAf 23 (>60 ml/min/1.73 sqM) Glucose 114 H (74-99) mg/dL Plasma Lactic Acid Vu (0.7-2.0) mmol/L Calcium 8.7 (8.4-10.2) mg/dL Magnesium 2.2 (1.6-2.3) mg/dL Total Bilirubin 1.1 (0.2-1.3) mg/dL AST 101 H (17-59) U/L ALT 75 H (4-49) U/L Alkaline Phosphatase 110 (38-126) U/L Troponin I (0.000-0.034) ng/mL NT-Pro-B Natriuret Pep pg/mL Total Protein 7.2 (6.3-8.2) g/dL Albumin 4.2 (3.5-5.0) g/dL Coronavirus (PCR) (Not Detectd) 09/09/19 09/09/19 09/09/19 Range/Units 21:56 21:56 21:56 WBC (3.8-10.6) k/uL RBC (4.30-5.90) m/uL Hgb (13.0-17.5) gm/dL Hct (39.0-53.0) % MCV (80.0-100.0) fL MCH (25.0-35.0) pg MCHC (31.0-37.0) g/dL RDW (11.5-15.5) % Plt Count (150-450) k/uL Neutrophils % % Lymphocytes % % Monocytes % % Eosinophils % % Basophils % % Neutrophils # (1.3-7.7) k/uL Lymphocytes # (1.0-4.8) k/uL Monocytes # (0-1.0) k/uL Eosinophils # (0-0.7) k/uL Basophils # (0-0.2) k/uL Hypochromasia Anisocytosis Macrocytosis PT (9.0-12.0) sec INR (<1.2) APTT (22.0-30.0) sec Sodium (137-145) mmol/L Potassium (3.5-5.1) mmol/L Chloride (98-107) mmol/L Carbon Dioxide (22-30) mmol/L Anion Gap mmol/L BUN (9-20) mg/dL Creatinine (0.66-1.25) mg/dL Est GFR (CKD-EPI)AfAm (>60 ml/min/1.73 sqM) Est GFR (CKD-EPI)NonAf (>60 ml/min/1.73 sqM) Glucose (74-99) mg/dL Plasma Lactic Acid Vu 1.1 (0.7-2.0) mmol/L Calcium (8.4-10.2) mg/dL Magnesium (1.6-2.3) mg/dL Total Bilirubin (0.2-1.3) mg/dL AST (17-59) U/L ALT (4-49) U/L Alkaline Phosphatase (38-126) U/L Troponin I 0.087 H* (0.000-0.034) ng/mL NT-Pro-B Natriuret Pep 4480 pg/mL Total Protein (6.3-8.2) g/dL Albumin (3.5-5.0) g/dL Coronavirus (PCR) (Not Detectd) 09/09/19 Range/Units 23:05 WBC (3.8-10.6) k/uL RBC (4.30-5.90) m/uL Hgb (13.0-17.5) gm/dL Hct (39.0-53.0) % MCV (80.0-100.0) fL MCH (25.0-35.0) pg MCHC (31.0-37.0) g/dL RDW (11.5-15.5) % Plt Count (150-450) k/uL Neutrophils % % Lymphocytes % % Monocytes % % Eosinophils % % Basophils % % Neutrophils # (1.3-7.7) k/uL Lymphocytes # (1.0-4.8) k/uL Monocytes # (0-1.0) k/uL Eosinophils # (0-0.7) k/uL Basophils # (0-0.2) k/uL Hypochromasia Anisocytosis Macrocytosis PT (9.0-12.0) sec INR (<1.2) APTT (22.0-30.0) sec Sodium (137-145) mmol/L Potassium (3.5-5.1) mmol/L Chloride (98-107) mmol/L Carbon Dioxide (22-30) mmol/L Anion Gap mmol/L BUN (9-20) mg/dL Creatinine (0.66-1.25) mg/dL Est GFR (CKD-EPI)AfAm (>60 ml/min/1.73 sqM) Est GFR (CKD-EPI)NonAf (>60 ml/min/1.73 sqM) Glucose (74-99) mg/dL Plasma Lactic Acid Vu (0.7-2.0) mmol/L Calcium (8.4-10.2) mg/dL Magnesium (1.6-2.3) mg/dL Total Bilirubin (0.2-1.3) mg/dL AST (17-59) U/L ALT (4-49) U/L Alkaline Phosphatase (38-126) U/L Troponin I (0.000-0.034) ng/mL NT-Pro-B Natriuret Pep pg/mL Total Protein (6.3-8.2) g/dL Albumin (3.5-5.0) g/dL Coronavirus (PCR) Not Detected (Not Detectd) Disposition <Emmanuel Nolasco - Last Filed: 09/09/19 23:06> Is patient prescribed a controlled substance at d/c from ED?: No <Yaakov Nava - Last Filed: 09/09/19 23:57> Clinical Impression: Dyspnea, CHF exacerbation Disposition: ADMITTED IP TO THIS HOSP Condition: Fair Referrals: Brando Gray MD [Primary Care Provider] - 1-2 days
[2019-09-09 22:08] LABS: Anisocytosis Slight; Basophils # (A) 0.1 k/uL (0-0.2); Basophils % (A) 1 %; Eosinophils # (A) 0.3 k/uL (0-0.7); Eosinophils % (A) 4 %; HCT 41.1 % (39.0-53.0); HGB 13.3 gm/dL (13.0-17.5); Hypochromasia Slight; Lymphocytes # (A) 0.6 k/uL (1.0-4.8); Lymphocytes % (A) 9 %; MCH 32.1 pg (25.0-35.0); MCHC 32.4 g/dL (31.0-37.0); MCV 99.2 fL (80.0-100.0); Macrocytosis Slight; Monocytes # (A) 0.7 k/uL (0-1.0); Monocytes % (A) 10 %; Neutrophils # (A) 4.9 k/uL (1.3-7.7); Neutrophils % (A) 73 %; Platelet Count 245 k/uL (150-450); RBC 4.14 m/uL (4.30-5.90); RDW 16.5 % (11.5-15.5); WBC 6.8 k/uL (3.8-10.6)
[2019-09-09 22:17] LABS: INR 1.7 (<1.2); Partial Thromboplastin Time 26.2 sec (22.0-30.0); Prothrombin Time 16.7 sec (9.0-12.0)
[2019-09-09 22:20] LABS: Albumin 4.2 g/dL (3.5-5.0); Calcium 8.7 mg/dL (8.4-10.2); Magnesium 2.2 mg/dL (1.6-2.3); Potassium 4.4 mmol/L (3.5-5.1); Total Bilirubin 1.1 mg/dL (0.2-1.3); Total Protein 7.2 g/dL (6.3-8.2)
--- NOTE | 2019-09-09 22:43 | XR ---
EXAMINATION TYPE: XR chest 2V DATE OF EXAM: 09/09/2019 COMPARISON: 05/25/2019 HISTORY: Difficulty breathing TECHNIQUE: FINDINGS: Heart is enlarged. There is no heart failure. There is slight blunting of the left costophr enic angle. There is a left axillary pacemaker. There is cardiac valve surgery. There are sternal wir es. Lungs are clear of consolidation. IMPRESSION: Moderate cardiomegaly unchanged. Small left pleural effusion unchanged. No obvious heart failure.
[2019-09-10] MEDS: SODIUM CHLORIDE 0.9% 1,000 ML IV SCH ×2 (00:16→22:16)
[2019-09-10] MEDS: FUROSEMIDE 10 MG/ML 4 ML VIAL IV SCH ×2 (00:17→18:34)
[2019-09-10] MEDS: CARVEDILOL 3.125 MG TAB PO SCH ×2 (06:20→16:54)
[2019-09-10] MEDS: SERTRALINE 100 MG TAB PO SCH (09:21)
[2019-09-10] MEDS: PRAVASTATIN SODIUM 80 MG TAB PO SCH (09:21)
[2019-09-10] MEDS: SACUBITRIL/VALSARTAN 24 MG-26 MG TABLET PO SCH ×2 (09:21→20:48)
[2019-09-10] MEDS: PANTOPRAZOLE 40 MG TABLET PO SCH (09:21)
--- NOTE | 2019-09-10 10:23 | HP ---
HISTORY AND PHYSICAL 68-year-old white male came to emergency room due to increasing shortness of breath and increasing swelling over the face and his belly that has been going on for the last 3-4 days, worsening heart failure. He has had history of bypass surgery and renal failure stage 3 to 4. He was recently admitted for GI bleed, which possibly due to diverticular bleed or hemorrhoids, which is going to be worked up as an outpatient. No fever, chills. No Covid symptoms. MEDICATIONS: He takes Entresto 1 b.i.d. for systolic CHF, Mirapex 0.5 q.h.s., Lamictal 100 q.h.s. for mood disorder, Zoloft 100 mg daily for mood disorder, Pravachol 80 mg daily. ALLERGIES: NITROGLYCERIN. REVIEW OF SYSTEMS: Fourteen-point review of systems negative except for mentioned in HPI. PAST MEDICAL HISTORY: Coronary artery disease, heart failure, CVA, TIA, GERD, hypertension, memory impairment, myocardial infarction, renal disease, chronic kidney disease stage III, colitis, gallbladder disease, sepsis, lower GI bleed, chronic cervical and back pain, cardiomyopathy, systolic in nature, AICD, cardiac valve replacement, cholecystectomy, CABG surgery, heart catheterization, tonsillectomy. PSYCH HISTORY: Anxiety, depression, PTSD. SOCIAL HISTORY: Never smoker. No alcohol. No drugs. FAMILY HISTORY: Brother with hypertension, dyslipidemia, coronary artery disease. Mother, dementia, hypertension. Father cancer and melanoma PHYSICAL EXAM: Well developed, well nourished, white male, appears to be swollen. HEENT negative. Pupils equal, round, reactive. No adenopathy in the neck. LUNGS are breath at the bases. HEART: Regular rate and rhythm. ABDOMEN: Distended due to obesity. SKIN no rash, excoriations, bruises. Generalized edema. NEUROLOGIC: Cranial nerves are intact. MUSCULOSKELETAL: Full range of motion. PSYCH normal evaluation. PHYSICAL EXAMINATION: Temp 97.4, pulse 85-102, respiratory 16-18, blood pressure is 120s over 80s, O2 96 to 98% on room air. LABORATORY DATA: White count 6.8, hemoglobin 13.3, platelets 245, BUN 53, creatinine 2.71. EKG shows sinus rhythm. Chest x-ray shows small pleural effusion. White count 6.8, hemoglobin 13.3, INR 1.7, sodium 137, potassium 4.4, BUN is 53, creatinine 2.71, glucose 117, troponins high 0.087. BNP is 4480. Coronavirus is negative. ASSESSMENT: 1. Acute systolic congestive heart failure exacerbation. 2. Acute hypoxemic respiratory failure. 3. History of mood disorder and depression and bipolar. 4. Elevated troponins of unclear etiology. Cardiology to reassess. Keep him on IV Lasix and home medications. Await for Cardiology recommendations. MMODL / IJN: [id number] /
--- NOTE | 2019-09-10 12:44 | P.CRDCN ---
History of Present Illness Consult date: 09/10/19 Requesting physician: Brando Gray Chief complaint: Shortness of breath History of present illness: This is a 68-year-old gentleman who follows regularly with Dr. Calvillo in the office. Patient has a known history of coronary artery disease with prior bypass surgery 3, ischemic cardio myopathy with prior AICD, status post mitral valve replacement, hypertension, hyperlipidemia, chronic kidney disease, his most recent hospitalization was in May of this year at which time patient was admitted to the hospital with a GI bleed, his Coumadin that he was taking at that time was put on hold because of the bleeding. Patient was actually scheduled to undergo colonoscopy on Thursday. He presented to the hosp ital with symptoms of a 3 day duration of progressively worsening shortness of breath. Patient states he also noticed a significant amount of swelling as compared to his usual. Chest x-ray on presentation showed moderate cardiomegaly with small left-sided pleural effusion unchanged from prior, no evidence of congestive cardiac failure. His EKG on admission showed normal sinus rhythm with lateral T-wave inversion. Blood pressure 114/80 with a heart rate in the 80s, respirations 16. White blood cell count 7.1, hemoglobin 13.1, platelet count 246. Admission INR was 1.9, 1.7 this morning. Sodium 137, potassium 4.4, BUN 53 and creatinine 2.7 this morning. Magnesium 2.2, troponin 0.087, 0.082. BNP level 4480, krishna virus not detected. On review of the patient's prior admissions to the hospital, his troponin is always in an abnormal range similar to this, his last BNP level with a CHF exacerbation was in the range of 16,000. No clear-cut evidence on this admission of congestive heart failure, troponin abnormality does not indicate an acute coronary syndrome with no significant r ise and fall pattern. 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 Last Myocardial Infarction Date:: 1999 History of Any Multi-Drug Resistant Organisms: None Reported Past Surgical History: AICD, Cardiac Valve Replacement, Cholecystectomy, Coronary Bypass/CABG, Heart Catheterization, Tonsillectomy Additional Past Surgical History / Comment(s): 1999 CABG 3 vessels then redo bypass/mechanical mitral valve replacement, 2016 AICD, several thoracentesis, colonoscopies/benign polypectomy Past Anesthesia/Blood Transfusion Reactions: No Reported Reaction Additional Past Anesthesia/Blood Transfusion Reaction / Comment(s): Pt has received blood in past without reaction. Type of Cardiac Device: AICD Device Placement Date:: 03-31-16- [employer] Model:0150 [id number] Past Psychological History: Anxiety, Depression, PTSD Additional Psychological History / Comment(s): Pt resides with his spouse. He uses no assistive device. He drives. Smoking Status: Never smoker Past Alcohol Use History: None Reported Additional Past Alcohol Use History / Comment(s): . Past Drug Use History: None Reported - Past Family History Brother(s) Family Medical History: Coronary Artery Disease (CAD), Hyperlipidemia, Hypertension Mother Family Medical History: Dementia, Hypertension Additional Family Medical History / Comment(s): Mother at the age of 92yrs. Father Family Medical History: Cancer Additional Family Medical History / Comment(s): from melanoma cancer Medications and Allergies Home Medications Medication Instructions Recorded Confirmed Type Pravastatin Sodium [Pravachol] 80 mg PO DAILY 03/09/18 09/10/19 History Carvedilol [Coreg] 3.125 mg PO BID-W/MEALS tab 03/26/18 09/10/19 Rx Sertraline [Zoloft] 100 mg PO DAILY 05/19/18 09/10/19 History lamoTRIgine [LaMICtal] 100 mg PO HS 05/19/18 09/10/19 History Pramipexole [Mirapex] 0.5 mg PO HS 05/25/19 09/10/19 History Furosemide [Lasix] 60 mg PO DAILY@0800 #90 tab 05/26/19 09/10/19 Rx Sacubitril/Valsartan [Entresto 24 1 tab PO BID 09/07/19 09/10/19 History mg-26 mg Tablet] Pantoprazole Sodium [Protonix] 40 mg PO DAILY #30 tablet. 09/08/19 09/10/19 Rx Allergies Allergy/AdvReac Type Severity Reaction Status Date / Time nitroglycerin AdvReac made me Verified 09/10/19 08:25 feel funny, diarrhea Physical Exam Vitals: Vital Signs Temp Pulse Pulse Resp BP BP Pulse Ox 09/10/19 12:00 97.4 F L 80 16 132/86 96 09/10/19 08:00 97.5 F L 83 16 125/75 95 09/10/19 05:28 89 16 113/81 98 09/10/19 04:00 80 16 136/84 97 09/10/19 00:41 89 18 133/90 99 09/10/19 00:22 97.4 F L 09/10/19 00:20 86 18 129/96 09/10/19 00:00 90 21 132/99 97 09/09/19 23:40 86 19 132/99 98 09/09/19 23:20 87 20 97/71 96 09/09/19 23:00 86 18 120/89 98 09/09/19 22:40 85 17 120/89 98 09/09/19 22:20 97 09/09/19 21:36 97.4 F L 102 H 18 127/83 96 Intake and Output 09/09/19 09/10/19 09/10/19 22:59 06:59 14:59 Output Total 700 900 Balance -700 -900 Output: Urine 700 900 Other: Weight 77.111 kg 74.9 kg GENERAL: 68-year-old gentleman in no acute distress at the time of my examination HEENT: Head is atraumatic, normocephalic. Pupils equal, round. Sclera a nicteric. Conjunctiva are clear. Mucous membranes of the mouth are moist. Neck is supple. There is no elevated jugular venous pressure. No carotid bruit is heard. HEART EXAMINATION: Heart S1 and S2 distant, difficult to hear metallic mitral valve , systolic murmur heard CHEST EXAMINATION: Lungs reveal scattered fine wheezing throughout with some diminished air entry to the bases ABDOMEN: Soft, mildly distended . Bowel sounds are heard. No organomegaly noted. EXTREMITIES: 2+ peripheral pulses with trace evidence of peripheral edema and no calf tenderness noted. NEUROLOGIC patient is awake, alert and oriented 3 . Results 09/09/19 21:56 09/09/19 21:56 Cardiac Enzymes 0509/09/19 09/10/19 Range/Units 21:56 21:56 05:18 AST 101 H (17-59) U/L Troponin I 0.087 H* 0.082 H* (0.000-0.034) ng/mL Coagulation 09/09/19 Range/Units 21:56 PT 16.7 H (9.0-12.0) sec APTT 26.2 (22.0-30.0) sec CBC 09/09/19 Range/Units 21:56 WBC 6.8 (3.8-10.6) k/uL RBC 4.14 L (4.30-5.90) m/uL Hgb 13.3 (13.0-17.5) gm/dL Hct 41.1 (39.0-53.0) % Plt Count 245 (150-450) k/uL Comprehensive Metabolic Panel 09/09/19 Range/Units 21:56 Sodium 137 (137-145) mmol/L Potassium 4.4 (3.5-5.1) mmol/L Chloride 104 (98-107) mmol/L Carbon Dioxide 21 L (22-30) mmol/L BUN 53 H (9-20) mg/dL Creatinine 2.71 H (0.66-1.25) mg/dL Glucose 114 H (74-99) mg/dL Calcium 8.7 (8.4-10.2) mg/dL AST 101 H (17-59) U/L ALT 75 H (4-49) U/L Alkaline Phosphatase 110 (38-126) U/L Total Protein 7.2 (6.3-8.2) g/dL Albumin 4.2 (3.5-5.0) g/dL Current Medications Generic Name Dose Route Start Last Admin Trade Name Freq PRN Reason Stop Dose Admin Carvedilol 3.125 mg 09/10/19 07:30 09/10/19 06:20 Coreg PO 3.125 mg BID-W/MEALS DAMARIS Administration Furosemide 40 mg 09/09/19 23:45 09/10/19 00:17 Lasix IV 40 mg Q12H DAMARIS Administration Sodium Chloride 1,000 mls @ 20 mls/hr 09/09/19 23:45 09/10/19 00:16 Saline 0.9% IV 20 mls/hr .Q24H DAMARIS Administration Lamotrigine 100 mg 09/10/19 21:00 Lamictal PO HS DAMARIS Pantoprazole Sodium 40 mg 09/10/19 09:00 09/10/19 09:21 Protonix PO 40 mg DAILY DAMARIS Administration Pramipexole Dihydrochloride 0.5 mg 09/10/19 21:00 Mirapex PO HS DAMARIS Pravastatin Sodium 80 mg 09/10/19 09:00 09/10/19 09:21 Pravachol PO 80 mg DAILY DAMARIS Administration Sacubitril/Valsartan 1 each 09/10/19 09:00 09/10/19 09:21 Entresto 24 Mg-26 Mg Tablet PO 1 each BID DAMARIS Administration Sertraline HCl 100 mg 09/10/19 09:00 09/10/19 09:21 Zoloft PO 100 mg DAILY DAMARIS Administration Intake and Output 09/09/19 09/10/19 09/10/19 22:59 06:59 14:59 Output Total 700 900 Balance -700 -900 Output: Urine 700 900 Other: Weight 77.111 kg 74.9 kg 09/09/19 21:56 09/09/19 21:56 EKG Interpretations (text) EKG on presentation here showed normal sinus rhythm with lateral T-wave inversion. Assessment and Plan Plan: Assessment and plan #1 progressively worsening shortness of breath over a 3-4 day duration, clinical picture not suggestive of congestive cardiac failure. #2 chronic systolic congestive heart failure #3 coronary artery disease with prior bypass surgery 3 #4 history of mitral valve replacement, was on Coumadin for anticoagulation, this was placed on hold on his last admission because of GI bleed, he was scheduled to undergo colonoscopy on Thursday #5 hypertension #6 hyperlipidemia #7.Ischemic Cardiomyopathy with prior AICD #8 acute on chronic renal failure #9 abnormality in troponin with no significant rise and fall pattern, not consistent with acute coronary syndrome Plan We'll obtain an echocardiogram with Doppler study. We will also request a d- dimer be performed to rule out the possibility of pulmonary embolism. We will consult GI service as the patient was scheduled to undergo a colonoscopy on Thursday. Further recommendations will be based on these findings and the patie nt's overall clinical course. DNP note has been reviewed, I agree with a documented findings and plan of care. Patient was seen and examined.
--- NOTE | 2019-09-10 13:34 | NM ---
EXAMINATION TYPE: NM pul vent and perfuse DATE OF EXAM: 09/10/2019 COMPARISON: NONE HISTORY: Cough and difficulty breathing. TECHNIQUE: Utilizing inhalation of 35 mCi Tc 99m DTPA aerosol and intravenous injection of 5.3 mCi o f Tc 99m MAA, ventilation and perfusion images are acquired post injection in multiple projections. FINDINGS: Normal radiotracer distribution is noted in the lungs. There is no evidence of mismatched defects. IMPRESSION: THIS EXAMINATION IS LOW PROBABILITY FOR PULMONARY EMBOLUS.
[2019-09-10] MEDS: FUROSEMIDE 40 MG TAB PO SCH (16:05)
[2019-09-10] MEDS ORDERED: lamoTRIgine 100 MG TAB PO SCH (21:00)
[2019-09-10] MEDS ORDERED: PRAMIPEXOLE 0.5 MG TAB PO SCH (21:00)
[2019-09-11 04:26] VITALS: RESP 18
[2019-09-11 06:09] LABS: Anisocytosis Slight; Basophils # (A) 0.1 k/uL (0-0.2); Basophils % (A) 1 %; Eosinophils # (A) 0.4 k/uL (0-0.7); Eosinophils % (A) 6 %; HCT 37.5 % (39.0-53.0); HGB 11.4 gm/dL (13.0-17.5); Hypochromasia Marked; Lymphocytes # (A) 0.5 k/uL (1.0-4.8); Lymphocytes % (A) 8 %; MCH 30.7 pg (25.0-35.0); MCHC 30.3 g/dL (31.0-37.0); MCV 101.3 fL (80.0-100.0); Macrocytosis Slight; Monocytes # (A) 0.4 k/uL (0-1.0); Monocytes % (A) 7 %; Neutrophils # (A) 4.6 k/uL (1.3-7.7); Neutrophils % (A) 74 %; Platelet Count 224 k/uL (150-450); RDW 16.6 % (11.5-15.5); WBC 6.2 k/uL (3.8-10.6)
[2019-09-11 06:15] LABS: Albumin 3.5 g/dL (3.5-5.0); Calcium 8.3 mg/dL (8.4-10.2); Total Bilirubin 0.8 mg/dL (0.2-1.3); Total Protein 6.3 g/dL (6.3-8.2)
[2019-09-11] MEDS: CARVEDILOL 3.125 MG TAB PO SCH (06:16)
--- NOTE | 2019-09-11 08:00 | ECHOF ---
Referral Reason:sob MEASUREMENTS -------- HEIGHT: 160.0 cm WEIGHT: 74.8 kg BP: 125/75 RVIDd: 3.8 cm (< 3.3) IVSd: 1.2 cm (0.6 - 1.1) LVIDd: 6.0 cm (3.9 - 5.3) LVPWd: 1.2 cm (0.6 - 1.1) IVSs: 1.4 cm LVIDs: 5.4 cm LVPWs: 1.0 cm LAESV Index (A-L): 44.57 ml/m Ao Diam: 2.8 cm (2.0 - 3.7) AV Cusp: 1.5 cm (1.5 - 2.6) RAP: 20.00 mmHg RVSP: 66.53 mmHg FINDINGS -------- Sinus rhythm. This was a technically adequate study. The left ventricle is mildly dilated. There is mild concentric left ventricular hypertrophy. Ther e is severe global hypokinesis of LV . Overall left ventricular systolic function is severely impai red with, an EF between 20 - 25 %. Mitral Doppler inflow pattern suggests diastolic filling abnorma lity {E/E'}. The right ventricle is mild to moderately enlarged. LA is severely dilated >40 ml/m2 The right atrium was not well visualized. Electronic pacemaker lead seen in the right atrial cavity . Interatrial and interventricular septum intact. There is no evidence of aortic regurgitation. There is no evidence of aortic stenosis. Normal Mechanical prosthetic valve. Severe tricuspid regurgitation present. There is severe pulmonary hypertension. The right ventric ular systolic pressure, as measured by Doppler, is 66.53mmHg. There is no pulmonic regurgitation present. The aortic root size is normal. The inferior vena cava is mildly dilated. There is no pericardial effusion. CONCLUSIONS -------- 1. Sinus rhythm. 2. This was a technically adequate study. 3. The left ventricle is mildly dilated. 4. There is mild concentric left ventricular hypertrophy. 5. There is severe global hypokinesis of LV . 6. Overall left ventricular systolic function is severely impaired with, an EF between 20 - 25 %. 7. Mitral Doppler inflow pattern suggest diastolic filling abnormality {E/E'}. 8. The right ventricle is mild to moderately enlarged. 9. LA is severely dilated >40 ml/m2 10. The right atrium was not well visualized. 11. Electronic pacemaker lead seen in the right atrial cavity. 12. Interatrial and interventricular septum intact. 13. There is no evidence of aortic regurgitation. 14. There is no evidence of aortic stenosis. 15. Normal Mechanical prosthetic valve. 16. Severe tricuspid regurgitation present. 17. There is severe pulmonary hypertension. 18. The right ventricular systolic pressure, as measured by Doppler, is 66.53mmHg. 19. There is no pulmonic regurgitation present. 20. The aortic root size is normal. 21. The inferior vena cava is mildly dilated. 22. There is no pericardial effusion. EN[employer]MENT[employer]ER: Sylvia Ramirez RDCS
[2019-09-11] MEDS: FUROSEMIDE 40 MG TAB PO SCH (08:07)
[2019-09-11] MEDS: PANTOPRAZOLE 40 MG TABLET PO SCH (08:07)
[2019-09-11] MEDS: SERTRALINE 100 MG TAB PO SCH (08:07)
[2019-09-11] MEDS: SACUBITRIL/VALSARTAN 24 MG-26 MG TABLET PO SCH (08:08)
[2019-09-11] MEDS: PRAVASTATIN SODIUM 80 MG TAB PO SCH (08:08)
[2019-09-11 08:14] VITALS: BP 125/76; PULSE 85; TEMP 97.5
--- NOTE | 2019-09-11 10:50 | P.GSCN ---
History of Present Illness Consult date: 09/11/19 Reason for Consult: GI bleeding History of present illness: 68-year-old male returns back to the hospital with complaints of swelling and bright red blood per rectum. Patient already scheduled for colonoscopy tomorrow. He is doing better from a swelling standpoint. Apparently his primary care physician has arranged for discharge. He will start his bowel prep later today. Denies pain. Hemoglobin stable. Last bloody stool 3:00 yesterday afternoon. 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 Last Myocardial Infarction Date:: 1999 History of Any Multi-Drug Resistant Organisms: None Reported Past Surgical History: AICD, Cardiac Valve Replacement, Cholecystectomy, Coronary Bypass/CABG, Heart Catheterization, Tonsillectomy Additional Past Surgical History / Comment(s): 1999 CABG 3 vessels then redo bypass/mechanical mitral valve replacement, 2015 AICD, several thoracentesis, colonoscopies/benign polypectomy Past Anesthesia/Blood Transfusion Reactions: No Reported Reaction Additional Past Anesthesia/Blood Transfusion Reaction / Comm: Pt has received blood in past without reaction. Type of Cardiac Device: AICD Device Placement Date:: 03-31-16- [employer] Model:0150 [id number] Past Psychological History: Anxiety, Depression, PTSD Additional Psychological History / Comment(s): Pt resides with his spouse. He uses no assistive device. He drives. Smoking Status: Never smoker Past Alcohol Use History: None Reported Additional Past Alcohol Use History / Comment(s): . Past Drug Use History: None Reported - Past Family History Brother(s) Family Medical History: Coronary Artery Disease (CAD), Hyperlipidemia, Hypertension Mother Family Medical History: Dementia, Hypertension Additional Family Medical History / Comment(s): Mother at the age of 92yrs. Father Family Medical History: Cancer Additional Family Medical History / Comment(s): from melanoma cancer Medications and Allergies Home Medications Medication Instructions Recorded Confirmed Type Pravastatin Sodium [Pravachol] 80 mg PO DAILY 03/09/18 09/10/19 History Carvedilol [Coreg] 3.125 mg PO BID-W/MEALS tab 03/26/18 09/10/19 Rx Sertraline [Zoloft] 100 mg PO DAILY 05/19/18 09/10/19 History lamoTRIgine [LaMICtal] 100 mg PO HS 05/19/18 09/10/19 History Pramipexole [Mirapex] 0.5 mg PO HS 05/25/19 09/10/19 History Sacubitril/Valsartan [Entresto 24 1 tab PO BID 09/07/19 09/10/19 History mg-26 mg Tablet] Pantoprazole Sodium [Protonix] 40 mg PO DAILY #30 tablet. 09/08/19 09/10/19 Rx Furosemide [Lasix] 40 mg PO BID@0900,1600 tab 09/11/19 Rx Allergies Allergy/AdvReac Type Severity Reaction Status Date / Time nitroglycerin AdvReac made me Verified 09/10/19 08:25 feel funny, diarrhea Surgical - Exam Vital Signs Temp Pulse Resp BP Pulse Ox 97.4 F L 102 H 18 127/83 96 09/09/19 21:36 09/09/19 21:36 09/09/19 21:36 09/09/19 21:36 09/09/19 21:36 Physical exam: General: Well-developed, well-nourished HEENT: Normocephalic, sclerae nonicteric Abdomen: Nontender, nondistended Extremities: No edema Neuro: Alert and oriented Results - Labs 09/11/19 05:43 09/11/19 05:43 Abnormal Lab Results - Last 24 Hours (Table) 09/10/19 09/11/19 09/11/19 Range/Units 11:14 05:43 05:43 RBC 3.70 L (4.30-5.90) m/uL Hgb 11.4 L (13.0-17.5) gm/dL Hct 37.5 L (39.0-53.0) % MCV 101.3 H (80.0-100.0) fL MCHC 30.3 L (31.0-37.0) g/dL RDW 16.6 H (11.5-15.5) % Lymphocytes # 0.5 L (1.0-4.8) k/uL Sodium 135 L (137-145) mmol/L BUN 49 H (9-20) mg/dL Creatinine 2.24 H (0.66-1.25) mg/dL Glucose 178 H (74-99) mg/dL Calcium 8.3 L (8.4-10.2) mg/dL AST 77 H (17-59) U/L ALT 80 H (4-49) U/L Troponin I 0.073 H* (0.000-0.034) ng/mL Diabetes panel 09/11/19 Range/Units 05:43 Sodium 135 L (137-145) mmol/L Potassium 4.0 (3.5-5.1) mmol/L Chloride 100 (98-107) mmol/L Carbon Dioxide 26 (22-30) mmol/L BUN 49 H (9-20) mg/dL Creatinine 2.24 H (0.66-1.25) mg/dL Glucose 178 H (74-99) mg/dL Calcium 8.3 L (8.4-10.2) mg/dL AST 77 H (17-59) U/L ALT 80 H (4-49) U/L Alkaline Phosphatase 91 (38-126) U/L Total Protein 6.3 (6.3-8.2) g/dL Albumin 3.5 (3.5-5.0) g/dL Calcium panel 09/11/19 Range/Units 05:43 Calcium 8.3 L (8.4-10.2) mg/dL Albumin 3.5 (3.5-5.0) g/dL Pituitary panel 09/11/19 Range/Units 05:43 Sodium 135 L (137-145) mmol/L Potassium 4.0 (3.5-5.1) mmol/L Chloride 100 (98-107) mmol/L Carbon Dioxide 26 (22-30) mmol/L BUN 49 H (9-20) mg/dL Creatinine 2.24 H (0.66-1.25) mg/dL Glucose 178 H (74-99) mg/dL Calcium 8.3 L (8.4-10.2) mg/dL Adrenal panel 09/11/19 Range/Units 05:43 Sodium 135 L (137-145) mmol/L Potassium 4.0 (3.5-5.1) mmol/L Chloride 100 (98-107) mmol/L Carbon Dioxide 26 (22-30) mmol/L BUN 49 H (9-20) mg/dL Creatinine 2.24 H (0.66-1.25) mg/dL Glucose 178 H (74-99) mg/dL Calcium 8.3 L (8.4-10.2) mg/dL Total Bilirubin 0.8 (0.2-1.3) mg/dL AST 77 H (17-59) U/L ALT 80 H (4-49) U/L Alkaline Phosphatase 91 (38-126) U/L Total Protein 6.3 (6.3-8.2) g/dL Albumin 3.5 (3.5-5.0) g/dL Assessment and Plan (1) Lower gastrointestinal hemorrhage Narrative/Plan: Agree with plans for discharge. Patient to start bowel prep later today. Colonoscopy by Dr. Limon tomorrow. Current Visit: No Status: Acute Code(s): K92.2 - GASTROINTESTINAL HEMORRHAGE, UNSPECIFIED SNOMED Code(s): 98497032
--- NOTE | 2019-09-11 12:34 | P.PN ---
Subjective Progress Note Date: 09/11/19 This is a 68-year-old gentleman who follows regularly with Dr. Calvillo in the office. Patient has a known history of coronary artery disease with prior bypass surgery 3, ischemic cardio myopathy with prior AICD, status post mitral valve replacement, hypertension, hyperlipidemia, chronic kidney disease, his most recent hospitalization was in May of this year at which time patient was admitted to the hospital with a GI bleed, his Coumadin that he was taking at that time was put on hold because of the bleeding. Patient was actually scheduled to undergo colonoscopy on Thursday. He presented to the hospital with symptoms of a 3 day duration of progressively worsening shortness of breath. Patient states he also noticed a significant amount of swelling as compared to his usual. Chest x-ray on presentation showed moderate cardiomegaly with small left-sided pleural effusion unchanged from prior, no evidence of congestive cardiac failure. His EKG on admission showed normal sinus rhythm with lateral T-wave inversion. Blood pressure 114/80 with a heart rate in the 80s, respirations 16. White blood cell count 7.1, hemoglobin 13.1, platelet count 246. Admission INR was 1.9, 1.7 this morning. Sodium 137, potassium 4.4, BUN 53 and creatinine 2.7 this morning. Magnesium 2.2, troponin 0.087, 0.082. BNP level 4480, krishna virus not detected. On review of the patient's prior admissions to the hospital, his troponin is always in an abnormal range similar to this, his last BNP level with a CHF exacerbation was in the range of 16,000. No clear-cut evidence on this admission of congestive heart failure, troponin abnormality does not indicate an acute coronary syndrome with no significant rise and fall pattern. Patient seen and examined today, Blood pressure 124/70 with a heart rate in the 80s, 96% on room air. Continues to feel short of breath today. White blood cell count 6.2, hemoglobin 11.4, platelet count 224. Sodium 135, potassium 4.0, BUN 49 and creatinine 2.2. Echocardiogram with Doppler study was performed which revealed an ejection fraction of 20-25%, LA is severely dilated, normal mechanical prosthetic valve, severe tricuspid regurg severe pulmonary hy pertension. Objective - Vital Signs Vital signs: Vital Signs Temp 97.5 F L 09/11/19 08:00 Pulse 85 09/11/19 08:00 Resp 18 09/11/19 08:00 BP 125/76 09/11/19 08:00 Pulse Ox 96 09/11/19 08:00 Intake & Output 09/10/19 09/11/19 09/11/19 18:59 06:59 18:59 Intake Total 480 250 Output Total 1450 1650 Balance -1450 -1170 250 Weight 75.7 kg Intake: Oral 480 250 Output: Urine 1450 1650 Other: # Voids 1 2 1 - Exam GENERAL: 68-year-old gentleman in no acute distress at the time of my examination HEENT: Head is atraumatic, normocephalic. Pupils equal, round. Sclera anicteric. Conjunctiva are clear. Mucous membranes of the mouth are moist. Neck is supple. There is no elevated jugular venous pressure. No carotid bru it is heard. HEART EXAMINATION: Heart S1 and S2 distant, difficult to hear metallic mitral valve , systolic murmur heard CHEST EXAMINATION: Lungs reveal scattered fine wheezing throughout with some diminished air entry to the bases ABDOMEN: Soft, mildly distended . Bowel sounds are heard. No organomegaly noted. EXTREMITIES: 2+ peripheral pulses with trace evidence of peripheral edema and no calf tenderness noted. NEUROLOGIC patient is awake, alert and oriented 3 . - Labs CBC & Chem 7: 09/11/19 05:43 09/11/19 05:43 Labs: Abnormal Lab Results - Last 24 Hours (Table) 09/10/19 09/11/19 09/11/19 Range/Units 11:14 05:43 05:43 RBC 3.70 L (4.30-5.90) m/uL Hgb 11.4 L (13.0-17.5) gm/dL Hct 37.5 L (39.0-53.0) % MCV 101.3 H (80.0-100.0) fL MCHC 30.3 L (31.0-37.0) g/dL RDW 16.6 H (11.5-15.5) % Lymphocytes # 0.5 L (1.0-4.8) k/uL Sodium 135 L (137-145) mmol/L BUN 49 H (9-20) mg/dL Creatinine 2.24 H (0.66-1.25) mg/dL Glucose 178 H (74-99) mg/dL Calcium 8.3 L (8.4-10.2) mg/dL AST 77 H (17-59) U/L ALT 80 H (4-49) U/L Troponin I 0.073 H* (0.000-0.034) ng/mL Assessment and Plan Plan: Assessment and plan #1 progressively worsening shortness of breath over a 3-4 day duration, clinical picture not suggestive of congestive cardiac failure. #2 chronic systolic congestive heart failure #3 coronary artery disease with prior bypass surgery 3 #4 history of mitral valve replacement, was on Coumadin for anticoagulation, this was placed on hold on his last admission because of GI bleed, he was scheduled to undergo colonoscopy on Thursday #5 hypertension #6 hyperlipidemia #7.Ischemic Cardiomyopathy with prior AICD #8 acute on chronic renal failure #9 abnormality in troponin with no significant rise and fall pattern, not consistent with acute coronary syndrome Plan D-dimer came back at 0.8, lung scan low probability for pulmonary embolism. Echocardiogram with Doppler study was performed which revealed an ejection fraction of 20-25%. Normal mechanical prosthetic valve, severe tricuspid regurg and severe pulmonary hypertension. Continues to be off of anticoagulation, scheduled for colonoscopy on Thursday. DNP note has been reviewed, I agree with a documented findings and plan of care. Patient was seen and examined.
--- NOTE | 2019-09-12 16:31 | P.PN ---
Progress Note - Text Progress Note Date: 09/12/[address] Gray's dictation, tested negative for coronavirus. The impression and plan of care has been dictated as directed. : I performed a history and examination of this patient, discussed the same with the dictator. I agree with the dictator's note ,documented as a scribe. Any additional findings or plans will be noted.
== END 2019-09-11 11:09 | disposition home or self-care (01) ==
LOC: EC 21:27 → 3SCARD 09-10 00:01
PROVIDERS: ADMIT Family Medicine; ATTEND Family Medicine
DX: R06.02 Shortness of breath (principal); E78.5 Hyperlipidemia, unspecified; F43.10 Post-traumatic stress disorder, unspecified; I07.1 Rheumatic tricuspid insufficiency; I13.0 Hypertensive heart and chronic kidney disease with heart failure and stage 1 through stage 4 chronic kidney disease, or unspecified chronic kidney disease; I50.22 Chronic systolic (congestive) heart failure; N18.3 Chronic kidney disease, stage 3 (moderate); I25.10 Atherosclerotic heart disease of native coronary artery without angina pectoris; I25.2 Old myocardial infarction; I25.5 Ischemic cardiomyopathy; I27.20 Pulmonary hypertension, unspecified; K64.9 Unspecified hemorrhoids; Z03.818 Encounter for observation for suspected exposure to other biological agents ruled out; M54.2 Cervicalgia; M54.9 Dorsalgia, unspecified; F33.9 Major depressive disorder, recurrent, unspecified; R79.89 Other specified abnormal findings of blood chemistry; Z79.899 Other long term (current) drug therapy; Z80.8 Family history of malignant neoplasm of other organs or systems; Z82.49 Family history of ischemic heart disease and other diseases of the circulatory system; Z86.73 Personal history of transient ischemic attack (TIA), and cerebral infarction without residual deficits; Z95.1 Presence of aortocoronary bypass graft; Z95.2 Presence of prosthetic heart valve; Z95.810 Presence of automatic (implantable) cardiac defibrillator; Z91.09 Other allergy status, other than to drugs and biological substances
CPT/HCPCS: 96374; 99285; 36415; 93005; 93306; 85379; 83880; 80053 ×2; 83605; 83735; 84484 ×2; 85025 ×2; 85610; 85730; 87635; 71046; 78582; G0378 ×2; A9540; A9567; J1940; 96376

== ENCOUNTER 2019-09-12 09:38 | Day surgery (SDC) | payer MEDICARE ==
[2019-09-09 14:37] VITALS: BMI 28.3
[~2019-09-12 09:38] MED LIST changes: -HEPARIN SODIUM,PORCINE 5,000 UNIT/ML 1 ML VIAL SQ ONE; -HYDROmorphone 0.5 MG/0.5 ML SYRINGE IVP PRN; +LIDOCAINE 1% (10MG/ML) FOR IV START INTRADERMA PRN; -LIDOCAINE 1% 20 ML VIAL (10MG/ML) FOR IV START INTRADERMA PRN; -ONDANSETRON 4 MG/2 ML VIAL IVP ONE
[2019-09-12 11:50] VITALS: RESP 16; TEMP 97.7
[2019-09-12] MEDS ORDERED: PROPOFOL 10 MG/ML 20 ML VIAL IV ONE (12:02)
--- NOTE | 2019-09-12 12:05 | P.GSHP ---
History of Present Illness H&P Date: 09/12/19 Chief Complaint: GI bleed This is a 68-year-old male with history of GI bleed. Patient rents today for colonoscopy. 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 Last Myocardial Infarction Date:: 1999 History of Any Multi-Drug Resistant Organisms: None Reported Past Surgical History: AICD, Cardiac Valve Replacement, Cholecystectomy, Coronary Bypass/CABG, Heart Catheterization, Tonsillectomy Additional Past Surgical History / Comment(s): 1999 CABG 3 vessels then redo bypass/mechanical mitral valve replacement, 2015 AICD, several thoracentesis, colonoscopies/benign polypectomy Past Anesthesia/Blood Transfusion Reactions: No Reported Reaction Additional Past Anesthesia/Blood Transfusion Reaction / Comment(s): Pt has received blood in past without reaction. Type of Cardiac Device: AICD Device Placement Date:: 03-31-16- [employer] Model:[id number] Past Psychological History: Anxiety, Depression, PTSD Additional Psychological History / Comment(s): Pt resides with his spouse. He uses no assistive device. He drives. Smoking Status: Never smoker Past Alcohol Use History: None Reported Additional Past Alcohol Use History / Comment(s): . Past Drug Use History: None Reported - Past Family History Brother(s) Family Medical History: Coronary Artery Disease (CAD), Hyperlipidemia, Hypertension Mother Family Medical History: Dementia, Hypertension Additional Family Medical History / Comment(s): Mother at the age of 92yrs. Father Family Medical History: Cancer Additional Family Medical History / Comment(s): from melanoma cancer Medications and Allergies Home Medications Medication Instructions Recorded Confirmed Type Pravastatin Sodium [Pravachol] 80 mg PO DAILY 03/09/18 09/12/19 History Carvedilol [Coreg] 3.125 mg PO BID-W/MEALS tab 03/26/18 09/12/19 Rx Sertraline [Zoloft] 100 mg PO DAILY 05/19/18 09/12/19 History lamoTRIgine [LaMICtal] 100 mg PO HS 05/19/18 09/12/19 History Pramipexole [Mirapex] 0.5 mg PO HS 05/25/19 09/12/19 History Sacubitril/Valsartan [Entresto 24 1 tab PO BID 09/07/19 09/12/19 History mg-26 mg Tablet] Pantoprazole Sodium [Protonix] 40 mg PO DAILY #30 tablet. 09/08/19 09/12/19 Rx Furosemide [Lasix] 40 mg PO BID@0900,1600 tab 09/11/19 09/12/19 Rx Allergies Allergy/AdvReac Type Severity Reaction Status Date / Time nitroglycerin AdvReac made me Verified 09/12/19 11:50 feel funny, diarrhea Surgical - Exam Vital Signs Temp Pulse Resp BP Pulse Ox 97.7 F 87 16 123/60 96 09/12/19 11:49 09/12/19 11:49 09/12/19 11:49 09/12/19 11:49 09/12/19 11:49 - General well developed, well nourished, no distress - Eyes PERRL - ENT normal pinna - Neck no masses - Respiratory normal expansion - Cardiovascular Rhythm: regular - Abdomen Abdomen: soft, non tender Assessment and Plan Assessment: GI bleed. We'll perform colonoscopy.
--- NOTE | 2019-09-12 12:31 | P.OP ---
Date of Procedure: 09/12/19 Preoperative Diagnosis: GI bleed Postoperative Diagnosis: Internal hemorrhoids Procedure(s) Performed: Colonoscopy Anesthesia: MAC Surgeon: Navid Limon Pathology: none sent Condition: stable Disposition: PACU Description of Procedure: The patient's placed on the endoscopy table in the lateral position. He received IV sedation. Digital rectal exam was performed which revealed internal hemorrhoids. Possible colonoscope was then placed patient anus passed throughout the entire colon. The ileocecal valve lesions. The cecum, ascending and transverse colon appeared normal. In the descending and; was a few scattered diverticula. Scope was then brought back the rectum and this appeared normal. Scope was withdrawn through the anus and there were internal hemorrhoids noted. There was no active GI bleed seen. Patient top she will was sent to recovery room in stable condition.
[2019-09-12 12:47] VITALS: BP 113/67; PULSE 79
== END 2019-09-12 13:41 | disposition home or self-care (01) ==
LOC: ORWHC2ENDO 09:38
PROVIDERS: ATTEND Surgery
DX: K64.8 Other hemorrhoids (principal); K57.30 Diverticulosis of large intestine without perforation or abscess without bleeding; K52.9 Noninfective gastroenteritis and colitis, unspecified; K21.9 Gastro-esophageal reflux disease without esophagitis; I25.10 Atherosclerotic heart disease of native coronary artery without angina pectoris; I25.2 Old myocardial infarction; I13.0 Hypertensive heart and chronic kidney disease with heart failure and stage 1 through stage 4 chronic kidney disease, or unspecified chronic kidney disease; I50.9 Heart failure, unspecified; N18.3 Chronic kidney disease, stage 3 (moderate); I42.9 Cardiomyopathy, unspecified; E78.5 Hyperlipidemia, unspecified; G89.29 Other chronic pain; M54.2 Cervicalgia; M54.9 Dorsalgia, unspecified; F32.9 Major depressive disorder, single episode, unspecified; F41.9 Anxiety disorder, unspecified; F43.10 Post-traumatic stress disorder, unspecified; Z95.1 Presence of aortocoronary bypass graft; Z79.02 Long term (current) use of antithrombotics/antiplatelets; Z79.899 Other long term (current) drug therapy; Z86.19 Personal history of other infectious and parasitic diseases; Z88.8 Allergy status to other drugs, medicaments and biological substances; Z86.73 Personal history of transient ischemic attack (TIA), and cerebral infarction without residual deficits; Z95.2 Presence of prosthetic heart valve; Z95.810 Presence of automatic (implantable) cardiac defibrillator; Z98.890 Other specified postprocedural states; Z81.8 Family history of other mental and behavioral disorders; Z80.8 Family history of malignant neoplasm of other organs or systems; Z82.49 Family history of ischemic heart disease and other diseases of the circulatory system
CPT/HCPCS: 45378; J2704

== ENCOUNTER 2019-09-30 12:42 | Emergency (ER) | payer MEDICARE ==
[2019-09-30 14:08] LABS: Anisocytosis Slight; Basophils # (A) 0.1 k/uL (0-0.2); Basophils % (A) 1 %; Eosinophils # (A) 0.3 k/uL (0-0.7); Eosinophils % (A) 5 %; HCT 37.9 % (39.0-53.0); Hypochromasia Marked; Lymphocytes # (A) 0.5 k/uL (1.0-4.8); Lymphocytes % (A) 7 %; MCH 30.8 pg (25.0-35.0); MCHC 31.8 g/dL (31.0-37.0); Mean Platelet Volume 7.6; Monocytes # (A) 0.5 k/uL (0-1.0); Monocytes % (A) 7 %; Neutrophils # (A) 5.9 k/uL (1.3-7.7); Neutrophils % (A) 79 %; Platelet Count 356 k/uL (150-450); RDW 16.1 % (11.5-15.5); WBC 7.5 k/uL (3.8-10.6)
[2019-09-30 14:18] LABS: INR 2.2 (<1.2); Prothrombin Time 21.5 sec (9.0-12.0)
--- NOTE | 2019-09-30 14:23 | ED ---
General Adult HPI - General Chief complaint: Skin/Abscess/Foreign Body Stated complaint: Hemorrhoids Source: patient Mode of arrival: ambulatory Limitations: no limitations - History of Present Illness Initial comments: Patient is a 68-year-old male with past history of mitral valve replacement on Coumadin who presents emergency Department with reported bleeding hemorrhoids. Patient states he's had issues with hemorrhoids for several years. He is having surgery on the Dr. Limon for them. Reports that he was here today getting covert swab for his surgery. Patient had to have a bowel movement. States afterwards she looked into the toilet and there is a significant amount of bleeding. States he can get it stops we called his primary care physician who sent him into the ER. Patient takes Coumadin for his mitral valve. States his lab was checked earlier this week and it was subtherapeutic therefore they increased his dose. He denies any rectal pain currently. States that he was able to get the bleeding stopped before he came in the room. 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 09/08/19 Furosemide [Lasix] 40 mg PO BID@0900,1600 tab 09/11/19 Allergies Allergy/AdvReac Type Severity Reaction Status Date / Time nitroglycerin AdvReac made me Verified 09/30/19 12:50 feel funny, diarrhea Review of Systems ROS Statement: Those systems with pertinent positive or pertinent negative responses have been documented in the HPI. ROS Other: All systems not noted in ROS Statement are negative. 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 Last Myocardial Infarction Date:: 1999 History of Any Multi-Drug Resistant Organisms: None Reported Past Surgical History: AICD, Cardiac Valve Replacement, Cholecystectomy, Coronary Bypass/CABG, Heart Catheterization, Tonsillectomy Additional Past Surgical History / Comment(s): 1999 CABG 3 vessels then redo bypass/mechanical mitral valve replacement, 2015 AICD, several thoracentesis, colonoscopies/benign polypectomy Past Anesthesia/Blood Transfusion Reactions: No Reported Reaction Additional Past Anesthesia/Blood Transfusion Reaction / Comment(s): Pt has received blood in past without reaction. Type of Cardiac Device: AICD Device Placement Date:: 03-31-16- [employer] Model:[id number] Past Psychological History: Anxiety, Depression, PTSD Smoking Status: Never smoker Past Alcohol Use History: None Reported Past Drug Use History: None Reported - Past Family History Brother(s) Family Medical History: Coronary Artery Disease (CAD), Hyperlipidemia, Hypertens ion Mother Family Medical History: Dementia, Hypertension Additional Family Medical History / Comment(s): Mother at the age of 92yrs. Father Family Medical History: Cancer Additional Family Medical History / Comment(s): from melanoma cancer General Exam Limitations: no limitations Course Vital Signs 09/30/19 09/30/19 09/30/19 12:46 14:01 14:35 Temperature 97.3 F L 98 F 98.0 F Pulse Rate 101 H 89 93 Respiratory 20 20 18 Rate Blood Pressure 139/77 124/82 129/83 O2 Sat by Pulse 97 96 99 Oximetry Medical Decision Making - Medical Decision Making Upon arrival patient placed in room 20. Rectal exam demonstrates small hemorrhoid at this time which are nonbleeding. Patient did have PT/INR checked which today his values 2.2. Dr. Calvillo does his Coumadin. I instructed him that he should call him and make him aware of his subtherapeutic value. Take MiraLAX first with her bowel movements. Return to emergency for any new or worsening symptoms. Patient agreed to this was discharged in stable condition - Lab Data Result diagrams: 09/30/19 13:50 Lab Results 09/30/19 09/30/19 Range/Units 13:50 13:50 WBC 7.5 (3.8-10.6) k/uL RBC 3.90 L (4.30-5.90) m/uL Hgb 12.0 L (13.0-17.5) gm/dL Hct 37.9 L (39.0-53.0) % MCV 97.0 (80.0-100.0) fL MCH 30.8 (25.0-35.0) pg MCHC 31.8 (31.0-37.0) g/dL RDW 16.1 H (11.5-15.5) % Plt Count 356 (150-450) k/uL Neutrophils % 79 % Lymphocytes % 7 % Monocytes % 7 % Eosinophils % 5 % Basophils % 1 % Neutrophils # 5.9 (1.3-7.7) k/uL Lymphocytes # 0.5 L (1.0-4.8) k/uL Monocytes # 0.5 (0-1.0) k/uL Eosinophils # 0.3 (0-0.7) k/uL Basophils # 0.1 (0-0.2) k/uL Hypochromasia Marked Anisocytosis Slight PT 21.5 H (9.0-12.0) sec INR 2.2 H (<1.2) Disposition Clinical Impression: Bleeding hemorrhoid, Mitral valve replaced, Anticoagulated on Coumadin Disposition: HOME SELF-CARE Condition: Stable Instructions (If sedation given, give patient instructions): Hemorrhoids (ED) Additional Instructions: Please follow up with your primary care doctor in regards to your symptoms. Return to the emergency room for any new worsening symptoms Is patient prescribed a controlled substance at d/c from ED?: No Referrals: Brando Gray MD [Primary Care Provider] - 1-2 days Navid Limon MD [STAFF PHYSICIAN] - 1-2 days Time of Disposition: 14:26
[2019-09-30 14:52] VITALS: BP 129/83; PULSE 93; RESP 18; TEMP 98
== END 2019-09-30 14:35 | disposition home or self-care (01) ==
LOC: EC 12:42
DX: K64.9 Unspecified hemorrhoids (principal); I25.10 Atherosclerotic heart disease of native coronary artery without angina pectoris; E78.5 Hyperlipidemia, unspecified; I25.2 Old myocardial infarction; I13.0 Hypertensive heart and chronic kidney disease with heart failure and stage 1 through stage 4 chronic kidney disease, or unspecified chronic kidney disease; I50.9 Heart failure, unspecified; N18.3 Chronic kidney disease, stage 3 (moderate); F41.9 Anxiety disorder, unspecified; F32.9 Major depressive disorder, single episode, unspecified; Z79.899 Other long term (current) drug therapy; Z79.01 Long term (current) use of anticoagulants; Z88.8 Allergy status to other drugs, medicaments and biological substances; Z95.810 Presence of automatic (implantable) cardiac defibrillator; Z95.1 Presence of aortocoronary bypass graft; Z95.4 Presence of other heart-valve replacement
CPT/HCPCS: 36415; 85025; 85610; 99283

== ENCOUNTER → 2019-09-30 | Outpatient (CLI) | payer MEDICARE | END | disposition home or self-care (01) | LOC: LABWHC1 11:54 | PROVIDERS: ATTEND Surgery | DX: Z11.59 Encounter for screening for other viral diseases (principal) | CPT/HCPCS: 87635 ==

== ENCOUNTER → 2019-10-14 | Outpatient (CLI) | payer MEDICARE | END | disposition home or self-care (01) | LOC: LABWHC1 11:38 | PROVIDERS: ATTEND Surgery | DX: Z53.9 Procedure and treatment not carried out, unspecified reason (principal) ==

== ENCOUNTER 2019-10-15 13:24 | Emergency (ER) | payer MEDICARE ==
[2019-10-15 13:30] VITALS: TEMP 98.1
[2019-10-15] MEDS ORDERED: SODIUM CHLORIDE 0.9% 1,000 ML IV STA (14:02)
--- NOTE | 2019-10-15 14:04 | ED ---
Recheck HPI - General Chief Complaint: Extremity Problem,Nontraumatic Stated Complaint: lt leg swelling Time Seen by Provider: 10/15/19 13:32 Source: patient, RN notes reviewed, old records reviewed Mode of arrival: wheelchair Limitations: no limitations - History of Present Illness Initial Comments: This is a 68 male to the ED patient Dese for wound recheck and evaluation. Patient currently on Lovenox disease transitioning for surgery patient is karolyn eduled for hemorrhoid surgery with Dr. Callejas. Patient was on Coumadin and now getting Lovenox injections so he can come off, and eventually have surgery for his hemorrhoids and then go back on anticoagulation. Patient's complaint severe left lower extremity edema as well as pinpoint when he believes his bruising of both lower extremities MD Complaint: wound re-check (Patient does have some petechial bleeding in his legs and swelling of the left leg), abnormal lab -: days(s) Symptoms Since Prior Visit: no new symptoms Context: other (Patient did call family doctor concerning for left lower e xtremity swelling) Associated Symptoms: none Treatments Prior to Arrival: other medications (Patient currently on subcu heparin) - Related Data Home Medications Medication Instructions Recorded Confirmed Sertraline [Zoloft] 100 mg PO DAILY 05/19/18 10/14/19 lamoTRIgine [LaMICtal] 100 mg PO HS 05/19/18 10/14/19 Calcitriol 0.25 mcg PO 1500 10/04/19 10/14/19 Carvedilol [Coreg] 3.125 mg PO BID 10/04/19 10/14/19 Ergocalciferol [Vitamin D2] 50,000 unit PO QMONTH 10/04/19 10/14/19 Furosemide [Lasix] 20 mg PO DAILY PRN 10/04/19 10/14/19 Furosemide [Lasix] 40 mg PO BID 10/04/19 10/14/19 Sacubitril/Valsartan [Entresto 24 1 each PO BID 10/04/19 10/14/19 mg-26 mg Tablet] Warfarin [Coumadin] 1.25 mg PO MOTH 10/04/19 10/14/19 Warfarin [Coumadin] 2.5 mg PO SUTUWEFRSA 10/04/19 10/14/19 Enoxaparin [Lovenox] 80 mg SQ Q12H 10/14/19 10/14/19 Pravastatin Sodium [Pravachol] 40 mg PO 1200 10/14/19 10/14/19 Allergies Allergy/AdvReac Type Severity Reaction Status Date / Time nitroglycerin AdvReac made me Verified 10/15/19 13:30 feel funny, diarrhea Review of Systems ROS Statement: Those systems with pertinent positive or pertinent negative responses have been documented in the HPI. ROS Other: All systems not noted in ROS Statement are negative. 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 Last Myocardial Infarction Date:: 1999 History of Any Multi-Drug Resistant Organisms: None Reported Past Surgical History: AICD, Cardiac Valve Replacement, Cholecystectomy, Coronary Bypass/CABG, Heart Catheterization, Tonsillectomy Additional Past Surgical History / Comment(s): 1999 CABG 3 vessels then redo bypass/mechanical mitral valve replacement, 2015 AICD, several thoracentesis, colonoscopies/benign polypectomy Past Anesthesia/Blood Transfusion Reactions: No Reported Reaction Additional Past Anesthesia/Blood Transfusion Reaction / Comment(s): Pt has received blood in past without reaction. Type of Cardiac Device: AICD Device Placement Date:: 03-31-16- [employer] Model:0150 [id number] Past Psychological History: Anxiety, Depression, PTSD Smoking Status: Never smoker Past Alcohol Use History: None Reported Past Drug Use History: None Reported - Past Family History Brother(s) Family Medical History: Coronary Artery Disease (CAD), Hyperlipidemia, Hypertension Mother Family Medical History: Dementia, Hypertension Additional Family Medical History / Comment(s): Mother at the age of 92yrs. Father Family Medical History: Cancer Additional Family Medical History / Comment(s): from melanoma cancer General Exam - General Exam Comments Initial Comments: Patient does have petechial changes in both lower extremities with increased swelling and left lower extremity Limitations: no limitations General appearance: alert, in no apparent distress Head exam: Present: atraumatic, normocephalic, normal inspection Eye exam: Present: normal appearance, PERRL, EOMI. Absent: scleral icterus, conjunctival injection, periorbital swelling ENT exam: Present: normal exam, mucous membranes moist Neck exam: Present: normal inspection. Absent: tenderness, meningismus, lymphadenopathy Respiratory exam: Present: normal lung sounds bilaterally. Absent: respiratory distress, wheezes, rales, rhonchi, stridor Cardiovascular Exam: Present: regular rate, normal rhythm, normal heart sounds. Absent: systolic murmur, diastolic murmur, rubs, gallop, clicks GI/Abdominal exam: Present: soft, normal bowel sounds. Absent: distended, tenderness, guarding, rebound, rigid Extremities exam: Present: normal inspection, full ROM, normal capillary refill. Absent: tenderness, pedal edema, joint swelling, calf tenderness Back exam: Present: normal inspection Neurological exam: Present: alert, oriented X3, CN II-XII intact Psychiatric exam: Present: normal affect, normal mood Skin exam: Present: warm, dry, intact, normal color. Absent: rash Course Vital Signs 10/15/19 10/15/19 10/15/19 13:26 14:19 14:30 Temperature 98.1 F Pulse Rate 95 Respiratory 18 18 17 Rate Blood Pressure 106/70 98/64 O2 Sat by Pulse 99 97 95 Oximetry 10/15/19 10/15/19 10/15/19 15:00 15:30 15:40 Temperature Pulse Rate 94 94 Respiratory 17 16 16 Rate Blood Pressure 98/54 90/61 90/61 O2 Sat by Pulse 95 94 L 94 L Oximetry - Reevaluation(s) Reevaluation #1: 10/15/19 15:41 Medical record is reviewed Medical Decision Making - Lab Data Result diagrams: 10/15/19 14:19 10/15/19 14:19 Lab Results 10/15/19 10/15/19 10/15/19 Range/Units 14:19 14:19 14:19 WBC 6.8 (3.8-10.6) k/uL RBC 3.93 L (4.30-5.90) m/uL Hgb 11.0 L (13.0-17.5) gm/dL Hct 37.6 L (39.0-53.0) % MCV 95.9 (80.0-100.0) fL MCH 28.0 (25.0-35.0) pg MCHC 29.2 L (31.0-37.0) g/dL RDW 16.3 H (11.5-15.5) % Plt Count 260 (150-450) k/uL Neutrophils % 74 % Lymphocytes % 7 % Monocytes % 6 % Eosinophils % 10 % Basophils % 1 % Neutrophils # 5.0 (1.3-7.7) k/uL Lymphocytes # 0.5 L (1.0-4.8) k/uL Monocytes # 0.4 (0-1.0) k/uL Eosinophils # 0.7 (0-0.7) k/uL Basophils # 0.1 (0-0.2) k/uL Hypochromasia Marked Anisocytosis Slight PT 14.7 H (9.0-12.0) sec INR 1.5 H (<1.2) APTT 27.1 (22.0-30.0) sec Sodium 135 L (137-145) mmol/L Potassium 3.8 (3.5-5.1) mmol/L Chloride 100 (98-107) mmol/L Carbon Dioxide 26 (22-30) mmol/L Anion Gap 9 mmol/L BUN 73 H (9-20) mg/dL Creatinine 2.14 H (0.66-1.25) mg/dL Est GFR (CKD-EPI)AfAm 36 (>60 ml/min/1.73 sqM) Est GFR (CKD-EPI)NonAf 31 (>60 ml/min/1.73 sqM) Glucose 166 H (74-99) mg/dL Calcium 8.8 (8.4-10.2) mg/dL Magnesium 2.5 H (1.6-2.3) mg/dL Total Bilirubin 0.6 (0.2-1.3) mg/dL AST 71 H (17-59) U/L ALT 62 H (4-49) U/L Alkaline Phosphatase 174 H (38-126) U/L Creatine Kinase 770 H (55-170) U/L Troponin I (0.000-0.034) ng/mL Total Protein 6.6 (6.3-8.2) g/dL Albumin 3.8 (3.5-5.0) g/dL Blood Type Blood Type Recheck Bld Type Recheck Status Antibody Screen Direct Antiglob Test Spec Expiration Date 10/15/19 10/15/19 Range/Units 14:19 14:19 WBC (3.8-10.6) k/uL RBC (4.30-5.90) m/uL Hgb (13.0-17.5) gm/dL Hct (39.0-53.0) % MCV (80.0-100.0) fL MCH (25.0-35.0) pg MCHC (31.0-37.0) g/dL RDW (11.5-15.5) % Plt Count (150-450) k/uL Neutrophils % % Lymphocytes % % Monocytes % % Eosinophils % % Basophils % % Neutrophils # (1.3-7.7) k/uL Lymphocytes # (1.0-4.8) k/uL Monocytes # (0-1.0) k/uL Eosinophils # (0-0.7) k/uL Basophils # (0-0.2) k/uL Hypochromasia Anisocytosis PT (9.0-12.0) sec INR (<1.2) APTT (22.0-30.0) sec Sodium (137-145) mmol/L Potassium (3.5-5.1) mmol/L Chloride (98-107) mmol/L Carbon Dioxide (22-30) mmol/L Anion Gap mmol/L BUN (9-20) mg/dL Creatinine (0.66-1.25) mg/dL Est GFR (CKD-EPI)AfAm (>60 ml/min/1.73 sqM) Est GFR (CKD-EPI)NonAf (>60 ml/min/1.73 sqM) Glucose (74-99) mg/dL Calcium (8.4-10.2) mg/dL Magnesium (1.6-2.3) mg/dL Total Bilirubin (0.2-1.3) mg/dL AST (17-59) U/L ALT (4-49) U/L Alkaline Phosphatase (38-126) U/L Creatine Kinase (55-170) U/L Troponin I 0.141 H* (0.000-0.034) ng/mL Total Protein (6.3-8.2) g/dL Albumin (3.5-5.0) g/dL Blood Type O Positive Blood Type Recheck O Pos Bld Type Recheck Status No Antibody Screen POSITIVE Direct Antiglob Test Negative Spec Expiration Date 10/18/20192318 Disposition Clinical Impression: Edema of left lower extremity, Vasculitis, Petechiae Disposition: HOME SELF-CARE Condition: Good Instructions (If sedation given, give patient instructions): Purpura (ED), Leg Edema (ED) Is patient prescribed a controlled substance at d/c from ED?: No Referrals: Brando Gray MD [Primary Care Provider] - 1-2 days
[2019-10-15 14:35] LABS: Anisocytosis Slight; Basophils # (A) 0.1 k/uL (0-0.2); Basophils % (A) 1 %; Eosinophils # (A) 0.7 k/uL (0-0.7); Eosinophils % (A) 10 %; HCT 37.6 % (39.0-53.0); Hypochromasia Marked; Lymphocytes # (A) 0.5 k/uL (1.0-4.8); Lymphocytes % (A) 7 %; MCHC 29.2 g/dL (31.0-37.0); MCV 95.9 fL (80.0-100.0); Mean Platelet Volume 7.3; Monocytes # (A) 0.4 k/uL (0-1.0); Monocytes % (A) 6 %; Neutrophils % (A) 74 %; Platelet Count 260 k/uL (150-450); RBC 3.93 m/uL (4.30-5.90); RDW 16.3 % (11.5-15.5); WBC 6.8 k/uL (3.8-10.6)
[2019-10-15 14:46] LABS: Albumin 3.8 g/dL (3.5-5.0); Calcium 8.8 mg/dL (8.4-10.2); Magnesium 2.5 mg/dL (1.6-2.3); Potassium 3.8 mmol/L (3.5-5.1); Total Bilirubin 0.6 mg/dL (0.2-1.3); Total Protein 6.6 g/dL (6.3-8.2)
[2019-10-15 14:55] LABS: INR 1.5 (<1.2); Partial Thromboplastin Time 27.1 sec (22.0-30.0); Prothrombin Time 14.7 sec (9.0-12.0)
[2019-10-15 15:33] VITALS: RESP 16
--- NOTE | 2019-10-15 15:56 | US ---
EXAMINATION TYPE: US venous doppler duplex LE LT DATE OF EXAM: 10/15/2019 3:52 PM COMPARISON: NONE CLINICAL HISTORY: dvt. Left leg edema SIDE PERFORMED: Left TECHNIQUE: The lower extremity deep venous system is examined utilizing real time linear array sonog jules with graded compression, doppler sonography and color-flow sonography. VESSELS IMAGED: External Iliac Vein (EIV) Common Femoral Vein Deep Femoral Vein Greater Saphenous Vein * Femoral Vein Popliteal Vein Small Saphenous Vein * Proximal Calf Veins (* superficial vessels) Left Leg: Negative for DVT IMPRESSION: No evidence of deep vein thrombosis in the left leg.
[2019-10-15 16:59] VITALS: BP 108/77; PULSE 90
== END 2019-10-15 16:58 | disposition home or self-care (01) ==
LOC: EC 13:24
DX: R60.0 Localized edema (principal); I77.6 Arteritis, unspecified; R23.3 Spontaneous ecchymoses; R79.9 Abnormal finding of blood chemistry, unspecified; I50.9 Heart failure, unspecified; I42.9 Cardiomyopathy, unspecified; F41.9 Anxiety disorder, unspecified; F32.9 Major depressive disorder, single episode, unspecified; F43.10 Post-traumatic stress disorder, unspecified; Z86.73 Personal history of transient ischemic attack (TIA), and cerebral infarction without residual deficits; Z95.810 Presence of automatic (implantable) cardiac defibrillator; Z95.2 Presence of prosthetic heart valve; Z95.1 Presence of aortocoronary bypass graft; Z95.818 Presence of other cardiac implants and grafts; Z79.01 Long term (current) use of anticoagulants; Z79.899 Other long term (current) drug therapy; Z88.8 Allergy status to other drugs, medicaments and biological substances
CPT/HCPCS: 36415; 80053; 82550; 83735; 84484; 85025; 85610; 85730; 86850; 86870; 86880; 86900; 86901; 96360; 96361; 99284

== ENCOUNTER 2019-10-17 06:09 | Observation (INO) | payer MEDICARE ==
[2019-10-14 10:10] VITALS: BMI 28.3
[~2019-10-17 06:09] MED LIST changes: +DEXAMETHASONE SOD PHOSPHATE 10 MG/ML 1 ML VIAL IV ONE; +HYDROmorphone 0.5 MG/0.5 ML SYRINGE IVP PRN; -LACTATED RINGERS 1,000 ML IV SCH; +Pre Op ABX Message 1 EACH MISC MISCELLANE ONE; +SCOPOLAMINE 1.5MG/72HR PATCH TRANSDERM ONE
[2019-10-17] MEDS ORDERED: ONDANSETRON 4 MG/2 ML VIAL IVP ONE (07:10)
[2019-10-17] MEDS ORDERED: SODIUM CHLORIDE 0.9% 1,000 ML IV ONE (07:10)
[2019-10-17] MEDS ORDERED: NA PHOS,M-B/NA PHOS,DI-BA 133 ML ENEMA RECTAL ONE (07:13)
[2019-10-17 07:19] LABS: INR 1.3 (<1.2); Prothrombin Time 13.2 sec (9.0-12.0)
[2019-10-17] MEDS ORDERED: PROPOFOL 10 MG/ML 20 ML VIAL IV ONE (07:47)
[2019-10-17] MEDS ORDERED: ePHEDrine SULFATE/0.9% NACL/PF 50 MG/5 ML SYRINGE IV ONE (07:47)
[2019-10-17] MEDS ORDERED: GLYCOPYRROLATE 0.2 MG/ML 2 ML VIAL ONE (07:47)
[2019-10-17] MEDS ORDERED: KETAMINE 10 MG/ML 20 ML VIAL ONE (07:47)
[2019-10-17] MEDS ORDERED: SUCCINYLCHOLINE CHLORIDE 100 MG/5 ML SYR IV ONE (07:47)
[2019-10-17] MEDS ORDERED: fentaNYL (PF) 50 MCG/ML 2 ML AMP ONE (07:47)
[2019-10-17] MEDS ORDERED: MIDAZOLAM 2 MG/2 ML VIAL ONE (07:47)
[2019-10-17] MEDS ORDERED: LIDOCAINE 1%-EPI 1:100,000 20 ML VIAL SQ ONE (08:19)
[2019-10-17] MEDS ORDERED: GELATIN SPONGE,ABSORB (LARGE) 1 EACH SPONGE TOPICAL ONE (08:34)
--- NOTE | 2019-10-17 08:50 | P.GSHP ---
History of Present Illness H&P Date: 10/17/19 Chief Complaint: Hemorrhoids This is a 68-year-old male referred from Dr. Brando Luke. Patient's had complaints of hemorrhoids. Patient anal pain and bleeding. He presents today for hemorrhoidectomy. 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 Last Myocardial Infarction Date:: 1999 History of Any Multi-Drug Resistant Organisms: None Reported Past Surgical History: AICD, Cardiac Valve Replacement, Cholecystectomy, Coronary Bypass/CABG, Heart Catheterization, Tonsillectomy Additional Past Surgical History / Comment(s): 1999 CABG 3 vessels then redo bypass/mechanical mitral valve replacement, 2015 AICD, several thoracentesis, colonoscopies/benign polypectomy Past Anesthesia/Blood Transfusion Reactions: No Reported Reaction Additional Past Anesthesia/Blood Transfusion Reaction / Comment(s): Pt has received blood in past without reaction. Type of Cardiac Device: AICD Device Placement Date:: 03-31-16- [employer] Model:0150 [id number] Past Psychological History: Anxiety, Depression, PTSD Smoking Status: Never smoker Past Alcohol Use History: None Reported Past Drug Use History: None Reported - Past Family History Brother(s) Family Medical History: Coronary Artery Disease (CAD), Hyperlipidemia, Hypertension Mother Family Medical History: Dementia, Hypertension Additional Family Medical History / Comment(s): Mother at the age of 92yrs. Father Family Medical History: Cancer Additional Family Medical History / Comment(s): from melanoma cancer Medications and Allergies Home Medications Medication Instructions Recorded Confirmed Type Sertraline [Zoloft] 100 mg PO DAILY 05/19/18 10/17/19 History lamoTRIgine [LaMICtal] 100 mg PO HS 05/19/18 10/17/19 History Calcitriol 0.25 mcg PO 1500 10/04/19 10/17/19 History Carvedilol [Coreg] 3.125 mg PO BID 10/04/19 10/17/19 History Ergocalciferol [Vitamin D2] 50,000 unit PO QMONTH 10/04/19 10/17/19 History Furosemide [Lasix] 20 mg PO DAILY PRN 10/04/19 10/17/19 History Furosemide [Lasix] 40 mg PO BID 10/04/19 10/17/19 History Sacubitril/Valsartan [Entresto 24 1 each PO BID 10/04/19 10/17/19 History mg-26 mg Tablet] Warfarin [Coumadin] 1.25 mg PO MOTH 10/04/19 10/17/19 History Warfarin [Coumadin] 2.5 mg PO SUTUWEFRSA 10/04/19 10/17/19 History Enoxaparin [Lovenox] 80 mg SQ Q12H 10/14/19 10/17/19 History Pravastatin Sodium [Pravachol] 40 mg PO 1200 10/14/19 10/17/19 History Docusate [Colace] 100 mg PO BID #20 capsule 10/17/19 Rx HYDROcodone/APAP 5-325MG [[place] 1 tab PO Q6HR PRN #10 tab 10/17/19 Rx 5-325] Allergies Allergy/AdvReac Type Severity Reaction Status Date / Time nitroglycerin AdvReac made me Verified 10/17/19 06:27 feel funny, diarrhea Surgical - Exam Vital Signs Temp Pulse Resp BP Pulse Ox 98.3 F 90 16 133/80 100 10/17/19 07:10 10/17/19 07:10 10/17/19 07:10 10/17/19 07:10 10/17/19 07:10 - General well developed, well nourished, no distress - Eyes PERRL - ENT normal pinna - Neck no masses - Respiratory normal expansion - Cardiovascular Rhythm: regular - Abdomen Abdomen: soft, non tender - Rectum Internal and Hemorrhoids Results - Labs Abnormal Lab Results - Last 24 Hours (Table) 10/17/19 Range/Units 07:00 PT 13.2 H (9.0-12.0) sec INR 1.3 H (<1.2) Assessment and Plan Assessment: Internal and external Hemorrhoids. We'll perform hemorrhoidectomy.
--- NOTE | 2019-10-17 08:52 | P.OP ---
Date of Procedure: 10/17/19 Preoperative Diagnosis: Internal and external hemorrhoids Postoperative Diagnosis: Internal and external hemorrhoids Procedure(s) Performed: Internal and Hemorrhoidectomy Anesthesia: NAREN Surgeon: Navid Limon Estimated Blood Loss (ml): 50 Pathology: other (Internal and external hemorrhoids) Condition: stable Disposition: PACU Description of Procedure: Patient's placed on the operative table in the supine position. He received general anesthesia. Then placed the prone position. He had been intubated. His anus was prepped and draped usual sterile fashion. The anus and gentle 1% local Xylocaine. Using the bivalved anal retractor the left lateral hemorrhoidal column was grasped and excised using the Harmonic scissors. The right anterior and right posterior hemorrhoidal column were also grasped. And removed in identical fashion. The specimens of pathology. There is a suspicious skin lesion at the anus this was excised and sent to pathology to rule out condyloma. The wound was re-. Several small bleeding points were suture ligated with 3-0 Vicryl suture. There is no bleeding seen. Gelfoam was packed in the anus. Patient top she will was sent to recovery room stable condition.
[2019-10-17] MEDS ORDERED: LACTATED RINGERS 1,000 ML IV ONE ×2 (10:01→12:04)
[2019-10-17] MEDS ORDERED: ONDANSETRON 4 MG/2 ML VIAL IVP PRN (12:04)
[2019-10-17] MEDS ORDERED: NALOXONE 0.4 MG/ML 1 ML VIAL IV PRN (12:04)
[2019-10-17] MEDS: LACTATED RINGERS 1,000 ML IV SCH (13:16)
[2019-10-17] MEDS: HYDROcodone/APAP 5-325MG 1 EACH TAB PO PRN ×2 (15:04→20:58)
[2019-10-17] MEDS ORDERED: FUROSEMIDE 20 MG TAB PO PRN (17:42)
[2019-10-17] MEDS: FUROSEMIDE 40 MG TAB PO SCH (19:15)
[2019-10-17] MEDS: CARVEDILOL 3.125 MG TAB PO SCH (19:15)
[2019-10-17] MEDS: TAMSULOSIN 0.4 MG CAP.ER.24H PO SCH (19:15)
[2019-10-17] MEDS: lamoTRIgine 100 MG TAB PO SCH (20:58)
[2019-10-17] MEDS: SACUBITRIL/VALSARTAN 24 MG-26 MG TABLET PO SCH (20:59)
[2019-10-17] MEDS: WARFARIN 2.5 MG TAB PO SCH (22:40)
[2019-10-18] MEDS: HYDROcodone/APAP 5-325MG 1 EACH TAB PO PRN ×3 (02:46→21:58)
--- NOTE | 2019-10-18 06:13 | CONS ---
CONSULTATION This 68-year-old white male status post anal hemorrhoid removal. Medically, sitting up in bed. Possible urinary retention at this time. We are going to start him on Flomax 0.4 mg daily. He has 300 mL residual urine. Home medicines for systolic CHF will be restarted as well as his blood thinner, Coumadin. REVIEW OF SYSTEMS: Fourteen-point review of systems negative except for mentioned in HPI. MEDICATIONS: Please see medication list. PHYSICAL EXAM: Vital signs stable. Afebrile. He looks weak and fatigued, sitting up in bed. CARDIOVASCULAR: S1, S2. LUNGS: Rales at the base. HEMATOLOGY: Negative Homans. PSYCH: Fair mood and affect. OPHTHALMOLOGIC: Pupils equal, round, reactive to light and accommodation. ASSESSMENT: 1. Status post rectal hemorrhoid removal. 2. Systolic congestive heart failure. 3. Benign prostatic hypertrophy. 4. Urinary retention. Continue with Flomax 0.4 mg daily. Continue home medications. Follow up next 24 to 48 hours. Possible discharge home. MMODL / IJN: [id number] /
[2019-10-18] MEDS: LACTATED RINGERS 1,000 ML IV SCH (06:45)
[2019-10-18] MEDS: SERTRALINE 100 MG TAB PO SCH (07:18)
[2019-10-18] MEDS: SACUBITRIL/VALSARTAN 24 MG-26 MG TABLET PO SCH ×2 (07:18→21:57)
[2019-10-18] MEDS: FUROSEMIDE 40 MG TAB PO SCH ×2 (07:18→16:59)
[2019-10-18] MEDS: CARVEDILOL 3.125 MG TAB PO SCH ×2 (07:18→16:59)
[2019-10-18 08:00] LABS: INR 1.3 (<1.2); Prothrombin Time 13.1 sec (9.0-12.0)
[2019-10-18 08:13] LABS: Anisocytosis Slight; Basophils % (A) 0 %; Eosinophils % (A) 0 %; HCT 37.3 % (39.0-53.0); HGB 11.3 gm/dL (13.0-17.5); Hypochromasia Marked; Lymphocytes # (A) 0.3 k/uL (1.0-4.8); Lymphocytes % (A) 2 %; MCH 29.9 pg (25.0-35.0); MCHC 30.3 g/dL (31.0-37.0); Macrocytosis Slight; Mean Platelet Volume 7.5; Monocytes # (A) 0.8 k/uL (0-1.0); Monocytes % (A) 5 %; Neutrophils # (A) 17.3 k/uL (1.3-7.7); Neutrophils % (A) 93 %; Platelet Count 227 k/uL (150-450); RBC 3.77 m/uL (4.30-5.90); WBC 18.6 k/uL (3.8-10.6)
[2019-10-18] MEDS: PRAVASTATIN SODIUM 40 MG TAB PO SCH (11:43)
[2019-10-18 14:38] LABS: Appearance,Urine Clear (Clear); Bilirubin,Urine Negative (Negative); Blood,Urine Negative (Negative); Color,Urine Yellow; Glucose,Urine (UA) Negative (Negative); Ketones,Urine Negative (Negative); Leukocyte Esterase,Urine Negative (Negative); Nitrite,Urine Negative (Negative); Protein,Urine Negative (Negative); Specific Gravity,Urine 1.013 (1.001-1.035); Urobilinogen,Urine <2.0 mg/dL (<2.0)
[2019-10-18] MEDS ORDERED: CALCITRIOL 0.25 MCG CAP PO SCH (15:00)
--- NOTE | 2019-10-18 15:41 | XR ---
EXAMINATION TYPE: XR chest 2V DATE OF EXAM: 10/18/2019 COMPARISON: 09/09/2019 HISTORY: Congestive heart failure and leukocytosis. TECHNIQUE: Frontal and lateral views of the chest are obtained. FINDINGS: There is an enlarged cardiomediastinal silhouette with cardiac valvular replacement and me suhail sternotomy wires as well as a single lead left-sided cardiac device. Trace chronic left pleural effusion is seen. Very mild central pulmonary vascular prominence. Minimal degenerative change of the spine. IMPRESSION: Very minimal pulmonary vascular congestion and trace left pleural effusion likely on the basis of congestive heart failure in this patient with enlarged cardiomediastinal silhouette. No new focal consolidation.
[2019-10-18] MEDS: WARFARIN 2.5 MG TAB PO SCH (16:59)
[2019-10-18] MEDS: TAMSULOSIN 0.4 MG CAP.ER.24H PO SCH (16:59)
--- NOTE | 2019-10-18 17:20 | P.GSCN ---
History of Present Illness Consult date: 10/18/19 Reason for Consult: Urinary retention History of present illness: Mr. Savage is a 68 yo male S/P Hemorrhoidectomy by Dr Limon. Post opera tively patient developed urinary retention. Denies any urinary issues at baseline. no know history of urinary retention. Denies any previous graham placement. Denies any history of UTIs, gross hematuria or kidney stones. 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 Last Myocardial Infarction Date:: 1999 History of Any Multi-Drug Resistant Organisms: None Reported Past Surgical History: AICD, Cardiac Valve Replacement, Cholecystectomy, Coronary Bypass/CABG, Heart Catheterization, Tonsillectomy Additional Past Surgical History / Comment(s): 1999 CABG 3 vessels then redo bypass/mechanical mitral valve replacement, 2015 AICD, several thoracentesis, colonoscopies/benign polypectomy, hemorrhoidectomy Past Anesthesia/Blood Transfusion Reactions: No Reported Reaction Additional Past Anesthesia/Blood Transfusion Reaction / Comm: Pt has received blood in past without reaction. Type of Cardiac Device: AICD Device Placement Date:: 03-31-16- [employer] Model:[id number] Past Psychological History: Anxiety, Depression, PTSD Additional Psychological History / Comment(s): Pt resides with his spouse. He uses no assistive device. He drives. Smoking Status: Never smoker Past Alcohol Use History: None Reported Past Drug Use History: None Reported - Past Family History Brother(s) Family Medical History: Coronary Artery Disease (CAD), Hyperlipidemia, Hypertension Mother Family Medical History: Dementia, Hypertension Additional Family Medical History / Comment(s): Mother at the age of 92yrs. Father Family Medical History: Cancer Additional Family Medical History / Comment(s): from melanoma cancer Medications and Allergies Home Medications Medication Instructions Recorded Confirmed Type Sertraline [Zoloft] 100 mg PO DAILY 05/19/18 10/17/19 History lamoTRIgine [LaMICtal] 100 mg PO HS 05/19/18 10/17/19 History Calcitriol 0.25 mcg PO 1500 10/04/19 10/17/19 History Carvedilol [Coreg] 3.125 mg PO BID 10/04/19 10/17/19 History Ergocalciferol [Vitamin D2] 50,000 unit PO QMONTH 10/04/19 10/17/19 History Furosemide [Lasix] 20 mg PO DAILY PRN 10/04/19 10/17/19 History Furosemide [Lasix] 40 mg PO BID 10/04/19 10/17/19 History Sacubitril/Valsartan [Entresto 24 1 each PO BID 10/04/19 10/17/19 History mg-26 mg Tablet] Warfarin [Coumadin] 1.25 mg PO MOTH 10/04/19 10/17/19 History Warfarin [Coumadin] 2.5 mg PO SUTUWEFRSA 10/04/19 10/17/19 History Enoxaparin [Lovenox] 80 mg SQ Q12H 10/14/19 10/17/19 History Pravastatin Sodium [Pravachol] 40 mg PO 1200 10/14/19 10/17/19 History Docusate [Colace] 100 mg PO BID #20 capsule 10/17/19 Rx HYDROcodone/APAP 5-325MG [[place] 1 tab PO Q6HR PRN #10 tab 10/17/19 Rx 5-325] Allergies Allergy/AdvReac Type Severity Reaction Status Date / Time nitroglycerin AdvReac made me Verified 10/17/19 06:27 feel funny, diarrhea Surgical - Exam Vital Signs Temp Pulse Resp BP Pulse Ox 98.3 F 90 16 133/80 100 10/17/19 07:10 10/17/19 07:10 10/17/19 07:10 10/17/19 07:10 10/17/19 07:10 - General well developed, well nourished, moderate distress, moderate pain - Eyes normal ocular movement, no pale - ENT normal nares, normal mucosa, no hearing loss - Respiratory normal expansion, normal respiratory effort - Psychiatric oriented to time, oriented to person, oriented to place, speech is normal Results - Labs 10/18/19 07:23 Abnormal Lab Results - Last 24 Hours (Table) 10/18/19 10/18/19 Range/Units 07:23 07:23 WBC 18.6 H (3.8-10.6) k/uL RBC 3.77 L (4.30-5.90) m/uL Hgb 11.3 L (13.0-17.5) gm/dL Hct 37.3 L (39.0-53.0) % MCHC 30.3 L (31.0-37.0) g/dL RDW 16.0 H (11.5-15.5) % Neutrophils # 17.3 H (1.3-7.7) k/uL Lymphocytes # 0.3 L (1.0-4.8) k/uL PT 13.1 H (9.0-12.0) sec INR 1.3 H (<1.2) Assessment and Plan Assessment: Mr. Savage is a 68 yo male S/P Hemorrhoidectomy he is POD #1 Post operatively patient developed urinary retention. No know history of urinary retention. His retention most likely secondary to recent surgery and pain medications Plan: -Keep graham for 7 days, he can f/u as an outpatient in 7 days for TOV -Flomax 0.4 mg daily, patients need to be discharged on flomax
--- NOTE | 2019-10-18 18:21 | P.PN ---
Progress Note - Text Progress Note Date: 10/18/19 The patient has a trouble with urinary retention. He has complaints of anal pain from his hemorrhagic. On exam is lesser stable. His abdomen soft. Urology consult for urinary retention. We will plan for discharge tomorrow.
[2019-10-18] MEDS: lamoTRIgine 100 MG TAB PO SCH (21:56)
[2019-10-19] MEDS: LACTATED RINGERS 1,000 ML IV SCH (05:52)
[2019-10-19] MEDS: HYDROcodone/APAP 5-325MG 1 EACH TAB PO PRN ×2 (05:54→11:18)
[2019-10-19 08:10] LABS: Anisocytosis Slight; Basophils % (A) 0 %; Eosinophils # (A) 0.1 k/uL (0-0.7); Eosinophils % (A) 0 %; HCT 33.5 % (39.0-53.0); Hypochromasia Marked; Lymphocytes # (A) 0.5 k/uL (1.0-4.8); Lymphocytes % (A) 3 %; MCH 28.6 pg (25.0-35.0); MCHC 29.8 g/dL (31.0-37.0); Mean Platelet Volume 7.9; Monocytes # (A) 0.9 k/uL (0-1.0); Monocytes % (A) 6 %; Neutrophils # (A) 13.5 k/uL (1.3-7.7); Neutrophils % (A) 89 %; Platelet Count 256 k/uL (150-450); RBC 3.49 m/uL (4.30-5.90); RDW 16.8 % (11.5-15.5); WBC 15.1 k/uL (3.8-10.6)
[2019-10-19 08:15] LABS: INR 1.4 (<1.2); Prothrombin Time 14.2 sec (9.0-12.0)
[2019-10-19 08:20] VITALS: TEMP 97.4
[2019-10-19 08:29] LABS: Albumin 2.9 g/dL (3.5-5.0); Calcium 7.8 mg/dL (8.4-10.2); Potassium 3.8 mmol/L (3.5-5.1); Total Protein 5.7 g/dL (6.3-8.2)
[2019-10-19] MEDS: SACUBITRIL/VALSARTAN 24 MG-26 MG TABLET PO SCH (08:38)
[2019-10-19] MEDS: SERTRALINE 100 MG TAB PO SCH (08:38)
[2019-10-19] MEDS: CARVEDILOL 3.125 MG TAB PO SCH (08:38)
[2019-10-19] MEDS: FUROSEMIDE 40 MG TAB PO SCH (08:39)
[2019-10-19] MEDS: PRAVASTATIN SODIUM 40 MG TAB PO SCH (11:18)
[2019-10-19 15:08] VITALS: BP 94/61; PULSE 78; RESP 16
--- NOTE | 2019-10-19 15:37 | P.DS ---
Providers Date of admission: 10/18/19 11:48 Expected date of discharge: 10/19/19 Attending physician: Navid Limon Consults: 10/17/19 12:04 Consult Physician Routine Consulting Provider: Brando Gray Consult Reason/Comments: med manage Do you want consulting provider notified?: Yes 10/18/19 11:04 Consult Physician Routine Consulting Provider: Aaron Scott Consult Reason/Comments: Urinary retention Do you want consulting provider notified?: Yes Primary care physician: Brando Gray Assessment: This is a 68-year-old male who was admitted to the hospital after hemorr hoidectomy. The patient has significant pain. He developed urinary retention requiring Noel catheter placement. He was discharged home postoperative day 2. Please see hospital chart for details. Procedures: Hemorrhoidectomy Patient Condition at Discharge: Good Plan - Discharge Summary Discharge Rx Participant: Yes New Discharge Prescriptions: New Docusate [Colace] 100 mg PO BID #20 capsule HYDROcodone/APAP 5-325MG [[place] 5-325] 1 tab PO Q6HR PRN #10 tab PRN Reason: Pain No Action lamoTRIgine [LaMICtal] 100 mg PO HS Sertraline [Zoloft] 100 mg PO DAILY Ergocalciferol [Vitamin D2] 50,000 unit PO QMONTH Warfarin [Coumadin] 2.5 mg PO SUTUWEFRSA Warfarin [Coumadin] 1.25 mg PO MOTH Sacubitril/Valsartan [Entresto 24 mg-26 mg Tablet] 1 each PO BID Calcitriol 0.25 mcg PO 1500 Furosemide [Lasix] 20 mg PO DAILY PRN PRN Reason: wt gain Furosemide [Lasix] 40 mg PO BID Carvedilol [Coreg] 3.125 mg PO BID Enoxaparin [Lovenox] 80 mg SQ Q12H Pravastatin Sodium [Pravachol] 40 mg PO 1200 Discharge Medication List Sertraline [Zoloft] 100 mg PO DAILY 05/19/18 [History] lamoTRIgine [LaMICtal] 100 mg PO HS 05/19/18 [History] Calcitriol 0.25 mcg PO 1500 10/04/19 [History] Carvedilol [Coreg] 3.125 mg PO BID 10/04/19 [History] Ergocalciferol [Vitamin D2] 50,000 unit PO QMONTH 05/26/20 [History] Furosemide [Lasix] 20 mg PO DAILY PRN 10/04/19 [History] Furosemide [Lasix] 40 mg PO BID 10/04/19 [History] Sacubitril/Valsartan [Entresto 24 mg-26 mg Tablet] 1 each PO BID 10/04/19 [History] Warfarin [Coumadin] 1.25 mg PO MOTH 10/04/19 [History] Warfarin [Coumadin] 2.5 mg PO SUTUWEFRSA 10/04/19 [History] Enoxaparin [Lovenox] 80 mg SQ Q12H 10/14/19 [History] Pravastatin Sodium [Pravachol] 40 mg PO 1200 10/14/19 [History] Docusate [Colace] 100 mg PO BID #20 capsule 10/17/19 [Rx] HYDROcodone/APAP 5-325MG [[place] 5-325] 1 tab PO Q6HR PRN #10 tab 10/17/19 [Rx] Follow up Appointment(s)/Referral(s): Linwood Akins MD [STAFF PHYSICIAN] - 10/26/19 9:00 am Navid Limon MD [STAFF PHYSICIAN] - 10/25/19 1:50 pm Patient Instructions/Handouts: *Sur[facility] - Hemorrhoidectomy Discharge Instructions, *[facility] - (Anesthesia) Discharge Instructions Outpatient Surgery, Noel Catheter Placement and Care (DC) Activity/Diet/Wound Care/Special Instructions: REST TODAY, CALL DR IF ANY PROBLEMS, CHANGE PAD NEEDED AFTER DRESSING COMES OFF IN 24 HOURS UNTIL BLEEDING/DRAINAGE STOPS. NO LOVENOX /COUMADIN TODAY:, MAY RESUME LOVENOX TOMORROW 10/18/2019, AND THEN COUMADIN ON 10/19/2019
[2019-10-20] MEDS ORDERED: WARFARIN 1.25 MG TAB PO SCH (18:00)
[2019-11-09] MEDS ORDERED: ERGOCALCIFEROL 50,000 UNIT CAP PO SCH (09:00)
== END 2019-10-19 16:42 | disposition home or self-care (01) ==
LOC: OR 06:09 → 4SSUR 09:09 → OR 10-18 11:48 → 4SSUR 10-18 11:48
PROVIDERS: ADMIT Surgery; ATTEND Surgery
DX: K64.4 Residual hemorrhoidal skin tags (principal); K64.8 Other hemorrhoids; A63.0 Anogenital (venereal) warts; I69.311 Memory deficit following cerebral infarction; I50.20 Unspecified systolic (congestive) heart failure; N40.1 Benign prostatic hyperplasia with lower urinary tract symptoms; R33.8 Other retention of urine; N18.3 Chronic kidney disease, stage 3 (moderate); G89.29 Other chronic pain; M54.2 Cervicalgia; M54.9 Dorsalgia, unspecified; I25.2 Old myocardial infarction; I42.9 Cardiomyopathy, unspecified; F41.9 Anxiety disorder, unspecified; F32.9 Major depressive disorder, single episode, unspecified; F43.10 Post-traumatic stress disorder, unspecified; I25.10 Atherosclerotic heart disease of native coronary artery without angina pectoris; Z95.810 Presence of automatic (implantable) cardiac defibrillator; Z95.1 Presence of aortocoronary bypass graft; Z86.010 Personal history of colon polyps; Z90.49 Acquired absence of other specified parts of digestive tract; Z79.899 Other long term (current) drug therapy; Z79.01 Long term (current) use of anticoagulants; Z79.891 Long term (current) use of opiate analgesic; Z88.8 Allergy status to other drugs, medicaments and biological substances; Z95.2 Presence of prosthetic heart valve; Z82.49 Family history of ischemic heart disease and other diseases of the circulatory system; Z81.8 Family history of other mental and behavioral disorders; Z80.8 Family history of malignant neoplasm of other organs or systems
CPT/HCPCS: 46255; 88304; 88305; 80053; 85025 ×2; 85610 ×3; 81003; 71046; G0378 ×2; J2250; J1100; J2405; J3010; J0330; J2704

== ENCOUNTER 2019-10-25 20:32 | Emergency (ER) | payer MEDICARE ==
[2019-10-25 20:50] VITALS: PULSE 98
[2019-10-25] MEDS ORDERED: MORPHINE SULFATE 4 MG/ML SYRINGE IVP STA (21:07)
[2019-10-25] MEDS ORDERED: SODIUM CHLORIDE 0.9% 1,000 ML IV STA (21:08)
--- NOTE | 2019-10-25 21:15 | ED ---
General Adult HPI - General Source: patient, EMS Mode of arrival: EMS Limitations: no limitations <Lon Rajput - Last Filed: 10/25/19 22:15> <Katelynn Weeks - Last Filed: 10/27/19 14:00> - General Chief complaint: GI Bleed Stated complaint: Post-op rectal bleed Time Seen by Provider: 10/25/19 20:35 - History of Present Illness Initial comments: Patient is a 69-year-old male with hemorrhoidectomy status post day 8 presenting to the emergency department with rectal pain and bleeding. Patient states after he was discharged, the rectal pain continues to increase. I also spoke with his over the phone who reported increased excoriations around the anus. She states the patient is progressively getting worse in terms of postsurgical healing. She also states the patient continues to be weaker especially with ambulation. States she could not get the patient out of bed today, so she held EMS. States the patient is in significant pain whenever she is wiping her cleaning region. States she has resorted to using only water to clean the anus. Patient reports she is not having any solid bowel movements but rather gas mixed with diarrhea. Patient also reports having a Noel catheter in place. Patient denies any abdominal pain. States the Tylenol 3 is not providing significant improvement. Denies any fevers night sweats or chills. Denies any nausea or vomiting. Patient is on Coumadin (Lon Rajput) - Related Data Home Medications Medication Instructions Recorded Confirmed Sertraline [Zoloft] 100 mg PO DAILY 05/19/18 10/26/19 lamoTRIgine [LaMICtal] 100 mg PO HS 05/19/18 10/26/19 Calcitriol 0.25 mcg PO DAILY 10/04/19 10/26/19 Carvedilol [Coreg] 3.125 mg PO BID 10/04/19 10/26/19 Ergocalciferol [Vitamin D2] 50,000 unit PO QMONTH 10/04/19 10/26/19 Furosemide [Lasix] 40 mg PO BID 10/04/19 10/26/19 Sacubitril/Valsartan [Entresto 24 1 tab PO BID 10/04/19 10/26/19 mg-26 mg Tablet] Warfarin [Coumadin] 1.25 mg PO SUMOWETHSA 10/04/19 10/26/19 Warfarin [Coumadin] 2.5 mg PO TUFR 10/04/19 10/26/19 Pravastatin Sodium [Pravachol] 40 mg PO HS 10/14/19 10/26/19 Acetaminophen-Codeine 300-30mg 1 tab PO Q8H PRN 10/25/19 10/26/19 [Tylenol w/codeine #3] Furosemide [Lasix] 20 mg PO DAILY PRN 10/25/19 10/26/19 Omeprazole [PriLOSEC] 20 mg PO DAILY 10/25/19 10/26/19 Pantoprazole [Protonix] 40 mg PO DAILY 10/25/19 10/26/19 Previous Rx's Medication Instructions Recorded Docusate [Colace] 100 mg PO BID #20 capsule 10/17/19 Tamsulosin [Flomax] 0.4 mg PO DAILY #30 cap 10/19/19 HYDROcodone/APAP 10-325MG [[place] 1 tab PO Q6H PRN #12 tab 10/25/19 10-325] Allergies Allergy/AdvReac Type Severity Reaction Status Date / Time nitroglycerin AdvReac made me Verified 10/26/19 16:14 feel funny, diarrhea Review of Systems ROS Other: All systems not noted in ROS Statement are negative. <Lon Rajput - Last Filed: 10/25/19 22:15> ROS Other: All systems not noted in ROS Statement are negative. <Katelynn Weeks - Last Filed: 10/27/19 14:00> ROS Statement: Those systems with pertinent positive or pertinent negative responses have been documented in the HPI. 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 Last Myocardial Infarction Date:: 1999 History of Any Multi-Drug Resistant Organisms: None Reported Past Surgical History: AICD, Cardiac Valve Replacement, Cholecystectomy, Coronary Bypass/CABG, Heart Catheterization, Tonsillectomy Additional Past Surgical History / Comment(s): 1999 CABG 3 vessels then redo bypass/mechanical mitral valve replacement, 2015 AICD, several thoracentesis, colonoscopies/benign polypectomy, hemorrhoidectomy on 10/17/19. Past Anesthesia/Blood Transfusion Reactions: No Reported Reaction Additional Past Anesthesia/Blood Transfusion Reaction / Comment(s): Pt has received blood in past without reaction. Type of Cardiac Device: AICD Device Placement Date:: 03-31-16- [employer] Model:0150 [id number] Past Psychological History: Anxiety, Depression, PTSD Smoking Status: Never smoker Past Alcohol Use History: None Reported Past Drug Use History: None Reported - Past Family History Brother(s) Family Medical History: Coronary Artery Disease (CAD), Hyperlipidemia, Hypertension Mother Family Medical History: Dementia, Hypertension Additional Family Medical History / Comment(s): Mother at the age of 92yrs. Father Family Medical History: Cancer Additional Family Medical History / Comment(s): from melanoma cancer <Lon Rajput - Last Filed: 10/25/19 22:15> General Exam Limitations: no limitations General appearance: alert, in no apparent distress Head exam: Present: atraumatic, normocephalic, normal inspection Eye exam: Present: normal appearance, PERRL, EOMI Pupils: Present: normal accommodation ENT exam: Present: normal exam, normal oropharynx, mucous membranes moist Neck exam: Present: normal inspection, full ROM. Absent: tenderness, meningismus Respiratory exam: Present: normal lung sounds bilaterally. Absent: respiratory distress, wheezes Cardiovascular Exam: Present: regular rate, normal rhythm, normal heart sounds. Absent: bradycardia Rectal exam: Absent: normal inspection (Postsurgical changes of the anus. Excoriations noted.) Extremities exam: Present: normal inspection, full ROM, normal capillary refill. Absent: tenderness Back exam: Present: normal inspection, full ROM. Absent: tenderness Neurological exam: Present: alert, oriented X3 Psychiatric exam: Present: normal affect, normal mood Skin exam: Present: warm, dry, intact, normal color <Lon Rajput - Last Filed: 10/25/19 22:15> Course Vital Signs 10/25/19 10/25/19 20:42 22:35 Temperature 97.8 F 97.9 F Pulse Rate 98 98 Respiratory 16 18 Rate Blood Pressure 121/89 132/87 O2 Sat by Pulse 100 95 Oximetry Medical Decision Making - Lab Data Result diagrams: 10/25/19 21:19 10/25/19 21:19 <Lon Rajput - Last Filed: 10/25/19 22:15> - Lab Data Result diagrams: 10/25/19 21:19 10/25/19 21:19 <Katelynn Weeks - Last Filed: 10/27/19 14:00> - Medical Decision Making Patient is a 69-year-old male with a hemorrhoidectomy status post day 8 presenting to the emergency department with a chief complaint of rectal pain. On exam patient has moderate amount of excoriation with some fecal remnants. No active bleeding noted. No signs of an infection. Patient was given fluids and analgesia. CBC reveals improvement in leukocytosis. Hemoglobin is also improving. CMP reveals improvement in renal function with decrease in BUN and creatinine and increasing GFR. I spoke with , who performed the surgery, he suggested the patient can be discharged if his pain is under control. Patient advised to perform sitz baths . Patient will be discharged with [place]. Advised not to drive or operate heavy machinery when taking the medication. Strict return parameters were thoroughly discussed with patient was up standing and agreeable. Case discussed with physician. (Lon Rajput) I was available for consultation in the emergency department. The history and physical exam were done by the midlevel provider. I was consulted for this patients care. I reviewed the case with the midlevel provider and based on their presentation of the patient, I agree with the assessment, medical decision making and plan of care as documented. Chart was dictated using [employer] dictation software. Attempts were made to correct any dictation errors however some typographical errors may persist. Patient was seen during a national state of emergency due to the Covid-19 pandem ic. (Katelynn Weeks) - Lab Data Lab Results 10/25/19 10/25/19 10/25/19 Range/Units 21:15 21:19 21:19 WBC 14.2 H (3.8-10.6) k/uL RBC 3.97 L (4.30-5.90) m/uL Hgb 11.9 L (13.0-17.5) gm/dL Hct 38.3 L (39.0-53.0) % MCV 96.7 (80.0-100.0) fL MCH 30.0 (25.0-35.0) pg MCHC 31.0 (31.0-37.0) g/dL RDW 16.4 H (11.5-15.5) % Plt Count 324 (150-450) k/uL Neutrophils % 88 % Lymphocytes % 3 % Monocytes % 5 % Eosinophils % 3 % Basophils % 0 % Neutrophils # 12.5 H (1.3-7.7) k/uL Lymphocytes # 0.5 L (1.0-4.8) k/uL Monocytes # 0.7 (0-1.0) k/uL Eosinophils # 0.4 (0-0.7) k/uL Basophils # 0.1 (0-0.2) k/uL Hypochromasia Marked Anisocytosis Slight PT 21.8 H (9.0-12.0) sec INR 2.2 H (<1.2) APTT 32.9 H (22.0-30.0) sec Sodium 134 L (137-145) mmol/L Potassium 3.9 (3.5-5.1) mmol/L Chloride 94 L (98-107) mmol/L Carbon Dioxide 31 H (22-30) mmol/L Anion Gap 9 mmol/L BUN 25 H (9-20) mg/dL Creatinine 1.44 H (0.66-1.25) mg/dL Est GFR (CKD-EPI)AfAm 58 (>60 ml/min/1.73 sqM) Est GFR (CKD-EPI)NonAf 50 (>60 ml/min/1.73 sqM) Glucose 119 H (74-99) mg/dL Calcium 8.8 (8.4-10.2) mg/dL Total Bilirubin 1.0 (0.2-1.3) mg/dL AST 29 (17-59) U/L ALT 21 (4-49) U/L Alkaline Phosphatase 191 H (38-126) U/L Total Protein 6.9 (6.3-8.2) g/dL Albumin 3.8 (3.5-5.0) g/dL Disposition Is patient prescribed a controlled substance at d/c from ED?: No Time of Disposition: 22:18 <Lon Rajput - Last Filed: 10/25/19 22:15> <Katelynn Weeks - Last Filed: 10/27/19 14:00> Clinical Impression: Anal or rectal pain, Postoperative pain Disposition: HOME SELF-CARE Condition: Good Instructions (If sedation given, give patient instructions): Hemorrhoidectomy (DC) Additional Instructions: Take prescribed medication as directed. Follow with primary care. Return to em ergency department if symptoms worsen. Prescriptions: HYDROcodone/APAP 10-325MG [[place] 10-325] 1 tab PO Q6H PRN #12 tab PRN Reason: pain Referrals: Brando Gray MD [Primary Care Provider] - 1-2 days
[2019-10-25 21:33] LABS: Anisocytosis Slight; Basophils # (A) 0.1 k/uL (0-0.2); Basophils % (A) 0 %; Eosinophils # (A) 0.4 k/uL (0-0.7); Eosinophils % (A) 3 %; HCT 38.3 % (39.0-53.0); HGB 11.9 gm/dL (13.0-17.5); Hypochromasia Marked; Lymphocytes # (A) 0.5 k/uL (1.0-4.8); Lymphocytes % (A) 3 %; MCV 96.7 fL (80.0-100.0); Mean Platelet Volume 7.6; Monocytes # (A) 0.7 k/uL (0-1.0); Monocytes % (A) 5 %; Neutrophils # (A) 12.5 k/uL (1.3-7.7); Neutrophils % (A) 88 %; Platelet Count 324 k/uL (150-450); RBC 3.97 m/uL (4.30-5.90); RDW 16.4 % (11.5-15.5); WBC 14.2 k/uL (3.8-10.6)
[2019-10-25 21:39] LABS: Albumin 3.8 g/dL (3.5-5.0); Calcium 8.8 mg/dL (8.4-10.2); Potassium 3.9 mmol/L (3.5-5.1); Total Protein 6.9 g/dL (6.3-8.2)
[2019-10-25 21:41] LABS: INR 2.2 (<1.2); Partial Thromboplastin Time 32.9 sec (22.0-30.0); Prothrombin Time 21.8 sec (9.0-12.0)
[2019-10-25 22:56] VITALS: BP 132/87; RESP 18; TEMP 97.9
== END 2019-10-25 22:35 | disposition home or self-care (01) ==
LOC: EC 20:32
DX: K62.89 Other specified diseases of anus and rectum (principal); G89.18 Other acute postprocedural pain; S30.817A Abrasion of anus, initial encounter; D72.829 Elevated white blood cell count, unspecified; F32.9 Major depressive disorder, single episode, unspecified; F41.9 Anxiety disorder, unspecified; F43.10 Post-traumatic stress disorder, unspecified; I50.9 Heart failure, unspecified; Z79.01 Long term (current) use of anticoagulants; Z79.899 Other long term (current) drug therapy; Z88.8 Allergy status to other drugs, medicaments and biological substances; Z86.73 Personal history of transient ischemic attack (TIA), and cerebral infarction without residual deficits; Z95.5 Presence of coronary angioplasty implant and graft; Z95.1 Presence of aortocoronary bypass graft; Z95.810 Presence of automatic (implantable) cardiac defibrillator; Z98.890 Other specified postprocedural states; Z80.7 Family history of other malignant neoplasms of lymphoid, hematopoietic and related tissues
CPT/HCPCS: 36415; 80053; 85025; 85610; 85730; 99283; 96374; 96361; J2270

== ENCOUNTER 2019-10-26 14:56 | Inpatient (IN) | payer MEDICARE ==
[2019-10-26] MEDS ORDERED: HYDROmorphone 1 MG/ML 1 ML SYRINGE IVP STA (15:39)
--- NOTE | 2019-10-26 15:39 | ED ---
General Adult HPI - General Chief complaint: Recheck/Abnormal Lab/Rx Stated complaint: rectal bleeding Time Seen by Provider: 10/26/19 14:57 Source: patient, EMS, RN notes reviewed, old records reviewed Mode of arrival: EMS Limitations: no limitations - History of Present Illness Initial comments: 69-year-old male presents for evaluation of rectal bleeding. Patient had a hemorrhoidectomy performed on October 16. This was 9 days ago. He has had persiste nt bleeding since yesterday evening. He is currently on Coumadin although he states he has had 2 doses because of the bleeding over the past 48 hours. He was seen in the emergency department yesterday with the same complaint. He denies dyspnea, denies lightheadedness. He has history of mechanical valve which is why he is on Coumadin. He does complain of rectal pain. - Related Data Home Medications Medication Instructions Recorded Confirmed Sertraline [Zoloft] 100 mg PO DAILY 05/19/18 10/26/19 lamoTRIgine [LaMICtal] 100 mg PO HS 05/19/18 10/26/19 Calcitriol 0.25 mcg PO DAILY 10/04/19 10/26/19 Carvedilol [Coreg] 3.125 mg PO BID 10/04/19 10/26/19 Ergocalciferol [Vitamin D2] 50,000 unit PO QMONTH 10/04/19 10/26/19 Furosemide [Lasix] 40 mg PO BID 10/04/19 10/26/19 Sacubitril/Valsartan [Entresto 24 1 tab PO BID 10/04/19 10/26/19 mg-26 mg Tablet] Warfarin [Coumadin] 1.25 mg PO SUMOWETHSA 10/04/19 10/26/19 Warfarin [Coumadin] 2.5 mg PO TUFR 10/04/19 10/26/19 Pravastatin Sodium [Pravachol] 40 mg PO HS 10/14/19 10/26/19 Acetaminophen-Codeine 300-30mg 1 tab PO Q8H PRN 10/25/19 10/26/19 [Tylenol w/codeine #3] Furosemide [Lasix] 20 mg PO DAILY PRN 10/25/19 10/26/19 Omeprazole [PriLOSEC] 20 mg PO DAILY 10/25/19 10/26/19 Pantoprazole [Protonix] 40 mg PO DAILY 10/25/19 10/26/19 Previous Rx's Medication Instructions Recorded Docusate [Colace] 100 mg PO BID #20 capsule 10/17/19 Tamsulosin [Flomax] 0.4 mg PO DAILY #30 cap 10/19/19 HYDROcodone/APAP 10-325MG [[place] 1 tab PO Q6H PRN #12 tab 10/25/19 10-325] Allergies Allergy/AdvReac Type Severity Reaction Status Date / Time nitroglycerin AdvReac made me Verified 10/26/19 16:14 feel funny, diarrhea Review of Systems ROS Statement: Those systems with pertinent positive or pertinent negative responses have been documented in the HPI. ROS Other: All systems not noted in ROS Statement are negative. 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 Last Myocardial Infarction Date:: 1999 History of Any Multi-Drug Resistant Organisms: None Reported Past Surgical History: AICD, Cardiac Valve Replacement, Cholecystectomy, Coronary Bypass/CABG, Heart Catheterization, Tonsillectomy Additional Past Surgical History / Comment(s): 1999 CABG 3 vessels then redo bypass/mechanical mitral valve replacement, 2015 AICD, several thoracentesis, colonoscopies/benign polypectomy, hemorrhoidectomy on 10/17/19. Past Anesthesia/Blood Transfusion Reactions: No Reported Reaction Additional Past Anesthesia/Blood Transfusion Reaction / Comment(s): Pt has received blood in past without reaction. Type of Cardiac Device: AICD Device Placement Date:: 03-31-16- CyActive Model:0150 [id number] Past Psychological History: Anxiety, Depression, PTSD Smoking Status: Never smoker Past Alcohol Use History: None Reported Past Drug Use History: None Reported - Past Family History Brother(s) Family Medical History: Coronary Artery Disease (CAD), Hyperlipidemia, Hypertension Mother Family Medical History: Dementia, Hypertension Additional Family Medical History / Comment(s): Mother at the age of 92yrs. Father Family Medical History: Cancer Additional Family Medical History / Comment(s): from melanoma cancer General Exam Limitations: no limitations General appearance: alert, in no apparent distress Head exam: Present: atraumatic, normocephalic Eye exam: Present: normal appearance, PERRL Neck exam: Present: normal inspection. Absent: tenderness, meningismus Respiratory exam: Present: normal lung sounds bilaterally. Absent: respiratory distress Cardiovascular Exam: Present: regular rate, normal rhythm, systolic murmur GI/Abdominal exam: Present: soft. Absent: distended, tenderness, guarding Rectal exam: Present: normal rectal tone, bloody stool, tenderness, other (Status post hemorrhoidectomy at the 9 o'clock position, bleeding from incision site.) Course Vital Signs 10/26/19 10/26/19 14:59 16:10 Temperature 99.3 F Pulse Rate 90 95 Respiratory 18 18 Rate Blood Pressure 118/85 101/58 O2 Sat by Pulse 97 93 L Oximetry Medical Decision Making - Medical Decision Making 69-year-old male with rectal bleeding status post hemorrhoidectomy on October 16. Patient is on Coumadin, he has held 2 days of Coumadin dosing secondary to bleeding. He has hemoglobin drawn yesterday was 11.9. Today is 11.2. There is oozing from the incision site. His INR today is 1.7. I discussed case with Dr. Limon who is the patient's surgeon, recommends holding Coumadin and rechecking hemoglobin. I discussed case with the patient's primary care physician Dr. Gray he will admit with general surgery on consult. I placed cardiology on consult given this history of mechanical valve. Patient's hemoglobin will be redrawn and 5 hours and then again in the morning. His vitals remained stable while the emergency department. - Lab Data Result diagrams: 10/26/19 15:48 10/26/19 15:04 Lab Results 10/26/19 10/26/19 10/26/19 Range/Units 15:04 15:04 15:48 WBC 13.5 H (3.8-10.6) k/uL RBC 3.74 L (4.30-5.90) m/uL Hgb 11.2 L (13.0-17.5) gm/dL Hct 35.5 L (39.0-53.0) % MCV 95.0 (80.0-100.0) fL MCH 30.0 (25.0-35.0) pg MCHC 31.6 (31.0-37.0) g/dL RDW 16.7 H (11.5-15.5) % Plt Count 332 (150-450) k/uL Neutrophils % 85 % Lymphocytes % 5 % Monocytes % 5 % Eosinophils % 3 % Basophils % 0 % Neutrophils # 11.4 H (1.3-7.7) k/uL Lymphocytes # 0.6 L (1.0-4.8) k/uL Monocytes # 0.7 (0-1.0) k/uL Eosinophils # 0.4 (0-0.7) k/uL Basophils # 0.1 (0-0.2) k/uL Hypochromasia Marked Anisocytosis Slight PT 16.5 H (9.0-12.0) sec INR 1.7 H (<1.2) APTT 29.3 (22.0-30.0) sec Sodium 132 L (137-145) mmol/L Potassium 4.8 (3.5-5.1) mmol/L Chloride 95 L (98-107) mmol/L Carbon Dioxide 28 (22-30) mmol/L Anion Gap 9 mmol/L BUN 26 H (9-20) mg/dL Creatinine 1.46 H (0.66-1.25) mg/dL Est GFR (CKD-EPI)AfAm 57 (>60 ml/min/1.73 sqM) Est GFR (CKD-EPI)NonAf 49 (>60 ml/min/1.73 sqM) Glucose 115 H (74-99) mg/dL Calcium 9.0 (8.4-10.2) mg/dL Magnesium 2.2 (1.6-2.3) mg/dL Total Bilirubin 1.9 H (0.2-1.3) mg/dL AST 63 H (17-59) U/L ALT 23 (4-49) U/L Alkaline Phosphatase 189 H (38-126) U/L Total Protein 8.4 H (6.3-8.2) g/dL Albumin 4.5 (3.5-5.0) g/dL Disposition Clinical Impression: Ischemic cardiomyopathy, External hemorrhoid, Mitral valve replaced, Rectal bleeding Disposition: ADMITTED IP TO THIS HOSP Condition: Stable Is patient prescribed a controlled substance at d/c from ED?: No Referrals: Brando Gray MD [Primary Care Provider] - 1-2 days Decision to Admit Reason: Admit from EC Decision Date: 10/26/19 Decision Time: 16:43
[2019-10-26 15:53] LABS: Albumin 4.5 g/dL (3.5-5.0); Magnesium 2.2 mg/dL (1.6-2.3); Total Bilirubin 1.9 mg/dL (0.2-1.3); Total Protein 8.4 g/dL (6.3-8.2)
[2019-10-26 16:03] LABS: INR 1.7 (<1.2); Partial Thromboplastin Time 29.3 sec (22.0-30.0); Prothrombin Time 16.5 sec (9.0-12.0)
[2019-10-26 16:09] LABS: Potassium 4.8 mmol/L (3.5-5.1)
[2019-10-26 16:13] LABS: Anisocytosis Slight; Basophils # (A) 0.1 k/uL (0-0.2); Basophils % (A) 0 %; Eosinophils # (A) 0.4 k/uL (0-0.7); Eosinophils % (A) 3 %; HCT 35.5 % (39.0-53.0); HGB 11.2 gm/dL (13.0-17.5); Hypochromasia Marked; Lymphocytes # (A) 0.6 k/uL (1.0-4.8); Lymphocytes % (A) 5 %; MCHC 31.6 g/dL (31.0-37.0); Mean Platelet Volume 8.2; Monocytes # (A) 0.7 k/uL (0-1.0); Monocytes % (A) 5 %; Neutrophils # (A) 11.4 k/uL (1.3-7.7); Neutrophils % (A) 85 %; Platelet Count 332 k/uL (150-450); RBC 3.74 m/uL (4.30-5.90); RDW 16.7 % (11.5-15.5); WBC 13.5 k/uL (3.8-10.6)
[2019-10-26] MEDS ORDERED: HYDROmorphone 0.5 MG/0.5 ML SYRINGE IVP PRN (16:34)
[2019-10-26] MEDS ORDERED: NALOXONE 0.4 MG/ML 1 ML VIAL IV PRN (16:34)
[2019-10-26] MEDS ORDERED: Acetaminophen-Codeine 300-30mg TAB PO PRN (16:40)
[2019-10-26] MEDS ORDERED: FUROSEMIDE 20 MG TAB PO PRN (16:40)
[2019-10-26] MEDS ORDERED: WARFARIN 1.25 MG TAB PO SCH (18:00)
[2019-10-26] MEDS: SODIUM CHLORIDE 0.9% 1,000 ML IV SCH (19:44)
[2019-10-26] MEDS: carvediloL 3.125 MG TAB PO SCH (19:57)
[2019-10-26] MEDS: PRAVASTATIN SODIUM 40 MG TAB PO SCH (19:57)
[2019-10-26] MEDS: SACUBITRIL/VALSARTAN 24 MG-26 MG TABLET PO SCH (19:57)
[2019-10-26] MEDS: FUROSEMIDE 40 MG TAB PO SCH (19:57)
[2019-10-26] MEDS: lamoTRIgine 100 MG TAB PO SCH (19:57)
[2019-10-26] MEDS: DOCUSATE 100 MG CAP PO SCH (19:57)
[2019-10-26 21:46] LABS: Anisocytosis Slight; Basophils # (A) 0.1 k/uL (0-0.2); Basophils % (A) 0 %; Eosinophils # (A) 0.3 k/uL (0-0.7); Eosinophils % (A) 3 %; HCT 31.9 % (39.0-53.0); Hypochromasia Marked; Lymphocytes # (A) 0.7 k/uL (1.0-4.8); Lymphocytes % (A) 7 %; MCH 28.7 pg (25.0-35.0); MCHC 29.7 g/dL (31.0-37.0); MCV 96.4 fL (80.0-100.0); Macrocytosis Slight; Mean Platelet Volume 7.8; Monocytes # (A) 0.6 k/uL (0-1.0); Monocytes % (A) 5 %; Neutrophils # (A) 8.8 k/uL (1.3-7.7); Neutrophils % (A) 83 %; Platelet Count 338 k/uL (150-450); RBC 3.31 m/uL (4.30-5.90); WBC 10.6 k/uL (3.8-10.6)
[2019-10-26 21:51] LABS: HGB 9.5 gm/dL (13.0-17.5)
--- NOTE | 2019-10-26 22:13 | HP ---
HISTORY AND PHYSICAL This patient is a 69-year-old white male with severe rectal bleeding, status post hemorrhoid repair, persistent bleeding over the past 48 hours, large amount of oozing of blood from the rectum. Will have to Coumadin at this time. Check serial hemoglobins. Prognosis is guarded. He will need possible hernia re-cauterization to stop the bleeding. In the meantime we know he has a mechanical valve and he has to go off Coumadin due to severe bleeding. Lightheaded and dizzy. MEDICINES: 1. Zoloft 100 daily. 2. Lamictal 100 daily. 3. Calcitriol 0.25 mcg daily. 4. Coreg 3.125 b.i.d. 5. Lasix 40 mg b.i.d. 6. Entresto b.i.d. 7. Coumadin 2.5 Thursday and Thursday; 1.25 the other 5 days. 8. Pravachol 40 daily. 9. Lasix 20 daily. 10.Prilosec 20 daily. ALLERGIES: NITROGLYCERIN. PAST SURGICAL HISTORY: History of CABG, mechanical mitral valve repair, several thoracenteses, hemorrhoidectomy 10/17/2019. AICD. PAST MEDICAL HISTORY: Depression, PTSD. FAMILY HISTORY: Brother with coronary disease. Mother with dementia. Father with melanoma cancer. PHYSICAL EXAMINATION: Vital signs reviewed. Blood pressure 101 to 118 over 50s to 80s, oxygen saturation 93% to 97%, temperature 99.3. Pulse 90 to 95, respiratory rate 18 to 20. CARDIOVASCULAR: S1, S2. PSYCH: Fair mood and affect. LUNGS: Clear. RECTAL: Large amount of oozing of blood. OPHTHALMOLOGIC: Pupils equal, round, reactive to light and accommodation. Hold his Coumadin. Check CBC, serial. Possible blood transfusion. Hernia repair will have to be done again stop this bleeding at this point. Ischemic cardiomyopathy. Prognosis extremely guarded. MMODL / IJN: [id number] /
[2019-10-26] MEDS: LACTATED RINGERS 1,000 ML IV SCH (22:56)
[2019-10-26] MEDS ORDERED: SUCCINYLCHOLINE CHLORIDE 100 MG/5 ML SYR IV ONE (23:10)
[2019-10-26] MEDS ORDERED: fentaNYL (PF) 50 MCG/ML 2 ML AMP ONE (23:10)
[2019-10-26] MEDS ORDERED: LIDOCAINE 1% INJ 10MG/ML (20 ML MDV) ONE (23:10)
[2019-10-26] MEDS ORDERED: LACTATED RINGERS 1,000 ML IV ONE (23:10)
[2019-10-26] MEDS ORDERED: PROPOFOL 10 MG/ML 20 ML VIAL IV ONE (23:10)
--- NOTE | 2019-10-26 23:12 | P.GSCN ---
History of Present Illness Consult date: 10/26/19 Reason for Consult: Bleeding hemorrhoids History of present illness: This is a 69-year-old male who is admitted to the hospital with complaints of general fatigue and rectal bleeding. Patient underwent hemorrhoidectomy 9 days ago. He has been on Coumadin for mechanical valve. Patient's had increased rectal bleeding over the last 24 hours. 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 Last Myocardial Infarction Date:: 1999 History of Any Multi-Drug Resistant Organisms: None Reported Past Surgical History: AICD, Cardiac Valve Replacement, Cholecystectomy, Coronary Bypass/CABG, Heart Catheterization, Tonsillectomy Additional Past Surgical History / Comment(s): 1999 CABG 3 vessels then redo bypass/mechanical mitral valve replacement, 2015 AICD, several thoracentesis, colonoscopies/benign polypectomy, hemorrhoidectomy on 10/17/19. Past Anesthesia/Blood Transfusion Reactions: No Reported Reaction Additional Past Anesthesia/Blood Transfusion Reaction / Comm: Pt has received blood in past without reaction. Type of Cardiac Device: AICD Device Placement Date:: 03-31-16- in[employer] Model:0150 [id number] Past Psychological History: Anxiety, Depression, PTSD Additional Psychological History / Comment(s): Pt resides with his spouse. He uses no assistive device. He drives. Smoking Status: Former smoker Past Alcohol Use History: None Reported Additional Past Alcohol Use History / Comment(s): . Past Drug Use History: None Reported - Past Family History Brother(s) Family Medical History: Coronary Artery Disease (CAD), Hyperlipidemia, Hypertension Mother Family Medical History: Dementia, Hypertension Additional Family Medical History / Comment(s): Mother at the age of 92yrs. Father Family Medical History: Cancer Additional Family Medical History / Comment(s): from melanoma cancer Medications and Allergies Home Medications Medication Instructions Recorded Confirmed Type Sertraline [Zoloft] 100 mg PO DAILY 05/19/18 10/26/19 History lamoTRIgine [LaMICtal] 100 mg PO HS 05/19/18 10/26/19 History Calcitriol 0.25 mcg PO DAILY 10/04/19 10/26/19 History Carvedilol [Coreg] 3.125 mg PO BID 10/04/19 10/26/19 History Ergocalciferol [Vitamin D2] 50,000 unit PO QMONTH 10/04/19 10/26/19 History Furosemide [Lasix] 40 mg PO BID 10/04/19 10/26/19 History Sacubitril/Valsartan [Entresto 24 1 tab PO BID 10/04/19 10/26/19 History mg-26 mg Tablet] Warfarin [Coumadin] 1.25 mg PO SUMOWETHSA 10/04/19 10/26/19 History Warfarin [Coumadin] 2.5 mg PO TUFR 10/04/19 10/26/19 History Pravastatin Sodium [Pravachol] 40 mg PO HS 10/14/19 10/26/19 History Docusate [Colace] 100 mg PO BID #20 capsule 10/17/19 10/26/19 Rx Tamsulosin [Flomax] 0.4 mg PO DAILY #30 cap 10/19/19 10/26/19 Rx Acetaminophen-Codeine 300-30mg 1 tab PO Q8H PRN 10/25/19 10/26/19 History [Tylenol w/codeine #3] Furosemide [Lasix] 20 mg PO DAILY PRN 10/25/19 10/26/19 History HYDROcodone/APAP 10-325MG [[place] 1 tab PO Q6H PRN #12 tab 10/25/19 10/26/19 Rx 10-325] Omeprazole [PriLOSEC] 20 mg PO DAILY 10/25/19 10/26/19 History Pantoprazole [Protonix] 40 mg PO DAILY 10/25/19 10/26/19 History Allergies Allergy/AdvReac Type Severity Reaction Status Date / Time nitroglycerin AdvReac made me Verified 10/26/19 16:14 feel funny, diarrhea Surgical - Exam Vital Signs Temp Pulse Resp BP Pulse Ox 99.3 F 90 18 118/85 97 10/26/19 14:59 10/26/19 14:59 10/26/19 14:59 10/26/19 14:59 10/26/19 14:59 - General well developed, well nourished, no distress - Eyes PERRL - ENT normal pinna - Neck no masses - Respiratory normal expansion - Cardiovascular Rhythm: regular - Abdomen Abdomen: soft, non tender Results - Labs 10/26/19 21:00 10/26/19 15:04 Abnormal Lab Results - Last 24 Hours (Table) 10/26/19 10/26/19 10/26/19 Range/Units 15:04 15:04 15:48 WBC 13.5 H (3.8-10.6) k/uL RBC 3.74 L (4.30-5.90) m/uL Hgb 11.2 L (13.0-17.5) gm/dL Hct 35.5 L (39.0-53.0) % MCHC (31.0-37.0) g/dL RDW 16.7 H (11.5-15.5) % Neutrophils # 11.4 H (1.3-7.7) k/uL Lymphocytes # 0.6 L (1.0-4.8) k/uL PT 16.5 H (9.0-12.0) sec INR 1.7 H (<1.2) Sodium 132 L (137-145) mmol/L Chloride 95 L (98-107) mmol/L BUN 26 H (9-20) mg/dL Creatinine 1.46 H (0.66-1.25) mg/dL Glucose 115 H (74-99) mg/dL Total Bilirubin 1.9 H (0.2-1.3) mg/dL AST 63 H (17-59) U/L Alkaline Phosphatase 189 H (38-126) U/L Total Protein 8.4 H (6.3-8.2) g/dL 10/26/19 Range/Units 21:00 WBC (3.8-10.6) k/uL RBC 3.31 L (4.30-5.90) m/uL Hgb 9.5 L D (13.0-17.5) gm/dL Hct 31.9 L (39.0-53.0) % MCHC 29.7 L (31.0-37.0) g/dL RDW 17.0 H (11.5-15.5) % Neutrophils # 8.8 H (1.3-7.7) k/uL Lymphocytes # 0.7 L (1.0-4.8) k/uL PT (9.0-12.0) sec INR (<1.2) Sodium (137-145) mmol/L Chloride (98-107) mmol/L BUN (9-20) mg/dL Creatinine (0.66-1.25) mg/dL Glucose (74-99) mg/dL Total Bilirubin (0.2-1.3) mg/dL AST (17-59) U/L Alkaline Phosphatase (38-126) U/L Total Protein (6.3-8.2) g/dL Diabetes panel 10/26/19 Range/Units 15:04 Sodium 132 L (137-145) mmol/L Potassium 4.8 (3.5-5.1) mmol/L Chloride 95 L (98-107) mmol/L Carbon Dioxide 28 (22-30) mmol/L BUN 26 H (9-20) mg/dL Creatinine 1.46 H (0.66-1.25) mg/dL Glucose 115 H (74-99) mg/dL Calcium 9.0 (8.4-10.2) mg/dL AST 63 H (17-59) U/L ALT 23 (4-49) U/L Alkaline Phosphatase 189 H (38-126) U/L Total Protein 8.4 H (6.3-8.2) g/dL Albumin 4.5 (3.5-5.0) g/dL Calcium panel 10/26/19 Range/Units 15:04 Calcium 9.0 (8.4-10.2) mg/dL Albumin 4.5 (3.5-5.0) g/dL Pituitary panel 10/26/19 Range/Units 15:04 Sodium 132 L (137-145) mmol/L Potassium 4.8 (3.5-5.1) mmol/L Chloride 95 L (98-107) mmol/L Carbon Dioxide 28 (22-30) mmol/L BUN 26 H (9-20) mg/dL Creatinine 1.46 H (0.66-1.25) mg/dL Glucose 115 H (74-99) mg/dL Calcium 9.0 (8.4-10.2) mg/dL Adrenal panel 10/26/19 Range/Units 15:04 Sodium 132 L (137-145) mmol/L Potassium 4.8 (3.5-5.1) mmol/L Chloride 95 L (98-107) mmol/L Carbon Dioxide 28 (22-30) mmol/L BUN 26 H (9-20) mg/dL Creatinine 1.46 H (0.66-1.25) mg/dL Glucose 115 H (74-99) mg/dL Calcium 9.0 (8.4-10.2) mg/dL Total Bilirubin 1.9 H (0.2-1.3) mg/dL AST 63 H (17-59) U/L ALT 23 (4-49) U/L Alkaline Phosphatase 189 H (38-126) U/L Total Protein 8.4 H (6.3-8.2) g/dL Albumin 4.5 (3.5-5.0) g/dL Assessment and Plan Assessment: Postoperative bleeding hemorrhoids. Patient Coumadin has been held. Patient has dropped 2 g well in the hospital today. He'll undergo exam under anesthesia to evaluate source of bleeding.'s
--- NOTE | 2019-10-26 23:33 | P.OP ---
Date of Procedure: 10/26/19 Preoperative Diagnosis: Hemorrhoidal bleeding Postoperative Diagnosis: Hemorrhoidal bleeding Procedure(s) Performed: Exam under anesthesia Anesthesia: NAREN Surgeon: Navid Limon Estimated Blood Loss (ml): 10 Pathology: none sent Condition: stable Disposition: PACU Description of Procedure: The patient's placed on the operating table in the supine position. He received general anesthesia. He was then placed in the prone position. His anus was prepped and draped usual fashion. There was some bleeding seen from the edge of the anus where an external hemorrhoid had been ligated. This was suture ligated with 3-0 Vicryl. Then the anal retractors placed and anus. The anus was examined. There is no other bleeding points seen. The anus was performed further bleeding no bleeding was seen. The patient then received sterile dressing. He was sent to recovery room stable condition
[2019-10-26] MEDS ORDERED: HYDROmorphone 1 MG/ML 1 ML SYRINGE IM PRN (23:34)
[2019-10-26] MEDS: fentaNYL (PF) 50 MCG/ML 2 ML AMP IVP ONE (23:58)
[2019-10-27] MEDS: fentaNYL (PF) 50 MCG/ML 2 ML AMP IVP ONE ×2 (00:02→00:10)
[2019-10-27] MEDS ORDERED: HYDROmorphone 0.5 MG/0.5 ML SYRINGE IVP ONE (00:15)
[2019-10-27] MEDS: HYDROcodone/APAP 10-325MG 1 EACH TAB PO PRN ×2 (04:11→12:06)
[2019-10-27] MEDS: carvediloL 3.125 MG TAB PO SCH ×2 (06:12→17:09)
[2019-10-27] MEDS: PANTOPRAZOLE 40 MG TABLET PO SCH (06:12)
[2019-10-27 06:26] LABS: Anisocytosis Slight; Basophils # (A) 0.1 k/uL (0-0.2); Basophils % (A) 0 %; Eosinophils # (A) 0.2 k/uL (0-0.7); Eosinophils % (A) 1 %; HGB 8.4 gm/dL (13.0-17.5); Hypochromasia Marked; Lymphocytes # (A) 0.7 k/uL (1.0-4.8); Lymphocytes % (A) 5 %; MCV 96.7 fL (80.0-100.0); Macrocytosis Slight; Mean Platelet Volume 7.5; Monocytes # (A) 0.7 k/uL (0-1.0); Monocytes % (A) 5 %; Neutrophils # (A) 11.6 k/uL (1.3-7.7); Neutrophils % (A) 87 %; Platelet Count 354 k/uL (150-450); RDW 17.1 % (11.5-15.5); WBC 13.3 k/uL (3.8-10.6)
[2019-10-27 06:36] LABS: Albumin 2.9 g/dL (3.5-5.0); Calcium 8.3 mg/dL (8.4-10.2); Potassium 4.2 mmol/L (3.5-5.1); Total Bilirubin 1.2 mg/dL (0.2-1.3); Total Protein 5.6 g/dL (6.3-8.2)
[2019-10-27 06:42] LABS: INR 1.5 (<1.2); Prothrombin Time 14.5 sec (9.0-12.0)
[2019-10-27] MEDS: SERTRALINE 100 MG TAB PO SCH (08:10)
[2019-10-27] MEDS: FUROSEMIDE 40 MG TAB PO SCH ×2 (08:10→20:32)
[2019-10-27] MEDS: DOCUSATE 100 MG CAP PO SCH ×2 (08:10→20:32)
[2019-10-27] MEDS: TAMSULOSIN 0.4 MG CAP.ER.24H PO SCH (08:10)
[2019-10-27] MEDS: SACUBITRIL/VALSARTAN 24 MG-26 MG TABLET PO SCH ×2 (08:10→20:32)
--- NOTE | 2019-10-27 08:31 | P.PN ---
Progress Note - Text Progress Note Date: 10/27/19 Patient remained stable overnight. His inguinal was 8.4 this morning. He's had no further bleeding. On exam vital signs are stable. Abdomen soft. Status post hemorrhoidal bleeding. Patient will be observed.
--- NOTE | 2019-10-27 10:20 | CDI ---
Documentation Clarification Form Date: 10/27/2019 10:08:50 AM From: Gabby RedmanSotoFAUSTINO watkins, [facility] [place] Admit Date: 10/26/2019 04:34:00 PM Patient Name: Cody Savage Visit Number: [id number] Discharge Date: ATTENTION: The Clinical Documentation Specialists (CDI) and [facility] Coding Staff appreciate your assistance in clarifying documentation. Please respond to the clarification below the line at the bottom and electronically sign. The [facility] & [facility] Coding staff will review the response and follow-up if needed. Please note: Queries are made part of the Legal Health Record. If you have any questions, please contact the author of this message via ITS. Dr. Brando Gray: Please render your opinion on the clinical significance of the patients hemoglobin/hematocrit levels. History/Risk Factors: Hemorrhoids, CKD 3, Ischemic Cardiomyopathy, AICD & CABG. Clinical indicators: Patient presented to the ED on 10/25 with rectal bleeding, lightheaded & dizzy status post hemorrhoidectomy on October 16. Patient is on Coumadin status post mitral valve replacement & has an AICD with cardiomyopathy. Hgb 10/25: 11.2* - 9.5*. 10/26: 8.4* Hct 10/25: 35.5* - 31.9*, 10/26: 28.0* Treatment: Rectal Examination under anesthesia: some bleeding at suture site, no intervention. Coumadin held. Typed & Crossed, no transfusion. In order to capture the severity of condition, please clarify if the labs/clinical indicators signify: Documentation Clarification Form Date: 10/27/2019 10:08:50 AM From: Gabby FAUSTINO Soto, [facility] [place] Admit Date: 10/26/2019 04:34:00 PM Patient Name: Cody Savage Visit Number: [id number] Discharge Date: ATTENTION: The Clinical Documentation Specialists (CDI) and [facility] Coding Staff appreciate your assistance in clarifying documentation. Please respond to the clarification below the line at the bottom and electronically sign. The [facility] [place] & [facility] Coding staff will review the response and follow-up if needed. Please note: Queries are made part of the Legal Health Record. If you have any questions, please contact the author of this message via ITS. Dr. Brando Gray: Please render your opinion on the clinical significance of the patients hemoglobin/hematocrit levels. History/Risk Factors: Hemorrhoids, CKD 3, Ischemic Cardiomyopathy, AICD & CABG. Clinical indicators: Patient presented to the ED on 10/25 with rectal bleeding, lightheaded & dizzy status post hemorrhoidectomy on October 16. Patient is on Coumadin status post mitral valve replacement & has an AICD with cardiomyopathy. Hgb 10/25: 11.2* - 9.5*. 10/26: 8.4* Hct 10/25: 35.5* - 31.9*, 10/26: 28.0* Treatment: Rectal Examination under anesthesia: some bleeding at suture site, no intervention. Coumadin held. Typed & Crossed, no transfusion. In order to capture the severity of condition, please clarify if the labs/clinical indicators signify: Anemia ruled out Acute blood loss anemia Drug Induced anemia Anemia of chronic kidney disease Unable to determine Other, please specify (Last Form Revision: July 2019) (Last Form Revision: July 2019) MTDD
[2019-10-27 11:55] LABS: Glucose,Whole Blood 99 mg/dL (75-99)
--- NOTE | 2019-10-27 11:55 | P.CRDCN ---
History of Present Illness Consult date: 10/27/19 Requesting physician: Brando Gray Chief complaint: Rectal bleeding History of present illness: This is a pleasant 69-year-old gentleman who follows regularly with Dr. Calvillo in the office. He has a known history of coronary artery disease with prior bypass surgery 3, ischemic cardiomyopathy with prior AICD, status post mitral valve replacement with mechanical valve, hypertension, hyperlipidemia, chronic kidney disease, prior CVA, GERD, history of prior GI bleed. Recently underwent hemorrhoidectomy. Presented to the hospital with rectal bleeding. He was taken to the operating room last evening where an additional suture was placed, it appears that the bleeding at present has stopped. Patient was taking Coumadin because of his history of mechanical valve which had been placed on hold. Blood pressure 104/60 with a heart rate of 90, 100% on 2 L of oxygen. Admission lab data, white blood cell count 13.5, hemoglobin 11.2, platelet count 332. INR on admission 1.7. Sodium 132, potassium 4.8, BUN 26, creatinine 1.4. Total bilirubin 1.9, AST 63, ALT 23, alk phos 189. This morning's labs, white blood cell count 13.3, hemoglobin 8.4, platelet count 354, INR 1.5, sodium 135, potassium 4.2, BUN 23, creatinine 1.5. At the time of my examination this morning, patient is complaining of some pain in his rectal area, denies any shortness of breath or chest discomfort. 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 Last Myocardial Infarction Date:: 1999 History of Any Multi-Drug Resistant Organisms: None Reported Past Surgical History: AICD, Cardiac Valve Replacement, Cholecystectomy, Coronary Bypass/CABG, Heart Catheterization, Tonsillectomy Additional Past Surgical History / Comment(s): 1999 CABG 3 vessels then redo bypass/mechanical mitral valve replacement, 2016 AICD, several thoracentesis, colonoscopies/benign polypectomy, hemorrhoidectomy on 10/17/19. Past Anesthesia/Blood Transfusion Reactions: No Reported Reaction Additional Past Anesthesia/Blood Transfusion Reaction / Comment(s): Pt has received blood in past without reaction. Type of Cardiac Device: AICD Device Placement Date:: 03-31-16- [employer] Model:0150 [id number] Past Psychological History: Anxiety, Depression, PTSD Additional Psychological History / Comment(s): Pt resides with his spouse. He uses no assistive device. He drives. Smoking Status: Former smoker Past Alcohol Use History: None Reported Additional Past Alcohol Use History / Comment(s): . Past Drug Use History: None Reported - Past Family History Brother(s) Family Medical History: Coronary Artery Disease (CAD), Hyperlipidemia, Hypertension Mother Family Medical History: Dementia, Hypertension Additional Family Medical History / Comment(s): Mother at the age of 92yrs. Father Family Medical History: Cancer Additional Family Medical History / Comment(s): from melanoma cancer Medications and Allergies Home Medications Medication Instructions Recorded Confirmed Type Sertraline [Zoloft] 100 mg PO DAILY 05/19/18 10/26/19 History lamoTRIgine [LaMICtal] 100 mg PO HS 05/19/18 10/26/19 History Calcitriol 0.25 mcg PO DAILY 10/04/19 10/26/19 History Carvedilol [Coreg] 3.125 mg PO BID 10/04/19 10/26/19 History Ergocalciferol [Vitamin D2] 50,000 unit PO QMONTH 10/04/19 10/26/19 History Furosemide [Lasix] 40 mg PO BID 10/04/19 10/26/19 History Sacubitril/Valsartan [Entresto 24 1 tab PO BID 10/04/19 10/26/19 History mg-26 mg Tablet] Warfarin [Coumadin] 1.25 mg PO SUMOWETHSA 10/04/19 10/26/19 History Warfarin [Coumadin] 2.5 mg PO TUFR 10/04/19 10/26/19 History Pravastatin Sodium [Pravachol] 40 mg PO HS 10/14/19 10/26/19 History Docusate [Colace] 100 mg PO BID #20 capsule 10/17/19 10/26/19 Rx Tamsulosin [Flomax] 0.4 mg PO DAILY #30 cap 10/19/19 10/26/19 Rx Acetaminophen-Codeine 300-30mg 1 tab PO Q8H PRN 10/25/19 10/26/19 History [Tylenol w/codeine #3] Furosemide [Lasix] 20 mg PO DAILY PRN 10/25/19 10/26/19 History HYDROcodone/APAP 10-325MG [[place] 1 tab PO Q6H PRN #12 tab 10/25/19 10/26/19 Rx 10-325] Omeprazole [PriLOSEC] 20 mg PO DAILY 10/25/19 10/26/19 History Pantoprazole [Protonix] 40 mg PO DAILY 10/25/19 10/26/19 History Allergies Allergy/AdvReac Type Severity Reaction Status Date / Time nitroglycerin AdvReac made me Verified 10/26/19 16:14 feel funny, diarrhea Physical Exam Vitals: Vital Signs Temp Pulse Pulse Pulse Resp BP BP 10/27/19 08:00 97.7 F 90 18 92/52 10/27/19 03:36 95 16 104/63 10/27/19 03:34 95 18 10/27/19 02:36 95 18 90/56 10/27/19 02:06 97 16 113/56 10/27/19 01:36 91 16 90/55 10/27/19 01:21 94 16 107/66 10/27/19 01:06 91 14 89/34 10/27/19 00:59 90 14 10/27/19 00:51 90 14 88/60 10/27/19 00:31 91 18 100/52 10/27/19 00:16 86 20 133/57 10/27/19 00:01 82 18 145/109 10/26/19 23:49 98.3 F 78 16 90/55 10/26/19 22:59 87 16 99/70 10/26/19 22:48 98.2 F 87 16 102/69 10/26/19 22:46 98.2 F 87 16 102/69 10/26/19 22:29 92 16 113/79 10/26/19 22:00 94 16 106/75 10/26/19 20:00 98.3 F 93 18 103/78 10/26/19 17:50 98.4 F 89 16 117/78 10/26/19 17:26 98.5 F 90 18 111/72 10/26/19 16:10 95 18 101/58 10/26/19 14:59 99.3 F 90 18 118/85 Pulse Ox 10/27/19 08:00 94 L 10/27/19 03:36 100 10/27/19 03:34 10/27/19 02:36 95 10/27/19 02:06 95 10/27/19 01:36 98 10/27/19 01:21 99 10/27/19 01:06 100 10/27/19 00:59 10/27/19 00:51 97 10/27/19 00:31 97 10/27/19 00:16 97 10/27/19 00:01 100 10/26/19 23:49 98 10/26/19 22:59 94 L 10/26/19 22:48 100 10/26/19 22:46 100 10/26/19 22:29 98 10/26/19 22:00 98 10/26/19 20:00 96 10/26/19 17:50 95 10/26/19 17:26 95 10/26/19 16:10 93 L 10/26/19 14:59 97 Intake and Output 10/26/19 10/27/19 10/27/19 22:59 06:59 14:59 Intake Total 200 120 Output Total 850 285 Balance -850 -85 120 Intake: IV 200 Oral 120 Output: Urine 850 275 Estimated Blood Loss 10 Other: Voiding Method Indwelling Catheter Indwelling Catheter Indwelling Catheter # Voids 1 Weight 72.121 kg 73 kg PHYSICAL EXAMINATION: GENERAL: 69-year-old gentleman in no acute distress at the time of my examination HEENT: Head is atraumatic, normocephalic. Pupils equal, round. Sclera anicteric. Conjunctiva are clear. Mucous membranes of the mouth are moist. Neck is supple. There is no elevated jugular venous pressure. No carotid bruit is heard. HEART EXAMINATION: Heart S1 and S2 systolic murmur is heard, metallic mitral valve heard CHEST EXAMINATION: Lungs are clear to auscultation and precussion. No chest wall tenderness is noted on palpation or with deep breathing. ABDOMEN: Soft, nontender. Bowel sounds are heard. No organomegaly noted. EXTREMITIES: 2+ peripheral pulses with no evidence of peripheral edema and no calf tenderness noted. NEUROLOGIC patient is awake, alert and oriented 3 . . Results 10/27/19 05:45 10/27/19 05:45 Cardiac Enzymes 10/26/19 10/27/19 Range/Units 15:04 05:45 AST 63 H 24 (17-59) U/L Coagulation 10/26/19 10/27/19 Range/Units 15:04 05:45 PT 16.5 H 14.5 H (9.0-12.0) sec APTT 29.3 (22.0-30.0) sec CBC 10/26/19 10/26/19 10/27/19 Range/Units 15:48 21:00 05:45 WBC 13.5 H 10.6 13.3 H (3.8-10.6) k/uL RBC 3.74 L 3.31 L 2.90 L (4.30-5.90) m/uL Hgb 11.2 L 9.5 L D 8.4 L (13.0-17.5) gm/dL Hct 35.5 L 31.9 L 28.0 L (39.0-53.0) % Plt Count 332 338 354 (150-450) k/uL Comprehensive Metabolic Panel 10/26/19 10/27/19 Range/Units 15:04 05:45 Sodium 132 L 135 L (137-145) mmol/L Potassium 4.8 4.2 (3.5-5.1) mmol/L Chloride 95 L 97 L (98-107) mmol/L Carbon Dioxide 28 31 H (22-30) mmol/L BUN 26 H 23 H (9-20) mg/dL Creatinine 1.46 H 1.51 H (0.66-1.25) mg/dL Glucose 115 H 129 H (74-99) mg/dL Calcium 9.0 8.3 L (8.4-10.2) mg/dL AST 63 H 24 (17-59) U/L ALT 23 17 (4-49) U/L Alkaline Phosphatase 189 H 141 H (38-126) U/L Total Protein 8.4 H 5.6 L (6.3-8.2) g/dL Albumin 4.5 2.9 L (3.5-5.0) g/dL Current Medications Generic Name Dose Route Start Last Admin Trade Name Freq PRN Reason Stop Dose Admin Acetaminophen 650 mg 10/26/19 16:34 Tylenol Tab PO Q6HR PRN Mild Pain or Fever > 100.5 Acetaminophen/Codeine Phosphate 1 each 10/26/19 16:40 Tylenol #3 PO Q8H PRN Pain Hydrocodone Bitart/Acetaminophen 1 each 10/26/19 16:40 10/27/19 04:11 [place] 10 PO 1 each Q6H PRN Administration pain Calcitriol 0.25 mcg 10/27/19 09:00 10/27/19 08:10 Rocaltrol PO 0.25 mcg DAILY DAMARIS Administration Carvedilol 3.125 mg 10/26/19 21:00 10/27/19 06:12 Coreg PO 3.125 mg BID-W/MEALS DAMARIS Administration Docusate Sodium 100 mg 10/26/19 21:00 10/27/19 08:10 Colace PO 100 mg BID DAMARIS Administration Ergocalciferol 50,000 unit 11/09/19 09:00 Vitamin D2 PO QMONTH DAMARIS Furosemide 40 mg 10/26/19 21:00 10/27/19 08:10 Lasix PO 40 mg BID DAMARIS Administration Furosemide 20 mg 10/26/19 16:40 Lasix PO DAILY PRN WEIGHT GAIN Hydromorphone HCl 0.5 mg 10/26/19 16:34 10/27/19 08:09 Dilaudid IVP 0.5 mg Q3HR PRN Administration Moderate Pain Hydromorphone HCl 1 mg 10/26/19 23:34 Dilaudid IM Q3HR PRN Pain Sodium Chloride 1,000 mls @ 20 mls/hr 10/26/19 16:45 10/26/19 19:44 Saline 0.9% IV Not Given .Q24H DAMARIS Lactated Ringer's 1,000 mls @ 20 mls/hr 10/26/19 23:00 10/26/19 22:56 Lactated Ringers IV 20 mls/hr .Q24H DAMARIS Administration Lamotrigine 100 mg 10/26/19 21:00 10/26/19 19:57 Lamictal PO 100 mg HS DAMARIS Administration Naloxone HCl 0.2 mg 10/26/19 16:34 Narcan IV Q2M PRN Opioid Reversal Pantoprazole Sodium 40 mg 10/27/19 07:30 10/27/19 06:12 Protonix PO 40 mg AC-[id number] DAMARIS Administration Pravastatin Sodium 40 mg 10/26/19 21:00 10/26/19 19:57 Pravachol PO 40 mg HS DAMARIS Administration Sacubitril/Valsartan 1 each 10/26/19 21:00 10/27/19 08:10 Entresto 24 Mg-26 Mg Tablet PO 1 each BID DAMARIS Administration Sertraline HCl 100 mg 10/27/19 09:00 10/27/19 08:10 Zoloft PO 100 mg DAILY DAMARIS Administration Tamsulosin HCl 0.4 mg 10/27/19 09:00 10/27/19 08:10 Flomax PO 0.4 mg DAILY DAMARIS Administration Warfarin Sodium 5 mg 10/27/19 18:00 Coumadin PO 10/27/19 18:01 ONCE@1800 ONE Protocol Intake and Output 10/26/19 10/27/19 10/27/19 22:59 06:59 14:59 Intake Total 200 120 Output Total 850 285 Balance -850 -85 120 Intake: IV 200 Oral 120 Output: Urine 850 275 Estimated Blood Loss 10 Other: Voiding Method Indwelling Catheter Indwelling Catheter Indwelling Catheter # Voids 1 Weight 72.121 kg 73 kg 10/27/19 05:45 10/27/19 05:45 EKG Interpretations (text) Telemetry shows a sinus tachycardia. Assessment and Plan Plan: Assessment and plan #1 rectal bleeding, recent hemorrhoidectomy, hemoglobin 8.4 this morning #2 chronic systolic congestive heart failure #3 coronary artery disease with prior bypass surgery 3 #4 history of mitral valve replacement, mechanical valve, was on Coumadin for anticoagulation, we will resume that today #5 hypertension #6 hyperlipidemia #7 ischemic cardiomyopathy with prior AICD #8 acute on chronic renal failure #9 history of a CVA Plan Patient just had an echo performed in September of this year which revealed an ejection fraction of 20-25% normal mechanical prosthetic mitral valve, severe pulmonary hypertension. We will resume the Coumadin this evening, giving 5 mg today. Further recommendations to follow. DNP note has been reviewed, I agree with a documented findings and plan of care. Patient was seen and examined.
[2019-10-27 12:42] LABS: Appearance,Urine Clear (Clear); Bilirubin,Urine Negative (Negative); Blood,Urine Small (Negative); Color,Urine Yellow; Glucose,Urine (UA) Negative (Negative); Hyaline Casts,Urine 8 /lpf (0-2); Ketones,Urine Negative (Negative); Leukocyte Esterase,Urine Large (Negative); Mucus,Urine Rare /hpf; Nitrite,Urine Negative (Negative); PH, Urine 6.5 (5.0-8.0); Protein,Urine Trace (Negative); RBC,Urine 15 /hpf (0-5); Specific Gravity,Urine 1.011 (1.001-1.035); WBC,Urine 11 /hpf (0-5)
[2019-10-27 16:33] LABS: Glucose,Whole Blood 147 mg/dL (75-99)
[2019-10-27] MEDS ORDERED: SODIUM CHLORIDE 0.9% 500 ML 250 ML IV ONE (17:55)
[2019-10-27] MEDS ORDERED: WARFARIN 5 MG TAB PO ONE (18:00)
[2019-10-27 20:11] LABS: Glucose,Whole Blood 120 mg/dL (75-99)
[2019-10-27] MEDS: lamoTRIgine 100 MG TAB PO SCH (20:32)
[2019-10-27] MEDS: PRAVASTATIN SODIUM 40 MG TAB PO SCH (20:32)
[2019-10-27] MEDS: SODIUM CHLORIDE 0.9% 1,000 ML IV SCH (20:34)
--- NOTE | 2019-10-27 22:25 | DS ---
DISCHARGE SUMMARY ADDENDUM TO DISCHARGE SUMMARY: Addition to discharge diagnoses: Acute blood-loss anemia secondary to gastrointestinal bleed. MMODL / IJN: [id number] /
--- NOTE | 2019-10-27 22:31 | PN ---
PROGRESS NOTE This patient is a 69-year-old white male with bleeding hemorrhoids, clearing for surgery for tomorrow. Vital signs stable. Afebrile. CARDIOVASCULAR: S1, S2. LUNGS: Clear. GI: Soft. RECTAL: No significant bleeding. ASSESSMENT: 1. Status post hemorrhoidectomy with gastrointestinal bleed. 2. Systolic congestive heart failure. PLAN: Will restart Coumadin. He will be discharged home tomorrow. His bleeding stopped after surgery. He went back and had surgery redone. He has no further bleeding at this time. Will resume his blood thinner. Check hemoglobin in the morning. MMODL / IJN: [id number] /
[2019-10-28] MEDS: LACTATED RINGERS 1,000 ML IV SCH (00:56)
[2019-10-28 06:05] LABS: Glucose,Whole Blood 123 mg/dL (75-99)
[2019-10-28] MEDS: carvediloL 3.125 MG TAB PO SCH ×2 (06:11→18:34)
[2019-10-28] MEDS: PANTOPRAZOLE 40 MG TABLET PO SCH (06:11)
[2019-10-28 06:51] LABS: Anisocytosis Slight; Basophils # (A) 0.1 k/uL (0-0.2); Basophils % (A) 1 %; Eosinophils # (A) 0.2 k/uL (0-0.7); Eosinophils % (A) 2 %; HCT 25.9 % (39.0-53.0); HGB 7.9 gm/dL (13.0-17.5); Hypochromasia Marked; Lymphocytes # (A) 0.7 k/uL (1.0-4.8); Lymphocytes % (A) 7 %; MCH 29.8 pg (25.0-35.0); MCHC 30.4 g/dL (31.0-37.0); Macrocytosis Slight; Mean Platelet Volume 7.6; Monocytes # (A) 0.6 k/uL (0-1.0); Monocytes % (A) 6 %; Neutrophils # (A) 8.9 k/uL (1.3-7.7); Neutrophils % (A) 83 %; Platelet Count 325 k/uL (150-450); RBC 2.64 m/uL (4.30-5.90); RDW 17.3 % (11.5-15.5); WBC 10.7 k/uL (3.8-10.6)
[2019-10-28 07:00] LABS: INR 1.8 (<1.2)
[2019-10-28] MEDS: FUROSEMIDE 40 MG TAB PO SCH (07:48)
[2019-10-28] MEDS: DOCUSATE 100 MG CAP PO SCH ×2 (07:49→20:16)
[2019-10-28] MEDS: ACETAMINOPHEN TAB 325 MG TAB PO PRN ×3 (07:49→20:16)
[2019-10-28] MEDS: SERTRALINE 100 MG TAB PO SCH (07:49)
[2019-10-28] MEDS: TAMSULOSIN 0.4 MG CAP.ER.24H PO SCH (07:50)
[2019-10-28] MEDS: SACUBITRIL/VALSARTAN 24 MG-26 MG TABLET PO SCH (07:50)
--- NOTE | 2019-10-28 10:50 | P.PN ---
Subjective Progress Note Date: 10/28/19 The presence of his 9-year-old gentleman who follows with Dr. Calvillo in the office. Has a known history of CAD, prior bypass surgery, ischemic cardiomyopathy with prior AICD, status post mitral valve replacement with mechanical valve, hypertension, hyperlipidemia, chronic kidney disease, prior CVA, and prior history of GI bleed. Underwent recent hemorrhoidectomy and presented to the hospital following now with rectal bleeding. He was taken to the operating room the night of admission where an additional suture was placed. Bleeding has appeared to have stopped. Coumadin has been resumed and his INR is 1.8. Patient remains hypotensive. Currently on carvedilol 3.125 mg by mouth twice a day, Lasix 40 mg by mouth twice a day and Entresto 24/26mg by mouth twice a day. Hemoglobin this morning 7.9. Upon examination patient is sitting up in a chair complaining of significant rectal pain. Significant pain does create some shortness of breath for the patient. Otherwise feeling fairly well. Denies any chest discomfort, orthopnea or PND. Objective - Vital Signs Vital signs: Vital Signs Temp 97.9 F 10/28/19 07:45 Pulse 85 10/28/19 07:45 Resp 20 10/28/19 07:45 BP 84/32 10/28/19 09:27 Pulse Ox 99 10/28/19 07:45 Intake & Output 10/27/19 10/28/19 10/28/19 18:59 06:59 18:59 Intake Total 240 440 240 Output Total 425 500 Balance -185 -60 240 Weight 72.5 kg Intake: Intake, IV Titration 140 Amount Sodium Chloride 0.9% 1, 140 000 ml @ 20 mls/hr IV . Q24H [facility] Rx#:[id number] Oral 240 300 240 Output: Urine 425 500 Other: Voiding Method Indwelling Catheter Indwelling Catheter Indwelling Catheter # Voids 0 - Exam PHYSICAL EXAMINATION: HEENT: Head is atraumatic, normocephalic. Pupils equal, round. Neck is supple. There is no elevated jugular venous pressure. HEART EXAMINATION: Heart sounds regular, S1 and S2 with a systolic murmur, metallic mitral valve heard. CHEST EXAMINATION: Lungs are clear to auscultation and precussion. No chest wall tenderness is noted on palpation or with deep breathing. ABDOMEN: Soft, nontender. Bowel sounds are heard. No organomegaly noted. EXTREMITIES: 2+ peripheral pulses with no evidence of peripheral edema and no calf tenderness noted. NEUROLOGIC patient is awake, alert and oriented x3. . - Labs CBC & Chem 7: 10/28/19 05:54 10/27/19 05:45 Labs: Abnormal Lab Results - Last 24 Hours (Table) 10/27/19 10/27/19 10/27/19 Range/Units 12:05 16:27 20:10 WBC (3.8-10.6) k/uL RBC (4.30-5.90) m/uL Hgb (13.0-17.5) gm/dL Hct (39.0-53.0) % MCHC (31.0-37.0) g/dL RDW (11.5-15.5) % Neutrophils # (1.3-7.7) k/uL Lymphocytes # (1.0-4.8) k/uL PT (9.0-12.0) sec INR (<1.2) POC Glucose (mg/dL) 147 H 120 H (75-99) mg/dL Urine Protein Trace H (Negative) Urine Blood Small H (Negative) Ur Leukocyte Esterase Large H (Negative) Urine RBC 15 H (0-5) /hpf Urine WBC 11 H (0-5) /hpf Hyaline Casts 8 H (0-2) /lpf Urine Mucus Rare H (None) /hpf 10/28/19 10/28/19 10/28/19 Range/Units 05:54 05:54 06:04 WBC 10.7 H (3.8-10.6) k/uL RBC 2.64 L (4.30-5.90) m/uL Hgb 7.9 L (13.0-17.5) gm/dL Hct 25.9 L (39.0-53.0) % MCHC 30.4 L (31.0-37.0) g/dL RDW 17.3 H (11.5-15.5) % Neutrophils # 8.9 H (1.3-7.7) k/uL Lymphocytes # 0.7 L (1.0-4.8) k/uL PT 18.0 H (9.0-12.0) sec INR 1.8 H (<1.2) POC Glucose (mg/dL) 123 H (75-99) mg/dL Urine Protein (Negative) Urine Blood (Negative) Ur Leukocyte Esterase (Negative) Urine RBC (0-5) /hpf Urine WBC (0-5) /hpf Hyaline Casts (0-2) /lpf Urine Mucus (None) /hpf Microbiology - Last 24 Hours (Table) 10/27/19 12:05 Urine Culture - Preliminary Urine,Voided Assessment and Plan Assessment: #1 rectal bleeding, recent hemorrhoidectomy, hemoglobin 7.9 this morning #2 chronic systolic congestive heart failure, appears euvolemic #3 coronary artery disease with prior bypass surgery 3 #4 history of mitral valve replacement, mechanical valve, on Coumadin for anticoagulation, INR 1.8 this morning #5 hypertension, currently hypotensive #6 hyperlipidemia #7 ischemic cardiomyopathy with prior AICD #8 acute on chronic renal failure #9 history of a CVA Plan: From cardiology's perspective decrease Lasix to 20 mg by mouth daily. We will give the patient 5 mg of Coumadin tonight. Continue to monitor blood pressure, renal function, electrolytes, CBC and INR. We will continue to follow the patient for further recommendations accordingly. INTERIOR DECORATOR note has been reviewed, I agree with a documented findings and plan of care. Patient was seen and examined.
[2019-10-28 11:35] LABS: Glucose,Whole Blood 134 mg/dL (75-99)
--- NOTE | 2019-10-28 12:34 | P.PN ---
<Alivia Hernández - Last Filed: 10/28/19 12:22> Subjective Progress Note Date: 10/28/19 CHIEF COMPLAINT: rectal bleeding HISTORY OF PRESENT ILLNESS: Patient examined at the bedside. He reports increased pain at the time of examination due to having a recent bowel movement. He states he received some pain medication and his pain is improved somewhat. He denies any further rectal bleeding. Patient has been resumed on his Coumadin. Hemoglobin today 7.9. INR 1.8. PHYSICAL EXAM: VITAL SIGNS: Reviewed. GENERAL: Well-developed in no acute distress. HEENT: No sclera icterus. Extraocular movements grossly intact. Moist buccal mucosa. Head is atraumatic, normocephalic. ABDOMEN: Soft. Nondistended. Nontender. NEUROLOGIC: Alert and oriented. Cranial nerves II through XII grossly intact. ASSESSMENT: 1. Hemorrhoidal bleeding PLAN: -Coumadin restarted. Monitor INR. -Continue to monitor hemoglobin -Pain control -Diet as tolerated Nurse practitioner note has been reviewed by physician. Signing provider agrees with the documented findings, assessment, and plan of care. Objective - Vital Signs Vital signs: Vital Signs Temp 98.1 F 10/28/19 11:24 Pulse 84 10/28/19 11:24 Resp 22 10/28/19 11:24 BP 81/54 10/28/19 11:24 Pulse Ox 100 10/28/19 11:24 Intake & Output 10/27/19 10/28/19 10/28/19 18:59 06:59 18:59 Intake Total 240 440 240 Output Total 425 500 200 Balance -185 -60 40 Weight 72.5 kg Intake: Intake, IV Titration 140 Amount Sodium Chloride 0.9% 1, 140 000 ml @ 20 mls/hr IV . Q24H [facility] Rx#:[id number] Oral 240 300 240 Output: Urine 425 500 200 Other: Voiding Method Indwelling Catheter Indwelling Catheter Indwelling Catheter # Voids 0 - Labs CBC & Chem 7: 10/28/19 05:54 10/27/19 05:45 Labs: Abnormal Lab Results - Last 24 Hours (Table) 10/27/19 10/27/19 10/27/19 Range/Units 12:05 16:27 20:10 WBC (3.8-10.6) k/uL RBC (4.30-5.90) m/uL Hgb (13.0-17.5) gm/dL Hct (39.0-53.0) % MCHC (31.0-37.0) g/dL RDW (11.5-15.5) % Neutrophils # (1.3-7.7) k/uL Lymphocytes # (1.0-4.8) k/uL PT (9.0-12.0) sec INR (<1.2) POC Glucose (mg/dL) 147 H 120 H (75-99) mg/dL Urine Protein Trace H (Negative) Urine Blood Small H (Negative) Ur Leukocyte Esterase Large H (Negative) Urine RBC 15 H (0-5) /hpf Urine WBC 11 H (0-5) /hpf Hyaline Casts 8 H (0-2) /lpf Urine Mucus Rare H (None) /hpf 10/28/19 10/28/19 10/28/19 Range/Units 05:54 05:54 06:04 WBC 10.7 H (3.8-10.6) k/uL RBC 2.64 L (4.30-5.90) m/uL Hgb 7.9 L (13.0-17.5) gm/dL Hct 25.9 L (39.0-53.0) % MCHC 30.4 L (31.0-37.0) g/dL RDW 17.3 H (11.5-15.5) % Neutrophils # 8.9 H (1.3-7.7) k/uL Lymphocytes # 0.7 L (1.0-4.8) k/uL PT 18.0 H (9.0-12.0) sec INR 1.8 H (<1.2) POC Glucose (mg/dL) 123 H (75-99) mg/dL Urine Protein (Negative) Urine Blood (Negative) Ur Leukocyte Esterase (Negative) Urine RBC (0-5) /hpf Urine WBC (0-5) /hpf Hyaline Casts (0-2) /lpf Urine Mucus (None) /hpf 10/28/19 Range/Units 11:33 WBC (3.8-10.6) k/uL RBC (4.30-5.90) m/uL Hgb (13.0-17.5) gm/dL Hct (39.0-53.0) % MCHC (31.0-37.0) g/dL RDW (11.5-15.5) % Neutrophils # (1.3-7.7) k/uL Lymphocytes # (1.0-4.8) k/uL PT (9.0-12.0) sec INR (<1.2) POC Glucose (mg/dL) 134 H (75-99) mg/dL Urine Protein (Negative) Urine Blood (Negative) Ur Leukocyte Esterase (Negative) Urine RBC (0-5) /hpf Urine WBC (0-5) /hpf Hyaline Casts (0-2) /lpf Urine Mucus (None) /hpf Microbiology - Last 24 Hours (Table) 10/27/19 12:05 Urine Culture - Preliminary Urine,Voided <Dayton Inman - Last Filed: 10/28/19 15:32> Subjective Patient having some pain with loose stools. No bleeding. INR 1.8. Continue analgesics. Monitor hemoglobin. Discharge per primary service. Objective - Vital Signs Vital signs: Vital Signs Temp 98.1 F 10/28/19 11:24 Pulse 94 10/28/19 12:00 Resp 22 10/28/19 11:24 BP 100/68 10/28/19 12:00 Pulse Ox 100 10/28/19 11:24 Intake & Output 10/27/19 10/28/19 10/28/19 18:59 06:59 18:59 Intake Total 240 440 477 Output Total 425 500 200 Balance -185 -60 277 Weight 72.5 kg Intake: Intake, IV Titration 140 Amount Sodium Chloride 0.9% 1, 140 000 ml @ 20 mls/hr IV . Q24H [facility] Rx#:[id number] Oral 240 300 477 Output: Urine 425 500 200 Other: Voiding Method Indwelling Catheter Indwelling Catheter Indwelling Catheter # Voids 0 - Labs CBC & Chem 7: 10/28/19 12:56 10/27/19 05:45 Labs: Abnormal Lab Results - Last 24 Hours (Table) 10/27/19 10/27/19 10/28/19 Range/Units 16:27 20:10 05:54 WBC (3.8-10.6) k/uL RBC (4.30-5.90) m/uL Hgb (13.0-17.5) gm/dL Hct (39.0-53.0) % MCHC (31.0-37.0) g/dL RDW (11.5-15.5) % Neutrophils # (1.3-7.7) k/uL Lymphocytes # (1.0-4.8) k/uL PT 18.0 H (9.0-12.0) sec INR 1.8 H (<1.2) POC Glucose (mg/dL) 147 H 120 H (75-99) mg/dL 10/28/19 10/28/19 10/28/19 Range/Units 05:54 06:04 11:33 WBC 10.7 H (3.8-10.6) k/uL RBC 2.64 L (4.30-5.90) m/uL Hgb 7.9 L (13.0-17.5) gm/dL Hct 25.9 L (39.0-53.0) % MCHC 30.4 L (31.0-37.0) g/dL RDW 17.3 H (11.5-15.5) % Neutrophils # 8.9 H (1.3-7.7) k/uL Lymphocytes # 0.7 L (1.0-4.8) k/uL PT (9.0-12.0) sec INR (<1.2) POC Glucose (mg/dL) 123 H 134 H (75-99) mg/dL 10/28/19 Range/Units 12:56 WBC (3.8-10.6) k/uL RBC 2.66 L (4.30-5.90) m/uL Hgb 7.9 L (13.0-17.5) gm/dL Hct 25.6 L (39.0-53.0) % MCHC 30.8 L (31.0-37.0) g/dL RDW 17.2 H (11.5-15.5) % Neutrophils # (1.3-7.7) k/uL Lymphocytes # (1.0-4.8) k/uL PT (9.0-12.0) sec INR (<1.2) POC Glucose (mg/dL) (75-99) mg/dL Microbiology - Last 24 Hours (Table) 10/27/19 12:05 Urine Culture - Preliminary Urine,Voided
[2019-10-28 13:40] LABS: Anisocytosis Slight; HCT 25.6 % (39.0-53.0); HGB 7.9 gm/dL (13.0-17.5); Hypochromasia Marked; MCH 29.6 pg (25.0-35.0); MCHC 30.8 g/dL (31.0-37.0); Macrocytosis Slight; Mean Platelet Volume 7.7; Platelet Count 305 k/uL (150-450); RBC 2.66 m/uL (4.30-5.90); RDW 17.2 % (11.5-15.5); WBC 10.1 k/uL (3.8-10.6)
[2019-10-28 16:43] LABS: Glucose,Whole Blood 175 mg/dL (75-99)
[2019-10-28] MEDS ORDERED: WARFARIN 2.5 MG TAB PO SCH (18:00)
[2019-10-28] MEDS ORDERED: WARFARIN 5 MG TAB PO ONE (18:00)
[2019-10-28] MEDS: PRAVASTATIN SODIUM 40 MG TAB PO SCH (20:16)
[2019-10-28] MEDS: lamoTRIgine 100 MG TAB PO SCH (20:16)
[2019-10-28 20:35] LABS: Glucose,Whole Blood 128 mg/dL (75-99)
[2019-10-28] MEDS: SODIUM CHLORIDE 0.9% 1,000 ML IV SCH (23:26)
[2019-10-29] MEDS: LACTATED RINGERS 1,000 ML IV SCH (02:29)
[2019-10-29] MEDS: SACUBITRIL/VALSARTAN 24 MG-26 MG TABLET PO SCH ×2 (02:30→08:12)
[2019-10-29] MEDS: ACETAMINOPHEN TAB 325 MG TAB PO PRN (04:18)
[2019-10-29 04:35] VITALS: RESP 19
[2019-10-29 06:09] LABS: Glucose,Whole Blood 112 mg/dL (75-99)
[2019-10-29] MEDS: PANTOPRAZOLE 40 MG TABLET PO SCH (06:18)
[2019-10-29] MEDS: carvediloL 3.125 MG TAB PO SCH (06:18)
[2019-10-29 07:00] LABS: Albumin 3.2 g/dL (3.5-5.0); Calcium 8.5 mg/dL (8.4-10.2); Potassium 4.3 mmol/L (3.5-5.1); Total Bilirubin 1.5 mg/dL (0.2-1.3); Total Protein 6.1 g/dL (6.3-8.2)
[2019-10-29 07:03] LABS: INR 4.2 (<1.2)
[2019-10-29 07:10] LABS: Anisocytosis Slight; Basophils # (A) 0.1 k/uL (0-0.2); Basophils % (A) 1 %; Eosinophils # (A) 0.1 k/uL (0-0.7); Eosinophils % (A) 1 %; HCT 27.7 % (39.0-53.0); HGB 8.3 gm/dL (13.0-17.5); Hypochromasia Marked; Lymphocytes # (A) 0.7 k/uL (1.0-4.8); Lymphocytes % (A) 7 %; MCH 28.9 pg (25.0-35.0); MCHC 29.9 g/dL (31.0-37.0); MCV 96.6 fL (80.0-100.0); Macrocytosis Slight; Monocytes # (A) 0.6 k/uL (0-1.0); Monocytes % (A) 6 %; Neutrophils # (A) 8.7 k/uL (1.3-7.7); Neutrophils % (A) 84 %; Platelet Count 360 k/uL (150-450); RBC 2.86 m/uL (4.30-5.90); RDW 17.8 % (11.5-15.5); WBC 10.3 k/uL (3.8-10.6)
[2019-10-29] MEDS: DOCUSATE 100 MG CAP PO SCH (08:12)
[2019-10-29] MEDS: SERTRALINE 100 MG TAB PO SCH (08:12)
[2019-10-29] MEDS: TAMSULOSIN 0.4 MG CAP.ER.24H PO SCH (08:12)
[2019-10-29 08:22] VITALS: BP 75/48; PULSE 88; TEMP 98.2
--- NOTE | 2019-10-29 08:48 | PN ---
PROGRESS NOTE DATE OF SERVICE: 10/28/2019. 69-year-old white male with rectal bleeding was found to have large amount of hemorrhoids and raw tissue in the rectum. His bleeding has stopped after he was taken back to surgery. Hemoglobin 7.9. He had some hypotension yesterday. Cardiology reassessed his medicines and adjusted them. Hemoglobin 7.9, temp 98, blood pressure is 80s to 90s systolic over 50s to 60s. O2 is 95% on 2 L. CARDIOVASCULAR S1, S2. LUNGS clear. GI soft. HEMATOLOGY negative Homans. Surgery saw the patient and started his Coumadin back. Monitoring his hemoglobin. Pain control. Diet as tolerated. Monitor for signs of hypotension and bleeding. MMODL / IJN: [id number] /
[2019-10-29] MEDS ORDERED: FUROSEMIDE 20 MG TAB PO SCH (09:00)
[2019-10-29 11:35] LABS: Glucose,Whole Blood 87 mg/dL (75-99)
[2019-10-29] MEDS ORDERED: EPINEPHrine 10 ML SYRINGE (0.1 MG/ML) ONE (12:00)
[2019-10-29] MEDS ORDERED: SODIUM BICARB 8.4% 50 ML SYR (1 MEQ/ML) ONE ×2 (12:00→12:14)
--- NOTE | 2019-10-29 12:23 | P.PN ---
Subjective Progress Note Date: 10/29/19 Principal diagnosis: Rectal bleeding Patient complaining of ongoing diarrhea. Some discomfort with bowel activity. No bleeding per the patient. Today's INR 4.2. Denies abdominal pain. Says he is having diarrhea and his briefs because of the frequency of his diarrhea and the shortness of breath he experiences going back and forth to the bathroom. Objective - Vital Signs Vital signs: Vital Signs Temp 98.2 F 10/29/19 08:17 Pulse 88 10/29/19 08:17 Resp 19 10/29/19 08:17 BP 75/48 10/29/19 08:17 Pulse Ox 94 L 10/29/19 08:17 Intake & Output 10/28/19 10/29/19 10/29/19 18:59 06:59 18:59 Intake Total 477 Output Total 200 0 Balance 277 0 Weight 73.5 kg Intake: Oral 477 Output: Urine 200 0 Other: Voiding Method Indwelling Catheter Indwelling Catheter # Bowel Movements 2 5 1 - Exam Abdomen: Soft, nontender, nondistended - Labs CBC & Chem 7: 10/29/19 06:26 10/29/19 06:45 Labs: Abnormal Lab Results - Last 24 Hours (Table) 10/28/19 10/28/19 10/28/19 Range/Units 12:56 16:42 20:33 RBC 2.66 L (4.30-5.90) m/uL Hgb 7.9 L (13.0-17.5) gm/dL Hct 25.6 L (39.0-53.0) % MCHC 30.8 L (31.0-37.0) g/dL RDW 17.2 H (11.5-15.5) % Neutrophils # (1.3-7.7) k/uL Lymphocytes # (1.0-4.8) k/uL PT (9.0-12.0) sec INR (<1.2) Sodium (137-145) mmol/L Chloride (98-107) mmol/L BUN (9-20) mg/dL Creatinine (0.66-1.25) mg/dL POC Glucose (mg/dL) 175 H 128 H (75-99) mg/dL Total Bilirubin (0.2-1.3) mg/dL AST (17-59) U/L Alkaline Phosphatase (38-126) U/L Total Protein (6.3-8.2) g/dL Albumin (3.5-5.0) g/dL 10/29/19 10/29/19 10/29/19 Range/Units 06:07 06:26 06:26 RBC 2.86 L (4.30-5.90) m/uL Hgb 8.3 L (13.0-17.5) gm/dL Hct 27.7 L (39.0-53.0) % MCHC 29.9 L (31.0-37.0) g/dL RDW 17.8 H (11.5-15.5) % Neutrophils # 8.7 H (1.3-7.7) k/uL Lymphocytes # 0.7 L (1.0-4.8) k/uL PT 42.0 H (9.0-12.0) sec INR 4.2 H (<1.2) Sodium (137-145) mmol/L Chloride (98-107) mmol/L BUN (9-20) mg/dL Creatinine (0.66-1.25) mg/dL POC Glucose (mg/dL) 112 H (75-99) mg/dL Total Bilirubin (0.2-1.3) mg/dL AST (17-59) U/L Alkaline Phosphatase (38-126) U/L Total Protein (6.3-8.2) g/dL Albumin (3.5-5.0) g/dL 10/29/19 Range/Units 06:45 RBC (4.30-5.90) m/uL Hgb (13.0-17.5) gm/dL Hct (39.0-53.0) % MCHC (31.0-37.0) g/dL RDW (11.5-15.5) % Neutrophils # (1.3-7.7) k/uL Lymphocytes # (1.0-4.8) k/uL PT (9.0-12.0) sec INR (<1.2) Sodium 131 L (137-145) mmol/L Chloride 96 L (98-107) mmol/L BUN 34 H (9-20) mg/dL Creatinine 2.17 H (0.66-1.25) mg/dL POC Glucose (mg/dL) (75-99) mg/dL Total Bilirubin 1.5 H (0.2-1.3) mg/dL AST 82 H (17-59) U/L Alkaline Phosphatase 217 H (38-126) U/L Total Protein 6.1 L (6.3-8.2) g/dL Albumin 3.2 L (3.5-5.0) g/dL Microbiology - Last 24 Hours (Table) 10/27/19 12:05 Urine Culture - Preliminary Urine,Voided Gram Neg Bacilli Assessment and Plan (1) Rectal bleeding Narrative/Plan: We'll decrease the cathartics being utilized. Monitor INR. Consider holding today's Coumadin. Current Visit: Yes Status: Acute Code(s): K62.5 - HEMORRHAGE OF ANUS AND RECTUM SNOMED Code(s): 50237865
--- NOTE | 2019-10-29 13:00 | P.EN ---
CODE BLUE Note: responded to code blue on 69 year male who was admitted on 10/26/19 with anemia secondary to hemorrhoid bleeding, underwent ligation on 10/26/19, on Coumadin with INR 4.2. Patient was last seen in normal state aprox 30 min prior to code. PEA on cardiac telemetry. Code started at 1200, chest compressions initiated immediately. received first dose of Epi 2 minutes into code total of 7 amps of Epi and 2 amps of Bicarb given in addition to IVF maintained PEA throughout entire code which lasted 17 minutes time of 1217 preliminary cause of : -acute blood loss from GIB in the setting of supratherapeutic INR Patient's and surrounding events were discussed with his in person. Emotional support provided. attending physician notified
--- NOTE | 2019-10-29 13:02 | P.PN ---
Subjective Progress Note Date: 10/29/19 69-year-old gentleman who follows with Dr. Dickerson in the office. Has a known history of CAD, prior bypass surgery, ischemic cardiomyopathy with prior AICD, status post mitral valve replacement with mechanical valve on Coumadin, hypertension, hyperlipidemia, chronic kidney disease, prior CVA, and prior hist ory of GI bleed. Underwent recent hemorrhoidectomy and presented to the hospital following now with rectal bleeding. He was taken to the operating room the night of admission where an additional suture was placed. Bleeding has appeared to have stopped. Coumadin has been resumed and his INR is 1.8. Patient remains hypotensive. Currently on carvedilol 3.125 mg by mouth twice a day, Lasix 20 mg by mouth a day and Entresto 24/26mg by mouth twice a day. Hemoglobin this morning 8.3. Patient was given Coumadin 5 mg last night and INR came back at 4.2, Coumadin was subsequently discontinued. BUN 34 and creatinine 2.17. He is afebrile, heart rate 93, blood pressure 94/70, pulse ox 95% on 2 L nasal cannula. Patient is complaining of abdominal pain and diarrhea. He states he had a little bit of bleeding last night. Denies any chest discomfort, orthopnea or PND. Physical examination: Gen: This is a 69-year-old male. He is in [place] appears to be fairly comfortable.] HEENT: Head is atraumatic, normocephalic. Pupils equal, round. Sclerae is anicteric. NECK: Supple. No JVD. No lymphadenopathy. No thyromegaly. LUNGS: Clear to auscultation. No wheezes or rhonchi. No intercostal retractions. HEART: Regular rate and rhythm. Systolic murmur. metallic mitral valve heard. ABDOMEN: Soft. Bowel sounds are present. No masses. No tenderness. EXTREMITIES: No pedal edema. No calf tenderness. Dorsalis pedis +2 bilaterally. NEUROLOGICAL: Patient is awake, alert and oriented x3. Cranial nerves 2 through 12 are grossly intact. Assessment: #1 rectal bleeding, recent hemorrhoidectomy, hemoglobin stable #2 chronic systolic congestive heart failure, appears euvolemic #3 coronary artery disease with prior bypass surgery 3 #4 history of mitral valve replacement, mechanical valve, on Coumadin for anticoagulation, INR 1.8 this morning #5 hypertension, currently hypotensive #6 hyperlipidemia #7 ischemic cardiomyopathy with prior AICD #8 acute on chronic renal failure #9 history of a CVA Plan: From cardiology's perspective continue Lasix to 20 mg by mouth daily. Discontinue Coumadin and recheck INR in the morning. Continue to monitor blood pressure, renal function, electrolytes, CBC and INR. We will continue to follow the patient for further recommendations accordingly. Nurse practitioner note has been reviewed, I agree with documented findings and plan of care. Patient was seen and examined. Objective - Vital Signs Vital signs: Vital Signs Temp 98.2 F 10/29/19 08:17 Pulse 88 10/29/19 08:17 Resp 19 10/29/19 08:17 BP 75/48 10/29/19 08:17 Pulse Ox 94 L 10/29/19 08:17 Intake & Output 10/28/19 10/29/19 10/29/19 18:59 06:59 18:59 Intake Total 477 Output Total 200 0 Balance 277 0 Weight 73.5 kg Intake: Oral 477 Output: Urine 200 0 Other: Voiding Method Indwelling Catheter Indwelling Catheter # Bowel Movements 2 5 1 - Labs CBC & Chem 7: 10/29/19 06:26 10/29/19 06:45 Labs: Abnormal Lab Results - Last 24 Hours (Table) 10/28/19 10/28/19 10/28/19 Range/Units 11:33 12:56 16:42 RBC 2.66 L (4.30-5.90) m/uL Hgb 7.9 L (13.0-17.5) gm/dL Hct 25.6 L (39.0-53.0) % MCHC 30.8 L (31.0-37.0) g/dL RDW 17.2 H (11.5-15.5) % Neutrophils # (1.3-7.7) k/uL Lymphocytes # (1.0-4.8) k/uL PT (9.0-12.0) sec INR (<1.2) Sodium (137-145) mmol/L Chloride (98-107) mmol/L BUN (9-20) mg/dL Creatinine (0.66-1.25) mg/dL POC Glucose (mg/dL) 134 H 175 H (75-99) mg/dL Total Bilirubin (0.2-1.3) mg/dL AST (17-59) U/L Alkaline Phosphatase (38-126) U/L Total Protein (6.3-8.2) g/dL Albumin (3.5-5.0) g/dL 10/28/19 10/29/19 10/29/19 Range/Units 20:33 06:07 06:26 RBC (4.30-5.90) m/uL Hgb (13.0-17.5) gm/dL Hct (39.0-53.0) % MCHC (31.0-37.0) g/dL RDW (11.5-15.5) % Neutrophils # (1.3-7.7) k/uL Lymphocytes # (1.0-4.8) k/uL PT 42.0 H (9.0-12.0) sec INR 4.2 H (<1.2) Sodium (137-145) mmol/L Chloride (98-107) mmol/L BUN (9-20) mg/dL Creatinine (0.66-1.25) mg/dL POC Glucose (mg/dL) 128 H 112 H (75-99) mg/dL Total Bilirubin (0.2-1.3) mg/dL AST (17-59) U/L Alkaline Phosphatase (38-126) U/L Total Protein (6.3-8.2) g/dL Albumin (3.5-5.0) g/dL 10/29/19 10/29/19 Range/Units 06:26 06:45 RBC 2.86 L (4.30-5.90) m/uL Hgb 8.3 L (13.0-17.5) gm/dL Hct 27.7 L (39.0-53.0) % MCHC 29.9 L (31.0-37.0) g/dL RDW 17.8 H (11.5-15.5) % Neutrophils # 8.7 H (1.3-7.7) k/uL Lymphocytes # 0.7 L (1.0-4.8) k/uL PT (9.0-12.0) sec INR (<1.2) Sodium 131 L (137-145) mmol/L Chloride 96 L (98-107) mmol/L BUN 34 H (9-20) mg/dL Creatinine 2.17 H (0.66-1.25) mg/dL POC Glucose (mg/dL) (75-99) mg/dL Total Bilirubin 1.5 H (0.2-1.3) mg/dL AST 82 H (17-59) U/L Alkaline Phosphatase 217 H (38-126) U/L Total Protein 6.1 L (6.3-8.2) g/dL Albumin 3.2 L (3.5-5.0) g/dL Microbiology - Last 24 Hours (Table) 10/27/19 12:05 Urine Culture - Preliminary Urine,Voided Gram Neg Bacilli
--- NOTE | 2019-10-31 13:29 | CDI ---
Documentation Clarification Form Date: 10/31/19 From: Alicia Leal Phone: If you have a question about this query, please contact Lisseth Rodgers, Hot Plate Plywood Press Laborer at [phone] between 8am and 5pm. Admit Date: 10/26/19 Discharge Date:10/29/19 Patient Name: Cody Savage Visit Number: [id number] ATTENTION: The Clinical Documentation Specialists (CDI) and [facility] Coding Staff appreciate your assistance in clarifying documentation. Please respond to the clarification below the line at the bottom and electronically sign. The CDI & [facility] Coding staff will review the response and follow-up if needed. Please note: Queries are made part of the Legal Health Record. If you have any questions, please contact the author of this message via ITS. Dear Dr. Gray Acute on Chronic Renal failure is documented in the cardiology consult note and 10/27 progress note and in Maude Ortega's 10/27 progress note.. History Risk factors/Other underlying illness: Chronic kidney disease, bleeding hemorrhoid, acute blood loss anemia, hypotension Clinical Indicators: Elevated creatinine Labs: Patient presents with a BUN/CR and GFR of: 26/1.46/49 Patients baseline BUN/CR and GFR on last day of admit: 34/2. Urinalysis: Blood small, leukocyte esterase large, rbc 15, wbc 11, casts 8 Treatment: IV Lactated Ringer's @ 20 mls/hr In your professional opinion, can you please clarify if the condition can be further specified? Acute Renal Failure with Acute Tubular Necrosis Acute Renal Failure with Renal Cortical Necrosis Acute Renal Failure with other specified pathological cause, please specify Acute Renal Failure with other cause, please specify Unable to determine Other, please specify MTDD
--- NOTE | 2019-10-31 13:46 | CDI ---
Documentation Clarification Form Date: 10/31/19 From: Alicia Leal Phone: If you have a question about this query, please contact Lisseth Rodgers, Starter Mechanic at [phone] between 8am and 5pm. Admit Date: Discharge Date: Patient Name: Visit Number: ATTENTION: The Clinical Documentation Specialists (CDI) and [facility] Coding Staff appreciate your assistance in clarifying documentation. Please respond to the clarification below the line at the bottom and electronically sign. The CDI & [facility] Coding staff will review the response and follow-up if needed. Please note: Queries are made part of the Legal Health Record. If you have any questions, please contact the author of this message via ITS. Dear Dr. Gray Hypotension yesterday is documented in your 10/28 progress note. Patient remains hypotensive is documented in Maude Ortega's 10/[address] Watkins's progress note on 10/27. History/Risk Factors: Acute blood loss anemia, hemorrhoid bleed, acute on chronic renal failure Clinical Indicators: low blood pressure Patients B/P: 10/25 - 99/70, 90/55; 10/26 - 88/60, 89/34, 90/56, 104/63, 92/52, 98/61, 70/40, 79/55, 91/59, 87/54, 86/61; low BP continued thru the end of the stay Labs: Hgb/Hct - 11.2/35.5 on admit, 7.9/25.6 on 10/27 (this is the lowest hgb/hct reading), WBC - 13.5, BUN/Creatinine/eGFR - 10/25 - 26/1.46/49, 10/26 - 23/1.51/47, 10/28 - 34/2.17/30, sodium - 132, 135 and 131; Treatment: Cardiology reassessed his medicines and adjusted them In your professional opinion, can you please specify the etiology of the hypotension if known? Iatrogenic Hypotension Idiopathic Hypotension Drug Induced Hypotension Postoperative Hypotension Other Condition, please specify Unable to determine MTDD
--- NOTE | 2019-11-03 17:00 | CDI ---
Documentation Clarification Form Date: 11/03/19 From: Lisseth Rodgers Phone: If you have a question about this query, please contact Lisseth Rodgers, Fiction And Nonfiction Author at [phone] between 8am and 5pm. Admit Date: 10/26/19 Discharge Date: 10/29/19 Patient Name: Cody Savage Visit Number: [id number] ATTENTION: The Clinical Documentation Specialists (CDI) and [facility] Coding Staff appreciate your assistance in clarifying documentation. Please respond to the clarification below the line at the bottom and electronically sign. The CDI & [facility] Coding staff will review the response and follow-up if needed. Please note: Queries are made part of the Legal Health Record. If you have any questions, please contact the author of this message via ITS. Dear Dr. Gray, Acute on Chronic Renal failure is documented in the cardiology consult note and 10/27 progress note and in Maude Ortega's 10/27 progress note.. History Risk factors/Other underlying illness: Chronic kidney disease, bleeding hemorrhoid, acute blood loss anemia, hypotension Clinical Indicators: Elevated creatinine Patient presents with a BUN/CR and GFR of: 26/1.46/49 Patients baseline BUN/CR and GFR on last day of admit: 34/2. Urinalysis: Blood small, leukocyte esterase large, rbc 15, wbc 11, casts 8 Treatment: IV Lactated Ringer's @ 20 mls/hr In your professional opinion, can you please clarify if the condition can be further specified? Acute Renal Failure with Acute Tubular Necrosis Acute Renal Failure with Renal Cortical Necrosis Acute Renal Failure with other specified pathological cause, please specify Acute Renal Failure with other cause, please specify Unable to determine Other, please specify MTDD
--- NOTE | 2019-11-03 17:04 | CDI ---
Documentation Clarification Form Date: 11/03/19 From: Lisseth Rodgers Phone: If you have a question about this query, please contact Lisseth Rodgers, Irrigation System Installer at [phone] between 8am and 5pm. Admit Date: 10/26/19 Discharge Date: 10/29/19 Patient Name: Cody Savage Visit Number: [id number] ATTENTION: The Clinical Documentation Specialists (CDI) and [facility] Coding Staff appreciate your assistance in clarifying documentation. Please respond to the clarification below the line at the bottom and electronically sign. The CDI & [facility] Coding staff will review the response and follow-up if needed. Please note: Queries are made part of the Legal Health Record. If you have any questions, please contact the author of this message via ITS. Dear Dr Gray, "Hypotension yesterday" is documented in your 10/28 progress note. "Patient remains hypotensive" is documented in Maude Ortega's 10/[address] in [address] Watkins's progress note on 10/27. History/Risk Factors: Acute blood loss anemia, hemorrhoid bleed, acute on chronic renal failure Clinical Indicators: low blood pressure Patients B/P: 10/25 - 99/70, 90/55; 10/26 - 88/60, 89/34, 90/56, 104/63, 92/52, 98/61, 70/40, 79/55, 91/59, 87/54, 86/61; low BP continued thru the end of the stay Labs: Hgb/Hct - 11.2/35.5 on admit, 7.9/25.6 on 10/27 (this is the lowest hgb/hct reading), WBC - 13.5, BUN/Creatinine/eGFR - 10/25 - /1.46/49, 10/26 - /1.51/47, 10/28 - 34/2.17/30, sodium - 132, 135 and 131; Treatment: Cardiology reassessed his medicines and adjusted them In your professional opinion, can you please specify the etiology of the hypotension if known? Iatrogenic Hypotension Idiopathic Hypotension Drug Induced Hypotension Postoperative Hypotension Other Condition, please specify Unable to determine MTDD
--- NOTE | 2019-11-04 23:10 | DS ---
DISCHARGE SUMMARY ADDENDUM: Please add acute on chronic renal failure with acute tubular necrosis and hypotension, multifactorial. MMODL / IJN: [id number] /
[2019-11-09] MEDS ORDERED: ERGOCALCIFEROL 50,000 UNIT CAP PO SCH (09:00)
--- NOTE | 2019-11-10 11:41 | CDI ---
Documentation Clarification Form Date: 11/10/19 From: Alicia Leal Phone: If you have a question about this query, please contact Lisseth Rodgers Boarding Specialist at [phone] between 8am and 5pm. Admit Date: 10/26/19 Discharge Date:10/29/19 Patient Name: Cody Savage Visit Number: [id number] ATTENTION: The Clinical Documentation Specialists (CDI) and [facility] Coding Staff appreciate your assistance in clarifying documentation. Please respond to the clarification below the line at the bottom and electronically sign. The CDI & [facility] Coding staff will review the response and follow-up if needed. Please note: Queries are made part of the Legal Health Record. If you have any questions, please contact the author of this message via ITS. Dear Dr. Gray Documentation states: Urine, voided gram negative bacilli is documented in Dr. Inman's 10/28 progress note. History/Risk Factors: Rectal bleed, recent hemorrhoidectomy Clinical indicators: Abnormal urinalysis and culture Abnormal UA: Blood small, Leukocyte esterase Large, RBC 15, WBC 11, casts 8 Culture: > 100,000 CFU/ML Eschericia coli Treatment: No antibiotics given Clinical significance of diagnostic testing and treatment CANNOT be assumed or coded without physician documentation of significance if any. Please clarify what abnormal laboratory signifies: Disease process, please specify Infectious process, please specify Abnormal Lab Value Unable to determine Other, please specify MTDD
--- NOTE | 2019-11-18 11:05 | CDI ---
Documentation Clarification Form Date: 11/18/19 From: Alicia Leal Phone: If you have a question about this query, please contact Lisseth Rodgers Candy Depositing Machine Operator at [phone] between 8am and 5pm. Admit Date: 10/26/19 Discharge Date:10/29/19 Patient Name: Cody Savage Visit Number: [id number] ATTENTION: The Clinical Documentation Specialists (CDI) and [facility] Coding Staff appreciate your assistance in clarifying documentation. Please respond to the clarification below the line at the bottom and electronically sign. The CDI & [facility] Coding staff will review the response and follow-up if needed. Please note: Queries are made part of the Legal Health Record. If you have any questions, please contact the author of this message via ITS. Dear Dr. Gray Documentation states: Urine, voided gram negative bacilli is documented in Dr. Inman's 10/28 progress note. History/Risk Factors: Rectal bleed, recent hemorrhoidectomy Clinical indicators: Abnormal urinalysis and culture Abnormal UA: Blood small, Leukocyte esterase Large, RBC 15, WBC 11, casts 8 Culture: > 100,000 CFU/ML Eschericia coli Treatment: No antibiotics given Clinical significance of diagnostic testing and treatment CANNOT be assumed or coded without physician documentation of significance if any. Please clarify what the abnormal laboratory signifies: Disease process, please specify Infectious process, please specify Abnormal Lab Value Unable to determine Other, please specify MTDD
--- NOTE | 2019-11-25 09:56 | CDI ---
Documentation Clarification Form Date: 11/25/19 From: Alicia Leal Phone: If you have a question about this query, please contact Lisseth Rodgers Head Piece Assembler at [phone] between 8am and 5pm. Admit Date: 10/26/19 Discharge Date:10/29/19 Patient Name: Cody Savage Visit Number: [id number] ATTENTION: The Clinical Documentation Specialists (CDI) and [facility] Coding Staff appreciate your assistance in clarifying documentation. Please respond to the clarification below the line at the bottom and electronically sign. The CDI & [facility] Coding staff will review the response and follow-up if needed. Please note: Queries are made part of the Legal Health Record. If you have any questions, please contact the author of this message via ITS. Dear Dr. Gray Thank you for signing the previous query. Please document a response before signing this query. Documentation states: Urine, voided gram negative bacilli is documented in Dr. Inman's 10/28 progress note. History/Risk Factors: Rectal bleed, recent hemorrhoidectomy Clinical indicators: Abnormal urinalysis and culture Abnormal UA: Blood small, Leukocyte esterase Large, RBC 15, WBC 11, casts 8 Culture: > 100,000 CFU/ML Eschericia coli Treatment: No antibiotics given Clinical significance of diagnostic testing and treatment CANNOT be assumed or coded without physician documentation of significance if any. Please clarify what the abnormal laboratory signifies: Disease process, please specify Infectious process, please specify Abnormal Lab Value Unable to determine Other, please specify MTDD
== END 2019-10-29 16:05 | disposition expired | DRG 347 ==
LOC: EC 14:56 → 3SCARD 16:34
PROVIDERS: ADMIT Family Medicine; ATTEND Family Medicine
PROC: 06LY3ZC Occlusion of Hemorrhoidal Plexus, Percutaneous Approach (ICD-10-PCS; principal; 2019-10-26 23:00)
PROC: 5A12012 Performance of Cardiac Output, Single, Manual (ICD-10-PCS; 2019-10-29)
PROC: 3E033XZ Introduction of Vasopressor into Peripheral Vein, Percutaneous Approach (ICD-10-PCS; 2019-10-29)
DX: K64.4 Residual hemorrhoidal skin tags (principal); N17.0 Acute kidney failure with tubular necrosis; I13.0 Hypertensive heart and chronic kidney disease with heart failure and stage 1 through stage 4 chronic kidney disease, or unspecified chronic kidney disease; I50.22 Chronic systolic (congestive) heart failure; D62 Acute posthemorrhagic anemia; I46.9 Cardiac arrest, cause unspecified; I27.20 Pulmonary hypertension, unspecified; N18.3 Chronic kidney disease, stage 3 (moderate); I95.89 Other hypotension; E78.5 Hyperlipidemia, unspecified; F43.10 Post-traumatic stress disorder, unspecified; I25.10 Atherosclerotic heart disease of native coronary artery without angina pectoris; I25.2 Old myocardial infarction; I25.5 Ischemic cardiomyopathy; Z11.59 Encounter for screening for other viral diseases; F32.9 Major depressive disorder, single episode, unspecified; F41.9 Anxiety disorder, unspecified; K21.9 Gastro-esophageal reflux disease without esophagitis; R19.7 Diarrhea, unspecified; G89.29 Other chronic pain; M54.2 Cervicalgia; M54.9 Dorsalgia, unspecified; Z79.01 Long term (current) use of anticoagulants; Z79.899 Other long term (current) drug therapy; Z87.891 Personal history of nicotine dependence; Z95.1 Presence of aortocoronary bypass graft; Z95.2 Presence of prosthetic heart valve; Z95.810 Presence of automatic (implantable) cardiac defibrillator; Z88.8 Allergy status to other drugs, medicaments and biological substances; Z90.89 Acquired absence of other organs; Z90.49 Acquired absence of other specified parts of digestive tract; Z86.73 Personal history of transient ischemic attack (TIA), and cerebral infarction without residual deficits; Z86.010 Personal history of colon polyps; Z80.8 Family history of malignant neoplasm of other organs or systems; Z82.49 Family history of ischemic heart disease and other diseases of the circulatory system; Z82.0 Family history of epilepsy and other diseases of the nervous system; Z83.49 Family history of other endocrine, nutritional and metabolic diseases
CPT/HCPCS: 36415; 80053; 81001; 83735; 85025; 85027; 85610; 85730; 86850; 86870; 86880; 86900; 86901; 86902; 87077; 87086; 87186; 96361; 96374; 99283; 99285